=== PATIENT | female | born 1950 | race Caucasian/White ===

== ENCOUNTER → 2016-12-23 | Outpatient (CLI) | payer MEDICARE, OTHER ==
[~2016-12-23] VITALS: Ht 160 cm; Wt 92.5 kg
[~2016-12-23] MED LIST: ASCO25TA PO; ASPI1TAB PO; ATEN50TA2 PO; CLAR10CA3 PO; COQ1100C PO; CURCPOW PO; ELIQ5TAB PO; ESTR625TA PO; ESTR62CR PV; EVEN1000 PO; FISH5CAP PO; FLAX1200 PO; FLON1SPR; GABA300C3 PO; HYOS0.374 PO; ICAPTAB8 PO; L-CA500C2 PO; LIDOCAINE 2% INJ 100 MG/5 ML SDV (FOR ANES.) As Ordered ONE; LUTEIN ZEAXANTHIN PO; LYCO10CA PO; MAGN250T3 PO; MODA100T13 PO; MULTCAP PO; NIAC10TAB PO; PANT40TA2 PO; POTA99TA PO; PROPOFOL 200 MG/20 ML VIAL As Ordered ONE; SELE200T20 PO; SIMV20TA2 PO; SUCR1TA PO; TOPA50TA7 PO; TORS5TAB2 PO; TRAZ50TA4 PO; TURM500C PO; VITA-171 PO; VITMTA PO; primrose oil PO; provigil PO
--- NOTE | 2016-12-23 14:03 | ROOR ---
Patient Name: Dolly Quinteros Procedure Date: 12/23/2016 1:52 PM Date of : 1950 Age: 66 Room: [facility] Gender: Female Note Status: Finalized Procedure: Upper GI endoscopy Indications: Heartburn Providers: Hermann BOUDREAUX MD Referring MD: Magali Brown NP Requesting Provider: Medicines: Monitored Anesthesia Care Complications: No immediate complications. Procedure: Pre-Anesthesia Assessment: - The heart rate, respiratory rate, oxygen saturations, blood pressure, adequacy of pulmonary ventilation, and response to care were monitored throughout the procedure. The Endoscope was introduced through the mouth, and advanced to the second part of duodenum. The upper GI endoscopy was accomplished without difficulty. The patient tolerated the procedure well. Findings: The esophagus was normal. The stomach was normal. The examined duodenum was normal. Impression: - Normal esophagus. - Normal stomach. - Normal examined duodenum. - No specimens collected. Recommendation: - Continue present medications. Hermann Boudreaux MD Hermann BOUDREAUX MD 12/23/2016 2:02:33 PM This report has been signed electronically. Number of Addenda: 0 Note Initiated On: 12/23/2016 1:52 PM Estimated Blood Loss: Estimated blood loss: none.
--- NOTE | 2016-12-23 14:21 | ROOR ---
Patient Name: Dolly Quinteros Procedure Date: 12/23/2016 1:53 PM Date of : 1950 Age: 66 Room: [facility] Gender: Female Note Status: Finalized Procedure: Colonoscopy Indications: High risk colon cancer surveillance: Personal history of colonic polyps, Last colonoscopy: December 2015, Incidental change in bowel habits noted, fecal smearing/incontinence. Providers: Hermann BOUDREAUX MD Referring MD: Magali Brown NP Requesting Provider: Medicines: Monitored Anesthesia Care Complications: No immediate complications. Procedure: Pre-Anesthesia Assessment: - The heart rate, respiratory rate, oxygen saturations, blood pressure, adequacy of pulmonary ventilation, and response to care were monitored throughout the procedure. The Colonoscope was introduced through the anus and advanced to the cecum, identified by appendiceal orifice and ileocecal valve. The colonoscopy was performed without difficulty. The patient tolerated the procedure well. The quality of the bowel preparation was good. Findings: The perianal and digital rectal examinations were normal. Pertinent negatives include no palpable rectal lesions. (Exam: Complete, Prep: Good or Excellent.) Multiple medium-mouthed diverticula were found in the sigmoid colon. There was evidence of diverticular spasm. The colon (entire examined portion) appeared normal. Small Internal Hemorrhoids. Impression: - (Exam: Complete, Prep: Good or Excellent.) - Diverticulosis in the sigmoid colon. - The entire examined colon is normal. - Small Internal Hemorrhoids. - No specimens collected. Recommendation: - Repeat colonoscopy in 5 years for surveillance based on personal history of previous adenomatous polyps. - I suspect nocturnal fecal incontinence is related to a degree of constipation/ incomplete emptying/overflow symptoms. I will start you on Linzess 290 mg daily to promote bowel emptying during the day (I would expect resolution of your nocturnal symptoms). Script was sent to your pharmacy. Hermann Boudreaux MD Hermann BOUDREAUX MD 12/23/2016 2:21:14 PM This report has been signed electronically. Number of Addenda: 0 Note Initiated On: 12/23/2016 1:53 PM Estimated Blood Loss: Estimated blood loss: none.
[2016-12-23 14:40] VITALS: BP 134/74
== END ==
LOC: M OPP 12:49
PROVIDERS: ATTEND Internal Medicine Gastroenterology
DX: R19.4 Change in bowel habit (principal); K57.30 Diverticulosis of large intestine without perforation or abscess without bleeding; K64.0 First degree hemorrhoids; R15.1 Fecal smearing; Z86.010 Personal history of colon polyps; R12 Heartburn; I10 Essential (primary) hypertension; E78.5 Hyperlipidemia, unspecified; I48.91 Unspecified atrial fibrillation; R60.9 Edema, unspecified; R06.83 Snoring; M19.90 Unspecified osteoarthritis, unspecified site; D16.6 Benign neoplasm of vertebral column; G47.30 Sleep apnea, unspecified; I27.9 Pulmonary heart disease, unspecified; F41.9 Anxiety disorder, unspecified; F32.9 Major depressive disorder, single episode, unspecified; G43.909 Migraine, unspecified, not intractable, without status migrainosus; Z88.8 Allergy status to other drugs, medicaments and biological substances; Z91.040 Latex allergy status; Z88.0 Allergy status to penicillin; Z88.2 Allergy status to sulfonamides; Z88.1 Allergy status to other antibiotic agents; Z88.5 Allergy status to narcotic agent; Z80.0 Family history of malignant neoplasm of digestive organs; Z79.01 Long term (current) use of anticoagulants; Z79.899 Other long term (current) drug therapy

== ENCOUNTER → 2017-02-13 | Outpatient (CLI) | payer MEDICARE, OTHER ==
[~2017-02-13] MED LIST changes: -LIDOCAINE 2% INJ 100 MG/5 ML SDV (FOR ANES.) As Ordered ONE; -PROPOFOL 200 MG/20 ML VIAL As Ordered ONE
[2017-02-13 17:13] LABS: MEAN CORPUSCULAR HEMOGLOBIN 30.5 pg (27.0-33.0); MEAN CORPUSCULAR HGB CONC 32.6 g/dl (32.0-36.5); MEAN CORPUSCULAR VOLUME 93.4 fl (80.0-96.0); RED CELL DISTRIBUTION WIDTH 12.2 % (11.5-14.5); WHITE BLOOD COUNT 5.6 K/mm3 (4.0-10.0)
[2017-02-13 18:03] LABS: ALBUMIN 3.8 GM/DL (3.2-5.2); ALBUMIN/GLOBULIN RATIO 1.46 (1.00-1.93); ALKALINE PHOSPHATASE 60 U/L (45-117); ALT/SGPT 20 U/L (12-78); ANION GAP 7 MEQ/L (8-16); AST/SGOT 16 U/L (15-37); BILIRUBIN,TOTAL 0.7 MG/DL (0.2-1.0); BLOOD UREA NITROGEN 19 MG/DL (7-18); CALCIUM LEVEL 9.5 MG/DL (8.8-10.2); CARBON DIOXIDE LEVEL 27 MEQ/L (21-32); CHLORIDE LEVEL 109 MEQ/L (98-107); CHOLESTEROL LEVEL 180 MG/DL (<200); CREATININE FOR GFR 0.94 MG/DL (0.55-1.02); GLOMERULAR FILTRATION RATE > 60.0 (>45); GLUCOSE, FASTING 81 MG/DL (80-110); POTASSIUM SERUM 4.1 MEQ/L (3.5-5.1); SODIUM LEVEL 143 MEQ/L (136-145); TOTAL PROTEIN 6.4 GM/DL (6.4-8.2); TRIGLYCERIDES LEVEL 176 MG/DL (<150)
[2017-02-15 10:33] LABS: VITAMIN B12 LEVEL 450 PG/ML (247-911)
== END ==
LOC: M WUC 12:59
PROVIDERS: ATTEND Nurse Practitioner Adult Health
DX: Z00.00 Encounter for general adult medical examination without abnormal findings (principal); E55.9 Vitamin D deficiency, unspecified; E78.5 Hyperlipidemia, unspecified

== ENCOUNTER → 2017-07-27 | Outpatient (CLI) | payer MEDICARE, OTHER ==
[~2017-07-27] MED LIST changes: +GABA-282 PO; -GABA300C3 PO; -TOPA50TA7 PO; +TOPA50TA8 PO; +TRAZ50TA11 PO; -TRAZ50TA4 PO
--- NOTE | 2017-07-27 09:50 | REPMRS ---
Patient History The patient states she had a clinical breast exam in 07/2017. Patient is postmenopausal and has history of high-risk lesion on a previous biopsy at age 63. Family history of colorectal cancer in paternal aunt at age 50 or over and prostate cancer in brother at age 50 or over. Taking estrogen for 14 years. Digital Woman Screen Mammo: July 27, 2017 - Exam #: [id number] Bilateral CC and MLO view(s) were taken. Technologist: Blanca Garza, Technologist Prior study comparison: July 18, 2016, digital woman screen mammo performed at [facility] [employer] [facility]. July 16, 2015, digital woman screen mammo performed at [facility]. July 15, 2014, digital woman screen mammo performed at [facility] [employer] [facility]. FINDINGS: The breast tissue is almost entirely fat. There has been no change in the appearance of the mammogram from the prior studies. There is no interval development of dominant mass, architectural distortion, or clustered microcalcification typical of malignancy. ASSESSMENT: BI-RADS/ACR category 1 mammogram. Negative. Recommendation Routine screening mammogram of both breasts in 1 year (for women over age 40). This mammogram was interpreted with the aid of an FDA-approved computer-aided dectection system. Electronically Signed By: Milad Bell MD 07/27/17 0979
== END ==
LOC: M WHC 08:55
PROVIDERS: ATTEND Nurse Practitioner Women's Health
DX: Z01.419 Encounter for gynecological examination (general) (routine) without abnormal findings (principal); Z12.31 Encounter for screening mammogram for malignant neoplasm of breast; E65 Localized adiposity; Z78.0 Asymptomatic menopausal state; Z79.890 Hormone replacement therapy; Z90.710 Acquired absence of both cervix and uterus; Z90.722 Acquired absence of ovaries, bilateral; N80.9 Endometriosis, unspecified; N95.2 Postmenopausal atrophic vaginitis
CPT/HCPCS: G0101; G0202

== ENCOUNTER → 2017-10-11 | Outpatient (CLI) | payer MEDICARE, OTHER ==
[2017-10-11 13:44] LABS: MEAN CORPUSCULAR HEMOGLOBIN 30.1 pg (27.0-33.0); MEAN CORPUSCULAR HGB CONC 32.3 g/dl (32.0-36.5); MEAN CORPUSCULAR VOLUME 93.2 fl (80.0-96.0); PLATELET COUNT, AUTOMATED 199 10^3/uL (150-450); RED CELL DISTRIBUTION WIDTH 12.3 % (11.5-14.5); WHITE BLOOD COUNT 5.7 10^3/uL (4.0-10.0)
[2017-10-11 13:47] LABS: ALBUMIN 3.8 GM/DL (3.2-5.2); ALBUMIN/GLOBULIN RATIO 1.52 (1.00-1.93); ALKALINE PHOSPHATASE 57 U/L (45-117); ALT/SGPT 27 U/L (12-78); ANION GAP 7 MEQ/L (8-16); AST/SGOT 18 U/L (7-37); BILIRUBIN,TOTAL 0.8 MG/DL (0.2-1.0); BLOOD UREA NITROGEN 17 MG/DL (7-18); CALCIUM LEVEL 9.3 MG/DL (8.8-10.2); CARBON DIOXIDE LEVEL 29 MEQ/L (21-32); CHLORIDE LEVEL 106 MEQ/L (98-107); CHOLESTEROL LEVEL 210 MG/DL (<200); GLOMERULAR FILTRATION RATE > 60.0 (>45); GLUCOSE, FASTING 92 MG/DL (80-110); POTASSIUM SERUM 4.2 MEQ/L (3.5-5.1); SODIUM LEVEL 142 MEQ/L (136-145); TOTAL PROTEIN 6.3 GM/DL (6.4-8.2); TRIGLYCERIDES LEVEL 167 MG/DL (<150)
== END ==
LOC: M WUC 09:15
PROVIDERS: ATTEND Nurse Practitioner Adult Health
DX: I48.91 Unspecified atrial fibrillation (principal); I10 Essential (primary) hypertension; E78.5 Hyperlipidemia, unspecified; E55.9 Vitamin D deficiency, unspecified

== ENCOUNTER → 2017-11-30 | Outpatient (CLI) | payer MEDICARE, OTHER | LOC: M RAD 10:29 | DX: I87.2 Venous insufficiency (chronic) (peripheral) (principal) | CPT/HCPCS: 93970 ==

== ENCOUNTER → 2018-02-02 | Outpatient (CLI) | payer MEDICARE, OTHER ==
[2018-02-02 12:21] LABS: HEMATOCRIT 44.2 % (36.0-47.0); HEMOGLOBIN 14.4 g/dl (12.0-16.0); MEAN CORPUSCULAR HEMOGLOBIN 30.8 pg (27.0-33.0); MEAN CORPUSCULAR HGB CONC 32.6 g/dl (32.0-36.5); MEAN CORPUSCULAR VOLUME 94.4 fl (80.0-96.0); PLATELET COUNT, AUTOMATED 172 10^3/uL (150-450); RED BLOOD COUNT 4.68 10^6/uL (4.00-5.40); RED CELL DISTRIBUTION WIDTH 12.7 % (11.5-14.5); WHITE BLOOD COUNT 5.9 10^3/uL (4.0-10.0)
[2018-02-02 12:40] LABS: ALBUMIN 3.6 GM/DL (3.2-5.2); ALBUMIN/GLOBULIN RATIO 1.44 (1.00-1.93); ALKALINE PHOSPHATASE 57 U/L (45-117); ALT/SGPT 26 U/L (12-78); ANION GAP 6 MEQ/L (8-16); AST/SGOT 16 U/L (7-37); BILIRUBIN,TOTAL 0.7 MG/DL (0.2-1.0); BLOOD UREA NITROGEN 19 MG/DL (7-18); CALCIUM LEVEL 9.3 MG/DL (8.8-10.2); CARBON DIOXIDE LEVEL 30 MEQ/L (21-32); CHLORIDE LEVEL 106 MEQ/L (98-107); CHOLESTEROL LEVEL 196 MG/DL (<200); CHOLESTEROL RISK RATIO 5.764 (<5); CREATININE FOR GFR 0.87 MG/DL (0.55-1.30); GLOMERULAR FILTRATION RATE > 60.0 (>45); GLUCOSE, FASTING 95 MG/DL (70-100); HDL CHOLESTEROL 34 MG/DL (>40); LDL CHOLESTEROL 112.2 MG/DL (<100); NON-HDL-C 162 MG/DL; POTASSIUM SERUM 4.4 MEQ/L (3.5-5.1); SODIUM LEVEL 142 MEQ/L (136-145); TOTAL 25(OH) VITAMIN D 47.8 NG/ML (30.0-100.0); TOTAL PROTEIN 6.1 GM/DL (6.4-8.2); TRIGLYCERIDES LEVEL 249 MG/DL (<150)
== END ==
LOC: M WUC 08:33
DX: I48.91 Unspecified atrial fibrillation (principal); I10 Essential (primary) hypertension; E78.5 Hyperlipidemia, unspecified; E55.9 Vitamin D deficiency, unspecified
CPT/HCPCS: 80053

== ENCOUNTER → 2018-04-18 | Outpatient (REF) | payer MEDICARE, OTHER | LOC: M LAB REF 09:25 | DX: R35.0 Frequency of micturition (principal) | CPT/HCPCS: 87088; 87186 ==

== ENCOUNTER → 2018-07-30 | Outpatient (CLI) | payer MEDICARE, OTHER | LOC: M WHC 09:24 | DX: Z01.419 Encounter for gynecological examination (general) (routine) without abnormal findings (principal); Z12.31 Encounter for screening mammogram for malignant neoplasm of breast; Z78.0 Asymptomatic menopausal state; Z92.23 Personal history of estrogen therapy | CPT/HCPCS: 77067 ==

== ENCOUNTER → 2018-10-15 | Outpatient (CLI) | payer MEDICARE, OTHER ==
[2018-10-15 12:43] LABS: BASO % 0.6 % (0.0-1.0); EOS # 0.1 10^3/uL (0.0-0.50); EOS % 2.7 % (0.0-3.0); HEMATOCRIT 44.1 % (36.0-47.0); HEMOGLOBIN 14.5 g/dl (12.0-15.5); IMMATURE GRANULOCYTE % 0.6 % (0-3.0); LYMPH # 1.6 10^3/uL (1.5-4.5); LYMPH % 31.6 % (24.0-44.0); MEAN CORPUSCULAR HEMOGLOBIN 30.5 pg (27.0-33.0); MEAN CORPUSCULAR HGB CONC 32.9 g/dl (32.0-36.5); MEAN CORPUSCULAR VOLUME 92.6 fl (80.0-96.0); MONO # 0.5 10^3/uL (0.0-0.8); MONO % 10.4 % (0.0-5.0); NEUTROPHILS # 2.8 10^3/uL (1.8-7.7); NEUTROPHILS % 54.1 % (36.0-66.0); PLATELET COUNT, AUTOMATED 192 10^3/uL (150-450); RED BLOOD COUNT 4.76 10^6/uL (4.00-5.40); RED CELL DISTRIBUTION WIDTH 12.3 % (11.5-14.5); WHITE BLOOD COUNT 5.2 10^3/uL (4.0-10.0)
[2018-10-15 12:50] LABS: ALBUMIN 3.7 GM/DL (3.2-5.2); ALBUMIN/GLOBULIN RATIO 1.42 (1.00-1.93); ALKALINE PHOSPHATASE 55 U/L (45-117); ALT/SGPT 22 U/L (12-78); ANION GAP 5 MEQ/L (8-16); AST/SGOT 16 U/L (7-37); BILIRUBIN,TOTAL 0.6 MG/DL (0.2-1.0); BLOOD UREA NITROGEN 23 MG/DL (7-18); CALCIUM LEVEL 9.7 MG/DL (8.8-10.2); CARBON DIOXIDE LEVEL 29 MEQ/L (21-32); CHLORIDE LEVEL 104 MEQ/L (98-107); CHOLESTEROL LEVEL 217 MG/DL (<200); CHOLESTEROL RISK RATIO 6.027 (<5); CREATININE FOR GFR 0.99 MG/DL (0.55-1.30); GLOMERULAR FILTRATION RATE 59.2 (>45); GLUCOSE, FASTING 94 MG/DL (70-100); HDL CHOLESTEROL 36 MG/DL (>40); LDL CHOLESTEROL 125 MG/DL (<100); NON-HDL-C 181 MG/DL; POTASSIUM SERUM 4.4 MEQ/L (3.5-5.1); SODIUM LEVEL 138 MEQ/L (136-145); TOTAL PROTEIN 6.3 GM/DL (6.4-8.2); TRIGLYCERIDES LEVEL 281 MG/DL (<150)
== END ==
LOC: M WUC 08:43
DX: I10 Essential (primary) hypertension (principal)
CPT/HCPCS: 80053

== ENCOUNTER → 2019-02-27 | Outpatient (REF) | payer MEDICARE, OTHER ==
[~2019-02-27] MED LIST changes: -ASCO25TA PO; -ASPI1TAB PO; +ASPI81TA26 PO; -GABA-282 PO; +GABA-843 PO; -PANT40TA2 PO; +PANT40TA3 PO; +TRAZ-160 PO; -TRAZ50TA11 PO; +VITA1TAB23 PO
[2019-02-27 10:39] LABS: HEMATOCRIT 48.6 % (36.0-47.0); HEMOGLOBIN 15.5 g/dl (12.0-15.5); MEAN CORPUSCULAR HEMOGLOBIN 30.3 pg (27.0-33.0); MEAN CORPUSCULAR HGB CONC 31.9 g/dl (32.0-36.5); MEAN CORPUSCULAR VOLUME 95.1 fl (80.0-96.0); PLATELET COUNT, AUTOMATED 213 10^3/uL (150-450); RED BLOOD COUNT 5.11 10^6/uL (4.00-5.40); WHITE BLOOD COUNT 7.2 10^3/uL (4.0-10.0)
[2019-02-27 11:02] LABS: HEMOGLOBIN A1c 5.7 %
[2019-02-27 11:05] LABS: ALBUMIN 4.3 GM/DL (3.2-5.2); BILIRUBIN,TOTAL 0.8 MG/DL (0.2-1.0); CALCIUM LEVEL 9.9 MG/DL (8.8-10.2); CHOLESTEROL RISK RATIO 5.177 (<5); GLOMERULAR FILTRATION RATE 58.5 (>45); POTASSIUM SERUM 4.4 MEQ/L (3.5-5.1)
[2019-02-27 11:10] LABS: TOTAL 25(OH) VITAMIN D 44.8 NG/ML (30.0-100.0)
== END ==
LOC: M SFHCPLAZ 08:41
PROVIDERS: ATTEND Nurse Practitioner Adult Health
DX: Z00.00 Encounter for general adult medical examination without abnormal findings (principal); E78.5 Hyperlipidemia, unspecified; I48.91 Unspecified atrial fibrillation; E55.9 Vitamin D deficiency, unspecified

== ENCOUNTER → 2019-04-01 | Outpatient (REF) | payer MEDICARE, OTHER ==
[~2019-04-01] MED LIST changes: +PEGPOW; +PRAV40TA2; +TRAZ-163; +VITAD1000T PO
== END ==
LOC: M LAB REF 16:00
PROVIDERS: ATTEND Nurse Practitioner Family
DX: R21 Rash and other nonspecific skin eruption (principal); L08.9 Local infection of the skin and subcutaneous tissue, unspecified

== ENCOUNTER 2019-04-09 17:33 | Emergency (ER) | payer MEDICARE, OTHER ==
[~2019-04-09] VITALS: Ht 160 cm; Wt 96.5 kg
[~2019-04-09 17:33] MED LIST changes: -PEGPOW; -PRAV40TA2; -TRAZ-163; -VITAD1000T PO
--- NOTE | 2019-04-09 18:24 | REP ---
Chest two views HISTORY: Chest pain Comparison: 01/30/2016 The lungs are clear. The heart is normal in size. The pulmonary vasculature is normal in appearance. The bony structure is intact. IMPRESSION: No acute disease. Electronically Signed by Richard Garcia MD 04/09/2019 06:15 P
[2019-04-09 18:45] LABS: BASO % 0.6 % (0.0-1.0); EOS # 0.2 10^3/uL (0.0-0.50); EOS % 2.4 % (0.0-3.0); HEMATOCRIT 42.5 % (36.0-47.0); HEMOGLOBIN 14.1 g/dl (12.0-15.5); LYMPH % 28.8 % (24.0-44.0); MEAN CORPUSCULAR HEMOGLOBIN 31.3 pg (27.0-33.0); MEAN CORPUSCULAR HGB CONC 33.2 g/dl (32.0-36.5); MEAN CORPUSCULAR VOLUME 94.2 fl (80.0-96.0); MONO # 0.6 10^3/uL (0.0-0.8); MONO % 8.5 % (0.0-5.0); NEUTROPHILS % 59.3 % (36.0-66.0); PLATELET COUNT, AUTOMATED 192 10^3/uL (150-450); RED BLOOD COUNT 4.51 10^6/uL (4.00-5.40); WHITE BLOOD COUNT 6.8 10^3/uL (4.0-10.0)
[2019-04-09] MEDS ORDERED: VITAD1000T PO (18:58)
[2019-04-09] MEDS ORDERED: TRAZ-163 (18:58)
[2019-04-09] MEDS ORDERED: PRAV40TA2 (18:58)
[2019-04-09] MEDS ORDERED: CLAR10CA3 PO (18:58)
[2019-04-09] MEDS ORDERED: ESTR625TA PO (18:58)
[2019-04-09] MEDS ORDERED: PEGPOW (18:58)
[2019-04-09 19:13] LABS: ALBUMIN 3.5 GM/DL (3.2-5.2); ALT/SGPT 25 U/L (12-78); BILIRUBIN,DIRECT 0.1 MG/DL (0.0-0.2); BILIRUBIN,TOTAL 0.6 MG/DL (0.2-1.0); BLOOD UREA NITROGEN 23 MG/DL (7-18); CALCIUM LEVEL 9.3 MG/DL (8.8-10.2); CARBON DIOXIDE LEVEL 25 MEQ/L (21-32); CHLORIDE LEVEL 108 MEQ/L (98-107); CPK CREATINE PHOSPHOKINASE 120 U/L (26-192); CREATININE FOR GFR 1.06 MG/DL (0.55-1.30); FREE T4 0.93 NG/DL (0.76-1.46); GLOMERULAR FILTRATION RATE 54.7 (>45); GLUCOSE, FASTING 98 MG/DL (70-100); LIPASE 106 U/L (73-393); MB/CK RELATIVE INDEX 2.58 (< OR =4); POTASSIUM SERUM 4.2 MEQ/L (3.5-5.1); SODIUM LEVEL 142 MEQ/L (136-145); TROPONIN I < 0.02 NG/ML (< 0.10)
[2019-04-09 19:14] LABS: INR 0.95; PROTHROMBIN TIME 12.8 SECONDS (12.1-14.4)
[2019-04-09 19:15] LABS: PARTIAL THROMBOPLASTIN TIME 34.3 SECONDS (25.4-37.6)
--- NOTE | 2019-04-09 20:18 | ECGEPIP ---
[facility] - ED Test Date: 2019-04-09 Pat Name: GALILEA DAWSON Department: Room: - Gender: Female Mat Gauger: CT : 1950 Requested By: HOLLY Han Order Number: [id number] Reading MD: Raul Rider Measurements Intervals [place] Rate: 64 P: 36 [place]: 171 QRS: 30 QRSD: 86 T: 54 QT: 366 QTc: 379 Interpretive Statements SINUS RHYTHM WITH SINUS ARRHYTHMIA NONSPECIFIC T-WAVE ABNORMALITY SIMILAR TO 01/30/16 Electronically Signed on 04-09-2019 20:18 EDT by Napoleon Rider
[2019-04-09 21:36] LABS: CPK CREATINE PHOSPHOKINASE 120 U/L (26-192); MB/CK RELATIVE INDEX 2.58 (< OR =4); TROPONIN I < 0.02 NG/ML (< 0.10)
[2019-04-09 21:49] VITALS: BP 124/60
--- NOTE | 2019-04-10 06:14 | ECGEPIP ---
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
== END 2019-04-09 22:10 | disposition home or self-care (01) ==
LOC: M ED 17:33
DX: R07.89 Other chest pain (principal); I49.8 Other specified cardiac arrhythmias; R94.31 Abnormal electrocardiogram [ECG] [EKG]; K21.9 Gastro-esophageal reflux disease without esophagitis; Z79.899 Other long term (current) drug therapy; Z88.0 Allergy status to penicillin; Z88.1 Allergy status to other antibiotic agents; Z88.2 Allergy status to sulfonamides; Z88.5 Allergy status to narcotic agent; Z88.8 Allergy status to other drugs, medicaments and biological substances

== ENCOUNTER → 2019-05-09 | Outpatient (CLI) | payer MEDICARE, OTHER ==
[~2019-05-09] MED LIST changes: +E-Z-GAS II EFFERVESCENT PACKET (SODIUM BICARB./CITRIC ACID/SIMETHICONE) As Ordered ONE; +E-Z-HD 98% w/w 340GM SUSP BTL As Ordered ONE; +E-Z-PAQUE 96% w/w SUSP 176GM BTL As Ordered ONE; +PEGPOW; +PRAV40TA2; -TRAZ-160 PO; +TRAZ-163; +TRAZ-252 PO; +VITAD1000T PO
--- NOTE | 2019-05-11 11:54 | REP ---
Upper GI Air Contrast with SBFT The procedure was performed by Christiana Magallon [facility], under the the direct supervision of Dr. Camacho. The images were reviewed with Dr. Camacho. The stoner out film shows no organomegaly or pathological masses. The intestinal gas pattern appears normal. Surgical clips are visualized from previous surgery. Liquid barium and gas producing crystals were given in the erect position as well as liquid barium in the prone position in order to perform a double contrast upper GI examination. The oral and pharyngeal stages of deglutition demonstrated flash penetration without aspiration. Esophageal transport is efficient and there is no esophagitis, stricture, or mucosal ring noted. There is a hiatal hernia. Gastroesophageal reflux was not observed throughout the course of the exam. The stomach saenz are normally outlined. The rugal folds are smooth and regular. There is no gastritis, neoplasm, or ulcer disease noted. The duodenal saenz are normally outlined. The mucosal folds are smooth and regular. There is no duodenitis, peptic ulcer disease, or neoplasm noted. The visualized portion of the proximal small bowel appears normal in course and caliber. The barium column was followed through the small bowel to the terminal ileum. Small bowel transit time was approximately 80 minutes. During fluoroscopy gentle palpation shows all loops are freely mobile and pliable. There are no fixed or angulated loops. The small bowel mucosal pattern is normal in course and caliber. There is no transition to suggest a partial small-bowel obstruction. Spot filming of the terminal ileum shows it to be unremarkable. Impression: 1. Laryngeal flash penetration without aspiration. 2. Hiatal hernia. 3.4 minutes of fluoroscopy time was utilized for this procedure. Some fluoroscopic images are performed with last image hold technology. These images require no additional radiation. Reviewed by TJ Solo 05/10/2019 12:54 P Electronically Signed by Rufino Camacho MD 05/11/2019 11:46 A
== END ==
LOC: M RAD 09:27
PROVIDERS: ATTEND Physician Assistant Medical
DX: K44.9 Diaphragmatic hernia without obstruction or gangrene (principal); R10.10 Upper abdominal pain, unspecified; R12 Heartburn; R19.8 Other specified symptoms and signs involving the digestive system and abdomen; Z90.49 Acquired absence of other specified parts of digestive tract

== ENCOUNTER → 2019-07-24 | Outpatient (CLI) | payer MEDICARE, OTHER ==
[~2019-07-24] MED LIST changes: -E-Z-GAS II EFFERVESCENT PACKET (SODIUM BICARB./CITRIC ACID/SIMETHICONE) As Ordered ONE; -E-Z-HD 98% w/w 340GM SUSP BTL As Ordered ONE; -E-Z-PAQUE 96% w/w SUSP 176GM BTL As Ordered ONE
--- NOTE | 2019-07-24 10:39 | REPMRS ---
Patient History The patient states she had a clinical breast exam in 07/2019. Patient is postmenopausal and has history of high-risk lesion on a previous biopsy at age 63. Family history of prostate cancer at age 50 or over in brother, colorectal cancer at age 50 or over in paternal aunt. Took estrogen for 25 years. 3D TOMOSYNTHESIS WAS PERFORMED. The [facility] lifetime risk for breast cancer is 3.6%. Digital Woman Screen Mammo: July 24, 2019 - Exam #: [id number] Bilateral CC and MLO view(s) were taken. Technologist: Keshia Estrada Technologist Prior study comparison: July 30, 2018, bilateral digital woman screen mammo performed at [facility]. July 27, 2017, digital woman screen mammo performed at [facility]. FINDINGS: There are scattered fibroglandular densities. There has been no change in the appearance of the mammogram from the prior studies. There is a mild amount of residual fibroglandular tissue which is fairly symmetric. There is no interval development of dominant mass, architectural distortion, or clustered microcalcification suggestive of malignancy. Assessment: BI-RADS/ACR category 1 mammogram. Negative Mammogram. Recommendation Routine screening mammogram in 1 year (for women over age 40). This mammogram was interpreted with the aid of an FDA-approved computer-aided dectection system. Electronically Signed By: Rufino Spence MD 07/24/19 1038
== END ==
LOC: M WHC 09:07
PROVIDERS: ATTEND Nurse Practitioner Women's Health
DX: Z12.31 Encounter for screening mammogram for malignant neoplasm of breast (principal); Z78.0 Asymptomatic menopausal state; Z80.42 Family history of malignant neoplasm of prostate; Z92.23 Personal history of estrogen therapy
CPT/HCPCS: 77063; 77067; G0463

== ENCOUNTER → 2019-09-02 | Outpatient (REF) | payer MEDICARE, OTHER ==
[~2019-09-02] MED LIST changes: +CHOL100029 PO; -VITAD1000T PO
[2019-09-02 13:39] LABS: ALBUMIN 3.8 GM/DL (3.2-5.2); ALT/SGPT 20 U/L (12-78); BILIRUBIN,TOTAL 0.7 MG/DL (0.2-1.0); BLOOD UREA NITROGEN 19 MG/DL (7-18); CALCIUM LEVEL 9.7 MG/DL (8.8-10.2); CARBON DIOXIDE LEVEL 27 MEQ/L (21-32); CHLORIDE LEVEL 108 MEQ/L (98-107); CHOLESTEROL LEVEL 167 MG/DL (<200); CHOLESTEROL RISK RATIO 4.073 (<5); GLOMERULAR FILTRATION RATE > 60.0 (>45); GLUCOSE, FASTING 87 MG/DL (70-100); HDL CHOLESTEROL 41 MG/DL (>40); LDL CHOLESTEROL 81 MG/DL (<100); NON-HDL-C 126 MG/DL; POTASSIUM SERUM 4.2 MEQ/L (3.5-5.1); SODIUM LEVEL 140 MEQ/L (136-145); TOTAL 25(OH) VITAMIN D 47.2 NG/ML (30.0-100.0); TOTAL PROTEIN 6.5 GM/DL (6.4-8.2); TRIGLYCERIDES LEVEL 225 MG/DL (<150)
== END ==
LOC: M SFHCPLAZ 10:47
PROVIDERS: ATTEND Nurse Practitioner Adult Health
DX: I10 Essential (primary) hypertension (principal); E55.9 Vitamin D deficiency, unspecified; E78.5 Hyperlipidemia, unspecified; I48.91 Unspecified atrial fibrillation
CPT/HCPCS: 36415; 80053; 80061; 82306; 83735; 84443; G0463

== ENCOUNTER → 2019-10-11 | Outpatient (REF) | payer MEDICARE, OTHER ==
[2019-10-11 16:15] LABS: HEMATOCRIT 42.9 % (36.0-47.0); HEMOGLOBIN 13.8 g/dl (12.0-15.5); MEAN CORPUSCULAR HEMOGLOBIN 30.8 pg (27.0-33.0); MEAN CORPUSCULAR HGB CONC 32.2 g/dl (32.0-36.5); MEAN CORPUSCULAR VOLUME 95.8 fl (80.0-96.0); PLATELET COUNT, AUTOMATED 204 10^3/uL (150-450); RED BLOOD COUNT 4.48 10^6/uL (4.00-5.40); WHITE BLOOD COUNT 6.1 10^3/uL (4.0-10.0)
== END ==
LOC: M LABDRAW1 15:41
PROVIDERS: ATTEND Physician Assistant Medical
DX: K62.5 Hemorrhage of anus and rectum (principal)

== ENCOUNTER → 2019-12-30 | Outpatient (CLI) | payer MEDICARE, OTHER ==
[~2019-12-30] MED LIST changes: +METH4PACK PO; +ONDA4TAB6 PO; +ROSU20TA5 PO; -SIMV20TA2 PO; +SIMV20TA22 PO; -TRAZ-163; +TRAZ-257
[2019-12-30 14:44] LABS: BLOOD UREA NITROGEN 20 MG/DL (7-18); CREATININE FOR GFR 0.94 MG/DL (0.55-1.30); GLOMERULAR FILTRATION RATE > 60.0 (>39)
== END ==
LOC: M WUC 10:34
PROVIDERS: ATTEND Physician Assistant Medical
DX: R10.10 Upper abdominal pain, unspecified (principal)

== ENCOUNTER → 2020-01-27 | Outpatient (CLI) | payer MEDICARE, OTHER ==
[2020-01-27 17:06] LABS: BLOOD UREA NITROGEN 17 MG/DL (7-18); GLOMERULAR FILTRATION RATE > 60.0 (>39)
== END ==
LOC: M WUC 10:26
PROVIDERS: ATTEND Physician Assistant Medical
DX: R10.10 Upper abdominal pain, unspecified (principal)

== ENCOUNTER → 2020-06-04 | Outpatient (REF) | payer MEDICARE, OTHER ==
[2020-06-04 16:31] LABS: CALCIUM LEVEL 9.7 MG/DL (8.8-10.2); CREATININE FOR GFR 1.07 MG/DL (0.55-1.30); POTASSIUM SERUM 4.1 MEQ/L (3.5-5.1)
[2020-06-04 16:32] LABS: ALBUMIN 3.9 GM/DL (3.2-5.2); CHOLESTEROL RISK RATIO 3.756 (<5); THYROID STIMULATING HORMONE 1.24 uIU/ML (0.358-3.740); TOTAL PROTEIN 6.8 GM/DL (6.4-8.2)
[2020-06-04 16:45] LABS: TOTAL 25(OH) VITAMIN D 33.7 NG/ML (30.0-100.0)
== END ==
LOC: M SFHCPLAZ 14:16
PROVIDERS: ATTEND Nurse Practitioner Adult Health
DX: I10 Essential (primary) hypertension (principal); E78.5 Hyperlipidemia, unspecified; E55.9 Vitamin D deficiency, unspecified

== ENCOUNTER → 2020-07-16 | Outpatient (CLI) | payer MEDICARE, OTHER ==
[~2020-07-16] MED LIST changes: +ASCO250T20 PO; +CO Q200C10 PO; +D3 S1CAP PO; +FLON1SPR NARES; +HM P99TA PO; +ICAPTAB PO; +L-CA500T PO; +LYCO10CA3 PO; +MODA200T15 PO; -NIAC10TAB PO; +NIAC1TAB14 PO; +PANT40TA29 PO; -PANT40TA3 PO; +PRAV40TA2 PO; +QC A650T3 PO; +RA N1TAB PO; +REST0.05 OU; +SELE200T10 PO; +SENITAB3 PO; -TRAZ-257; +TRAZ-257 PO; -VITA1TAB23 PO
--- NOTE | 2020-08-04 17:41 | REP ---
DUPLEX EXTREMITY VENOUS ULTRASOUND WITH DOPPLER HISTORY: Venous insufficiency, reflux study. FINDINGS: There is no evidence of deep venous thrombosis on the right. The deep veins are anechoic and fully compressible. Color flow and pulsed Doppler interrogation are unremarkable on the right. On the left, there is no evidence of deep vein thrombosis. There is a short segment of occlusive thrombus in the proximal greater saphenous vein located 14 cm distal to the junction with the common femoral vein. 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 No evidence of deep vein thrombosis. REFLUX FINDINGS: The right lower extremity reflux is seen in the common femoral vein extending distally to the mid femoral vein and at the mid greater saphenous vein. At the mid greater saphenous vein reflux duration is 3.35 seconds. Reflux in the common femoral vein was seen with standing. The greater saphenous vein dimensions are 4.8, 4.3, and 4.2 mm respectively at the proximal saphenofemoral junction, mid thigh level, and knee level. The left saphenous vein diameter is 3.3 mm. On the left, reflux was seen only at the anterior accessory vein proximal to distal 3-5 seconds in duration. Small superficial collaterals are seen. As reported above, there is thrombus in the proximal greater saphenous vein, which was previously ablated. Lesser saphenous vein is 3.0 mm in diameter. IMPRESSION: Lower extremity venous reflux as above. MTDD
== END ==
LOC: M RAD 12:42
PROVIDERS: ATTEND Physician Assistant
DX: I87.2 Venous insufficiency (chronic) (peripheral) (principal)

== ENCOUNTER → 2020-07-28 | Outpatient (CLI) | payer MEDICARE, OTHER ==
--- NOTE | 2020-07-28 11:50 | REPMRS ---
Patient History The patient states she had a clinical breast exam in July 2020. Patient is postmenopausal. Family history of prostate cancer at age 50 or over in brother, colorectal cancer at age 50 or over in paternal aunt. Took estrogen for 25 years. 3D TOMOSYNTHESIS WAS PERFORMED. The [facility] lifetime risk for breast cancer is 3.4%. VOLPARA DENSITY A. Digital Woman Screen Mammo: July 28, 2020 - Exam #: [id number] Bilateral CC and MLO view(s) were taken. Technologist: Bev Michael, Technologist Prior study comparison: July 24, 2019, bilateral digital woman screen mammo performed at [facility]. July 30, 2018, bilateral digital woman screen mammo performed at [facility]. FINDINGS: There are scattered fibroglandular densities. There has been no change in the appearance of the mammogram from the prior studies. There is a mild amount of residual fibroglandular tissue which is fairly symmetric. There is no interval development of dominant mass, architectural distortion, or clustered microcalcification suggestive of malignancy. Assessment: BI-RADS/ACR category 1 mammogram. Negative Mammogram. Recommendation Routine screening mammogram in 1 year (for women over age 40). This mammogram was interpreted with the aid of an FDA-approved computer-aided dectection system. Electronically Signed By: Rufino Spence MD 07/28/20 [id number]
== END ==
LOC: M WHC 09:06
PROVIDERS: ATTEND Nurse Practitioner Women's Health
DX: Z12.31 Encounter for screening mammogram for malignant neoplasm of breast (principal); Z78.0 Asymptomatic menopausal state; Z80.42 Family history of malignant neoplasm of prostate; Z92.23 Personal history of estrogen therapy

== ENCOUNTER → 2020-08-05 | Outpatient (CLI) | payer MEDICARE, OTHER | LOC: M LABSMTC 11:11 | PROVIDERS: ATTEND Anesthesiology | DX: Z01.812 Encounter for preprocedural laboratory examination (principal); Z20.828 Contact with and (suspected) exposure to other viral communicable diseases | CPT/HCPCS: C9803; U0003 ==

== ENCOUNTER 2020-08-10 11:05 | Day surgery (SDC) | payer MEDICARE, OTHER ==
[~2020-08-10] VITALS: Ht 160 cm; Wt 95.6 kg
[~2020-08-10 11:05] MED LIST changes: +LIDOCAINE 2% 100MG/5ML SDV (FOR ANES.) As Ordered ONE; +NS 1,000 ML IV ONE; +propofoL 200 MG/20 ML VIAL As Ordered ONE
--- NOTE | 2020-08-10 12:44 | ROOR ---
Patient Name: Dolly Quinteros Procedure Date: 08/10/2020 12:27 PM Date of : 1950 Age: 69 Room: [facility] Gender: Female Note Status: Finalized Procedure: Upper GI endoscopy Indications: Abdominal pain, Heartburn Providers: Hermann BOUDREAUX MD Referring MD: Magali JACKSON NP Requesting Provider: Medicines: Monitored Anesthesia Care Complications: No immediate complications. Procedure: Pre-Anesthesia Assessment: - The heart rate, respiratory rate, oxygen saturations, blood pressure, adequacy of pulmonary ventilation, and response to care were monitored throughout the procedure. The Endoscope was introduced through the mouth, and advanced to the second part of duodenum. The upper GI endoscopy was accomplished without difficulty. The patient tolerated the procedure well. Findings: The examined esophagus was normal. Localized mild inflammation characterized by erythema was found in the gastric antrum. Biopsies were taken with a cold forceps for histology. The exam of the stomach was otherwise normal. The examined duodenum was normal. Impression: - Normal esophagus. - Mucosal changes suspicious for bile mild gastritis. Biopsied. - Normal examined duodenum. Recommendation: - Use sucralfate tablets 1 gram PO BID. - (the script was sent to your pharmacy on file) Hermann Boudreaux MD Hermann BOUDREAUX MD 08/10/2020 12:43:50 PM Electronically signed by Hermann BOUDREAUX MD Number of Addenda: 0 Note Initiated On: 08/10/2020 12:27 PM Estimated Blood Loss: Estimated blood loss: none.
--- NOTE | 2020-08-10 13:06 | ROOR ---
Patient Name: Dolly Quinteros Procedure Date: 08/10/2020 12:28 PM Date of : 1950 Age: 69 Room: [facility] Gender: Female Note Status: Finalized Procedure: Colonoscopy Indications: Abdominal pain, Change in bowel habits Providers: Hermann BOUDREAUX MD Referring MD: Magali JACKSON NP Requesting Provider: Medicines: Monitored Anesthesia Care Complications: No immediate complications. Procedure: Pre-Anesthesia Assessment: - The heart rate, respiratory rate, oxygen saturations, blood pressure, adequacy of pulmonary ventilation, and response to care were monitored throughout the procedure. The Colonoscope was introduced through the anus and advanced to 5 cm into the ileum. The colonoscopy was performed without difficulty. The patient tolerated the procedure well. The quality of the bowel preparation was good. Findings: The perianal and digital rectal examinations were normal. Multiple small and large-mouthed diverticula were found in the sigmoid colon. A 5 mm polyp was found in the sigmoid colon. The polyp was sessile. The polyp was removed with a cold snare. Resection and retrieval were complete. The exam was otherwise without abnormality on direct and retroflexion views. Impression: - One 5 mm polyp in the sigmoid colon, removed with a cold snare. Resected and retrieved. - Diverticulosis in the sigmoid colon. - Small internal hemorrhoids. - The examination was otherwise normal on direct and retroflexion views. Recommendation: - Telephone endoscopist for pathology results in 2 weeks. - Repeat colonoscopy for surveillance based on pathology results. - Resume Eliquis (apixaban) at prior dose tomorrow. Hermann Boudreaux MD Hermann BOUDREAUX MD 08/10/2020 1:05:30 PM Electronically signed by Hermann BOUDREAUX MD Number of Addenda: 0 Note Initiated On: 08/10/2020 12:28 PM Estimated Blood Loss: Estimated blood loss: none.
[2020-08-10 13:30] VITALS: BP 139/69
== END 2020-08-10 14:05 | disposition home or self-care (01) ==
LOC: M OPP 11:05
PROVIDERS: ATTEND Internal Medicine Gastroenterology
DX: D12.5 Benign neoplasm of sigmoid colon (principal); K57.30 Diverticulosis of large intestine without perforation or abscess without bleeding; R19.4 Change in bowel habit; R10.9 Unspecified abdominal pain; K31.89 Other diseases of stomach and duodenum; R12 Heartburn; I48.0 Paroxysmal atrial fibrillation; G47.30 Sleep apnea, unspecified; J84.10 Pulmonary fibrosis, unspecified; I10 Essential (primary) hypertension; Z79.899 Other long term (current) drug therapy; Z88.0 Allergy status to penicillin; Z88.2 Allergy status to sulfonamides; Z88.8 Allergy status to other drugs, medicaments and biological substances; Z88.5 Allergy status to narcotic agent; Z91.048 Other nonmedicinal substance allergy status

== ENCOUNTER → 2020-10-28 | Outpatient (REF) | payer MEDICARE, OTHER ==
[~2020-10-28] MED LIST changes: -LIDOCAINE 2% 100MG/5ML SDV (FOR ANES.) As Ordered ONE; -NS 1,000 ML IV ONE; -propofoL 200 MG/20 ML VIAL As Ordered ONE
[2020-10-28 14:15] LABS: HEMOGLOBIN A1c 5.5 %
[2020-10-28 14:23] LABS: BILIRUBIN,TOTAL 0.9 MG/DL (0.2-1.0); CALCIUM LEVEL 10.2 MG/DL (8.8-10.2); CHOLESTEROL RISK RATIO 3.34 (<5); CREATININE FOR GFR 1.06 MG/DL (0.55-1.30); GLOMERULAR FILTRATION RATE 54.4 (>39); MAGNESIUM LEVEL 2.1 MG/DL (1.8-2.4); TOTAL PROTEIN 6.9 GM/DL (6.4-8.2)
== END ==
LOC: M SFHCPLAZ 11:37
PROVIDERS: ATTEND Nurse Practitioner Adult Health
DX: E55.9 Vitamin D deficiency, unspecified (principal); I10 Essential (primary) hypertension; E78.5 Hyperlipidemia, unspecified; Z13.220 Encounter for screening for lipoid disorders; Z79.899 Other long term (current) drug therapy

== ENCOUNTER 2021-04-09 13:29 | Emergency (ER) | payer MEDICARE, OTHER ==
[~2021-04-09] VITALS: Ht 160 cm; Wt 100.0 kg
[~2021-04-09 13:29] MED LIST changes: +GABA-282 PO; -GABA-843 PO; -HM P99TA PO; -PEGPOW; +POLY510P14; +POTA99TA14 PO
[2021-04-09] MEDS ORDERED: ACET1TAB55 PO (13:55)
[2021-04-09] MEDS ORDERED: D 101000 PO (13:55)
[2021-04-09] MEDS: METOPROLOL 5 MG/5 ML VIAL IV SCH ×3 (13:55→17:05)
[2021-04-09] MEDS ORDERED: ESTR62CR PV (13:55)
--- NOTE | 2021-04-09 13:58 | REP ---
INDICATION: CHEST PAIN. COMPARISON: Comparison chest x-ray Februaryi comparison chest x-ray 09 Apr 2019. TECHNIQUE: Portable upright AP chest radiograph. FINDINGS: Right hemidiaphragm remains slightly elevated. Monitoring electrodes are seen. The lungs are otherwise well inflated and clear. There is an old healed rib fracture on the right. The aorta is tortuous as before. Cardiomegaly is observed unchanged.. Pulmonary vasculature is not increased . IMPRESSION: Cardiomegaly. Mildly elevated right hemidiaphragm. Otherwise no active disease.. <Electronically signed by Milad Bell > 04/09/21 [id number]
[2021-04-09 14:23] LABS: BASO % 0.6 % (0.0-1.0); EOS # 0.2 10^3/uL (0.0-0.5); EOS % 2.1 % (0.0-3.0); HEMATOCRIT 46.7 % (36.0-47.0); HEMOGLOBIN 15.2 g/dl (12.0-15.5); LYMPH # 2.3 10^3/uL (1.5-5.0); LYMPH % 31.5 % (24.0-44.0); MEAN CORPUSCULAR HEMOGLOBIN 30.4 pg (27.0-33.0); MEAN CORPUSCULAR HGB CONC 32.5 g/dl (32.0-36.5); MEAN CORPUSCULAR VOLUME 93.4 fl (80.0-96.0); MONO # 0.7 10^3/uL (0.0-0.8); MONO % 9.2 % (2.0-8.0); NEUTROPHILS % 56.2 % (36.0-66.0); PLATELET COUNT, AUTOMATED 216 10^3/uL (150-450); WHITE BLOOD COUNT 7.2 10^3/uL (4.0-10.0)
[2021-04-09] MEDS ORDERED: DIGOXIN INJ 0.5 MG/2 ML AMP (J1160) IV STA (14:37)
[2021-04-09 14:57] LABS: ALBUMIN 3.8 GM/DL (3.2-5.2); BILIRUBIN,DIRECT 0.2 MG/DL (0.0-0.2); BILIRUBIN,TOTAL 0.9 MG/DL (0.2-1.0); FREE T4 0.97 NG/DL (0.76-1.46); THYROID STIMULATING HORMONE 1.48 uIU/ML (0.358-3.740); TOTAL PROTEIN 6.6 GM/DL (6.4-8.2)
[2021-04-09 15:21] LABS: MAGNESIUM LEVEL 2.3 MG/DL (1.8-2.4)
[2021-04-09] MEDS ORDERED: DIGOXIN INJ 0.5 MG/2 ML AMP (J1160) IV ONE (16:40)
[2021-04-09] MEDS ORDERED: APIXABAN 5 MG TAB (ELIQUIS) PO ONE (17:55)
[2021-04-09] MEDS ORDERED: atenoloL 50 MG TAB PO ONE (17:55)
[2021-04-09 18:01] VITALS: BP 116/83
[2021-04-09 18:15] VITALS: BP 110/77
[2021-04-09] MEDS ORDERED: DIGO0.253 PO (18:19)
--- NOTE | 2021-04-10 05:33 | ECGEPIP ---
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
== END 2021-04-09 19:00 | disposition home or self-care (01) ==
LOC: M ED 13:29
DX: I48.91 Unspecified atrial fibrillation (principal); Z88.0 Allergy status to penicillin; Z88.1 Allergy status to other antibiotic agents; Z88.2 Allergy status to sulfonamides; Z88.6 Allergy status to analgesic agent; Z88.8 Allergy status to other drugs, medicaments and biological substances
CPT/HCPCS: 71045; 80047; 80076; 83690; 83735; 83880; 84439; 84443; 84484; 85025; 93005; 93041; 94760; 96374; 96375; 99285; J1160

== ENCOUNTER 2021-04-12 09:37 | Emergency (ER) | payer MEDICARE, OTHER ==
[~2021-04-12] VITALS: Ht 160 cm; Wt 100.0 kg
[~2021-04-12 09:37] MED LIST changes: +ACET1TAB55 PO; +D 101000 PO; +DIGO0.253 PO
[2021-04-12 11:28] LABS: CALCIUM LEVEL 9.3 MG/DL (8.8-10.2); CREATININE FOR GFR 0.99 MG/DL (0.55-1.30); DIGOXIN LEVEL 1.3 NG/ML (0.5-2.0); GLOMERULAR FILTRATION RATE 58.9 (>39); POTASSIUM SERUM 4.2 MEQ/L (3.5-5.1)
[2021-04-12 12:31] VITALS: BP 126/69
[2021-04-12] MEDS ORDERED: DIGO0.253 PO (12:36)
--- NOTE | 2021-04-12 20:08 | ECGEPIP ---
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
== END 2021-04-12 12:44 | disposition home or self-care (01) ==
LOC: M ED 09:37
DX: R00.1 Bradycardia, unspecified (principal); T46.0X5A Adverse effect of cardiac-stimulant glycosides and drugs of similar action, initial encounter; I48.91 Unspecified atrial fibrillation; Z88.0 Allergy status to penicillin; Z88.2 Allergy status to sulfonamides; Z88.1 Allergy status to other antibiotic agents; Z88.8 Allergy status to other drugs, medicaments and biological substances; Z79.899 Other long term (current) drug therapy

== ENCOUNTER 2021-04-30 17:16 | Emergency (ER) | payer MEDICARE, OTHER ==
[~2021-04-30] VITALS: Ht 160 cm; Wt 102.0 kg
[2021-04-30 19:48] LABS: BASO % 0.4 % (0.0-1.0); EOS # 0.2 10^3/uL (0.0-0.5); EOS % 2.4 % (0.0-3.0); HEMATOCRIT 44.4 % (36.0-47.0); HEMOGLOBIN 14.6 g/dl (12.0-15.5); LYMPH % 28.1 % (24.0-44.0); MEAN CORPUSCULAR HEMOGLOBIN 30.9 pg (27.0-33.0); MEAN CORPUSCULAR HGB CONC 32.9 g/dl (32.0-36.5); MEAN CORPUSCULAR VOLUME 94.1 fl (80.0-96.0); MONO # 0.7 10^3/uL (0.0-0.8); MONO % 9.1 % (2.0-8.0); NEUTROPHILS # 4.3 10^3/uL (1.5-8.5); NEUTROPHILS % 59.6 % (36.0-66.0); PLATELET COUNT, AUTOMATED 192 10^3/uL (150-450); RED BLOOD COUNT 4.72 10^6/uL (4.00-5.40); WHITE BLOOD COUNT 7.2 10^3/uL (4.0-10.0)
--- NOTE | 2021-04-30 20:02 | ECGEPIP ---
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
--- NOTE | 2021-04-30 20:09 | REP ---
INDICATION: CHEST PAIN. COMPARISON: Comparison chest x-ray April 09, 2021. TECHNIQUE: Portable upright AP chest radiograph. FINDINGS: The lungs are well inflated and free of infiltrate. Pleural angles are sharp. Heart size is mildly enlarged unchanged. Pulmonary vasculature is not increased. There are old healed rib fractures noted bilaterally. No acute bony abnormality is seen. IMPRESSION: Mildly enlarged heart again noted unchanged. Otherwise no acute disease.. <Electronically signed by Milad Bell > 04/30/212004
[2021-04-30] MEDS: MAALOX 30 ML SUSP *UDC PO ONE (20:16)
[2021-04-30 20:34] LABS: BLOOD UREA NITROGEN 19 MG/DL (7-18); CARBON DIOXIDE LEVEL 27 MEQ/L (21-32); CHLORIDE LEVEL 108 MEQ/L (98-107); CREATININE FOR GFR 0.86 MG/DL (0.55-1.30); DIGOXIN LEVEL 0.2 NG/ML (0.5-2.0); GLOMERULAR FILTRATION RATE > 60.0 (>39); GLUCOSE, FASTING 86 MG/DL (70-100); POTASSIUM SERUM 4.3 MEQ/L (3.5-5.1); SODIUM LEVEL 141 MEQ/L (136-145)
[2021-04-30 21:01] VITALS: BP 146/63
== END 2021-04-30 21:44 | disposition home or self-care (01) ==
LOC: M ED 17:16
DX: R07.89 Other chest pain (principal); R94.31 Abnormal electrocardiogram [ECG] [EKG]; I48.91 Unspecified atrial fibrillation; I10 Essential (primary) hypertension; Z88.0 Allergy status to penicillin; Z88.2 Allergy status to sulfonamides; Z88.1 Allergy status to other antibiotic agents; Z91.048 Other nonmedicinal substance allergy status; Z88.8 Allergy status to other drugs, medicaments and biological substances; Z90.49 Acquired absence of other specified parts of digestive tract; Z98.890 Other specified postprocedural states; Z82.49 Family history of ischemic heart disease and other diseases of the circulatory system

== ENCOUNTER → 2021-05-26 | Outpatient (CLI) | payer MEDICARE, OTHER ==
--- NOTE | 2021-05-26 10:50 | REP ---
INDICATION: PAIN LT CALF COMPARISON: None. TECHNIQUE: Spence scale and color Doppler evaluation using linear high frequency transducer. FINDINGS: Ultrasound examination of the left lower extremity deep venous structures from the common femoral vein through the calf/ankle to include the peroneal, and tibial veins demonstrates normal compressibility flow and wave patterns in response to respiration and augmentation. There is no evidence for deep venous thrombosis. Contralateral CFV is patent and normal. IMPRESSION: No evidence for deep venous thrombosis. <Electronically signed by Leon Rivera > 05/26/21 1046
--- NOTE | 2021-05-26 11:00 | REP ---
INDICATION: PAIN LT CALF COMPARISON: None. TECHNIQUE: Five views left knee. FINDINGS: There is no evidence of acute fracture, dislocation, or intrinsic bone disease.There is no significant joint space narrowing. I see no radiographic evidence of a joint effusion. IMPRESSION: Negative left knee series. <Electronically signed by Rufino Spence > 05/26/21 105
== END ==
LOC: M RAD 10:14
PROVIDERS: ATTEND Nurse Practitioner Adult Health
DX: M79.662 Pain in left lower leg (principal); M25.562 Pain in left knee
CPT/HCPCS: 73564; 93971; G0463

== ENCOUNTER → 2021-07-08 | Outpatient (CLI) | payer MEDICARE, OTHER ==
[2021-07-08 10:41] LABS: BLOOD UREA NITROGEN 17 MG/DL (7-18); CALCIUM LEVEL 9.6 MG/DL (8.8-10.2); CARBON DIOXIDE LEVEL 26 MEQ/L (21-32); CHLORIDE LEVEL 112 MEQ/L (98-107); CHOLESTEROL LEVEL 158 MG/DL (<200); CREATININE FOR GFR 0.94 MG/DL (0.55-1.30); GLOMERULAR FILTRATION RATE > 60.0 (>39); GLUCOSE, FASTING 88 MG/DL (70-100); HDL CHOLESTEROL 40 MG/DL (>40); LDL CHOLESTEROL 73 MG/DL (<100); NON-HDL-C 118 MG/DL; POTASSIUM SERUM 4.3 MEQ/L (3.5-5.1); SODIUM LEVEL 142 MEQ/L (136-145); TRIGLYCERIDES LEVEL 224 MG/DL (<150)
[2021-07-08 10:42] LABS: ALBUMIN 3.7 GM/DL (3.2-5.2); ALT/SGPT 25 U/L (12-78); BLOOD UREA NITROGEN 16 MG/DL (7-18); CALCIUM LEVEL 9.5 MG/DL (8.8-10.2); CARBON DIOXIDE LEVEL 27 MEQ/L (21-32); CHLORIDE LEVEL 112 MEQ/L (98-107); CHOLESTEROL LEVEL 155 MG/DL (<200); CHOLESTEROL RISK RATIO 3.875 (<5); GLOMERULAR FILTRATION RATE > 60.0 (>39); GLUCOSE, FASTING 89 MG/DL (70-100); HDL CHOLESTEROL 40 MG/DL (>40); LDL CHOLESTEROL 69 MG/DL (<100); MAGNESIUM LEVEL 2.1 MG/DL (1.8-2.4); NON-HDL-C 115 MG/DL; POTASSIUM SERUM 4.4 MEQ/L (3.5-5.1); SODIUM LEVEL 142 MEQ/L (136-145); TOTAL PROTEIN 6.2 GM/DL (6.4-8.2); TRIGLYCERIDES LEVEL 230 MG/DL (<150)
[2021-07-08 10:57] LABS: HEMOGLOBIN A1c 5.5 %
[2021-07-08 11:43] LABS: TOTAL 25(OH) VITAMIN D 54.9 NG/ML (30.0-100.0)
== END ==
LOC: M WUC 08:41
PROVIDERS: ATTEND Nurse Practitioner Adult Health
DX: Z13.220 Encounter for screening for lipoid disorders (principal); I10 Essential (primary) hypertension; E55.9 Vitamin D deficiency, unspecified; E78.5 Hyperlipidemia, unspecified; E78.2 Mixed hyperlipidemia; Z79.899 Other long term (current) drug therapy

== ENCOUNTER → 2021-07-27 | Outpatient (CLI) | payer MEDICARE, OTHER ==
[2021-07-27 16:17] LABS: BASO % 0.5 % (0.0-1.0); EOS # 0.1 10^3/uL (0.0-0.5); EOS % 2.3 % (0.0-3.0); HEMATOCRIT 42.5 % (36.0-47.0); HEMOGLOBIN 13.6 g/dl (12.0-15.5); LYMPH # 1.6 10^3/uL (1.5-5.0); LYMPH % 29.2 % (24.0-44.0); MEAN CORPUSCULAR VOLUME 93.6 fl (80.0-96.0); MONO # 0.4 10^3/uL (0.0-0.8); MONO % 7.7 % (2.0-8.0); NEUTROPHILS # 3.4 10^3/uL (1.5-8.5); NEUTROPHILS % 59.9 % (36.0-66.0); PLATELET COUNT, AUTOMATED 187 10^3/uL (150-450); RED BLOOD COUNT 4.54 10^6/uL (4.00-5.40); WHITE BLOOD COUNT 5.6 10^3/uL (4.0-10.0)
[2021-07-27 16:50] LABS: BLOOD UREA NITROGEN 20 MG/DL (7-18); CALCIUM LEVEL 10.1 MG/DL (8.8-10.2); CARBON DIOXIDE LEVEL 27 MEQ/L (21-32); CHLORIDE LEVEL 110 MEQ/L (98-107); CREATININE FOR GFR 0.96 MG/DL (0.55-1.30); FREE T4 1.09 NG/DL (0.76-1.46); GLOMERULAR FILTRATION RATE > 60.0 (>39); GLUCOSE, FASTING 99 MG/DL (70-100); POTASSIUM SERUM 4.4 MEQ/L (3.5-5.1); SODIUM LEVEL 140 MEQ/L (136-145)
== END ==
LOC: M WUC 10:24
PROVIDERS: ATTEND Internal Medicine Cardiovascular Disease
DX: Z01.810 Encounter for preprocedural cardiovascular examination (principal); I48.0 Paroxysmal atrial fibrillation

== ENCOUNTER → 2021-07-29 | Outpatient (CLI) | payer MEDICARE, OTHER ==
--- NOTE | 2021-07-29 11:03 | REPMRS ---
Patient History The patient states she had a clinical breast exam in July 2021. Family history of prostate cancer at age 50 or over in brother, colorectal cancer at age 50 or over in paternal aunt. Took estrogen for 25 years. Patient states no breast complaints today. Patient has signed MRS History Sheet. Digital Woman Screen Mammo: July 29, 2021 - Exam #: [id number] Bilateral CC and MLO view(s) were taken. Technologist: Marcella Brooks, Technologist Prior study comparison: July 28, 2020, bilateral digital woman screen mammo performed at [facility]. July 24, 2019, bilateral digital woman screen mammo performed at [facility]. FINDINGS: The breast tissue is almost entirely fat. Screening. Digital screening (2D) mammography was performed bilaterally in the CC and MLO projections. Additionally, breast tomosynthesis (3D mammography) was performed bilaterally in the CC and MLO projections. Todays exam was compared to the prior exam/exams. By history, the patient has no complaints of a palpable breast abnormality or other significant breast complaints. The breasts are unchanged in size and shape. There are no jocelyn-soft tissue densities or spiculated masses. There is no internal architectural distortion. Once again, stable benign appearing calcifications are seen.There are no suspicious jocelyn-calcific clusters. Skin thickening or nipple retraction is not present. IMPRESSION: BI-RADS Category 2- Benign Findings. There is no evidence of malignant alteration of the breasts. Followup examination recommended in one year. The Volpara volumetric breast density category is A, the breasts are almost entirely fatty. This mammogram [facility],an FDA approved computer aided detection system for mammography. The lifetime Tyrer-Cuzick score is 3.2 % Negative x-ray reports should not delay surgical consultation if a dominant or clinically suspicious mass is present. Not all breast cancers can be identified by mammography. Therefore, we recommend that you continue to perform regular breast self-examination and physical examination and then promptly contact your physician of any concerns or changes. Adenosis and dense breasts may obscure an underlying neoplasm. Assessment: BI-RADS/ACR category 2 mammogram. Benign Findings. Recommendation Routine screening mammogram of both breasts in 1 year. Electronically Signed By: Jesus Mcmillan DO 07/29/21 1053
== END ==
LOC: M WHC 09:35
PROVIDERS: ATTEND Nurse Practitioner Women's Health
DX: Z12.31 Encounter for screening mammogram for malignant neoplasm of breast (principal); Z12.4 Encounter for screening for malignant neoplasm of cervix; N95.2 Postmenopausal atrophic vaginitis; Z90.722 Acquired absence of ovaries, bilateral; Z90.710 Acquired absence of both cervix and uterus
CPT/HCPCS: 77063; 77067; G0101

== ENCOUNTER → 2021-08-11 | Outpatient (CLI) | payer MEDICARE, OTHER ==
[~2021-08-11] MED LIST changes: +LUTE1CAP7 PO; +SM C PO; +VALS1TAB66 PO
== END ==
LOC: M LABSMTC 11:24
PROVIDERS: ATTEND Anesthesiology
DX: Z01.812 Encounter for preprocedural laboratory examination (principal); Z20.822 Contact with and (suspected) exposure to COVID-19

== ENCOUNTER 2021-08-16 13:28 | Day surgery (SDC) | payer MEDICARE, OTHER ==
[~2021-08-16] VITALS: Ht 160 cm; Wt 102.0 kg
[~2021-08-16 13:28] MED LIST changes: +LR 1,000 ML IV ONE; +VANCOMYCIN HCL 1,000 MG, VIAL MATE ADAPTER 1 EACH in NS 250 ML IV ONE
[2021-08-16] MEDS ORDERED: VANCOMYCIN 1000MG/20ML VIAL As Ordered ONE (13:31)
[2021-08-16] MEDS ORDERED: LIDOCAINE 1% SDV 30ML VIAL As Ordered ONE (13:35)
[2021-08-16] MEDS ORDERED: ONDANSETRON 4MG/2ML VIAL As Ordered ONE (13:48)
[2021-08-16] MEDS ORDERED: LIDOCAINE 2% 100MG/5ML SDV (FOR ANES.) As Ordered ONE (13:48)
[2021-08-16] MEDS ORDERED: fentaNYL 100 MCG/2 ML INJECTION (J3010) As Ordered ONE (13:48)
[2021-08-16] MEDS ORDERED: MIDAZOLAM INJ 2MG/2ML VIAL (J2250 PER 1MG) As Ordered ONE (13:48)
[2021-08-16] MEDS ORDERED: propofoL 200 MG/20 ML VIAL As Ordered ONE (13:48)
[2021-08-16 16:15] VITALS: BP 152/66
--- NOTE | 2021-08-16 16:31 | RO ---
OPERATIVE NOTE DATE OF OPERATION: 08/16/2021 PREOPERATIVE DIAGNOSIS: Atrial fibrillation monitoring. PREOPERATIVE DIAGNOSIS: Atrial fibrillation monitoring. FINDINGS: Atrial fibrillation monitoring. PROCEDURE PERFORMED: Implantation of subcutaneous cardiac rhythm monitor. SURGEON: Hermann Lemon M.D. PSYCH SALES SPECIALIST: None. ANESTHESIA: Lidocaine 1% local/monitored anesthetic care. SPECIMENS: None. ESTIMATED BLOOD LOSS: Less than 1 mL. BLOOD PRODUCTS: No blood products were placed. DRAINS: None. COMPLICATIONS: None. PROCEDURE DESCRIPTION: The patient was prepped and draped over the sternum and left anterior chest. An incision approximately 1 cm was made with a #15 blade at roughly the left fourth interspace, about 1 inch lateral to the left parasternal border. Lidocaine 1% was used for local anesthetic for this procedure. The guide on the insertion tool was placed into the incision and advanced parallel to the anterior chest wall in the subcutaneous tissue and advanced in an approximately 45 degree left lateral/caudal direction. The insertion tool was rotated 180 degrees. The punch was placed into the insertion tool and was used to advance the cardiac rhythm monitor into the subcutaneous tissue. The punch was removed and then the insertion guide was removed leaving the cardiac rhythm monitor in situ. The incision was then approximated temporarily using a 4-0 Biosyn suture applied subcuticular with the free ends of the suture protruding 1 cm from both ends of the incision line. Three layers of Dermabond were applied over the incision. The Biosyn suture was then pulled through the incision line and removed entirely. The patient tolerated the procedure well without any immediate complications. The initial R-wave amplitude measured 0.36 millivolts. The subcutaneous cardiac rhythm monitor implanted was a [employer] LINQ II, model LNQ22 with serial number [id number].
== END 2021-08-16 16:15 | disposition home or self-care (01) ==
LOC: M SDC 13:28
PROVIDERS: ATTEND Internal Medicine Cardiovascular Disease
DX: I48.0 Paroxysmal atrial fibrillation (principal); I10 Essential (primary) hypertension; E78.5 Hyperlipidemia, unspecified; K58.8 Other irritable bowel syndrome; G47.33 Obstructive sleep apnea (adult) (pediatric); Z79.01 Long term (current) use of anticoagulants; Z79.899 Other long term (current) drug therapy; Z88.0 Allergy status to penicillin; Z88.8 Allergy status to other drugs, medicaments and biological substances; Z88.5 Allergy status to narcotic agent; Z88.2 Allergy status to sulfonamides; I27.0 Primary pulmonary hypertension
CPT/HCPCS: 33285; C1764; J2250; J2405; J3010; J3370

== ENCOUNTER 2021-09-30 12:18 | Emergency (ER) | payer MEDICARE, OTHER ==
[~2021-09-30] VITALS: Ht 160 cm; Wt 102.3 kg
[~2021-09-30 12:18] MED LIST changes: -LR 1,000 ML IV ONE; -VANCOMYCIN HCL 1,000 MG, VIAL MATE ADAPTER 1 EACH in NS 250 ML IV ONE
--- OUTSIDE RECORDS SUMMARY | 2021-09-30 12:33 | CCD | Continuity of Care Document ---
Author Author Dolly HERNANDEZ PA Organization Unknown Address [address] [place] [address], [place] [address] Phone [phone] Care Team Providers Care Ict Sales Assistant Name Role Phone Hermann Boudreaux MD AUTM [phone] Magali Brown NP AUTM [phone] Carol Dior AUTM [phone] Waqas Mcintosh MD AUTM [phone] Rahul Harrington MD AUTM [phone] Sarah Perdomo MD AUTM [phone] Problems Active Problems Provider Date Chronic pulmonary heart disease Hermann Lemon MD Onset: 07/10/2013 Disorder of pulmonary circulation Hermann Lemon MD Onset : 07/10/2013 Electrocardiogram abnormal Hermann Lemon MD Onset: 07/10 Atrial fibrillation Hermann Lemon MD Onset: 07/10/2013 Hyperlipidemia Hermann Lemon MD Onset: 07/10/2013 Obesity Hermann Lemon MD Onset: 07/10/2013 Coronary arteriosclerosis Hermann Lemon MD Onset: 2012 Old myocardial infarction Hermann Lemon MD Onset: 2012 Disorder of pericardium Hermann Lemon MD Onset: 07/10/20 13 Difficulty breathing Hermann Lemon MD Onset: 07/10/2013 Precordial pain Hermann Lemon MD Onset: 07/10/2013 Essential hypertension Hermann Lemon MD Onset: 3 Edema Hermann Lemon MD Onset: 08/20/2013 Mitral valve disorder Anne-Marie Quinteros NP Onset: 03/06/2015 Paroxysmal atrial fibrillation GLENNA NiñoP-C Onset: 02/13/2017 Mixed hyperlipidemia Genny Lara MOISÉS-C Onset: 02/13/2017 Obstructive sleep apnea syndrome Genny Lara INSIGHTS MANAGER-C Onset : 02/13/2017 Dietary management surveillance MOISÉS Niño-C Onset: 09/25/2017 Chest pain Hermann Lemon MD Onset: 04/14/2021 Chronic diastolic heart failure MARTÍN Sullivan Onset : 07/12/2021 Social History Type Date Description Comments Sex Unknown ETOH Use Does not consume alcohol Tobacco Use Start: Unknown Patient has never smoked Smoking Status Reviewed: 07/12/21 Patient has never smoked Exercise Type/Frequency Does housework twice a w [facility] Exercise Type/Frequency Does yardwork twice a we ek and snow shoveling as needed Exercise Type/Frequency Walks sporadically Exercise Limitations Muscle Pain Exercise Limitations Back Pain Exercise Limitations Shortness Of Breath Allergies and adverse reactions Active Allergies Criticality Reaction | Severity Comments Date Penicillins Unable to assess criticality rash 06/04/2008 Cyclobenzaprine Unable to assess criticality "Muscle Relaxants" 04/12/2021 Streptomycin Sulfate Unable to assess criticality rash 06/04/2008 Tizanidine Unable to assess criticality "Muscle Relaxants" 04/12/2021 Tetracycline Unable to assess criticality rash 06/04/2008 Amoxicillin Unable to assess criticality Rash 12/25/2015 Carvedilol Unable to assess criticality Palpitations 12/25/2015 Sulfa Unable to assess criticality Rash 12/25/2015 Lactose (Allergy) Unable to assess criticality 02/13/2017 Indapamide Unable to assess criticality heart racing 06/09/2020 Oxycodone Unable to assess criticality GI upset 06/09/2020 Topiramate Unable to assess criticality depression, GI Upset 06/09/2020 Digoxin Unable to assess criticality Low HR 04/14/2021 Medications Active Medications SIG Qnty Indications Ordering Provide r Date Rosuvastatin Calcium 40mg Tablets 1 by mouth daily at bedtime 90tabs Reinier Arellano MD 2020 Cequa 0.09% Solution as direc jacoby Unknown 07/01/2021 Atenolol 25mg Tablets 1 by mouth twice a day 180tabs I48.0 Reinier Arellano MD 05/18/2021 I10 Valsartan 80mg Tablets 1 by mouth daily at bedtime 90tabs I10 Hermann Lemon MD 05/18/2021 Acetaminophen 325mg Tablets 2 every 4 hours as needed Unknown 04/13/2021 Metronidazole 0.75% Cream apply as directed once daily Unknown 04/13/2021 Calcium Antacid 500mg Chewtabs as needed Unknown 04/13/2021 Fluticasone Propionate 50mcg/Act Suspension 1 spray each nostril daily Me ruslan Dior PA 01/10/2021 Benefiber Powder 1 unit by mouth mixed into a drink once daily Unknown 01/10/20 Hyoscyamine Sulfate ER 0.375mg Tablets ER 12HR 1 by mouth every 8 hours only as needed Hermann Duke MD 01/10/2021 Premarin 0.625mg/GM Cream twice a week Unknown 06/09/2020 Gabapentin 300mg Capsules 2 by mouth once daily at bedtime Magali Brown NP 10/14/2019 Potassium 99mg Tablets once d aily Unknown 03/27/2018 Pantoprazole Sodium 40mg Tablets D R 1 by mouth every day Unknown 02/12/2017 L-Carnosine Capsule 1 by mouth twice daily Unknown 07/14/2016 Multivitamins Capsules 1 by mouth four days per week Unknown 07/14/2016 Lycopene 10mg Capsules 1 by mouth twice a day Unknown 07/14/2016 Magnesium Oxide 250mg Tablets 1 by mouth daily Unknown 07/14/2016 Selenium 200mcg Tablets 1 by mouth every day Unknown 07/14/2016 Co Q-10 100mg Capsules 1 by mouth every day Unknown 07/14/2016 Lutein-Zeaxanthin 25-5mg Capsules 1 by mouth every day Unknown 07/13/2016 Vitamin D3 1000Unit Capsules 2 by mouth every day Unknown 07/13/2016 Eliquis 5mg Tablets Take One Tablet By Mouth Twice A Day 180tabs I48.0 Reinier Arellano MD 02/04/2016 Trazodone HCL 100mg Tablets 1 by mouth every night at bedtime Kaylene Peñaloza PA-C Torsemide 5mg Tablets Take One Tablet By Mouth Every Day 90tabs Hermann Lemon MD 07/16/2013 History Medications Atenolol 25mg Tablets 1 by mouth twice a day I10 Unknown 05/17/2021 - I48.0 Amiodarone HCL 200mg Tablets 1 by mouth every day 90tabs I48.0 Hermann Lemon MD 04/14/2021 - 06/02/2021 Cranberry 400mg Capsules 1 by mouth every day Unknown 04/13/2021 - Digox 250mcg Tablets 1 by mouth every day 90tabs Reinier Arellano MD 04/11/2021 - 021 Immunizations Description No Information Available Vital Signs Date Vital Result Comment 07/12/2021 9:54am Weight 220.00 lb Home Weight 221lb Height 63 inches 5'3" BMI (Body Mass Index) 39.0 kg/m2 05/18/2021 9:06am Weight 222.00 lb Height 63 inches 5'3" BMI (Body Mass Index) 39.3 kg/m2 Heart Rate 56 /min BP Systolic Sitting 145 mmHg CBP, large cuff/Ra BP Diastolic Sitting 85 mmHg CBP, large cuff/Ra Results Test Acquired Date Facility Test Result H/L Range Note Lipid Panel 07/08/2021 [facility] nter [phone] Triglycerides Level 224 mg/dL High <150 Cholesterol Level 158 mg/dL Normal <200 HDL Cholesterol 40 mg/dL Normal >40 LDL Cholesterol 73 mg/dL Normal <100 Non-HDL-C 118 mg/dL Normal Cholesterol Risk Ratio 3.950 Normal <5 BMP 07/08/2021 [facility] nter [phone] Glucose, Fasting 88 mg/dL Normal 70-100 Blood Urea Nitrogen 17 mg/dL Normal 7-18 Creatinine For GFR 0.94 mg/dL Normal 0.55-1.30 Glomerular Filtration Rate > 60.0 Normal >39 1 Sodium Level 142 mEq/L Normal 136-145 Potassium Serum 4.3 mEq/L Normal 3.5-5.1 Chloride Level 112 mEq/L High 98-107 Carbon Dioxide Level 26 mEq/L Normal 21-32 Anion Gap 4 mEq/L Low 8-16 Calcium Level 9.6 mg/dL Normal 8.8-10.2 Basic Metabolic Panel 04/30/2021 [facility] - [facility] [place] (315)- - Glucose 86 70-100 Blood Urea Nitrogen 19 High 7-18 Creatinine 0.86 0.55-1.30 Sodium 141 136-145 Potassium 4.3 3.5-5.1 Chloride 108 High 98-107 Carbon Dioxide 27 21-32 Calcium 10.0 High 8.2-9.6 GFR (Calculated) >60.0 >32 CBC without Differential 04/30/2021 [facility] - not inter faced (315)- - White Blood Count 7.2 4.0-10.0 Red Blood Count 4.72 4.00-5.40 Platelets 192 150-450 Hemoglobin 14.6 Hematocrit 44.4 Basic Metabolic Panel 04/12/2021 [facility] - not interfac ed (315)- - Glucose 95 70-100 Blood Urea Nitrogen 21 High 7-18 Creatinine 0.99 0.55-1.30 Sodium 142 136-145 Potassium 4.2 3.5-5.1 Chloride 110 High 98-107 Carbon Dioxide 26 21-32 Calcium 9.3 8.2-9.6 GFR (Calculated) 58.9 >32 Laboratory test finding 04/12/2021 [facility] - not interf aced (315)- - Digoxin (Lanoxin) 1.3 CBC without Differential 04/09/2021 [facility] - not inter faced (315)- - White Blood Count 7.2 5.0-10.0 Red Blood Count 5.00 4.00-5.40 Platelets 216 172-450 Hemoglobin 15.2 Hematocrit 46.7 Laboratory test finding 04/09/2021 [facility] - not interf aced (315)- - Magnesium Level 2.3 1.8-2.4 NT Probnp QN Ser/Plas 1166 Thyroid Stimulating Hormone 1.480 Free T4 0.97 1 Units are mL/min/1.73 m2 Chronic Kidney Disease Staging per NKF: Stage I & II GFR >=60 Normal to Mildly Decreased Stage III GFR 30-59 Moderately Decreased Stage IV GFR 15-29 Severely Decreased Stage V GFR <15 Very Little GFR Left ESRD GFR <15 on 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 Procedures Date Code Description Status 08/23/2021 74388 Office/Outpatient Established Mi nimal Problem(S) Completed 07/12/2021 43352 Office/Outpatient Established Mo d MDM 30-39 Min Completed 07/12/2021 38097 ECG 12-Lead Completed 06/24/2021 45387 TM Interpretation & Report Only Completed 06/24/2021 00717 Myocardial Imaging (PET) Multipl e Studies Completed 05/18/2021 49996 Office/Outpatient Established Lo w MDM 20-29 Min Completed 05/18/2021 26232 Arterial Pressure Wa veform Analysis For Assessment Of Central Art Completed 05/18/2021 55549 ECG 12-Lead Completed 05/12/2021 75014 Echocardiogram 2-D Doppler Color Completed 05/04/2021 71527 External ECG Rec>48HR<7D Review & Interpretation Completed 05/04/2021 78872 External ECG Rec>48HR<7D Recordi ng Completed 04/14/2021 75299 Office/Outpatient Established Hi gh MDM 40-54 Min Completed 04/14/2021 99242 Arterial Pressure Wa veform Analysis For Assessment Of Central Art Completed 04/14/2021 94816 ECG 12-Lead Completed Medical Devices Description No Information Available Encounters Type Date Location Provider Dx Diagnosis Office Visit 08/23/2021 11:30a Main Office MARTÍN Sullivan Z95 .818 Presence of other cardiac implants and grafts Office Visit 07/12/2021 9:45a Main Office MARTÍN Sullivan R07 .9 Chest pain, unspecified R06.00 Dyspnea, unspecified I48.0 Paroxysmal atrial fibrillati on I10 Essential (primary) hyperten bere I50.32 Chronic diastolic (congestiv e) heart failure I31.3 Pericardial effusion (noninf lammatory) E78.2 Mixed hyperlipidemia G47.33 Obstructive sleep apnea (miquel lt) (pediatric) R94.31 Abnormal electrocardiogram [ ECG] [EKG] E66.8 Other obesity Z71.3 Dietary counseling and surve illance Office Visit 05/18/2021 9:00a Main Office Hermann Lemon MD I48.0 Paroxysmal atrial fibrillation I10 Essential (primary) hyperten bere R94.31 Abnormal electrocardiogram [ ECG] [EKG] Office Visit 04/14/2021 1:30p Main Office Hermann Lemon MD I48.0 Paroxysmal atrial fibrillation I10 Essential (primary) hyperten bere R94.31 Abnormal electrocardiogram [ ECG] [EKG] I31.3 Pericardial effusion (noninf lammatory) R07.9 Chest pain, unspecified R06.00 Dyspnea, unspecified Assessments Date Code Description Provider 08/23/2021 Z95.818 Presence of other cardiac implan ts and grafts Blanca Hernandez, PA 07/12/2021 R07.9 Chest pain, unspecified Curtis Hernandez, PA 07/12/2021 R06.00 Dyspnea, unspecified Blanca Hernandez, PA 07/12/2021 I48.0 Paroxysmal atrial fibrillation C laura Hernandez, PA 07/12/2021 I10 Essential (primary) hypertension Blanca Hernandez, PA 07/12/2021 I50.32 Chronic diastolic (congestive) h eart failure Blanca Hernandez, PA 07/12/2021 I31.3 Pericardial effusion (noninflamm atory) Blanca Hernandez PA 07/12/2021 E78.2 Mixed hyperlipidemia Blanca Hernandez, PA 07/12/2021 G47.33 Obstructive sleep apnea (adult) (pediatric) Blanca Hernandez, PA 07/12/2021 R94.31 Abnormal electrocardiogram [ECG] [EKG] Blanca Hernandez PA 07/12/2021 E66.8 Other obesity Blanca Shine Cha, se, PA 07/12/2021 Z71.3 Dietary counseling and surveilla nce Blanca Hernandez, PA 06/24/2021 R07.9 Chest pain, unspecified Cardiac PET 06/24/2021 R94.31 Abnormal electrocardiogram [ECG] [EKG] Cardiac PET 06/24/2021 I48.0 Paroxysmal atrial fibrillation C ardiac PET 05/18/2021 I48.0 Paroxysmal atrial fibrillation D jamie Lemon MD 05/18/2021 I10 Essential (primary) hypertension Hermann Lemon MD 05/18/2021 R94.31 Abnormal electrocardiogram [ECG] [EKG] Hermann Lemon MD 05/12/2021 I48.0 Paroxysmal atrial fibrillation E CHO 05/12/2021 I31.3 Pericardial effusion (noninflamm atory) ECHO 05/04/2021 I48.0 Paroxysmal atrial fibrillation H olter/Event/Telemetry 04/14/2021 I48.0 Paroxysmal atrial fibrillation D jamie Lemon MD 04/14/2021 I10 Essential (primary) hypertension Hermann Lemon MD 04/14/2021 R94.31 Abnormal electrocardiogram [ECG] [EKG] Hermann Lemon MD 04/14/2021 I31.3 Pericardial effusion (noninflamm atory) Hermann Lemon MD 04/14/2021 R07.9 Chest pain, unspecified Hermann Lemon MD 04/14/2021 R06.00 Dyspnea, unspecified Hermann burnett MD Plan of Treatment Future Appointment(s):* 10/08/2021 9:15 am - MARTÍN Sullivan at Main Office 08/23/2021 - MARTÍN Sullivan* Z95.818 Presence of other cardiac implants and grafts* Recommendations:* Recommendations: 1. You may resume driving and may shower tomorrow. 2. Do not soak in a bath tub or hot tub for another week. * All * Follow up:* Needs appointment 2-3 weeks after upcoming ablation Functional Status Functional Condition Comment Date Status Independent with all ADL's Activ e Mental Status Description No Information Available Referrals Refer to Reason for Referral Status Appt Date Rahul Harrington MD Symptomatic paroxysmal atria l fibrillation; please evaluate & manage and consider atrial fibrillation cryoablation. Thanks! [facility] [address] [address] [phone]
--- OUTSIDE RECORDS SUMMARY | 2021-09-30 12:33 | CCD | Continuity of Care Document ---
Author Author Dolly NEWSOME BOX FOLDING MACHINE OPERATOR-C Organization Unknown Address [address], [address] [place] [address] Phone [phone] Care Team Providers Care Product Development Manager Name Role Phone Magali Brown STEVEN AUTM [phone] Problems Description No Information Available Social History Type Date Description Comments Sex Unknown Tobacco Use Start: Unknown Never Smoked Cigarettes ETOH Use Denies alcohol use Tobacco Use Start: Unknown Patient has never smoked Sun Exposure moderate amount of sun exposure Sun Exposure Has experienced blistering from sunburns Sun Exposure Uses 15-30 SPF Sun Exposure Has never used tanning bed Allergies and adverse reactions Active Allergies Criticality Reaction | Severity Comments Date sulfa Unable to assess criticality 02/01/2011 Tetracycline Unable to assess criticality 02/01/2011 Amoxicillin Unable to assess criticality 02/01/2011 Penicillins Unable to assess criticality 02/01/2011 Carvedilol Unable to assess criticality 12/14/2015 Indapamide Unable to assess criticality 12/14/2015 Oxycodone Hydrochloride Unable to assess criticality 01/23/2019 Topiramate Unable to assess criticality 01/23/2019 Medications Active Medications SIG Qnty Indications Ordering Provide r Date Metronidazole 0.75% Gel Apply To Face Twice A Day 135units Chantel Centeno'emperatriz, F.N.P. 2019 Fluticasone Propionate 0.05% Cream apply to arms and legs twice a day x14 weeks 30gm Phyl MOISÉS Baxter-MEGHNA 12/24/2019 Rosuvastatin Calcium Unknown Miralax Powder Unknown Lycopene 10mg Capsules Unknown Pantoprazole Sodium Unknown Gabapentin Unknown Eliquis Unknown Icaps Capsules Unknown Vitamin D3 Unknown Modafinil Unknown Claritin Unknown Selenium Sulfide Unknown 00 Magnesium Unknown Trazodone HCL Unknown Premarin Unknown Torsemide Unknown L-Carnitine Unknown Multivitamins Unknown Coq-10 Unknown Hyoscyamine Sulfate ER Unknown Atenolol Unknown Immunizations Description No Information Available Vital Signs Date Vital Result Comment 09/06/2021 9:56am BP Systolic 149 mmHg BP Diastolic 86 mmHg O2 % BldC Oximetry 98 % Heart Rate 59 /min 02/08/2021 1:44pm Weight 220.00 lb Body Temperature 96.9 F Respiratory Rate 17 /min Results Description No Information Available Procedures Date Code Description Status 09/06/2021 98076 Office/Outpatient Established Mo d MDM 30-39 Min Completed 09/06/2021 82158 Destruction Of Flat Warts Or Mol luscum Contagiosum, Milia 15+ Completed Medical Devices Description No Information Available Encounters Type Date Location Provider Dx Diagnosis Office Visit 09/06/2021 9:45a Main Office DAVID Garcia R23.4 Changes in skin texture L82.1 Other seborrheic keratosis R20.8 Other disturbances of skin s ensation Assessments Date Code Description Provider 09/06/2021 R23.4 Changes in skin texture DAVID Rashid 09/06/2021 L82.1 Other seborrheic keratosis DAVID Quintanilla 09/06/2021 R20.8 Other disturbances of skin sensa tion DAVID Garcia 08/13/2021 L98.8 Other specified disorders of the skin and subcutaneous tissue Cosmetic Consultation 08/12/2021 L98.8 Other specified disorders of the skin and subcutaneous tissue Sariah 06/25/2021 L98.8 Other specified disorders of the skin and subcutaneous tissue Sariah 05/19/2021 L98.8 Other specified disorders of the skin and subcutaneous tissue STEVEN Mendoza 04/07/2021 L81.4 Other melanin hyperpigmentation STEVEN Mendoza 04/05/2021 L98.8 Other specified disorders of the skin and subcutaneous tissue Melissa Ballesteros 04/05/2021 L98.8 Other specified disorders of the skin and subcutaneous tissue Cosmetic Consultation Plan of Treatment Future Appointment(s):* 09/28/2021 10:00 am - DAVID Garcia at Main Office * 02/08/2022 9:45 am - DAVID Garcia at Main Office 09/06/2021 - DAVID Garcia* R23.4 Changes in skin texture* Comments: * Dolly does not recall injuring her arm.Will continue to monitor.Will follow up in 1 month.If still present, will biopsy at next visit. * L82.1 Other seborrheic keratosis* Comments:* LN2 today to 16 SK's located on face, neck, and extremities due to irritation.Discussed that the areas treated will get red, bubble up/blister, maybe get a little weepy, form a scab then heal. * R20.8 Other disturbances of skin sensation* Comments:* See above. * Follow up:* 1 month - lesion follow up. Functional Status Description No Information Available Mental Status Description No Information Available Referrals Description No Information Available"
--- OUTSIDE RECORDS SUMMARY | 2021-09-30 12:33 | CCD | Continuity of Care Document ---
Author Author Dolly ALANIZ PA Organization Unknown Address [address] [place] [address], [place] [address] Phone [phone] Care Team Providers Care Machine Operator Hay Stacker Name Role Phone Hermann Boudreaux MD AUTM [phone] Magali Brown NP AUTM [phone] Carol Dior AUTM [phone] Waqas Mcintosh MD AUTM [phone] Rahul Harrington MD AUTM [phone] Sarah Perdomo MD AUTM [phone] Problems Active Problems Provider Date Chronic pulmonary [...] fibrillation GLENNA NiñoP-C Onset: 02/13/2017 Mixed hyperlipidemia MOISÉS Niño-C Onset: 02/13/2017 Obstructive sleep apnea syndrome MOISÉS Niño-C Onset : 02/13/2017 Dietary management surveillance MOISÉS Niño-C Onset: 09/25/2017 Chest pain Hermann Lemon MD Onset: 04/14/2021 Chronic diastolic heart failure MARTÍN Sullivan Onset : 07/12/2021 Social History Type Date Description Comments Sex Unknown ETOH Use Does not consume alcohol Tobacco Use Start: Unknown Patient has never smoked Smoking Status Reviewed: 07/12/21 Patient has never smoked Exercise Type/Frequency Does housework twice a w [place] Exercise Type/Frequency Does yardwork twice a we ek and snow shoveling as needed Exercise Type/Frequency Walks sporadically Exercise Limitations Muscle Pain Exercise Limitations Back Pain Exercise Limitations Shortness Of Breath Allergies, Adverse Reactions, Alerts Active Allergies Criticality Reaction | Severity Comments [...] by mouth twice a day 180tabs I48.0 Hermann Lemon MD 05/18/2021 I10 Valsartan 80mg Tablets 1 [...] mouth every night at bedtime Kaylene Peñaloza PAKiannaC Torsemide 5mg Tablets Take One Tablet By [...] 5'3" BMI (Body Mass Index) 39.0 kg/m2 BP Systolic Sitting 12 mmHg BP Diastolic Sitting 82 mmHg 05/18/2021 9:06am Weight 222.00 lb Height 63 inches 5'3" BMI (Body Mass Index) 39.3 kg/m2 Heart Rate 56 /min BP Systolic Sitting 145 mmHg CBP, large cuff/Ra BP Diastolic Sitting 85 mmHg CBP, large cuff/Ra Results Test Acquired Date Facility Test Result H/L Range Note Lipid Panel 07/08/2021 [facility] nter [phone] Triglycerides Level 224 mg/dL High <150 Cholesterol Level 158 mg/dL Normal <200 HDL Cholesterol 40 mg/dL Normal >40 LDL Cholesterol 73 mg/dL Normal <100 Non-HDL-C 118 mg/dL Normal Cholesterol Risk Ratio 3.950 Normal <5 BMP 07/08/2021 [facility] nter [phone] Glucose, Fasting 88 mg/dL Normal 70-100 Blood [...] mg/dL Normal 8.8-10.2 Basic Metabolic Panel 04/30/2021 [facility] - not interfac ed (315)- - Glucose 86 70-100 Blood Urea Nitrogen 19 High 7-18 Creatinine 0.86 0.55-1.30 Sodium 141 136-145 Potassium 4.3 3.5-5.1 Chloride 108 High 98-107 Carbon Dioxide 27 21-32 Calcium 10.0 High 8.2-9.6 GFR (Calculated) >60.0 >32 CBC without Differential 04/30/2021 [facility] - not inter faced (315)- - White Blood Count 7.2 4.0-10.0 Red Blood Count 4.72 4.00-5.40 Platelets 192 150-450 Hemoglobin 14.6 Hematocrit 44.4 Basic Metabolic Panel 04/12/2021 [facility] - not interfac ed (315)- - Glucose 95 70-100 Blood Urea Nitrogen 21 High 7-18 Creatinine 0.99 0.55-1.30 Sodium 142 136-145 Potassium 4.2 3.5-5.1 Chloride 110 High 98-107 Carbon Dioxide 26 21-32 Calcium 9.3 8.2-9.6 GFR (Calculated) 58.9 >32 Laboratory test finding 04/12/2021 [facility] - not interf aced (315)- - Digoxin (Lanoxin) 1.3 CBC without Differential 04/09/2021 [facility] - not inter faced (315)- - White Blood Count 7.2 5.0-10.0 Red Blood Count 5.00 4.00-5.40 Platelets 216 172-450 Hemoglobin 15.2 Hematocrit 46.7 Laboratory test finding 04/09/2021 [facility] - not interf aced (315)- - [...] Little GFR Left ESRD GFR <15 on [employer] Procedures Date Code Description Status 07/12/2021 33394 Office/Outpatient Established Mo d MDM 30-39 Min Completed 07/12/2021 30187 ECG 12-Lead Completed 06/24/2021 78098 TM Interpretation & Report Only Completed 06/24/2021 60680 Myocardial Imaging (PET) Multipl e Studies Completed 05/18/2021 19615 Office/Outpatient Established Lo w MDM 20-29 Min Completed 05/18/2021 90604 Arterial Pressure Wa veform Analysis For Assessment Of Central Art Completed 05/18/2021 11319 ECG 12-Lead Completed 05/12/2021 51336 Echocardiogram 2-D Doppler Color Completed 05/04/2021 94634 External ECG Rec>48HR<7D Review & Interpretation Completed 05/04/2021 53542 External ECG Rec>48HR<7D Recordi ng Completed 04/14/2021 76068 Office/Outpatient Established Hi gh MDM 40-54 Min Completed 04/14/2021 00741 Arterial Pressure Wa veform Analysis For Assessment Of Central Art Completed 04/14/2021 22122 ECG 12-Lead Completed Medical Devices Description No Information Available Encounters Type Date Location Provider Dx Diagnosis Office Visit 07/12/2021 9:45a Main Office MARTÍN [...] Dyspnea, unspecified Assessments Date Code Description Provider 07/12/2021 R07.9 Chest pain, unspecified MARTÍN Casillas 07/12/2021 R06.00 Dyspnea, unspecified MARTÍN Dacosta 07/12/2021 I48.0 Paroxysmal atrial fibrillation C laura Alaniz, PA 07/12/2021 I10 Essential (primary) hypertension Blanca Alaniz, PA 07/12/2021 I50.32 Chronic diastolic (congestive) h eart failure Blanca Alaniz PA 07/12/2021 I31.3 Pericardial effusion (noninflamm atory) MARTÍN Sullivan 07/12/2021 E78.2 Mixed hyperlipidemia Blanca Alaniz PA 07/12/2021 G47.33 Obstructive sleep apnea (adult) (pediatric) Blanca Alaniz PA 07/12/2021 R94.31 Abnormal electrocardiogram [ECG] [EKG] MARTÍN Sullivan 07/12/2021 E66.8 Other obesity MARTÍN Canchola Cha, se 07/12/2021 Z71.3 Dietary counseling and surveilla nce MARTÍN Sullivan 06/24/2021 R07.9 Chest pain, unspecified Cardiac PET [...] olter/Event/Telemetry 04/14/2021 I48.0 Paroxysmal atrial fibrillation D jamei Lemon MD 04/14/2021 I10 Essential (primary) hypertension Hermann Lemon MD 04/14/2021 R94.31 Abnormal electrocardiogram [ECG] [EKG] Hermann Lemon MD 04/14/2021 I31.3 Pericardial effusion (noninflamm atory) Hermann Lemon MD 04/14/2021 R07.9 Chest pain, unspecified Hermann Lemon MD 04/14/2021 R06.00 Dyspnea, unspecified Hermann burnett MD Plan of Treatment 07/12/2021 - MARTÍN Sullivan* R07.9 Chest pain, unspecified* Recommendations:* Patient agreeable to contact the office with the onset of any change in her symptoms At this time no further evaluation is needed * R06.00 Dyspnea, unspecified* Recommendations:* Please alert the office with the onset of any worsening shortness of breath * I48.0 Paroxysmal atrial fibrillation* Recommendations:* Schedule ILR procedure Continue per Dr. Harrington regarding mapping and ablation Continue Eliquis and atenolol at the current dosages Patient agreeable to contact us with any episodes of tachycardia or palpitations * I10 Essential (primary) hypertension* Recommendations:* Continue atenolol and torsemide at the current dosages Advised patient to please monitor blood pressures at home and to alert our office for readings >140/>90 or <110/<60 * I50.32 Chronic diastolic (congestive) heart failure* Recommendations:* Continue torsemide, valsartan, and atenolol at the current dosages Please alert our office with a weight gain of more than 3 pounds, onset of shortness of breath, or lower extremity edema * I31.3 Pericardial effusion (noninflammatory)* Recommendations:* Plan for echocardiogram in ~1 year * E78.2 Mixed hyperlipidemia* Recommendations:* Continue rosuvastatin at the current dosage * G47.33 Obstructive sleep apnea (adult) (pediatric)* Recommendations:* Reinforced the consistent use of therapy will assist in blood pressure reduction and promote nocturnal blood pressure dipping patterns. Negative effects of hypoxia during sleep were reviewed including impaired daytime cognition and level of alertness. * R94.31 Abnormal electrocardiogram [ECG] [EKG]* Recommendations:* No further evaluation is needed at this time. * E66.8 Other obesity * Z71.3 Dietary counseling and surveillance* Recommendations:* Recommended for patient to follow a more whole food diet. Advised patient to avoid overly processed foods and packaged foods. Advised patient to avoid sodas, juices and other liquid calories. Recommended at least 30 minutes of exercise 3 days a week. * All * Follow up:* Schedule ILR with Dr. Lemon (after Jul 29 - patient preference) Needs 1 week wound check Schedule s/p after her upcoming ablation Functional Status Functional Condition Comment Date Status Independent with all ADL's Activ e Mental Status Description No Information Available Referrals Refer to Reason for Referral Status Appt Date Rahul Harirngton MD Symptomatic paroxysmal atria l fibrillation; please evaluate & manage and consider atrial fibrillation cryoablation. Thanks! Closed [facility] [address] [place] [address] [address] [place] [address] [phone]
--- OUTSIDE RECORDS SUMMARY | 2021-09-30 12:33 | CCD | Continuity of Care Document ---
Author Author Dolly HI M.D. Organization Unknown Address [address] [place] [address] Phone [phone] Care Team Providers Care Oceanology Teacher Name Role Phone Phani Montiel M.D. AUTM [phone] Magali Brown R.N. AUTM [phone] AUTM Unavailable Problems Active Problems Provider Date Obstructive sleep apnea syndrome Erica Doty Onset: 02/14/2011 Essential hypertension Janet Brown M.D. Onset: 02/14/2011 Gastroesophageal reflux disease Al Doty Onset: 02/13/2012 Body mass index 30+ - obesity Janet Brown M.D. Onset: 01/14/2014 Obesity Janet Brown M.D. Onset: Disorder of gallbladder Hermann Boudreaux MD Onset: 2 Indigestion Hermann Boudreaux MD Onset: 09/04/2012 Epigastric pain Hermann Boudreaux MD Onset: 09/04/2012 Flatulence, eructation and gas pain Hermann Boudreaux MD Onse t: 09/04/2012 Digestive symptom Hermann Boudreaux MD Onset: 09/04/2012 Irritable bowel syndrome Hermann Boudreaux MD Onset: 09/04/20 12 Gastroduodenitis Hermann Boudreaux MD Onset: 09/04/2012 Disorders of initiating and maintaining sleep Janet knox M.D. Onset: 02/11/2013 Hypersomnia Janet Brown M.D. Onset: Chronic pulmonary heart disease Janet Brown M.D . Onset: 01/14/2014 Periodic limb movement disorder Al Doty Onset: 07/13/2016 Social History Type Date Description Comments Sex Unknown Tobacco Use Reviewed: 03/19/18 Never Smoked Cigarettes ETOH Use Denies alcohol use Recreational Drug Use Denies Drug Use Tobacco Use Reviewed: 07/25/19 Patient has never smoked Smoking Status Reviewed: 09/09/21 Patient has never smoked Allergies and adverse reactions Active Allergies Criticality Reaction | Severity Comments Date Penicillin Unable to assess criticality RASH 01/07/2010 Tetracycline Unable to assess criticality RASH 01/07/2010 Sulfa Unable to assess criticality RASH 01/07/2010 Amoxicillin Unable to assess criticality rash 05/27/2010 Indapamide Unable to assess criticality 11/30/2015 Carvedilol Unable to assess criticality 11/30/2015 Streptomycin Unable to assess criticality 04/05/2016 Oxycodone Unable to assess criticality Nausea and Vomiting 09/15/2016 Topiramate Unable to assess criticality Intolerable 05/31/2018 Guaifenesin Unable to assess criticality Nausea 05/17/2021 Medications Active Medications SIG Qnty Indications Ordering Provide r Date Hyoscyamine Sulfate ER 0.375mg Tablets ER 12HR take 1 tablet by mouth every 12 hours as needed for abdominal pain/burning/diarrhea. 30tabs Hermann Boudreaux MD 08/08/[address] take 1 tab by mouth once daily 90tabs R12 Hermann Boudreaux MD 10/18/2016 Atenolol 50mg Tablets 1 by mouth twice a day Unknown Valsartan 80mg Tablets 1 by mouth every day Unknown Rosuvastatin Calcium 20mg Tablets 1 by mouth every day Unknown Psyllium Husk 100% Powder 1 tea spoon of fiber/poweder by mouth daily Unknown Selenium 200mcg Capsules 1 qd Unknown Gas-X Extra Strength 125mg Capsule s 2 tabs at hs as needed Unknown Eliquis 5mg Tablets 1 by mouth twice daily for A Fib Dr Arellano Unknown Gabapentin 300mg Capsules 2 at hs 30caps Unknown Premarin 1.25mg Tablets one applicatorful via the vagina twice weekly Unknown Lutein-Zeaxanthin 25-5mg Capsules 1 by mouth daily Unknown Torsemide 5mg every day Unknown Co Q 10 100mg Capsules every day Unknown Vitamin D3 High Potency 2000Unit C apsules 1 by mouth every day Unknown Multivitamins Capsules 1/2 by mouth twice a day 4 times a week Unknown L-Carnitine 500mg 1 b y mouth twice a day Unknown Trazodone HCL 100mg Tablets 1 by mouth every night 60tabs Unknown Magnesium 250mg Tablets 1 by mouth every day Unknown CPAP +11 [place] Unknown Flonase 50mcg/Act Suspension 2 sprays per nostril daily/prn 3monthsu Unknown Lycopene 10mg Beads 1 by mouth twice a day Unknown History Medications Mucinex 600mg Tablets ER 12HR 1 by mouth twice a day prn 30tabs R06.00 Sarah Hi M.D. 04/29/2021 - 05/17/2021 Medications Administered in Office Medication SIG Qnty Indications Ordering Provider Date Covid-19 vaccine, Unspecified Inj ection Unknown 01/30/2021 Covid-19 vaccine, Unspecified Inj ection Unknown 01/02/2021 Immunizations CPT Code Status Date Vaccine Reaction Lot # 77762 Given 10/12/2015 Prevnar 13 14714 Given 10/12/2015 Influenza Virus Split 3 Yrs And Above For Intramuscular Use 67152 Given 08/22/2013 Influenza Virus Split 3 Yrs And Above For Intramuscular Use 73114 Given 09/21/2012 Influenza Virus Split 3 Yrs And Above For Intramuscular Use 38127 Given 09/07/2011 Influenza Virus Split 3 Yrs And Above For Intramuscular Use 49632 Given 09/01/2010 Influenza Vaccine 50422 Given 01/07/1998 TB Intradermal Test NEGATIVE Vital Signs Date Vital Result Comment 09/09/2021 10:44am BP Systolic 126 mmHg BP Diastolic 72 mmHg Heart Rate 61 /min O2 % BldC Oximetry 98 % Height 63.50 inches 5'3.50" [place] Body Weight 115 lb 05/10/2021 11:26am BP Systolic 142 mmHg BP Diastolic 86 mmHg Height 63.50 inches 5'3.50" Weight 225.00 lb BMI (Body Mass Index) 39.2 kg/m2 [place] Body Weight 115 lb Weight 102.060 kg BSA (Body Surface Area) 2.04 m2 Results Description No Information Available Procedures Date Code Description Status 05/10/2021 02427 Office/Outpatient Established Lo w MDM 20-29 Min Completed 04/29/2021 43108 Office/Outpatient Established Mo d MDM 30-39 Min Completed 04/21/2021 26045 Diffusing Capacity Completed 04/21/2021 51950 Plethysmography Determination Carmen ng Volumes & Per Airway Resist Completed 04/21/2021 89870 Bronchospasm Evaluation Complete d Medical Devices Description No Information Available Encounters Type Date Location Provider Dx Diagnosis Office Visit 05/10/2021 11:15a [facility] STEVE Moss K21.9 Gastro-esophageal reflux dis ease without esophagitis K29.70 Gastritis, unspecified, with out bleeding R19.8 Oth symptoms and signs invol ving the dgstv sys and abdomen Office Visit 04/29/2021 9:30a [facility] K Sarah sellers M.D. R06.00 Dyspnea, unspecified R12 Heartburn G47.33 Obstructive sleep apnea (miquel lt) (pediatric) Assessments Date Code Description Provider 09/09/2021 G47.33 Obstructive sleep apnea (adult) (pediatric) Sarah Hi M.D. 09/09/2021 I27.20 Pulmonary hypertension, unspecif ied Sarah Hi M.D. 09/09/2021 R06.00 Dyspnea Sarah Hi M.D. 05/10/2021 K21.9 Gastro-esophageal reflux disease without esophagitis Carol Dior RPA-C 05/10/2021 K29.70 Gastritis, unspecified, without bleeding Carol Dior RPA-C 05/10/2021 R19.8 Other specified symptoms and sig ns involving the digestive s Carol Dior RPA-C 04/29/2021 R06.00 Dyspnea Sarah Hi M.D. 04/29/2021 R12 Heartburn Sarah Hi M.D. 04/29/2021 G47.33 Obstructive sleep apnea (adult) (pediatric) Sarah Hi M.D. 04/21/2021 R06.00 Dyspnea Pulmonary Lab Plan of Treatment Future Appointment(s):* 09/13/2022 10:30 am - Sarah Hi M.D. at [facility] 09/09/2021 - Sarah Hi M.D.* G47.33 Obstructive sleep apnea (adult) (pediatric) * I27.20 Pulmonary hypertension, unspecified * R06.00 Dyspnea * * Follow up:* Follow-up in 1 yr with compliance report Functional Status Functional Condition Comment Date Status Independent with all ADL's Activ e Independent with all IADL's Acti ve Mental Status Mental Condition Comment Date Status Cognitive ability not impaired A ctive Referrals Description No Information Available
--- OUTSIDE RECORDS SUMMARY | 2021-09-30 12:33 | CCD | Continuity of Care Document ---
Author Author Dolly HI M.D. Organization Unknown Address [address] [place] [address] Phone [phone] Care Team Providers Care Senior Db2 Systems Programmer Name Role Phone Phani Montiel M.D. AUTM [phone] Magali Brown R.N. AUTM [phone] AUTM Unavailable Problems Active Problems Provider Date [...] Code Status Date Vaccine Reaction Lot # [id number] Given 10/12/2015 Prevnar 13 16512 Given 10/12/2015 Influenza Virus Split 3 Yrs And Above For Intramuscular Use 05676 Given 08/22/2013 Influenza Virus Split 3 Yrs And Above For Intramuscular Use 17469 Given 09/21/2012 Influenza Virus Split 3 Yrs And Above For Intramuscular Use 14227 Given 09/07/2011 Influenza Virus Split 3 Yrs And Above For Intramuscular Use 23674 Given 09/01/2010 Influenza Vaccine 23736 Given 01/07/1998 TB Intradermal Test NEGATIVE Vital Signs Date Vital Result Comment 09/09/2021 10:44am BP Systolic 126 mmHg BP Diastolic 72 mmHg Heart Rate 61 /min O2 % BldC Oximetry 98 % Height 63.50 inches 5'3.50" [place] Body Weight 115 lb 05/10/2021 11:26am BP Systolic 142 mmHg BP Diastolic 86 mmHg Height 63.50 inches 5'3.50" Weight 225.00 lb BMI (Body Mass Index) 39.2 kg/m2 [place] Body Weight 115 lb Weight 102.060 kg BSA (Body Surface Area) 2.04 m2 Results Description No Information Available Procedures Date Code Description Status 09/09/2021 88179 Office/Outpatient Established Mo d MDM 30-39 Min Completed 05/10/2021 63088 Office/Outpatient Established Lo w MDM 20-29 Min Completed 04/29/2021 13951 Office/Outpatient Established Mo d MDM 30-39 Min Completed 04/21/2021 71523 Diffusing Capacity Completed 04/21/2021 27451 Plethysmography Determination Carmen ng Volumes & Per Airway Resist Completed 04/21/2021 73045 Bronchospasm Evaluation Complete d Medical Devices Description No Information Available Encounters Type Date Location Provider Dx Diagnosis Office Visit 09/09/2021 11:00a [facility] Sarah Mclean M.D. G47.33 Obstructive sleep apnea (miquel lt) (pediatric) I27.20 Pulmonary hypertension, unsp ecified R06.00 Dyspnea, unspecified Office Visit 05/10/2021 11:15a [facility] JM MossC K21.9 Gastro-esophageal reflux dis ease without esophagitis K29.70 Gastritis, unspecified, with out bleeding R19.8 Oth symptoms and signs invol ving the dgstv sys and abdomen Office Visit 04/29/2021 9:30a [facility] Sarah Mclean M.D. R06.00 Dyspnea, unspecified R12 Heartburn G47.33 Obstructive sleep apnea (miquel lt) (pediatric) Assessments Date Code Description Provider 09/09/2021 G47.33 Obstructive sleep apnea (adult) (pediatric) Sarah Hi M.D. 09/09/2021 I27.20 Pulmonary hypertension, unspecif ied Sarah Hi M.D. 09/09/2021 R06.00 Dyspnea Sarah Hi M.D. 05/10/2021 K21.9 Gastro-esophageal reflux disease without esophagitis JM MossC 05/10/2021 K29.70 Gastritis, unspecified, without bleeding Carol Johnstefan, [facility] 05/10/2021 R19.8 Other specified symptoms and sig ns involving the digestive s Carol Howardsuzanne, [facility] 04/29/2021 R06.00 Dyspnea Sarah Hi M.D. 04/29/2021 R12 Heartburn Sarah Hi M.D. 04/29/2021 G47.33 Obstructive sleep apnea (adult) (pediatric) Sarah Hi M.D. 04/21/2021 R06.00 Dyspnea Pulmonary Lab Plan of Treatment Future Appointment(s):* 09/13/2022 10:30 am - Sarah Hi M.D. at [facility] 09/09/2021 - Sarah Hi M.D.* G47.33 [...]
--- OUTSIDE RECORDS SUMMARY | 2021-09-30 12:33 | CCD | Continuity of Care Document ---
Author Author Dolly HI M.D. Organization Unknown Address [address] [place] [address] Phone [phone] Care Team Providers Care Certified Midwife Name Role Phone Phani Montiel M.D. AUTM [phone] Magali Brown R.N. AUTM [phone] AUTM Unavailable Problems Active Problems Provider Date [...] Code Status Date Vaccine Reaction Lot # [id number] Given 10/12/2015 Prevnar 13 96019 Given 10/12/2015 Influenza Virus Split 3 Yrs And Above For Intramuscular Use 89591 Given 08/22/2013 Influenza Virus Split 3 Yrs And Above For Intramuscular Use 82688 Given 09/21/2012 Influenza Virus Split 3 Yrs And Above For Intramuscular Use 81336 Given 09/07/2011 Influenza Virus Split 3 Yrs And Above For Intramuscular Use 49986 Given 09/01/2010 Influenza Vaccine 47559 Given 01/07/1998 TB Intradermal Test NEGATIVE Vital Signs Date Vital Result Comment 09/09/2021 10:44am BP Systolic 126 mmHg BP Diastolic 72 mmHg Heart Rate 61 /min O2 % BldC Oximetry 98 % Height 63.50 inches 5'3.50" [place] Body Weight 115 lb 05/10/2021 11:26am BP Systolic 142 mmHg BP Diastolic 86 mmHg Height 63.50 inches 5'3.50" Weight 225.00 lb BMI (Body Mass Index) 39.2 kg/m2 [place] Body Weight 115 lb Weight 102.060 kg BSA (Body Surface Area) 2.04 m2 Results Description No Information Available Procedures Date Code Description Status 05/10/2021 29758 Office/Outpatient Established Lo w MDM 20-29 Min Completed 04/29/2021 33521 Office/Outpatient Established Mo d MDM 30-39 Min Completed 04/21/2021 73740 Diffusing Capacity Completed 04/21/2021 52463 Plethysmography Determination Carmen ng Volumes & Per Airway Resist Completed 04/21/2021 47817 Bronchospasm Evaluation Complete d Medical Devices Description No Information Available Encounters Type Date Location Provider Dx Diagnosis Office Visit 05/10/2021 11:15a [facility] STEVE Moss K21.9 Gastro-esophageal reflux dis ease without esophagitis K29.70 Gastritis, unspecified, with out bleeding R19.8 Oth symptoms and signs invol ving the dgstv sys and abdomen Office Visit 04/29/2021 9:30a [facility] K Sarah sellers M.D. R06.00 [...] 10:30 am - Sarah Hi M.D. at [facility] 09/09/2021 - Sarah Hi M.D.* [...]
--- OUTSIDE RECORDS SUMMARY | 2021-09-30 12:33 | CCD | Continuity of Care Document ---
Author Author Dolly HI M.D. Organization Unknown Address [address] [place] [address] Phone [phone] Care Team Providers Care Appraisal Analyst Name Role Phone Phani Montiel M.D. AUTM [phone] Magali Brown R.N. AUTM [phone] AUTM Unavailable Problems Active Problems Provider Date [...] Code Status Date Vaccine Reaction Lot # [id number] Given 10/12/2015 Prevnar 13 87044 Given 10/12/2015 Influenza Virus Split 3 Yrs And Above For Intramuscular Use 20073 Given 08/22/2013 Influenza Virus Split 3 Yrs And Above For Intramuscular Use 65210 Given 09/21/2012 Influenza Virus Split 3 Yrs And Above For Intramuscular Use 42827 Given 09/07/2011 Influenza Virus Split 3 Yrs And Above For Intramuscular Use 84172 Given 09/01/2010 Influenza Vaccine 48362 Given 01/07/1998 TB Intradermal Test NEGATIVE Vital Signs Date Vital Result Comment 09/09/2021 10:44am BP Systolic 126 mmHg BP Diastolic 72 mmHg Heart Rate 61 /min O2 % BldC Oximetry 98 % Height 63.50 inches 5'3.50" [place] Body Weight 115 lb 05/10/2021 11:26am BP Systolic 142 mmHg BP Diastolic 86 mmHg Height 63.50 inches 5'3.50" Weight 225.00 lb BMI (Body Mass Index) 39.2 kg/m2 [place] Body Weight 115 lb Weight 102.060 kg BSA (Body Surface Area) 2.04 m2 Results Description No Information Available Procedures Date Code Description Status 05/10/2021 47172 Office/Outpatient Established Lo w MDM 20-29 Min Completed 04/29/2021 01988 Office/Outpatient Established Mo d MDM 30-39 Min Completed 04/21/2021 12593 Diffusing Capacity Completed 04/21/2021 16196 Plethysmography Determination Carmen ng Volumes & Per Airway Resist Completed 04/21/2021 81144 Bronchospasm Evaluation Complete d Medical Devices Description No Information Available Encounters Type Date Location Provider Dx Diagnosis Office Visit 05/10/2021 11:15a [facility] Gastroenterology Pra ctice STEVE Moss K21.9 Gastro-esophageal reflux dis ease without esophagitis K29.70 Gastritis, unspecified, with out bleeding R19.8 Oth symptoms and signs invol ving the dgstv sys and abdomen Office Visit 04/29/2021 9:30a [facility] Pulmonary/Thoracic K Sarah sellers M.D. R06.00 [...] 10:30 am - Sarah Hi M.D. at [facility] Pulmonary/Thoracic 09/09/2021 - Sarah Hi M.D.* [...]
--- OUTSIDE RECORDS SUMMARY | 2021-09-30 12:33 | CCD | Continuity of Care Document ---
Author Author Dolly ALANIZ PA Organization Unknown Address [address] [place] [address], [place] [address] Phone [phone] Care Team Providers Care Burr Machine Operator Name Role Phone Hermann Boudreaux MD AUTM [phone] Magali Brown NP AUTM [phone] Carol Dior AUTM [phone] Waqas Mcintosh MD AUTM [phone] Rahul Harrington MD AUTM [phone] Sarah Perdomo MD AUTM [phone] Problems Active Problems Provider Date Chronic pulmonary [...] Lemon MD Onset: 07/10/20 13 Difficulty breathing Hermnan Lemon MD Onset: 07/10/2013 Precordial pain Hermann [...] Exercise Type/Frequency Does housework twice a w port gamble Exercise Type/Frequency Does yardwork twice a we [...] mouth twice a day 180tabs I48.0 Hermann Leomn MD 05/18/2021 I10 Valsartan 80mg Tablets 1 [...] Result H/L Range Note Lipid Panel 07/08/2021 [facility] nter [phone] Triglycerides Level 224 mg/dL High <150 Cholesterol Level 158 mg/dL Normal <200 HDL Cholesterol 40 mg/dL Normal >40 LDL Cholesterol 73 mg/dL Normal <100 Non-HDL-C 118 mg/dL Normal Cholesterol Risk Ratio 3.950 Normal <5 BMP 07/08/2021 [facility] nter [phone] Glucose, Fasting 88 mg/dL Normal 70-100 Blood [...] mg/dL Normal 8.8-10.2 Basic Metabolic Panel 04/30/2021 [facility] - [facility] ed (315)- - Glucose 86 70-100 Blood Urea Nitrogen 19 High 7-18 Creatinine 0.86 0.55-1.30 Sodium 141 136-145 Potassium 4.3 3.5-5.1 Chloride 108 High 98-107 Carbon Dioxide 27 21-32 Calcium 10.0 High 8.2-9.6 GFR (Calculated) >60.0 >32 CBC without Differential 04/30/2021 [facility] - not inter faced (315)- - White Blood Count 7.2 4.0-10.0 Red Blood Count 4.72 4.00-5.40 Platelets 192 150-450 Hemoglobin 14.6 Hematocrit 44.4 Basic Metabolic Panel 04/12/2021 [facility] - not interfac ed (315)- - Glucose 95 70-100 Blood Urea Nitrogen 21 High 7-18 Creatinine 0.99 0.55-1.30 Sodium 142 136-145 Potassium 4.2 3.5-5.1 Chloride 110 High 98-107 Carbon Dioxide 26 21-32 Calcium 9.3 8.2-9.6 GFR (Calculated) 58.9 >32 Laboratory test finding 04/12/2021 [facility] - not interf aced (315)- - Digoxin (Lanoxin) 1.3 CBC without Differential 04/09/2021 [facility] - not inter faced (315)- - White Blood Count 7.2 5.0-10.0 Red Blood Count 5.00 4.00-5.40 Platelets 216 172-450 Hemoglobin 15.2 Hematocrit 46.7 Laboratory test finding 04/09/2021 [facility] - not interf aced (315)- - [...] Little GFR Left ESRD GFR <15 on CRYPTOLOGIC TECHNICIAN OPERATOR/ANALYST Procedures Date Code Description Status 07/12/2021 13980 Office/Outpatient Established Mo d MDM 30-39 Min Completed 07/12/2021 95718 ECG 12-Lead Completed 06/24/2021 78122 TM Interpretation & Report Only Completed 06/24/2021 27656 Myocardial Imaging (PET) Multipl e Studies Completed 05/18/2021 08669 Office/Outpatient Established Lo w MDM 20-29 Min Completed 05/18/2021 86482 Arterial Pressure Wa veform Analysis For Assessment Of Central Art Completed 05/18/2021 19973 ECG 12-Lead Completed 05/12/2021 45784 Echocardiogram 2-D Doppler Color Completed 05/04/2021 35288 External ECG Rec>48HR<7D Review & Interpretation Completed 05/04/2021 88434 External ECG Rec>48HR<7D Recordi ng Completed 04/14/2021 21063 Office/Outpatient Established Hi gh MDM 40-54 Min Completed 04/14/2021 89038 Arterial Pressure Wa veform Analysis For Assessment Of Central Art Completed 04/14/2021 20881 ECG 12-Lead Completed Medical Devices Description No [...] Chronic diastolic (congestive) h eart failure Blanca Alaniz, PA 07/12/2021 I31.3 Pericardial effusion (noninflamm atory) Blanca Alaniz PA 07/12/2021 E78.2 Mixed hyperlipidemia MARTÍN Dacosta 07/12/2021 G47.33 Obstructive sleep apnea (adult) (pediatric) [...] 05/18/2021 I48.0 Paroxysmal atrial fibrillation D jamie Lmeon MD 05/18/2021 I10 Essential (primary) hypertension Hermann [...] and consider atrial fibrillation cryoablation. Thanks! Closed [facility] [address] [place] [address] [address] [place] [address] [phone]
--- OUTSIDE RECORDS SUMMARY | 2021-09-30 12:33 | CCD ---
Author Author [facility] Organization [facility] Address Unknown Phone Unavailable Care Team Providers Care Market Research Manager Name Role Phone Anne-Marie Hammond Unavailable PROBLEMS Type Condition ICD9-CM Code [id number] Code Onset Dates Condition S tatus W/U Status Risk SNOMED Code Notes Problem Insomnia G47.00 Active confirmed 603982877 Problem Seasonal allergies J30.2 Active confirmed 3 65374601 Problem Vitamin D deficiency E55.9 Active confirmed 24336256 Problem HTN (hypertension) I10 Active confirmed 3 2561132 Problem Diaphragmatic hernia K44.9 Active confirmed 48489113 Problem Varicose veins I86.8 Active confirmed 77582 0009 Problem Low back pain M54.5 Active confirmed 518979 007 Problem Postmenopausal atrophic vaginitis N95.2 Active con firmed 67850855 Problem Frontal headache R51 Active confirmed 267 825740 Problem Obstructive sleep apnea (adult) (pediatric) G47.33 Active confirmed 13926151 Problem Ocular migraine G43.109 Active confirmed 956 69566 Problem Chronic atrial fibrillation I48.20 Active confirmed 815538058 Problem New onset a-fib I48.91 Active confirmed 4943 6004 Problem Esophageal reflux K21.9 Active confirmed 23 4601440 Problem Paroxysmal a-fib I48.0 Active confirmed 282 387642 Problem Chronic pulmonary heart disease, unspecified I27.9 Active confirmed 44851723 Problem 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 Acti ve confirmed 654184812 Problem Dyslipidemia E78.5 Active confirmed 1578372 07 Problem History of IBS Z87.19 Active confirmed 11579 665910070 Problem Pulmonary air trapping R09.89 Active confirmed 75953895 Problem Venous insufficiency of left lower extremity I87.2 Active confirmed 600142949 Problem Acquired absence of both cervix and uterus Z90.710 Active confirmed 608039730 ALLERGIES Allergen (clinical drug ingredient) Drug/Non Drug Allergy do cumented on EMR Reaction Allergy Type Onset Date Status amoxicillin Amoxicillin([facility] Code:[address]-81) Rash Drug Aller gy Active tetracycline Tetracycline HCl([facility] Code:[address]-10) Rash Drug Allergy Active topiramate Topiramate([facility] Code:[address]-06) depression,GI Drug Aditya rgy Active carvedilol Carvedilol([facility] Code:[address]-13) heart racing Drug Aller gy Active Sulfa (for allergy use only) Rash Non Drug Allergy Active Penicillin (For Allergies Use Only) Rash Drug Allerg y Active digoxin Digoxin([facility] Code:[address]-10) bradycardia Drug Allergy Active oxycodone Oxycodone HCl([facility] Code:[address]-67) GI Drug Aditya rgy Active indapamide Indapamide([facility] Code:[address]-33) heart racing Drug Aller gy Active ENCOUNTERS from 1950 to 2021-07-30 Encounter Location Date Provider Diagnosis [facility] [address] [phone] [place] [address] Jul, Anne-Marie Hammond Postmenopausal atrop hic vaginitis N95.2 ; Routine gynecological examination Z01.419 ; Breast cancer screening by mammogram Z12.31 ; Acquired absence of both ovaries Z90.722 and S/P total hysterectomy and bilateral salpingo-oophorectomy Z90.710 IMMUNIZATIONS Vaccine Route Administration Date Status Influenza (High Dose 65 & up) IM Intramuscular Aug 09, 2018 A dministered Zoster 50mcg/0.5mL Shingrix IM Intramuscular February 25, 2018 Adm inistered Influenza Pharmacy Given Unknown Sep 10, 2019 Adminis tered Influenza (High Dose 65 & up) IM Intramuscular Sep 07, 2016 A dministered Influenza (High Dose 65 & up) IM Intramuscular Oct 01, 2014 A dministered Influenza (High Dose 65 & up) IM Intramuscular Aug 04, 2015 A dministered Influenza (High Dose 65 & up) Unknown Aug 07, 2017 Ad ministered DTAP 0.5mL Infanrix IM Intramuscular Sep 01, 2010 Administere d Zoster 0.65mL Zostavax IM Intramuscular February 28, 2013 Administ ered Pneumococcal Adult 0.5mL Pneumovax 23 IM Intramuscular Aug 10, 2015 Administered TDAP 0.5mL (Boostrix) IM Intramuscular Oct 28, 2020 Administe red Pneumococcal 0.5mL Prevnar 13 IM Intramuscular Oct 01, 2014 A dministered Influenza 6mo & up Fluzone IM Intramuscular Aug 28, 2013 Admi nistered Influenza 6mo & up Fluzone IM Intramuscular Aug 29, 2012 Admi nistered Influenza 6mo & up Fluzone IM Intramuscular Aug 31, 2011 Admi nistered Influenza 6mo & up Fluzone IM Intramuscular Sep 01, 2010 Admi nistered SOCIAL HISTORY Tobacco Use: Social History Observation Description Date Details (start date - stop date) Never Smoker Sex Assigned At : Social History Observation Description Sex Assigned At Unknown Audit Question Answer Notes Total Score: 0 Interpretation: Alcohol Education Language: Question Answer Notes Languages spoken: Spanish Pentecostal: Question Answer Notes Pentecostal 21 [employer]ism Sexual Hx: Question Answer Notes Had sex in the last 12 months (vaginal, oral, or anal)? No LMP: hyster Have you ever had an STD? No Drug and Alcohol Question Answer Notes Total Score: 0 Interpretation: No problems reported Alcohol Screening: Question Answer Notes Did you have a drink containing alcohol in the past year? No Points 0 Interpretation Negative BMI Care Goal Follow-Up Question Answer Notes Above Normal BMI Follow-Up Giving encouragement to exercise Tobacco Use: Question Answer Notes Are you a: never smoker REASON FOR REFERRAL No Information VITAL SIGNS Weight 223 lbs Jul, Height 63 in Jul, BMI 39.5 kg/m2 Jul, Blood pressure systolic 126 mm Hg Jul, Blood pressure diastolic 80 mm Hg Jul, MEDICATIONS Medication SIG (Take, Route, Frequency, Duration) Notes Start Da te End Date Status Cequa 0.09 % 1 drop into affected eye Ophthalmic every 12 hrs Active Torsemide 5 MG 1 tablet Orally Once a day Active Selenium 200 MCG 1 tablet Orally once a day Active L-Carnitine 500 mg as directed Orally Twice a day Active Valsartan 80 MG 1 tablet Orally Once a day Active CoQ-10 100 MG 1 capsule with a meal Orally Once a day Active Hyoscyamine Sulfate ER 0.375 MG 1 tablet, Orally every 8 hrs. as needed for 90 day(s) Active Vitamin D-3 1000 UNIT 2 capsules Orally Once a day Active ICaps Lutein & Zeaxanthin 1 tab Orally Daily Active Magnesium 250 MG 1 tab Orally once a day Active traZODone HCl 100 MG 1 tab Orally before bedtime Active Rosuvastatin Calcium 20 MG 1 tablet Orally Once a day Active Multivitamins OTC 1 tab(s) Orally four times a week Active MiraLax 1 packet mixed with 8 ounces of fluid Orally once a day Active Atenolol 50mg 1 tab orally twice daily Active Pantoprazole Sodium 40 MG 1 tablet Orally Once a day Active Claritin 10 MG 1 tablet Orally once a day as needed Active Eliquis 5 mg 1 tab(s) Orally Twice a day Active Gabapentin 300 MG 2 capsule Orally before bedtime for 90 days Active Lycopene 10 MG Orally twice daily A ctive Fluticasone Propionate 50 MCG/DOSE 1 spray in each nostril Nasal ly Once a day Active Tylenol 325 MG 1 tablet as needed Orally every 4 hrs Active potassium 99 mgs 1 capsule orally Daily Active Premarin 0.625 MG/GM 1.5 gm Vaginal twice weekly for 90 day(s) Active PROCEDURES No Information RESULTS No Results REASON FOR VISIT ANNUAL / MAMMO MEDICAL (GENERAL) HISTORY Type Description Date Medical History Hypertension Medical History hyperlipidemia Medical History anxiety Medical History 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 Lemon 02/05/16 Medical History 01/31 LS spine - c/w 05/01 [facility] with complete syndesmophyte L1-2, tiny partial syndesmophyte L2-3, partial at L4-5 B, no spondylolysis, Gr 1 L4-5 spondylolisthesis, hypertrophic degenerative disc at every level posteriorly and more at L2-3, L1-2, possble retrolithesis is also suggested. Medical History 07/03 MRI L spine - with deg changes L1-S1 with central canal stenosis, disc bulges, protrusion, and facet hypertrophy Medical History 07/03 MRI L Spine with L1 , L 5 enhancement consistent with mets, 08/[address] neg, cleared by Dr Hanson Medical History MILLY 12/31 Dr Brown Medical History sleep study 05/02/2016, debbie reyes MILLY, Dr. Brown. Patient is pressure of 13 cm's of water Medical History 03/06/12 Venous Valvular Insu fficeincy seen by vascular in [place] Medical History IBS, dx by Dr Boudreaux Medical History acid reflux/hiatal hernia Medical History EGD 08/19/2011: gastritis, st omach bx taken; Normal esophagus & duodenum Medical History EDG 03/08/2016, minimal infl ammation. Otherwise normal. Gastric biopsy no significant acute or chronic inflammation. Medical History EDG 12/27/16 , normal esophagu s, normal stomach, normal examined duodenum, no specimens collected. Medical History 08/02 ECHO sm pericardial ef fusion; sugg of mild elevation in RV syst pressure; mild-moderate TR; nl LV size & function; very mild AV sclerosis; very mild mitral annular calcification; trace MR Medical History PAF- on Eliquis thru cardiology Medical History 01/29/2016, echocardiogram, LVEF 65%, normal left ventricular size, mild dilated left atrium, Doppler evidence of impaired LV diastolic function. Doppler evidence of at least mild pulmonary hypertension. Medical History 01/11/2016 Regadenoson Stree Spect stress test, no inducible chest pain. LVEF calculated at 74% Medical History 05/22/19 Cardiology echo LVEF 65% Surgical History small bowel resection, secondary to recu rrent partial SBO 04/25 Surgical History laparoscopy 2005 Surgical History tonsillectomy 1956 Surgical History lymph node resection Surgical History TVT and bowel repair 2002 Surgical History vaginal stricture d/t to bowel repair 20 05 Surgical History Left oophorectomy, then f/u R oophorectomy, then DAVID, d/t endometriosis 80,85, 88 Surgical History bunionectomy-left foot 07/30 Surgical History colonoscopy with tubulovillous adenoma 1 01/01, Surgical History vasular oblation to left leg 06/11/12 Surgical History cholecystectomy due to cholelithiasis Surgical History hammer toe right 05/27/16 Surgical History colonoscopy 12/23/16 Surgical History right foot surgery 2016 Surgical History right bunionectomy-Dr. Mishra-[facility] 08/16 Surgical History upper GI endoscopy localized mild inflammation use Carafate tablets 1 g by mouth twice a day 08/10/2020 Surgical History colonoscopy 15 mm polyp in t he sigmoid colon removed with cold snare, diverticulosis. Polyp adematous changes 08/10/2020 Hospitalization History for above reasons Hospitalization History [facility] A Fib 01/30/16 Hospitalization History [facility] Afib with rapid rvr 04/09/21 Hospitalization History [facility] Bradycardia,fatigue 04/12/21 Goals Section No Information Health Concerns No Information MEDICAL EQUIPMENT No Information MENTAL STATUS No Information FUNCTIONAL STATUS No Information ASSESSMENTS Encounter Date Diagnosis Assessment Notes Treatment Notes Treatm ent Clinical Notes Jul, Postmenopausal atrophic vaginitis (ICD-10 - N95. 2) Discussed treatment options for vaginal atrophy including prescription and otc treatments, also discussed no treatment. Pt opts to utilize prescriptive therapy, discussed medication use, risk/benefit, recommend not using applicator and instead applying cream with fingertip and apply twice weekly, at night, apply at introitus. Tube should last close to six months. RX sent. Jul, Routine gynecological examination (ICD-10 - Z01. 419) Pt to report any episodes of pmb or pelvic pain. Advise regular physical activity including weight bearing exercise most days of the week. Reviewed calcium rich foods. HCRA completed and reviewed Jul, Breast cancer screening by mammogram (ICD-10 - Z 12.31) Reviewed screening intervals with mammography, recommend annual screening until age 75. Reviewed breast awareness, know what is normal for you so that you can detect any changes in the breasts, check breasts regularly, in a routine that you are comfortable with. Jul, Acquired absence of both ovaries (ICD-10 - Z90.7 22) Jul, S/P total hysterectomy and b ilateral salpingo-oophorectomy (ICD-10 - Z90.710) PLAN OF TREATMENT Medication Medication Name Sig Start Date Stop Date Premarin 0.625 MG/GM 1.5 gm Vaginal twice weekly for 90 day(s) Treatment Notes Assessment Notes Clinical Notes Postmenopausal atrophic vaginitis Discus sed treatment options for vaginal atrophy including prescription and otc treatments, also discussed no treatment. Pt opts to utilize prescriptive therapy, discussed medication use, risk/benefit, recommend not using applicator and instead applying cream with fingertip and apply twice weekly, at night, apply at introitus. Tube should last close to six months. RX sent. Routine gynecological examination Pt to report any episodes of pmb or pelvic pain. Advise regular physical activity including weight bearing exercise most days of the week. Reviewed calcium rich foods.HCRA completed and reviewed Breast cancer screening by mammogram Rev iewed screening intervals with mammography, recommend annual screening until age 75. Reviewed breast awareness, know what is normal for you so that you can detect any changes in the breasts, check breasts regularly, in a routine that you are comfortable with. Treatment Notes Test Name Order Date [facility] DIGITAL / SURINDER BILATERAL MAMMO SCREENING (Ultraso und if indicated) 2021-07-29 Next Appt Details 1 Year Reason:annual/mammo Provider Name:Magali Brown, 10:00:00 AM, [facility], , [place], [address], Provider Name:Anne-Marie Hammond, 2022-08-02 08:00:00 AM, [address], , [place], [address], Follow Up:1 Yearannual/mammo Insurance Providers Payer Name Payer Address Payer Phone Insured Name Patient Relati onship to Insured Coverage Start Date Coverage End Date MEDICARE Part A and B [address] [facility] [id number] GALILEA DAWSON [employer] [address] [address] [facility] [phone] GALILEA DAWSON
--- OUTSIDE RECORDS SUMMARY | 2021-09-30 12:33 | CCD | Continuity of Care Document ---
Author Author Dolly HERNANDEZ PA Organization Unknown Address [address] [place] [address], [address] [place] [address] Phone [phone] Care Team Providers Care Hand Brush Filler Name Role Phone Hermann Boudreaux MD AUTM [phone] Magali Brown NP AUTM [phone] Carol Dior AUTM [phone] Waqas Mcintosh MD AUTM [phone] Rahul Harrington MD AUTM [phone] Sarah Perdomo MD AUTM [phone] Problems Active Problems Provider Date Chronic pulmonary [...] 02/13/2017 Obstructive sleep apnea syndrome Genny Lara UPSETTER-C Onset : 02/13/2017 Dietary management surveillance MOISÉS Niño-C Onset: 09/25/2017 Chest pain Hermann Lemon MD Onset: 04/14/2021 Chronic diastolic heart failure MARTÍN Sullivan Onset : 07/12/2021 Social History Type Date Description Comments Sex Unknown ETOH Use Does not consume alcohol Tobacco Use Start: Unknown Patient has never smoked Smoking Status Reviewed: 07/12/21 Patient has never smoked Exercise Type/Frequency Does housework twice a w [place] Exercise Type/Frequency Does yardwork twice a we [...] Result H/L Range Note Lipid Panel 07/08/2021 [facility] nter [phone] Triglycerides Level 224 mg/dL High <150 Cholesterol Level 158 mg/dL Normal <200 HDL Cholesterol 40 mg/dL Normal >40 LDL Cholesterol 73 mg/dL Normal <100 Non-HDL-C 118 mg/dL Normal Cholesterol Risk Ratio 3.950 Normal <5 BMP 07/08/2021 [facility] nter [phone] Glucose, Fasting 88 mg/dL Normal 70-100 Blood [...] mg/dL Normal 8.8-10.2 Basic Metabolic Panel 04/30/2021 [facility] - [facility] ed (315)- - Glucose 86 70-100 Blood Urea Nitrogen 19 High 7-18 Creatinine 0.86 0.55-1.30 Sodium 141 136-145 Potassium 4.3 3.5-5.1 Chloride 108 High 98-107 Carbon Dioxide 27 21-32 Calcium 10.0 High 8.2-9.6 GFR (Calculated) >60.0 >32 CBC without Differential 04/30/2021 [facility] - not inter faced (315)- - White Blood Count 7.2 4.0-10.0 Red Blood Count 4.72 4.00-5.40 Platelets 192 150-450 Hemoglobin 14.6 Hematocrit 44.4 Basic Metabolic Panel 04/12/2021 [facility] - not interfac ed (315)- - Glucose 95 70-100 Blood Urea Nitrogen 21 High 7-18 Creatinine 0.99 0.55-1.30 Sodium 142 136-145 Potassium 4.2 3.5-5.1 Chloride 110 High 98-107 Carbon Dioxide 26 21-32 Calcium 9.3 8.2-9.6 GFR (Calculated) 58.9 >32 Laboratory test finding 04/12/2021 [facility] - not interf aced (315)- - Digoxin (Lanoxin) 1.3 CBC without Differential 04/09/2021 [facility] - not inter faced (315)- - White Blood Count 7.2 5.0-10.0 Red Blood Count 5.00 4.00-5.40 Platelets 216 172-450 Hemoglobin 15.2 Hematocrit 46.7 Laboratory test finding 04/09/2021 [facility] - not interf aced (315)- - Magnesium [...] Little GFR Left ESRD GFR <15 on PRINCIPAL SYSTEM SOFTWARE ENGINEER Procedures Date Code Description Status 08/23/2021 64476 Office/Outpatient Established Mi nimal Problem(S) Completed 07/12/2021 32951 Office/Outpatient Established Mo d MDM 30-39 Min Completed 07/12/2021 84189 ECG 12-Lead Completed 06/24/2021 05872 TM Interpretation & Report Only Completed 06/24/2021 26424 Myocardial Imaging (PET) Multipl e Studies Completed 05/18/2021 71129 Office/Outpatient Established Lo w MDM 20-29 Min Completed 05/18/2021 65484 Arterial Pressure Wa veform Analysis For Assessment Of Central Art Completed 05/18/2021 78656 ECG 12-Lead Completed 05/12/2021 47354 Echocardiogram 2-D Doppler Color Completed 05/04/2021 02256 External ECG Rec>48HR<7D Review & Interpretation Completed 05/04/2021 80922 External ECG Rec>48HR<7D Recordi ng Completed 04/14/2021 26899 Office/Outpatient Established Hi gh MDM 40-54 Min Completed 04/14/2021 61211 Arterial Pressure Wa veform Analysis For Assessment Of Central Art Completed 04/14/2021 47567 ECG 12-Lead Completed Medical Devices Description No [...] Hernandez, PA 07/12/2021 I10 Essential (primary) hypertension Balnca Hernandez, PA 07/12/2021 I50.32 Chronic diastolic (congestive) [...] and consider atrial fibrillation cryoablation. Thanks! Closed [facility] [address] [address] [phone]
--- OUTSIDE RECORDS SUMMARY | 2021-09-30 12:33 | CCD ---
Continuity of Care Document (CCD) Created on: 09/09/2021 Dolly Quinteros External Reference #: [id number] : [id number] Sex: Female Author Author Dolly HI M.D. Organization Unknown Address [address] [place] [address] Phone [phone] Care Team Providers Care Inspector Rubber Stamp Die Name Role Phone Phani Montiel M.D. AUTM [phone] Magali Brown R.N. AUTM [phone] AUTM Unavailable Problems Active Problems Provider Date [...] Code Status Date Vaccine Reaction Lot # [id number] Given 10/12/2015 Prevnar 13 71570 Given 10/12/2015 Influenza Virus Split 3 Yrs And Above For Intramuscular Use 87512 Given 08/22/2013 Influenza Virus Split 3 Yrs And Above For Intramuscular Use 69479 Given 09/21/2012 Influenza Virus Split 3 Yrs And Above For Intramuscular Use 48136 Given 09/07/2011 Influenza Virus Split 3 Yrs And Above For Intramuscular Use 04601 Given 09/01/2010 Influenza Vaccine 74109 Given 01/07/1998 TB Intradermal Test NEGATIVE Vital Signs Date Vital Result Comment 09/09/2021 10:44am BP Systolic 126 mmHg BP Diastolic 72 mmHg Heart Rate 61 /min O2 % BldC Oximetry 98 % Height 63.50 inches 5'3.50" [place] Body Weight 115 lb 05/10/2021 11:26am BP Systolic 142 mmHg BP Diastolic 86 mmHg Height 63.50 inches 5'3.50" Weight 225.00 lb BMI (Body Mass Index) 39.2 kg/m2 [place] Body Weight 115 lb Weight 102.060 kg BSA (Body Surface Area) 2.04 m2 Results Description No Information Available Procedures Date Code Description Status 05/10/2021 00732 Office/Outpatient Established Lo w MDM 20-29 Min Completed 04/29/2021 33963 Office/Outpatient Established Mo d MDM 30-39 Min Completed 04/21/2021 16599 Diffusing Capacity Completed 04/21/2021 46981 Plethysmography Determination Carmen ng Volumes & Per Airway Resist Completed 04/21/2021 91439 Bronchospasm Evaluation Complete d Medical Devices Description No Information Available Encounters Type Date Location Provider Dx Diagnosis Office Visit 05/10/2021 11:15a [facility] Gastroenterology Pra ctice STEVE Moss K21.9 Gastro-esophageal reflux dis ease without esophagitis K29.70 Gastritis, unspecified, with out bleeding R19.8 Oth symptoms and signs invol ving the dgstv sys and abdomen Office Visit 04/29/2021 9:30a [facility] Pulmonary/Thoracic K Sarah sellers M.D. R06.00 [...] am - Sarah Hi M.D. at [facility] Pulmonary/Thoracic 09/09/2021 - Sarah Hi M.D.* [...]
--- OUTSIDE RECORDS SUMMARY | 2021-09-30 12:33 | CCD | Continuity of Care Document ---
Author Author Dolly HI M.D. Organization Unknown Address [address] [place] [address] Phone [phone] Care Team Providers Care Pan Devulcanizer Name Role Phone Phani Montiel M.D. AUTM [phone] Magali Brown R.N. AUTM [phone] AUTM Unavailable Problems Active Problems Provider Date [...] Code Status Date Vaccine Reaction Lot # [id number] Given 10/12/2015 Prevnar 13 84811 Given 10/12/2015 Influenza Virus Split 3 Yrs And Above For Intramuscular Use 61423 Given 08/22/2013 Influenza Virus Split 3 Yrs And Above For Intramuscular Use 28429 Given 09/21/2012 Influenza Virus Split 3 Yrs And Above For Intramuscular Use 07202 Given 09/07/2011 Influenza Virus Split 3 Yrs And Above For Intramuscular Use 44335 Given 09/01/2010 Influenza Vaccine 23258 Given 01/07/1998 TB Intradermal Test NEGATIVE Vital Signs Date Vital Result Comment 09/09/2021 10:44am BP Systolic 126 mmHg BP Diastolic 72 mmHg Heart Rate 61 /min O2 % BldC Oximetry 98 % Height 63.50 inches 5'3.50" [place] Body Weight 115 lb 05/10/2021 11:26am BP Systolic 142 mmHg BP Diastolic 86 mmHg Height 63.50 inches 5'3.50" Weight 225.00 lb BMI (Body Mass Index) 39.2 kg/m2 [place] Body Weight 115 lb Weight 102.060 kg BSA (Body Surface Area) 2.04 m2 Results Description No Information Available Procedures Date Code Description Status 05/10/2021 88824 Office/Outpatient Established Lo w MDM 20-29 Min Completed 04/29/2021 13508 Office/Outpatient Established Mo d MDM 30-39 Min Completed 04/21/2021 23057 Diffusing Capacity Completed 04/21/2021 60902 Plethysmography Determination Carmen ng Volumes & Per Airway Resist Completed 04/21/2021 38265 Bronchospasm Evaluation Complete d Medical Devices Description No Information Available Encounters Type Date Location Provider Dx Diagnosis Office Visit 05/10/2021 11:15a [facility] Gastroenterology Pra ctice STEVE Moss K21.9 Gastro-esophageal reflux dis ease without esophagitis K29.70 Gastritis, unspecified, with out bleeding R19.8 Oth symptoms and signs invol ving the dgstv sys and abdomen Office Visit 04/29/2021 9:30a [facility] Pulmonary/Thoracic K Sarah sellers M.D. R06.00 [...] 10:30 am - Sarah Hi M.D. at [facility] Pulmonary/Thoracic 09/09/2021 - Sarah Hi M.D.* [...]
--- OUTSIDE RECORDS SUMMARY | 2021-09-30 12:34 | CCD | Continuity of Care Document ---
Author Author Dolly ALANIZ PA Organization Unknown Address [address] [place] [address], [place] [address] Phone [phone] Care Team Providers Care Vaccines Solutions Specialist Name Role Phone Hermann Boudreaux MD AUTM [phone] Magali Brown NP AUTM [phone] Carol Dior AUTM [phone] Waqas Mcintosh MD AUTM [phone] Rahul Harrington MD AUTM [phone] Sarah Perdomo MD AUTM [phone] Problems Active Problems Provider Date Chronic pulmonary [...] Hermann Lemon MD Onset: 07/10/2013 Essential hypertension Hremann Lemon MD Onset: 3 Edema Hermann Lemon MD Onset: 08/20/2013 Mitral valve disorder Anne-Marie Quinteros NP Onset: 03/06/2015 Paroxysmal atrial fibrillation 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..] SIG Qnty Indications Ordering Provide r Date Cequa 0.09% Solution as direc jacoby Unknown 07/01/2021 Atenolol 25mg Tablets 1 by mouth twice a day 180tabs I48.0 Hermann Lemon MD 05/18/2021 I10 Valsartan 80mg Tablets 1 by mouth daily at bedtime 90tabs I10 Hermann Lemon MD 05/18/2021 Acetaminophen 325mg Tablets 2 every 4 hours as needed Unknown 04/13/2021 Cranberry 400mg Capsules 1 by mouth every day Unknown 04/13/2021 Metronidazole 0.75% Cream apply as directed once daily Unknown 04/13/2021 Calcium Antacid 500mg Chewtabs as needed Unknown 04/13/2021 Hyoscyamine Sulfate ER 0.375mg Tablets ER 12HR 1 by mouth every 8 hours only as needed Hermann Duke MD 01/10/2021 Fluticasone Propionate 50mcg/Act Suspension 1 spray each nostril daily Me ruslan Dior PA 01/10/2021 Benefiber Powder 1 unit by mouth mixed into a drink once daily Unknown 01/10/20 Premarin 0.625mg/GM Cream twice a week Unknown 06/09/2020 Loratadine 10mg Tablets 1 by mouth every day Unknown 06/09/2020 Gabapentin 300mg Capsules 2 by mouth once daily at bedtime Magali Brown NP 10/14/2019 Rosuvastatin Calcium 20mg Tablets 1 by mouth daily at bedtime 90tabs Reinier Arellano MD 2018 Potassium 99mg Tablets once d aily Unknown 03/27/2018 Pantoprazole Sodium 40mg Tablets D R 1 by mouth every day Unknown 02/12/2017 L-Carnosine Capsule 1 by mouth twice daily Unknown 07/14/2016 Modafinil 200mg Tablets 1/2 by mouth every morning and 1/2 tablet in the afternoon if needed Unknown 07/14/2016 Multivitamins Capsules 1 by mouth [...] I48.0 Hermann Lemon MD 04/14/2021 - 06/02/2021 Digox 250mcg Tablets 1 by mouth every day 90tabs Reinier Arellano MD 04/11/2021 - 021 Restasis 0.05% Emulsion 1 drop in both eyes twice a day Waqas Mcintosh MD 2020 - 07/01/2021 Immunizations Description No Information Available Vital Signs Date Vital Result Comment 05/18/2021 9:06am Weight 222.00 lb Height 63 inches 5'3" BMI (Body Mass Index) 39.3 kg/m2 Heart Rate 56 /min BP Systolic Sitting 145 mmHg CBP, large cuff/Ra BP Diastolic Sitting 85 mmHg CBP, large cuff/Ra 04/14/2021 1:49pm Weight 221.00 lb Height 63 inches 5'3" BMI (Body Mass Index) 39.1 kg/m2 Heart Rate 61 /min BP Systolic Sitting 133 mmHg CBP, large cuff/Ra BP Diastolic Sitting 82 mmHg CBP, large cuff/Ra Results Test Acquired Date Facility Test Result H/L Range Note Lipid Panel 07/08/2021 [facility] nter [phone] Triglycerides Level 224 mg/dL High <150 Cholesterol Level 158 mg/dL Normal <200 HDL Cholesterol 40 mg/dL Normal >40 LDL Cholesterol 73 mg/dL Normal <100 Non-HDL-C 118 mg/dL Normal Cholesterol Risk Ratio 3.950 Normal <5 BMP 07/08/2021 [facility] nter [phone] Glucose, Fasting 88 mg/dL Normal 70-100 Blood [...] mg/dL Normal 8.8-10.2 Basic Metabolic Panel 04/30/2021 [facility] - not [facility] ed (315)- - Glucose 86 70-100 Blood Urea Nitrogen 19 High 7-18 Creatinine 0.86 0.55-1.30 Sodium 141 136-145 Potassium 4.3 3.5-5.1 Chloride 108 High 98-107 Carbon Dioxide 27 21-32 Calcium 10.0 High 8.2-9.6 GFR (Calculated) >60.0 >32 CBC without Differential 04/30/2021 [facility] - not inter faced (315)- - White Blood Count 7.2 4.0-10.0 Red Blood Count 4.72 4.00-5.40 Platelets 192 150-450 Hemoglobin 14.6 Hematocrit 44.4 Basic Metabolic Panel 04/12/2021 [facility] - not [facility] ed (315)- - Glucose 95 70-100 Blood Urea Nitrogen 21 High 7-18 Creatinine 0.99 0.55-1.30 Sodium 142 136-145 Potassium 4.2 3.5-5.1 Chloride 110 High 98-107 Carbon Dioxide 26 21-32 Calcium 9.3 8.2-9.6 GFR (Calculated) 58.9 >32 Laboratory test finding 04/12/2021 [facility] - not [facility] aced (315)- - Digoxin (Lanoxin) 1.3 CBC without Differential 04/09/2021 [facility] - not inter faced (315)- - White Blood Count 7.2 5.0-10.0 Red Blood Count 5.00 4.00-5.40 Platelets 216 172-450 Hemoglobin 15.2 Hematocrit 46.7 Laboratory test finding 04/09/2021 [facility] - not [facility] aced (315)- - Magnesium Level 2.3 1.8-2.4 [...] Little GFR Left ESRD 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 <15 on 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 Procedures Date Code Description Status 06/24/2021 87166 TM Interpretation & Report Only Completed 06/24/2021 97580 Myocardial Imaging (PET) Multipl e Studies Completed 05/18/2021 81080 Office/Outpatient Established Lo w MDM 20-29 Min Completed 05/18/2021 96435 Arterial Pressure Wa veform Analysis For Assessment Of Central Art Completed 05/18/2021 02334 ECG 12-Lead Completed 05/12/2021 61811 Echocardiogram 2-D Doppler Color Completed 05/04/2021 05132 External ECG Rec>48HR<7D Review & Interpretation Completed 05/04/2021 93761 External ECG Rec>48HR<7D Recordi ng Completed 04/14/2021 35196 Office/Outpatient Established Hi gh MDM 40-54 Min Completed 04/14/2021 13611 Arterial Pressure Wa veform Analysis For Assessment Of Central Art Completed 04/14/2021 07799 ECG 12-Lead Completed 01/11/2021 27937 Office/Outpatient Established Mo d MDM 30-39 Min Completed 01/11/2021 05917 ECG 12-Lead Completed Medical Devices Description No Information Available Encounters Type Date Location Provider Dx Diagnosis Office Visit 05/18/2021 9:00a Main Office Hermann Lemon MD I48.0 Paroxysmal atrial fibrillation I10 Essential (primary) hyperten bere R94.31 Abnormal electrocardiogram [ ECG] [EKG] Office Visit 04/14/2021 1:30p Main Office Hermann Lemon MD I48.0 Paroxysmal atrial fibrillation I10 Essential (primary) hyperten bere R94.31 Abnormal electrocardiogram [ ECG] [EKG] I31.3 Pericardial effusion (noninf lammatory) R07.9 Chest pain, unspecified R06.00 Dyspnea, unspecified Office Visit 01/11/2021 9:45a Main Office MARTÍN Sullivan I10 Essential (primary) hypertension I48.0 Paroxysmal atrial fibrillati on E78.2 Mixed hyperlipidemia G47.33 Obstructive sleep apnea (miquel lt) (pediatric) R94.31 Abnormal electrocardiogram [ ECG] [EKG] E66.8 Other obesity Z71.3 Dietary counseling and surve illance Assessments Date Code Description Provider 06/24/2021 R07.9 Chest pain, unspecified Cardiac PET [...] 04/14/2021 R06.00 Dyspnea, unspecified Hermann burnett MD 01/11/2021 I10 Essential (primary) hypertension MARTÍN Sullivan 01/11/2021 I48.0 Paroxysmal atrial fibrillation C MARTÍN Lindsey 01/11/2021 E78.2 Mixed hyperlipidemia MARTÍN Dacosta 01/11/2021 G47.33 Obstructive sleep apnea (adult) (pediatric) MARTÍN Sullivan 01/11/2021 R94.31 Abnormal electrocardiogram [ECG] [EKG] MARTÍN Sullivan 01/11/2021 E66.8 Other obesity MARTÍN Canchola Cha, se 01/11/2021 Z71.3 Dietary counseling and surveilla nce MARTÍN Sullivan Plan of Treatment Future Appointment(s):* 07/12/2021 9:45 am - MARTÍN Sullivan at Main Office 05/18/2021 - Hermann Lemon MD* I48.0 Paroxysmal atrial fibrillation* New Medication:* Atenolol 25 mg - 1 by mouth twice a day * Recommendations:* Patient finds it difficult to split atenolol 50 mg tablets to get to 25 mg dose. Therefore, atenolol was prescribed as 25 mg tablets twice a day. Continue Eliquis at the current dosage. Continue amiodarone 200 mg daily with the plan to continue amiodarone for 3 months following completion of atrial fibrillation ablation. Patient reports she has an appointment to see elective president [employer] Dr. Rahul Harrington 06/28/2021. * I10 Essential (primary) hypertension* New Medication:* Atenolol 25 mg - 1 by mouth twice a day * Valsartan 80 mg - 1 by mouth daily at bedtime * Recommendations:* Valsartan 80 mg at bedtime was added. Continue atenolol 25 mg twice a day, torsemide 5 mg/d, potassium chloride 99 mg/d. Home/Self BP monitor [HBPM]: Patient was encouraged to purchase an automatic digital arm home BP monitor with an appropriate BP cuff size. 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 Patient was encouraged to keep a BP diary which is to be presented at each visit. Sample 7 day home BP logs were provided. Seven-day BP logs are to be obtained at least every 3 months. Patient was given written instructions on the technique of obtaining home/self BPs. Low-fat, whole-food, plant-based, low sodium nutrition with avoidance of added oils and fats and avoidance of refined carbohydrates was encouraged. Walking or equivalent aerobic activity for 40-60 minutes every day. * R94.31 Abnormal electrocardiogram [ECG] [EKG] * All * Follow up:* Clinic visit in [address] Lemon. Functional Status Functional Condition Comment Date Status Independent with all ADL's Activ e Mental Status Description No Information Available Referrals Refer to Reason for Referral Status Appt Date Rahul Harrington MD Symptomatic paroxysmal atria l fibrillation; please evaluate & manage and consider atrial fibrillation cryoablation. Thanks! Closed [facility] [address] [place] [address] [address] [place] [address] [phone]
--- OUTSIDE RECORDS SUMMARY | 2021-09-30 12:35 | CCD ---
Author Author [facility] Organization [facility] Address Unknown Phone Unavailable Care Team Providers Care Utility Accounts Director Name Role Phone Rahul Harrington MD Unavailable Unavaila Rahul Amor MD Unavailable Unavaila ble MigRahul joyner MD Unavailable Unavaila Rahul Amor MD Unavailable Unavaila Rahul Amor MD Unavailable Unavaila Rahul Amor MD Unavailable Unavaila Rahul Amor MD Unavailable Unavaila Rahul Amor MD Unavailable Unavaila Rahul Amor MD Unavailable Unavaila Rahul Amor MD Unavailable Unavaila Rahul Amor MD Unavailable Unavaila Rahul Amor MD Unavailable Unavaila Rahul Amor MD Unavailable Unavaila Rahul Amor MD Unavailable Unavaila Rahul Amor MD Unavailable Unavaila ble MigeedRahul MD Unavailable Unavaila ble Migeed, Rahul Thakkar MD Unavailable Unavaila ble MigeedRahul MD Unavailable Unavaila ble MigeedRahul MD Unavailable Unavaila ble Migeed, Rahul Thakkar MD Unavailable Unavaila ble MigeedRahul MD Unavailable Unavaila ble Migeed, Rahul Thakkar MD Unavailable Unavaila ble MigeedRahul MD Unavailable Unavaila ble Migeed, Rahul Thakkar MD Unavailable Unavaila ble Migeed, Rahul Thakkar MD Unavailable Unavaila ble Migeed, Rahul Thakkar MD Unavailable Unavaila ble Migeed, Rahul Thakkar MD Unavailable Unavaila ble Migeed, Rahul Thakkar MD Unavailable Unavaila ble Migeed, Rahul Thakkar MD Unavailable Unavaila ble Migeed, Rahul Thakkar MD Unavailable Unavaila ble Migeed, Rahul Thakkar MD Unavailable Unavaila ble Migeed, Rahul Thakkar MD Unavailable Unavaila ble Migeed, Rahul Thakkar MD Unavailable Unavaila ble Migeed, Rahul Thakkar MD Unavailable Unavaila ble Migeed, Rahul Thakkar MD Unavailable Unavaila ble Migeed, Rahul Thakkar MD Unavailable Unavaila ble MigeedRahul MD Unavailable Unavaila ble MigeedRahul MD Unavailable Unavaila ble MigeedRahul MD Unavailable Unavaila ble MigeedRahul MD Unavailable Unavaila ble MigeedRahul MD Unavailable Unavaila ble MigeedRahul MD Unavailable Unavaila ble MigeedRahul MD Unavailable Unavaila ble MigeedRahul MD Unavailable Unavaila ble MigeedRahul MD Unavailable Unavaila ble MigeedRahul MD Unavailable Unavaila ble MigeedRahul MD Unavailable Unavaila ble Migeed, Rahul Thakkar MD Unavailable Unavaila ble Migeed, Rahul Thakkar MD Unavailable Unavaila ble Sarah Perdomo MD Unavailable Unavailable Sarah Perdomo MD Unavailable Unavailable Sarah Perdomo MD Unavailable Unavailable Sarah Perdomo MD Unavailable Unavailable Sarah Perdomo MD Unavailable Unavailable Sarah Perdomo MD Unavailable Unavailable Sarah Perdomo MD Unavailable Unavailable Sarah Perdomo MD Unavailable Unavailable Sarah Perdomo MD Unavailable Unavailable Sarah Perdomo MD Unavailable Unavailable Sarah Perdomo MD Unavailable Unavailable Sarah Perdomo MD Unavailable Unavailable Sarah Perdomo MD Unavailable Unavailable Sarah Perdomo MD Unavailable Unavailable Sarah Perdomo MD Unavailable Unavailable Sarah Perdomo MD Unavailable Unavailable Sarah Perdomo MD Unavailable Unavailable Sarah Perdomo MD Unavailable Unavailable Sarah Perdomo MD Unavailable Unavailable Sarah Perdomo MD Unavailable Unavailable Sarah Perdomo MD Unavailable Unavailable Sarah Perdomo MD Unavailable Unavailable Sarah Perdomo MD Unavailable Unavailable Sarah Perdomo MD Unavailable Unavailable Sarah Perdomo MD Unavailable Unavailable Saarh Perdomo MD Unavailable Unavailable Sarah Perdomo MD Unavailable Unavailable Sarah Perdomo MD Unavailable Unavailable Sarah Perdomo MD Unavailable Unavailable Sarah Perdomo MD Unavailable Unavailable Charlebois, A Carol RPA C Unavailable Unavailable Charlebois, A Carol RPA C Unavailable Unavailable Charlebois, A Carol RPA C Unavailable Unavailable Charlebois, A Carol RPA C Unavailable Unavailable Charlebois, A Carol RPA C Unavailable Unavailable Charlebois, A Carol RPA C Unavailable Unavailable Charlebois, A Carol RPA C Unavailable Unavailable Charlebois, A Carol RPA C Unavailable Unavailable Charlebois, A Carol RPA C Unavailable Unavailable Charlebois, A Carol RPA C Unavailable Unavailable Charlebois, A Carol RPA C Unavailable Unavailable Charlebois, A Carol RPA C Unavailable Unavailable Charlebois, A Carol RPA C Unavailable Unavailable Charlebois, A Carol RPA C Unavailable Unavailable Charlebois, A Carol RPA C Unavailable Unavailable Charlebois, A Carol RPA C Unavailable Unavailable Charlebois, A Carol RPA C Unavailable Unavailable Charlebois, A Carol RPA C Unavailable Unavailable Charlebois, A Carol RPA C Unavailable Unavailable Charlebois, A Carol RPA C Unavailable Unavailable Charlebois, A Carol RPA C Unavailable Unavailable Charlebois, A Carol RPA C Unavailable Unavailable Charlebois, A Carol RPA C Unavailable Unavailable Charlebois, A Carol RPA C Unavailable Unavailable Charlebois, A Carol RPA C Unavailable Unavailable Charlebois, A Carol RPA C Unavailable Unavailable Charlebois, A Carol RPA C Unavailable Unavailable Charlebois, A Carol RPA C Unavailable Unavailable Charlebois, A Carol RPA C Unavailable Unavailable Charlebois, A Carol RPA C Unavailable Unavailable Charlebois, A Carol RPA C Unavailable Unavailable Charlebois, A Carol RPA C Unavailable Unavailable Charlebois, A Carol RPA C Unavailable Unavailable MigeedRahul MD Unavailable Unavaila ble MigeedRahul MD Unavailable Unavaila ble MigeedRahul MD Unavailable Unavaila ble MigeedRahul MD Unavailable Unavaila ble MigeedRahul MD Unavailable Unavaila ble MigeedRahul MD Unavailable Unavaila ble MigeedRahul MD Unavailable Unavaila ble MigeedRahul MD Unavailable Unavaila ble MigeedRahul MD Unavailable Unavaila ble MigeedRahul MD Unavailable Unavaila ble MigeedRahul MD Unavailable Unavaila ble MigeedRahul MD Unavailable Unavaila ble MigeedRahul MD Unavailable Unavaila ble MigeedRahul MD Unavailable Unavaila ble MigeedRahul MD Unavailable Unavaila ble MigeedRahul MD Unavailable Unavaila ble MigeedRahul MD Unavailable Unavaila ble MigeedRahul MD Unavailable Unavaila ble MigeedRahul MD Unavailable Unavaila ble MigeedRahul MD Unavailable Unavaila ble MigeedRahul MD Unavailable Unavaila ble MigeedRahul MD Unavailable Unavaila ble MigeedRahul MD Unavailable Unavaila ble MigeedRahul MD Unavailable Unavaila ble MigeedRahul MD Unavailable Unavaila ble MigeedRahul MD Unavailable Unavaila ble MigeedRahul MD Unavailable Unavaila ble MigeedRahul MD Unavailable Unavaila ble MigeedRahul MD Unavailable Unavaila ble MigeedRahul MD Unavailable Unavaila ble Migeed, Rahul Thakkar MD Unavailable Unavaila ble MigeedRahul MD Unavailable Unavaila ble MigeedRahul MD Unavailable Unavaila ble MigeedRahul MD Unavailable Unavaila ble MigeedRahul MD Unavailable Unavaila ble MigeedRahul MD Unavailable Unavaila ble MigeedRahul MD Unavailable Unavaila ble MigeedRahul MD Unavailable Unavaila ble MigeedRahul MD Unavailable Unavaila ble MigeedRahul MD Unavailable Unavaila ble MigeedRahul MD Unavailable Unavaila ble MigeedRahul MD Unavailable Unavaila ble MigeedRahul MD Unavailable Unavaila ble MigeedRahul MD Unavailable Unavaila ble MigeedRahul MD Unavailable Unavaila ble MigeedRahul MD Unavailable Unavaila ble MigeedRahul MD Unavailable Unavaila ble MigeedRahul MD Unavailable Unavaila ble MigeedRahul MD Unavailable Unavaila ble CORBIN, L FREDDIE PA Unavailable Unavailable CORBIN, L FREDDIE PA Unavailable Unavailable CORBIN, L FREDDIE PA Unavailable Unavailable CORBIN, L FREDDIE PA Unavailable Unavailable CORBIN, L FREDDIE PA Unavailable Unavailable CORBIN, L FREDDIE PA Unavailable Unavailable CORBIN, L FREDDIE PA Unavailable Unavailable CORBIN, L FREDDIE PA Unavailable Unavailable CORBIN, L FREDDIE PA Unavailable Unavailable CORBIN, L FREDDIE PA Unavailable Unavailable CORBIN, L FREDDIE PA Unavailable Unavailable CORBIN, L FREDDIE PA Unavailable Unavailable CORBIN, L FREDDIE PA Unavailable Unavailable CORBIN, L FREDDIE PA Unavailable Unavailable CORBIN, L FREDDIE PA Unavailable Unavailable CORBIN, L FREDDIE PA Unavailable Unavailable ANTECOL, Tani BARRERA MD Unavailable Unavailable ANTECOL, Tani BARRERA MD Unavailable Unavailable ANTECOL, aTni BARRERA MD Unavailable Unavailable ANTECOL, Tani BARRERA MD Unavailable Unavailable ANTECOL, Tani BARRERA MD Unavailable Unavailable ANTECOL, Tani BARRERA MD Unavailable Unavailable ANTECOL, Tani BARRERA MD Unavailable Unavailable ANTECOL, Tani BARRERA MD Unavailable Unavailable ANTECOL, Tani BARRERA MD Unavailable Unavailable ANTECOL, Tani BARRERA MD Unavailable Unavailable ANTECOL, Tani BARRERA MD Unavailable Unavailable ANTECOL, Tani BARRERA MD Unavailable Unavailable ANTECOL, Tani BARRERA MD Unavailable Unavailable ANTECOL, Tani BARRERA MD Unavailable Unavailable ANTECOL, Tani BARRERA MD Unavailable Unavailable ANTECOL, Tani BARRERA MD Unavailable Unavailable ANTECOL, Tani BARRERA MD Unavailable Unavailable ANTECOL, Tani BARRERA MD Unavailable Unavailable ANTECOL, Tani BARRERA MD Unavailable Unavailable ANTECOL, Tani BARRERA MD Unavailable Unavailable ANTECOL, Tani BARRERA MD Unavailable Unavailable ANTECOL, Tani BARRERA MD Unavailable Unavailable ANTECOL, Tani BARRERA MD Unavailable Unavailable ANTECOL, Tani BARRERA MD Unavailable Unavailable ANTECOL, Tani BARRERA MD Unavailable Unavailable ANTECOL, Tani BARRERA MD Unavailable Unavailable ANTECOL, Tani BARRERA MD Unavailable Unavailable ANTECOL, Tani BARRERA MD Unavailable Unavailable ANTECOL, Tani BARRERA MD Unavailable Unavailable ANTECOL, Tani BARRERA MD Unavailable Unavailable ANTECOL, Tani BARRERA MD Unavailable Unavailable ANTECOL, Tani BARRERA MD Unavailable Unavailable ANTECOL, Tani BARRERA MD Unavailable Unavailable ANTECOL, Tani BARRERA MD Unavailable Unavailable ANTECOL, Tani BARRERA MD Unavailable Unavailable ANTECOL, Tani BARRERA MD Unavailable Unavailable ANTECOL, Tani BARRERA MD Unavailable Unavailable ANTECOL, Tani BARRERA MD Unavailable Unavailable ANTECOL, Tani BARRERA MD Unavailable Unavailable ANTECOL, Tani BARRERA MD Unavailable Unavailable ANTECOL, Tani BARRERA MD Unavailable Unavailable ANTECOL, Tani BARRERA MD Unavailable Unavailable ANTECOL, Tani BARRERA MD Unavailable Unavailable ANTECOL, Tani BARRERA MD Unavailable Unavailable ANTECOL, Tani BARRERA MD Unavailable Unavailable ANTECOL, Tani BARRERA MD Unavailable Unavailable ANTECOL, Tani BARRERA MD Unavailable Unavailable ANTECOL, Tani BARRERA MD Unavailable Unavailable ANTECOL, Tani BARRERA MD Unavailable Unavailable ANTECOL, Tani BARRERA MD Unavailable Unavailable ANTECOL, Tani BARRERA MD Unavailable Unavailable ANTECOL, Tani BARRERA MD Unavailable Unavailable ANTECOL, Tani BARRERA MD Unavailable Unavailable ANTECOL, Tani BARRERA MD Unavailable Unavailable Licha LINDER MD Unavailable Unavailable Licha LINDER MD Unavailable Unavailable Licha LINDER MD Unavailable Unavailable Licha LINDER MD Unavailable Unavailable Licha LINDER MD Unavailable Unavailable Licha LINDER MD Unavailable Unavailable Licha LINDER MD Unavailable Unavailable Licha LINDER MD Unavailable Unavailable Licha LINDER MD Unavailable Unavailable Licha LINDER MD Unavailable Unavailable Licha LINDER MD Unavailable Unavailable Licha LINDER MD Unavailable Unavailable Licha LINDER MD Unavailable Unavailable Licha LINDER MD Unavailable Unavailable Licha LINDER MD Unavailable Unavailable Licha LINDER MD Unavailable Unavailable Licha LINDER MD Unavailable Unavailable Licha LINDER MD Unavailable Unavailable Licha LINDER MD Unavailable Unavailable Licha LINDER MD Unavailable Unavailable Licha LINDER MD Unavailable Unavailable Licha LINDER MD Unavailable Unavailable Licha LINDER MD Unavailable Unavailable Licha LINDER MD Unavailable Unavailable Licha LINDER MD Unavailable Unavailable Licha LINDER MD Unavailable Unavailable Licha LINDER MD Unavailable Unavailable Licha LINDER MD Unavailable Unavailable Licha LINDER MD Unavailable Unavailable Licha LINDER MD Unavailable Unavailable Licha LINDER MD Unavailable Unavailable Licha LINDER MD Unavailable Unavailable Licha LINDER MD Unavailable Unavailable Licha LINDER MD Unavailable Unavailable Licha LINDER MD Unavailable Unavailable Licha LINDER MD Unavailable Unavailable Licha LINDER MD Unavailable Unavailable Licha LINDER MD Unavailable Unavailable Licha LINDER MD Unavailable Unavailable Licha LINDER MD Unavailable Unavailable Licha LINDER MD Unavailable Unavailable Licha LINDER MD Unavailable Unavailable Licha LINDER MD Unavailable Unavailable Licha LINDER MD Unavailable Unavailable Licha LINDER MD Unavailable Unavailable Licha LINDER MD Unavailable Unavailable Licha LINDER MD Unavailable Unavailable Licha LINDER MD Unavailable Unavailable Licha LINDER MD Unavailable Unavailable Licha LINDER MD Unavailable Unavailable Licha LINDER MD Unavailable Unavailable KAILASH, Licha CASTRO MD Unavailable Unavailable KAILASH, Licha CASTRO MD Unavailable Unavailable KAILASH, Licha CASTRO MD Unavailable Unavailable KAILASH, Licha CASTRO MD Unavailable Unavailable KAILASH, Licha CASTRO MD Unavailable Unavailable KAILASH, Licha CASTRO MD Unavailable Unavailable KAILASH, Licha CASTRO MD Unavailable Unavailable KAILASH, Licha CASTRO MD Unavailable Unavailable KAILASH, Licha CASTRO MD Unavailable Unavailable KAILASH, Licha CASTRO MD Unavailable Unavailable KAILASH, Licha CASTRO MD Unavailable Unavailable KAILASH, Licha CASTRO MD Unavailable Unavailable KAILASH, Licha CASTRO MD Unavailable Unavailable KAILASH, Licha CASTRO MD Unavailable Unavailable KAILASH, Licha CASTRO MD Unavailable Unavailable Spencer Hood, Millie Barrera MD, FACS Unavailable Unavailable Spencer Hood, Millie Barrera MD, FACS Unavailable Unavailable Spencer Hood, Millie Barrera MD, FACS Unavailable Unavailable Spencer Hood, Millie Barrera MD, FACS Unavailable Unavailable Spencer Hood, Millie Barrera MD, FACS Unavailable Unavailable Spencer Hood, Millie Barrera MD, FACS Unavailable Unavailable Spencer Hood, Millie Barrera MD, FACS Unavailable Unavailable Spencer Hood, Millie Barrera MD, FACS Unavailable Unavailable Spencer Hood, Millie Barrera MD, FACS Unavailable Unavailable Spencer Hood, Millie Barrera MD, FACS Unavailable Unavailable Spencer Hood, Millie Barrera MD, FACS Unavailable Unavailable Spencer Hood, Millie Barrera MD, FACS Unavailable Unavailable Spencer Hood, Millie Barrera MD, FACS Unavailable Unavailable Spencer Hood, Millie Barrera MD, FACS Unavailable Unavailable Spencer Hood, Millie Barrera MD, FACS Unavailable Unavailable Spencer Hood, Millie Barrera MD, FACS Unavailable Unavailable Spencer Hood, Millie Barrera MD, FACS Unavailable Unavailable Spencer Hood, Millie Barrera MD, FACS Unavailable Unavailable Spencer Hood, Millie Barrera MD, FACS Unavailable Unavailable Spencer Hood, Millie Barrera MD, FACS Unavailable Unavailable Spencer Hood, Millie Barrera MD, FACS Unavailable Unavailable Spencer Hood, Millie Barrera MD, FACS Unavailable Unavailable Spencer Hood, Millie Barrera MD, FACS Unavailable Unavailable Spencer Hood, Millie Barrera MD, FACS Unavailable Unavailable Spencer Hood, Millie Barrera MD, FACS Unavailable Unavailable Spencer Hood, Millie Barrera MD, FACS Unavailable Unavailable Spencer Hood, Millie Barrera MD, FACS Unavailable Unavailable Spencer Hood, Millie Barrera MD, FACS Unavailable Unavailable Spencer Hood, Millie Barrera MD, FACS Unavailable Unavailable Spencer Hood, Millie Barrera MD, FACS Unavailable Unavailable Spencer Hood, Millie Barrera MD, FACS Unavailable Unavailable Spencer Hood, Millie Barrera MD, FACS Unavailable Unavailable Spencer Hood, Millie Barrera MD, FACS Unavailable Unavailable Spencer Hood, Millie Barrera MD, FACS Unavailable Unavailable Spencer Hood, Millie Barrera MD, FACS Unavailable Unavailable Spencer Hood, Millie Barrera MD, FACS Unavailable Unavailable Spencer Hood, Millie Barrera MD, FACS Unavailable Unavailable Johanna Hood, Millie Barrera MD, FACS Unavailable Unavailable Johanna Hood, Millie Barrera MD, FACS Unavailable Unavailable Barnes, L Jerri RPA Unavailable Unavailable Barnes, L Jerri RPA Unavailable Unavailable Barnes, L Jerri RPA Unavailable Unavailable Barnes, L Jerri RPA Unavailable Unavailable Barnes, L Jerri RPA Unavailable Unavailable Barnes, L Jerri RPA Unavailable Unavailable Barnes, L Jerri RPA Unavailable Unavailable Barnes, L Jerri RPA Unavailable Unavailable Barnes, L Jerri RPA Unavailable Unavailable Barnes, L Jerri RPA Unavailable Unavailable Barnes, L Jerri RPA Unavailable Unavailable Barnes, L Jerri RPA Unavailable Unavailable Barnes, L Jerri RPA Unavailable Unavailable Barnes, L Jerri RPA Unavailable Unavailable Barnes, L Jerri RPA Unavailable Unavailable Barnes, L Jerri RPA Unavailable Unavailable Barnes, L Jerri RPA Unavailable Unavailable Barnes, L Jerri RPA Unavailable Unavailable Barnes, L Jerri RPA Unavailable Unavailable Barnes, L Jerri RPA Unavailable Unavailable Barnes, L Jerri RPA Unavailable Unavailable Barnes, L Jerri RPA Unavailable Unavailable Barnes, L Jerri RPA Unavailable Unavailable Barnes, L Jerri RPA Unavailable Unavailable Barnes, L Jerri RPA Unavailable Unavailable Barnes, L Jerri RPA Unavailable Unavailable Barnes, L Jerri RPA Unavailable Unavailable Barnes, L Jerri RPA Unavailable Unavailable Barnes, L Jerri RPA Unavailable Unavailable Barnes, L Jerri RPA Unavailable Unavailable Barnes, L Jerri RPA Unavailable Unavailable Barnes, L Jerri RPA Unavailable Unavailable KOSTIV, VU Unavailable Unavailable Waller, A Phyl GMAT INSTRUCTOR-BC Unavailable Unavailable Waller, A Phyl GMAT INSTRUCTOR-BC Unavailable Unavailable Waller, A Phyl GMAT INSTRUCTOR-BC Unavailable Unavailable Waller, A Phyl GMAT INSTRUCTOR-BC Unavailable Unavailable Waller, A Phyl GMAT INSTRUCTOR-BC Unavailable Unavailable Waller, A Phyl GMAT INSTRUCTOR-BC Unavailable Unavailable Waller, A Phyl GMAT INSTRUCTOR-BC Unavailable Unavailable Waller, A Phyl GMAT INSTRUCTOR-BC Unavailable Unavailable Waller, A Phyl GMAT INSTRUCTOR-BC Unavailable Unavailable Waller, A Phyl GMAT INSTRUCTOR-BC Unavailable Unavailable Waller, A Phyl GMAT INSTRUCTOR-BC Unavailable Unavailable Waller, A Phyl GMAT INSTRUCTOR-BC Unavailable Unavailable Waller, A Phyl GMAT INSTRUCTOR-BC Unavailable Unavailable Waller, A Phyl GMAT INSTRUCTOR-BC Unavailable Unavailable Waller, A Phyl GMAT INSTRUCTOR-BC Unavailable Unavailable Waller, A Phyl GMAT INSTRUCTOR-BC Unavailable Unavailable Waller, A Phyl GMAT INSTRUCTOR-BC Unavailable Unavailable Waller, A Phyl GMAT INSTRUCTOR-BC Unavailable Unavailable Waller, A Phyl GMAT INSTRUCTOR-BC Unavailable Unavailable Waller, A Phyl GMAT INSTRUCTOR-BC Unavailable Unavailable Waller, A Phyl GMAT INSTRUCTOR-BC Unavailable Unavailable Waller, A Phyl GMAT INSTRUCTOR-BC Unavailable Unavailable Waller, A Phyl GMAT INSTRUCTOR-BC Unavailable Unavailable Waller, A Phyl GMAT INSTRUCTOR-BC Unavailable Unavailable Waller, A Phyl GMAT INSTRUCTOR-BC Unavailable Unavailable Waller, A Phyl GMAT INSTRUCTOR-BC Unavailable Unavailable Waller, A Phyl GMAT INSTRUCTOR-BC Unavailable Unavailable Waller, A Phyl GMAT INSTRUCTOR-BC Unavailable Unavailable Waller, A Phyl GMAT INSTRUCTOR-BC Unavailable Unavailable Waller, A Phyl GMAT INSTRUCTOR-BC Unavailable Unavailable Waller, A Phyl GMAT INSTRUCTOR-BC Unavailable Unavailable Waller, A Phyl GMAT INSTRUCTOR-BC Unavailable Unavailable Hegard, Herminia GMAT INSTRUCTOR Unavailable Unavailable Hegard, Herminia GMAT INSTRUCTOR Unavailable Unavailable Hegard, Herminia GMAT INSTRUCTOR Unavailable Unavailable Hegard, Herminia GMAT INSTRUCTOR Unavailable Unavailable Hegard, Herminia GMAT INSTRUCTOR Unavailable Unavailable Hegard, Herminia GMAT INSTRUCTOR Unavailable Unavailable Hegard, Herminia GMAT INSTRUCTOR Unavailable Unavailable Hegard, Herminia GMAT INSTRUCTOR Unavailable Unavailable Hegard, Herminia GMAT INSTRUCTOR Unavailable Unavailable Hegard, Herminia GMAT INSTRUCTOR Unavailable Unavailable Hegard, Ehrminia GMAT INSTRUCTOR Unavailable Unavailable Hegard, Herminia GMAT INSTRUCTOR Unavailable Unavailable Hegard, Herminia GMAT INSTRUCTOR Unavailable Unavailable Hegard, Herminia GMAT INSTRUCTOR Unavailable Unavailable Hegard, Herminia GMAT INSTRUCTOR Unavailable Unavailable Hegard, Herminia GMAT INSTRUCTOR Unavailable Unavailable Hegard, Herminia GMAT INSTRUCTOR Unavailable Unavailable Re-disclosure Warning The records that you are about to access may contain information from federally-assisted alcohol or drug abuse programs. If such information is present, then the following federally mandated warning applies: This information has been disclosed to you from records protected by federal confidentiality rules (42 CFR part 2). The federal rules prohibit you from making any further disclosure of this information unless further disclosure is expressly permitted by the written consent of the person to whom it pertains or as otherwise permitted by 42 CFR part 2. A general authorization for the release of medical or other information is NOT sufficient for this purpose. The Federal rules restrict any use of the information to criminally investigate or prosecute any alcohol or drug abuse patient.The records that you are about to access may contain highly sensitive health information, the redisclosure of which is protected by Article 27-F of the [facility] Public Health law. If you continue you may have access to information: Regarding HIV / AIDS; Provided by facilities licensed or operated by the [facility] Office of Mental Health; or Provided by the [facility] Office for People With Developmental Disabilities. If such information is present, then the following [facility] mandated warning applies: This information has been disclosed to you from confidential records which are protected by state law. State law prohibits you from making any further disclosure of this information without the specific written consent of the person to whom it pertains, or as otherwise permitted by law. Any unauthorized further disclosure in violation of state law may result in a fine or senior living sentence or both. A general authorization for the release of medical or other information is NOT sufficient authorization for further disc losure. Allergies and Adverse Reactions Type Description Substance Reaction Status Data Source(s ) Propensity to adverse reactions TOPIRAMATE topiramate Acti ve [facility] Propensity to adverse reactions OXYCODONE Oxycodone Acti ve [facility] Propensity to adverse reactions INDAPAMIDE Indapamide Palpitations Lo w Active [facility] Low Propensity to adverse reactions DIGOXIN AND RELATED Digoxin And Rel ated Active [facility] Propensity to adverse reactions CARVEDILOL carvedilol Palpitations Lo w Active [facility] Low Propensity to adverse reactions ADHESIVE TAPE Adhesive Tape [place] Low Rash Low [facility] Low Low Propensity to adverse reactions TETRACYCLINES & RELATED TETRACYC LINES & RELATED Rash [facility] Propensity to adverse reactions SULFA ANTIBIOTICS SULFA ANTIBIOTICS R tracy [facility] Propensity to adverse reactions PENICILLINS Penicillin Rash [facility] Propensity to adverse reactions AMOXICILLIN Amoxicillin Rash [facility] Propensity to adverse reactions OXYCODONE OXYCODONE [facility] Propensity to adverse reactions INDAPAMIDE INDAPAMIDE [facility] Propensity to adverse reactions CARVEDILOL CARVEDILOL [facility] Propensity to adverse reactions DIGOXIN AND RELATED DIGOXIN AND RELAT ED [facility] Substance/Environmental Agent Allergy Substance/Environmenta l Agent Allergy tizanidine [facility] [place] Substance/Environmental Agent Allergy Substance/Environmenta l Agent Allergy cyclobenzaprine [facility] [place] Family History Family Member Name Family Member Gender Family Member Status Date o f Status Description Data Source(s) Unknown Unknown Problem [facility] Unknown Unknown Problem MEDENT ([facility]) Unknown Unknown Problem MED[facility] ([facility]) Encounters Encounter Providers Location Date Indications Data Source(s ) Outpatient Attender: Bijan Harrington MD Admitter: Bijan Harrington MDReferrer: VU DUARTE [id number] 09/15/2021 09:01:00 AM EDT - 09/15/2021 07:43:00 PM EDT [facility] Patient discharged. Outpatient Attender: Bijan Harrington MDReferrer: Bijan KEYS.PAT 09/10/2021 09:20:53 AM EDT - 09/10/2021 10:38:57 AM EDT [facility] Outpatient Referrer: Bijan KEYS.[facility] 09:01:13 AM EDT - 09/10/2021 09:01:22 AM EDT [facility] Outpatient Attender: Sarah Thornton/Oliver/Antonino/Josh ndl 09/09/2021 11:00:00 AM EDT MEDENT ([facility]) Outpatient Attender: Herminia MANZANARESP Main Office 1 09:45:00 AM EDT MEDENT ([facility]) Outpatient Attender: FREDDIE ALANIZ PA Main Office 08/23/2021 1 1:30:00 AM EDT MEDENT ([facility]) ( GYNANN) [facility] 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 [address] [place] [address] 07/29/2021 12:00:00 AM EDT eCW1 ([facility]) Outpatient Referrer: Bijan Harrington MD 07/13/2021 02:57:2 0 PM EDT [facility] Outpatient Referrer: Bijan Harrington MD 07/13/2021 02:13:5 2 PM EDT [facility] Outpatient Attender: FREDDIE RESENDIZ Main Office 07/12/2021 0 9:45:00 AM EDT MEDENT ([facility]) Outpatient Attender: GLORIA LINDER MD 06/29/2021 01:30: 00 PM [facility] Outpatient Attender: Bijan Harrington MD [facility] Card[facility] 06/28/2021 11:15:00 AM EDT MEDENT ([facility]) Office Visit, Est Pt., Level 3 PC [address] [place] [address] 06/22/2021 12:00:00 AM EDT eCW1 ([facility]) Out[place] [address] [facility] [address] 05/26/2021 12:00:00 AM EDT eCW1 ([facility]) Outpatient Attender: HOLLY HUBER MD Main Office 05/18/2021 09:00:00 AM EDT MEDENT ([facility]) Outpatient Attender: Carol Thornton/Oliver/Millie velázquez/Janusz 05/10/2021 11:15:00 AM EDT MEDENT ([facility] Medardo romero, ) Outpatient Attender: Sarah Thornton/Oliver/Antonino/Josh ndl 04/29/2021 09:30:00 AM EDT MEDENT ([facility]) Outpatient [address] [facility] [address] 04/21/2021 12:00:00 AM EDT eCW1 ([facility]) OFFICE OUTPATIENT VISIT 40 MINUTES Attender: HOLLY HUBER MD Ma in Office 04/14/2021 01:30:00 PM EDT MED[facility] ([facility]) Unknown [address] [facility] [address] 04/12/2021 12:00:00 AM EDT eCW1 ([facility]) <td ID="encounterTypeDescriptionID0">2 Y ear Follow-Up</td><td>Holly Hood MD, FACS</td><td>Holly Warren MD [facility]</td><td>04/02/2021</td><td>8:53AM</td><td>9:32AM</td><td><content ID="encounterDiagnosisID0-0">Cataract Senile Nuclear</content>, <content ID="encounterDiagnosisID0-1">Essential Hypertension</content>, <content ID="encounterDiagnosisID0-2">Retinopathy Hypertensive Both Eyes</content>, <content ID="encounterDiagnosisID0-3">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</content>, <content ID="encounterDiagnosisID0-4">Borderline 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</content></td>Outpatient Attender: Holly Hood MD, FACS Holly Warren MD [facility] 04/02/2021 08:53:0 0 AM EDT - 04/02/2021 09:32:00 AM EDT Essential HypertensionCataract Senile NuclearBorderline 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Retinopathy Hypertensive Both Eyes MELINDA (Holly Hood MD [facility]) Essential Hypertension Cataract Senile Nuclear Borderline Glaucoma Open Angle with Bord cuba Findings Both Eyes Peripheral Retinal Degeneration Paving S tone Both Eyes Retinopathy Hypertensive Both Eyes Unknown [address] [facility] [address] 03/26/2021 12:00:00 AM EDT eCW1 ([facility]) Outpatient Attender: Ynes Waller [facility] Main Office 0 02/08/2021 01:45:00 PM EDT MEDENT ([facility]) Outpatient Attender: FREDDIE RESENDIZ Main Office 01/11/2021 0 8:45:00 AM EST MEDENT ([facility]) Unknown [address] [facility] [address] 12/21/2020 12:00:00 AM EST eCW1 ([facility]) Outpatient Attender: Carol Garza Norberto/Woolwine/A ngel/Reindl 11/09/2020 08:00:00 AM EST MEDENT ([facility] ) [place] [address] [facility] [address] 10/28/2020 12:00:00 AM EST eCW1 ([facility]) Outpatient Attender: Carol Garza Norberto/Woolwine/A ngel/Reindl 09/08/2020 11:15:00 AM EDT MEDENT ([facility], RUSLAN) Outpatient Attender: Sarah Thornton/Woolwine/Antonino/Josh ndl 08/06/2020 11:00:00 AM EDT MEDENT ([facility] Fernando holcomb, ) Outpatient Attender: Jerri Thornton/Woolwine/Antonino/R eindl 08/04/2020 10:45:00 AM EDT MEDENT ([facility] zhang, ) Immunizations Vaccine Date Status Description Data Source(s) COVID-19 VACCINE Moderna 09/21/2021 12:00:00 AM EDT completed [employer] Vaccine Series Complete: YESThis Data wa s Submitted to [facility] Via [employer]. COVID-19 VACCINE Moderna 01/30/2021 12:00:00 AM EST completed [facility] Vaccine Series Complete: YESThis Data wa s Submitted to [facility] Via [employer]. COVID-19 VACCINE Moderna 01/01/2021 12:00:00 AM EST completed [facility] Vaccine Series Complete: NOThis Data was Submitted to [facility] Via [employer]. Tdap 10/28/2020 11:41:00 AM EST completed e CW1 ([facility]) Tdap 10/28/2020 11:41:00 AM EST completed e CW1 ([facility]) Tdap 10/28/2020 11:41:00 AM EST completed e CW1 ([facility]) Tdap 10/28/2020 11:41:00 AM EST completed e CW1 ([facility]) Tdap 10/28/2020 11:41:00 AM EST completed e CW1 ([facility]) Tdap 10/28/2020 11:41:00 AM EST completed e CW1 ([facility]) Tdap 10/28/2020 11:41:00 AM EST completed e CW1 ([facility]) Tdap 10/28/2020 11:41:00 AM EST completed e CW1 ([facility]) Medications Medication Brand Name Start Date Product Form Dose Route Admi nistrative Instructions Pharmacy Instructions Status Indications Reaction Description Data Source(s) Magnesium Chloride 0.40331 MEQ/ML / Pota ssium Chloride 0.0497 MEQ/ML / Sodium Acetate 0.0163 MEQ/ML / Sodium Chloride 0.0899 MEQ/ML / Sodium gluconate 5.02 MG/ML Injectable Solution [Normosol-R] electrolyte-R (NORMOSOL-R/PLASMALYTE-R) solution 1,000 mL electrolyte-R (NORMOSOL-R/PLASMALYTE-R) solution 1,000 mL 09/15/2021 04:00:00 PM EDT 1000 mL Intravenous active at 100 mL/hr, 1,000 mL, Intravenous, Continuous, Starting on Mon09/15/21 at 1600, PACU (only) [facility] Medication administered onsite labetalol (NORMODYNE,TRANDATE) injection 5 mg [id number] 09/15/2021 03:01:03 PM EDT 5 mg Intravenous active 5 mg , Intravenous, Every 5 min PRN, high blood pressure, for SBP greater than 160, Starting on Mon09/15/21 at 1501, For 4 doses, PACU (only)
Max of 20 MG, hold for HR less than 60
[facility] Medication administered onsite HYDROmorphone (DILAUDID) injection 0.5 mg [id number] 09/15/2021 03:01:03 PM EDT 0.5 mg Intravenous active 0.5 mg, Intravenous, Every 5 min PRN, severe pain (7-10), Starting on Mon09/15/21 at 1501, For 2 doses, PACU (only) [facility] Medication administered onsite fentaNYL Citrate (PF) (SUBLIMAZE) injection 25 mcg [id number] 09/15/2021 03:01:03 PM EDT 25 ug Intravenous active Postoperativ e Pain 25 mcg, Intravenous, Every 5 min PRN, moderate pain (4 to 6), Starting on Mon09/15/21 at 1501, For 11 doses, PACU (only) [facility] Postoperative Pain Medication administered onsite Albuterol 0.83 MG/ML Inhalant Solution a lbuterol (PROVENTIL) nebulizer solution 2.5 mg albuterol (PROVENTIL) nebulizer solution 2.5 mg 2020 03:01:02 PM EDT 2.5 mg completed 2.5 mg , Nebulization, Once as needed, wheezing, Starting on Mon09/15/21 at 1501, For 1 dose, PACU (only) [facility] Medication administered onsite ondansetron (ZOFRAN) injection 4 mg [id number] 09/15/2021 02:51:2 8 PM EDT 4 mg Intravenous active 4 mg, In travenous, Every 8 hours PRN, nausea, vomiting, Starting on Mon09/15/21 at 1451, Post-op [facility] Medication administered onsite Acetaminophen 325 MG Oral Tablet acetaminophen (TYLENO L) 325 MG tablet 650 mg acetaminophen (TYLENOL) 325 MG tablet 650 mg 09/15/2021 02:51:28 PM EDT 650 mg Oral active 650 mg, Or al, Every 6 hours PRN, mild pain (1-3), Starting on Mon09/15/21 at 1451, Post-op
"Maximum dose of acetaminophen is 4,000 mg from all sources in 24 hours."
[facility] Medication administered onsite protamine injection [id number] 09/15/2021 02:13:57 PM EDT active As needed, Starting on Mon09/15/21 at 1413, Intra-Pro cedure [facility] Medication administered onsite 1 ML heparin sodium, porcine 1000 UNT/ML Injection hep tia (porcine) injection heparin (porcine) injection 09/15/2021 01:18:30 PM EDT active As needed, Starting on Mon09/15/21 at 1318, Intra-Procedure [facility] Medication administered onsite normal saline flush 0.9 % injection 3 mL [id number] 09/15/2021 10:00:00 AM EDT 3 mL Intravenous active 3 mL , Intravenous, Every 8 hours (scheduled), First dose on Mon09/15/21 at 1000, Pre-op
Rapid push positive pressure flushing shall be performed with a 10 cc normal saline syringe to check the PATENCY of a PIV site prior to any infusion therapy initiation unless resistance is met.
[facility] Medication administered onsite normal saline flush 0.9 % injection 3 mL [id number] 09/15/2021 10:00:00 AM EDT 3 mL Intravenous active 3 mL , Intravenous, Every 8 hours (scheduled), First dose on Mon09/15/21 at 1000, Pre-op
Rapid push positive pressure flushing shall be performed with a 10 cc normal saline syringe to check the PATENCY of a PIV site prior to any infusion therapy initiation unless resistance is met.
[facility] Medication administered onsite Rosuvastatin calcium 40 MG Oral Tablet Rosuvastatin Calcium 07/09/2021 12:00:00 AM EDT ORAL active [facility] ([facility] Cequa Cequa 07/01/2021 12:00:00 AM EDT active MEDENT ([facility]) valsartan 80 MG Oral Tablet Valsartan 05/18/2021 12:00:00 AM EDT ORAL active MEDENT ([facility]) Atenolol 25 MG Oral Tablet Atenolol 05/18/2021 12:00:00 AM EDT ORAL active MEDENT ([facility]) Atenolol 25 MG Oral Tablet Atenolol 05/17/2021 12:00:00 AM EDT ORAL completed MEDENT ([facility]) 12 HR Guaifenesin 600 MG Extended Release Oral Tablet [Mucin ex] Mucinex 04/29/2021 12:00:00 AM EDT ORAL completed MEDENT ([facility], ) Amiodarone hydrochloride 200 MG Oral Tablet Amiodarone HCL 04/14/2021 12:00:00 AM EDT ORAL completed MEDENT ([facility]) Digoxin 0.25 MG Oral Tablet Digoxin 250 MCG Digoxin 250 MCG 04/14/2021 12:00:00 AM EDT 0.5 {tablet} active Digoxin 250 MCG eCW1 ([facility]) Calcium Carbonate 500 MG Chewable Tablet Calcium Antacid 04/13/2021 12:00:00 AM EDT active MED[facility] ([facility]) Metronidazole 7.5 MG/ML Topical Cream Metronidazole 04/13/2021 12:00:00 AM EDT active MEDENT ( [facility]) Cranberry 04/13/2021 12:00:00 AM EDT ORAL complete d MEDENT ([facility]) Acetaminophen 325 MG Oral Tablet Acetaminophen 04/13/2021 12:00:00 AM EDT active MEDENT ([facility]) Digoxin 0.25 MG Oral Tablet [Digox] Digox 04/11/2021 12:00:00 AM EDT ORAL completed MEDENT ([facility]) Cyclosporine 0.5 MG/ML Ophthalmic Suspen bere [Restasis] Restasis 0.05% Ophthalmic Emulsion Restasis 0.05% Ophthalmic Emulsion 04/02/2021 12:00:00 AM EDT 1 active cyclospo rine 0.5 MG/ML Ophthalmic Suspension [Restasis] MELINDA (Holly Hood MD [facility]) modafinil 100 MG Oral Tablet Modafinil 02/05/2021 12:00:00 AM EDT completed MEDENT ([facility] ) Covid-19 vaccine, Unspecified 01/30/2021 12:00:00 AM EST completed MEDENT ([facility], ) Medication administered onsite 12 HR Hyoscyamine Sulfate 0.375 MG Extended Release Or al Tablet Hyoscyamine Sulfate ER 01/10/2021 12:00:00 AM EST ORAL active MEDENT ([facility]) Fluticasone Propionate Fluticasone Propionate 01/10/2021 12:00:[address] active MED[facility] ([facility]) Cyclosporine 0.5 MG/ML Ophthalmic Suspension [Restasis] Rest asis 01/10/2021 12:00:00 AM EST OPHTHALMIC completed MEDENT ([facility]) WHEAT DEXTRIN 3500 MG Oral Powder [Benefiber] Benefiber 01/10/2021 12:00:00 AM EST ORAL active MEDENT ([facility]) Covid-19 vaccine, Unspecified 01/02/2021 12:00:00 AM EST completed MEDENT ([facility], ) Medication administered onsite Sucralfate 1000 MG Oral Tablet Sucralfate 08/10/2020 12:00:00 AM EDT ORAL completed [facility] Insurance Providers Payer name Policy type / Coverage type Policy ID Covered democrat ID Covered democrat's relationship to wilson Policy Wilson Plan Information [id number] [employer] Medigap Part B [id number] 6.0 Self [id number] [employer] Medigap Part B [id number] Self [employer] Medigap Part B [id number] Self [employer] Medigap Part B [id number] 7.0 Self [id number] [employer] Medigap Part B [id number] Self [id number] Medicare (Part B) Medicare Primary [id number] Self [id number] Medicare (Part B) Medicare Primary [id number] 2.840.1.835158.3.227.99.572.77301.0 Self 4 [id number] DME Jurisdiction A [facility] C [id number] SELF [id number] Medicare (Part B) Medicare Primary [id number] [id number] Self 1 [id number] Medicare (Part B) Medicare Primary [id number] 2.16.840.1.337120.3.227.99.572.10692.0 Self 1 [id number] Medicare (Part B) Medicare Primary [id number] 2.16.840.1.106688.3.227.99.572.93685.0 Self 1 [id number] MEDICARE [id number] SP [id number] A MEDICARE A [id number] Self [id number] Medicare (Part B) Medicare Primary [id number] [id number] Self [id number] Medicare (Part B) Medicare Primary [id number] Self [id number] Medicare (Part B) Medicare Primary [id number] 2.16.840.1.821522.3.227.99.572.95490.0 Self 4 [id number] Medicare C [id number] SELF [id number] A MEDICARE [id number] Shraddha [id number] Medicare (Part B) Medicare Primary [id number] Self MEDICARE [id number] Medicare Medicare Primary [id number] Self UMR U [id number] Self [id number] UMR [id number] Shraddha [id number] UMR [id number] Medicare C [id number] SELF [id number] A DME Jurisdiction A [facility] C [id number] SELF [id number] UMR F [id number] SELF [id number] UMR F [id number] SELF [id number] Umr Commercial [id number] Self [id number] Umr Medigap Part B [id number] Self [id number] INSURANCE COVID-19 [id number] xOVID 2 [id number] INSURANCE COVID-19 COVID Shraddha C OVID INSURANCE COVID-19 COVID Shraddha C OVID Ghi Medigap Part B [id number] 2.16.840.1.703445.3.227.99.8646.656 6.0 Self [id number] Medicare [place] Medicare Primary [id number] 2.16.840.1.955752.3.227.99.8646.6566.0 Self 1 [id number] Medicare [place]GS Medicare Primary [id number] 2.16.840.1.705849.3.227.99.8646.6566.0 Self 4 [id number] [employer] PHCS Ppo Medigap Part B [id number] 2.16840.1.701631.3.227. 99.572.62888.0 Self [id number] [employer] PHCS Ppo Medigap Part B [id number] 2.16.840.1.641604.3.227. 99.572.35584.0 Self [id number] Ghi Medigap Part B [id number] 2.16.840.1.439748.3.227.99.8646.656 6.0 Self [id number] Medicare [place]/NGS Medicare Primary [id number] 2.16.840.1.437249.3.227.99.8646.6566.0 Self 1 [id number] Ghi Medigap Part B [id number] 2.16.840.1.285726.3.227.99.8646.656 6.0 Self [id number] Medicare [place]/NGS Medicare Primary [id number] 2.16.840.1.608473.3.227.99.8646.6566.0 Self 1 [id number] ANSI-Commercial [id number] ANSI-Medicare Part B [id number] ANSI-Medicare Part B [id number] ANSI-Commercial [id number] ANSI-Medicare Part B [id number] ANSI-Commercial [id number] ANSI-Medicare Part B [id number] ANSI-Commercial [id number] [facility] Part B [id number] .1.057421.3.227.99.8646.656 6.0 Self [id number] Medicare [facility] Medicare Primary [id number] .1.858031.3.227.99.8646.6566.0 Self 1 [id number] [facility] [id number] SP [id number] MEDICARE [id number] SP [id number] A [facility] [id number] SP [id number] [facility] Part B [id number] .1.586965.3.227.99.8646.656 6.0 Self [id number] Medicare [facility]/NGS Medicare Primary [id number] 2.840.1.189378.3.227.99.8646.6566.0 Self 1 [id number] MEDICARE [id number] S [id number] A [employer] PPO O [id number] S [id number] [employer] PHCS Ppo Medigap Part B [id number] 2.840.1.164128.3.227. 99.572.10207.0 Self [id number] Ghi Medigap Part B [id number] 2.0.1.250016.3.227.99.8646.656 6.0 Self [id number] Medicare [place]/NGS Medicare Primary [id number] 2.0.1.504006.3.227.99.8646.6566.0 Self 1 [id number] Ghi Medigap Part B [id number] 2.0.1.758498.3.227.99.8646.656 6.0 Self [id number] Medicare [place]state/NGS Medicare Primary [id number] 2.0.1.693527.3.227.99.8646.6566.0 Self 1 [id number] Ghi Medigap Part B [id number] 2.0.1.850071.3.227.99.8646.656 6.0 Self [id number] Medicare [place]state/NGS Medicare Primary [id number] 2.840.1.209780.3.227.99.8646.6566.0 Self 1 [id number] Ghi Medigap Part B [id number] 2.0.1.665835.3.227.99.8646.656 6.0 Self [id number] Medicare [facility]/NGS Medicare Primary [id number] 2.840.1.981879.3.227.99.8646.6566.0 Self 1 [id number] Ghi Medigap Part B [id number] 2.0.1.907051.3.227.99.8646.656 6.0 Self [id number] Medicare [place]state/[facility] Medicare Primary [id number] 2.16.840.1.319328.3.227.99.8646.6566.0 Self 1 [id number] [employer] PHCS Ppo Medigap Part B [id number] 2.16.840.1.333112.3.227. 99.572.79698.0 Self [id number] Ghi Medigap Part B [id number] 2.16.840.1.941765.3.227.99.8646.656 6.0 Self [id number] Medicare [place]state/[facility] Medicare Primary [id number] 2.16.840.1.832054.3.227.99.8646.6566.0 Self 1 [id number] MEDICARE [id number] SP [id number] A Ghi Medigap Part B [id number] Self Medicare [facility] Medicare Primary [id number] Self [employer] [id number] SP [id number] [employer] -O/P [id number] 18 [id number] MEDICARE -O/P [id number] 18 [id number] SELF PAY UNAVAILABLE SP UNAVAILA BLE [employer] Medigap Part B [id number] Self Medicare [facility] Medicare Primary [id number] Self UMR [facility] [id number] SP [id number] MEDICARE [id number] SP [id number] UMR [id number] S [id number] [employer] MEDICARE [employer] [id number] S [id number] MEDICARE [place] [id number] S [id number] [employer] [place] Other 0 [id number] Self 0 Medicare Part B [facility] Other 0 [id number] Self 0 [place] [id number] 18 [id number] MEDICARE PART A [facility] [id number] 18 [id number] UMR O [id number] S [id number] MEDICARE C [id number] S [id number] MEDICARE C [id number] S [id number] [employer] PHCS Ppo Medigap Part B [id number] Self [id number] [employer] [place] Other 0 [id number] Self 0 Medicare Part B [facility] Other 0 [id number] Self 0 UMR -PHYSICIAN [id number] 1 [id number] MEDICARE PART A -O/P [id number] 18 [id number] Ghi Medigap Part B [id number] Self [id number] Medicare [place] Medicare Primary [id number] Self [id number] Medicare [place] Medicare Primary [id number] Self [id number] ANSI-Medicare Part B [id number] ANSI-Commercial [id number] [employer] PHCS Ppo Medigap Part B [id number] Self [id number] [employer] PHCS Ppo Medigap Part B [id number] Self [id number] Ghi Medigap Part B [id number] 2.16.840.1.023806.3.227.99.8646.656 6.0 Self [id number] Medicare [place] Medicare Primary [id number] Self 1 [id number] Medicare [place] Medicare Primary [id number] Self 4 [id number] ANSI-Commercial [id number] ANS-Medicare Part B [id number] ANSI-Commercial [id number] ANS-Medicare Part B [id number] ANS-Medicare Part B [id number] ANSI-Commercial [id number] Problems, Conditions, and Diagnoses Code Display Name Description Problem Type Effective Dates Data Source(s) I48.0 Paroxysmal atrial fibrillation Paroxysmal atrial fibri llation Diagnosis 09/10/2021 09:20:53 AM EDT [facility] U07.1 COVID-19 COVID-19 Diagnosis 09/10/2021 09:01:13 AM ED T [facility] Z86.79 Personal history of other diseases of th e circulatory system PERSONAL HISTORY OF OTHER DISEASES OF THE CIRCULAT Diagnosis 06/29/2021 01:30:0 0 PM EDT [facility] R60.0 Localized edema LOCALIZED EDEMA Diagnosis 06/29/2021 01:3 0:00 PM EDT [facility] I48.0 Paroxysmal atrial fibrillation Paroxysmal atrial fibri llation [id number] 09/15/2021 12:00:00 AM EDT [facility] [facility] I50.32 Chronic diastolic heart failure Chronic diastolic hear t failure Problem 07/12/2021 12:00:00 AM EDT [facility] ([facility]) [id number] Essential hypertension Essential hypertension Problem 06/22/2021 12:00:00 AM EDT [facility] ([facility] R07.9 Chest pain Chest pain Problem 04/14/2021 12:00:00 AM ED T [facility] ([facility]) 366.16 Cataract Senile Nuclear Cataract Senile Nuclear Proble m 04/02/2021 12:00:00 AM EDT HAM[place] (Holly Hood MD [facility]) Surgeries/Procedures Procedure Description Date Indications Data Source(s) EP STUDY <td>EP STUDY</td><td>Routine </td><td>09/15/2021 2:32 PM EDT</td><td> Paroxysmal atrial fibrillation</td><td> </td> 09/15/2021 02:32:10 PM EDT Paroxysmal atrial fibrillation [facility] Paroxysmal atrial fibrillation ECG ROUTINE ECG W/LEAST 12 LDS TRCG ONLY W/O I&R <td>E CG 12- LEAD</td><td>Routine</td><td>09/10/2021 10:36 AM EDT</td><td> Paroxysmal atrial fibrillation</td><td></td> 09/10/2021 10:36:19 AM EDT Paroxysmal atrial fibrillation [facility] Paroxysmal atrial fibrillation BLOOD COUNT COMPLETE AUTOMATED <td>CBC</td><td>Routine </td><td>09/10/2021 10:30 AM EDT</td><td> Paroxysmal atrial fibrillation</td><td> </td> 09/10/2021 10:30:00 AM EDT Paroxysmal atrial fibrillation [facility] Paroxysmal atrial fibrillation BLOOD TYPING ABO <td>TYPE AND SCREEN</td><td> Routine</td><td>09/10/2021 10:30 AM EDT</td><td> Paroxysmal atrial fibrillation</td><td> </td> 09/10/2021 10:30:00 AM EDT Paroxysmal atrial fibrillation [facility] Paroxysmal atrial fibrillation BASIC METABOLIC PANEL CALCIUM TOTAL <td>BASIC METABOLI C PANEL</td><td>Routine</td><td>09/10/2021 10:30 AM EDT</td><td> Paroxysmal atrial fibrillation</td><td> </td> 09/10/2021 10:30:00 AM EDT Paroxysmal atrial fibrillation [facility] Paroxysmal atrial fibrillation OFFICE OUTPATIENT VISIT 25 MINUTES 09/09/2021 12:00:00 AM EDT [facility] ([facility], ) DESTRUCTION BENIGN LESIONS 15/> 09/06/2021 12:00:00 AM EDT [facility] ([facility]) OFFICE OUTPATIENT VISIT 25 MINUTES 09/06/2021 12:00:00 AM EDT [facility] ([facility]) OFFICE OUTPATIENT VISIT 5 MINUTES 08/23/2021 12:00:00 AM EDT [facility] ([facility]) ECG ROUTINE ECG W/LEAST 12 LDS W/I&R 07/12/2021 12:00: 00 AM EDT [facility] ([facility]) OFFICE OUTPATIENT VISIT 25 MINUTES 07/12/2021 12:00:00 AM EDT [facility] ([facility]) Electrocardiogram Complete 06/28/2021 12:00:00 AM EDT [facility] ([facility]) OFFICE OUTPATIENT NEW 60 MINUTES 06/28/2021 12:00:00 A M EDT [facility] ([facility]) MYOCRD IMAGE PET PERFUS MULTPL STUDY REST/STRESS 06/24 12:00:00 AM EDT [facility] ([facility]) CV STRS TST XERS&/OR RX CONT ECG I&R ONLY 06/24/2021 1 2:00:00 AM EDT [facility] ([facility]) ECG ROUTINE ECG W/LEAST 12 LDS W/I&R 05/18/2021 12:00: 00 AM EDT [facility] ([facility]) Arterial Pressure Waveform Analysis For Assessment Of Centra l Art 05/18/2021 12:00:00 AM EDT [facility] ([facility]) OFFICE OUTPATIENT VISIT 15 MINUTES 05/18/2021 12:00:00 AM EDT [facility] ([facility]) ECHO TTHRC R-T 2D W/WOM-MODE COMPL SPEC&COLR DOP 05/12 12:00:00 AM EDT [facility] ([facility]) OFFICE OUTPATIENT VISIT 15 MINUTES 05/10/2021 12:00:00 AM EDT [facility] ([facility], ) External ECG Rec>48HR<7D Recording 05/04/2021 12:00:00 AM EDT [facility] ([facility]) External ECG Rec>48HR<7D Review & Interpretation 05/04 12:00:00 AM EDT [facility] ([facility]) OFFICE OUTPATIENT VISIT 25 MINUTES 04/29/2021 12:00:00 AM EDT [facility] ([facility]) Bronchospasm Evaluation 04/21/2021 12:00:00 AM EDT [facility] ([facility]) Plethysmography Determination Lung Volumes & Per Airway Resi st 04/21/2021 12:00:00 AM EDT [facility] ([facility], ) DIFFUSING CAPACITY 04/21/2021 12:00:00 AM EDT [facility] ([facility]) ECG ROUTINE ECG W/LEAST 12 LDS W/I&R 04/14/2021 12:00: 00 AM EDT [facility] ([facility]) Arterial Pressure Waveform Analysis For Assessment Of Centra l Art 04/14/2021 12:00:00 AM EDT [facility] ([facility]) OFFICE OUTPATIENT VISIT 40 MINUTES 04/14/2021 12:00:00 AM EDT [facility] ([facility]) Intermediate Eye Exam Established Patient Intermediate Eye Exam Established Patient 04/02/2021 12:00:00 AM EDT MELINDA (Justyn Hood MD [facility]) OFFICE OUTPATIENT VISIT 25 MINUTES 02/08/2021 12:00:00 AM EDT [facility] ([facility]) ECG ROUTINE ECG W/LEAST 12 LDS W/I&R 01/11/2021 12:00: 00 AM EST [facility] ([facility]) OFFICE OUTPATIENT VISIT 25 MINUTES 01/11/2021 12:00:00 AM EST [facility] ([facility]) Immunization: Boostrix 0.5mL IM (TDAP) 10/28/2020 12:0 0:00 AM EST eCW1 ([facility]) Endoscopy Upper GI Biopsy 08/10/2020 12:00:00 AM EDT [facility] ([facility], ) Colonoscopy W/ Poly 08/10/2020 12:00:00 AM EDT [facility] ([facility], ) Results ID Date Data Source [id number] 09/16/2021 02:26:45 PM [facility] INFORMATIONPatient MRN Name Date of Age Gend*PT [id number] Galilea Quinteros 1950 71 years F HOPPT Location Admission Date/Time Visit ID Attending Provider09/15/21 09 --- --- EPI ID CSN Admitting Provider [id number] M Rahul Harrington MD([id number])Inpatient History & PhysicalClaudmallory QuinterosMRN:[id number]: here for AF ablationPast Medical History:Past Medical History:Diagnosis Date Anxiety Dry eye Endometriosis Environmental allergies Gastritis GERD (gastroesophageal reflux disease) Hyperlipidemia Hypertension Left hip pain Low back pain Migraines Obesity Osteoarthritis Paroxysmal atrial fibrillation Pericardial effusion PND (post-nasal drip) PONV (postoperative nausea and vomiting) severe after hysterectomy Pulmonary hypertension Rosacea Sleep apnea CPAPPast Surgical History:Past Surgical History:Procedure Laterality Date BUNIONECTOMY Bilateral CHOLECYSTECTOMY COLON SURGERY small bowel resection CYSTOCELE REPAIR DENTAL SURGERY HYSTERECTOMY IMPLANT/EXPLANT LOOP RECORDER LYMPH NODE DISSECTION Right neck OOPHORECTOMY Left REPAIR RECTOCELE SALPINGOOPHORECTOMY Left SMALL INTESTINE SURGERY 2006 TOE SURGERY Right TONSILLECTOMY AND ADENOIDECTOMY VARICOSE VEIN SURGERY Left WISDOM TOOTH EXTRACTIONMedications:Medications Prior to AdmissionMedication Sig Dispense Refill Last Dose acetaminophen (TYLENOL) 325 MG tablet Take 325 mg by mouth 3 (three) times aday as needed for pain 09/14/2021 at Unknown time Apixaban (Eliquis) 5 MG TABS tablet Take 5 mg by mouth 2 (two) times a day09/14/2021 at 0800 atenolol (TENORMIN) 25 MG tablet Take 25 mg by mouth 2 (two) times a day09/15/2021 at 0530 Cholecalciferol 50 MCG (2000 UT) CAPS Take 2,000 Units by mouth daily09/14/2021 at Unknown time Coenzyme Q10 (CoQ-10) 100 MG CAPS Take 100 mg by mouth daily 09/14/2021 atUnknown time conjugated estrogens (Premarin) vaginal cream Insert 1.5 g into the vagina 2(two) times a week Monday and Past Week at Unknown time cycloSPORINE, PF, (Cequa) 0.09 % SOLN Administer 1 drop to both eyes 2 (two)times a day 09/15/2021 at Unknown time fluticasone (FLONASE) 50 MCG/ACT nasal spray 1 spray into each nostril daily09/14/2021 at Unknown time gabapentin (NEURONTIN) 300 MG capsule Take 600 mg by mouth [id number]/14/2021 at 2100 Hyoscyamine Sulfate ER 0.375 MG TBCR Take 0.375 mg by mouth every 8 (eight)hours as needed (For burning stoamch sensation pain) Past Week at Unknown time levOCARNitine (L-Carnitine) 500 MG TABS Take 500 mg by mouth 2 (two) times aday 09/14/2021 at Unknown time Lycopene 10 MG CAPS Take 10 mg by mouth 2 (two) times a day 09/14/2021 atUnknown time Magnesium 250 MG TABS Take 250 mg by mouth daily 09/14/2021 at Unknown time Multiple Vitamins-Minerals (Centrum Silver 50+Women) TABS Take 1 tablet bymouth 4 (four) times a week Monday, , Monday, Monday09/14/2021 atUnknown time pantoprazole (PROTONIX) 40 MG tablet Take 40 mg by mouth daily 09/14/2021 atUnknown time Potassium 99 MG TABS Take 99 mg by mouth daily 09/14/2021 at Unknown time rosuvastatin (CRESTOR) 40 MG tablet Take 40 mg by mouth nightly 09/14/2021t Unknown time Selenium 200 MCG CAPS Take 200 mcg by mouth daily 09/14/2021 at Unknown time Specialty Vitamins Products (ICAPS LUTEIN-ZEAXANTHIN PO) Take 1 capsule bymouth daily 09/14/2021 at Unknown time sucralfate (CARAFATE) 1 g tablet Take 1 g by mouth daily as needed (Stomachpain) 09/14/2021 at Unknown time torsemide (DEMADEX) 5 MG tablet Take 5 mg by mouth daily 09/14/2021 atUnknown time traZODone (DESYREL) 100 MG tablet Take 100 mg by mouth nightly 09/14/2021 atUnknown time valsartan (DIOVAN) 80 MG tablet Take 80 mg by mouth daily 09/14/2021 atUnknown time NON FORMULARY Take 1 tablet by mouth daily Beet Root supplement 09/09/2021llergies:Digoxin and related, Nitrofurantoin macrocrystal, Oxycodone, Topamax[topiramate], Adhesive tape, Amoxicillin, Carvedilol, Indapamide, Penicillins,Sulfa antibiotics, and TetracyclineFamily History:Family HistoryProblem Relation Age of Onset Hypertension Mother Diabetes Mother Coronary artery disease Father Coronary artery disease Brother Malig Hyperthermia Neg HxSocial History:Social HistoryTobacco Use Smoking status: Never Smoker Smokeless tobacco: Never UsedVaping Use Vaping Use: Never usedSubstance Use Topics Alcohol use: Not Currently Drug use: NeverReview of Systems:Pertinent positives as mentioned in the HPI. Denies recent fever, chills, orchange in appetite. Denies unilateral weakness, numbness, slurred speech, orfacial droop. Denies any hematemesis, hematochezia, or melena. Deniesnausea, vomiting, diarrhea, or abdominal pain.All other systems were reviewed and the remainder are negative.Physical Exam:Vital Signs: Temp: [98 F] 98 FHeart Rate: [60] 60Resp: [18] 18BP: (143)/(75) 143/75A 9 body area/organ physical examination was performed.General: patient in NAD.HEENT: NC/AT, scler ae anicteric, moist mucous membranes.Neck: Supple. No thyromegaly was appreciated.Lungs: CTAB, without rales, rhonchi, or wheezes.CV: Regular rate & rhythm, no murmurs, rubs, or gallops. Normal S1/S2. TheJVP is <8 cm while sitting upright.Abd: Soft, NT, ND.Extremities: No pitting edema, cyanosis or clubbing.Skin: Warm & dry, without jaundice or bruising.Psych: A&O x3, affect appropriate.PROBLEM LIST:1. highly sx PAF /2, typical flutter 56334. HTN3. Pericardial Effusion small4. Chronic Cor Pulmonale5. Obesity6. Hyperlipidemia7. MILLY, on CPAP8. GERD9. EliquisPlan:1. AF cryo ablationProcedure was discussed with patient / family risks, benefits, andalternatives explained. Potential risks include but not limited to pain,bleeding, infection, injury to any body system or organ between the skin andheart (including the skin, subcutaneous tissue, blood vessels, abdominal organs,heart, and lungs), phrenic nerve injury and diaphragmatic paralysis, possibleneed for a heart surgery or pacemaker implantation, heart attack, stroke, oreven .Signature: Wilbert Harrington, MDDate: September 15, 2021Time: 10:56 AM Name Value Range Interpretation Code Description [facility]s) ID Date Data Source [id number] 09/15/2021 02:55:47 PM EDT [facility] Name Value Range Interpretation Code Description Data [facility] Supporting Document(s) &PDF [facility] [id number]/[id number]VOIHyOMWu vci [file] AgICAgICAgICAgICAgICAgICAgICAgICAgICAgICAg ICAgICAgICAgICAgICAgICAgICAgICAgICAgICAgICAgICAgICAgICAgICAgICAgICAgDQogICAgICAg ICAgICAgICAgICAgICAgICAgICAgICAgICAgICAgICAgICAgICAgICAgICAgICAgICAgICAgICAgICAg ICAgICAgICAgICAgICAgICAgICAgICAgICAgICAgIC AgDQogICAgICAgICAgICAgICAgICAgICAgICAgICAgICAgICAgICAgICAgICAgICAgICAgICAgICAgIC AgICAgICAgICAgICAgICAgICAgICAgICAgICAgICAgICAgICAgICAgICAgDQogICAgICAgICAgICAgIC AgICAgICAgICAgICAgICAgICAgICAgICAgICAgICAg ICAgICAgICAgICAgICAgICAgICAgICAgICAgICAgICAgICAgICAgICAgICAgICAgICAgICAgDQogICAg ICAgICAgICAgICAgICAgICAgICAgICAgICAgICAgICAgICAgICAgICAgICAgICAgICAgICAgICAgICAg ICAgICAgICAgICAgICAgICAgICAgICAgICAgICAgIC AgICAgDQogICAgICAgICAgICAgICAgICAgICAgICAgICAgICAgICAgICAgICAgICAgICAgICAgICAgIC AgICAgICAgICAgICAgICAgICAgICAgICAgICAgICAgICAgICAgICAgICAgICAgDQogICAgICAgICAgIC AgICAgICAgICAgICAgICAgICAgICAgICAgICAgICAg ICAgICAgICAgICAgICAgICAgICAgICAgICAgICAgICAgICAgICAgICAgICAgICAgICAgICAgICAgDQog ICAgICAgICAgICAgICAgICAgICAgICAgICAgICAgICAgICAgICAgICAgICAgICAgICAgICAgICAgICAg ICAgICAgICAgICAgICAgICAgICAgICAgICAgICAgIC AgICAgICAgDQogICAgICAgICAgICAgICAgICAgICAgICAgICAgICAgICAgICAgICAgICAgICAgICAgIC AgICAgICAgICAgICAgICAgICAgICAgICAgICAgICAgICAgICAgICAgICAgICAgICAgDQogICAgICAgIC AgICAgICAgICAgICAgICAgICAgICAgICAgICAgICAg ICAgICAgICAgICAgICAgICAgICAgICAgICAgICAgICAgICAgICAgICAgICAgICAgICAgICAgICAgICAg ARg7U2qfVNZpWNAsXL7bAHb1Lw6+PEpFMrRzASW3gdSzpC5TRC4fn1NyUJuyICFsj1RvCKf2HO6VOBEy KRazYV8CMUqrzf3VAJPcRVCjvIBTu1tfRfKvCXD9UG YvVituWP5HBTVlC4thnxVkIUCqRTWZCMbmZLKNSKlcJNDZLYDoKDLcDzYxRDcjDX7Bq3IocQU2GBz+Pg 8LAW5ry0PeAOdpNwRhGI5gjc8NGDkLHhZxC0QhccO3BUU0XHYqGp4TDCLePWZmiCCwUJSyJQQXClZdD0 LlgZ14VDFJFv3+DJwvbwTjXbiSPvI7IIEkx4ClZNl2 DL9JLPUeOCk9qMMcTE4pxFOftXWgXKbwVP1LWEV6ZIrtYGFaSHIRWD1MWPodSJG8CMAxfdXkdHNbLPgx WJ9URZPrirDgLmjiDCLZVVb+Ye2RAO3jd7TwJAlsCIEkTV4udg9ORRtBAlOzM0Y7zDNqC7F6UPwbSe0J CDKbPZDpChUeDZOHIQsuFB6QKN2fahS5RT9SdFGvCR QjFIMtqGAbJHu9E66ojQSgEQyrIW8SPIE+Tegan+Lb3MSVLgCAWhZNLpYrRpYIWPEvBdS5AeW4TBo5UxN8 ZtIF11wVgryqYmSNotNQ2RLR5mAIFlLCFYES9DyPUtsY4jpdDvMnZeEWFHLuKpY90zuRLnMYIhHJD5AS JhSq0EHIBfS9RwzeJguLquatVyNZRqJNEECY0OFWvy psXygRKxdNolMN86tAflCS9UHu1FEaEtCM6sgv4CcZAxHo8AXEOfET0XUNWgUSWoVNKyWAJ8YNPpOmIs BEfaKLOiKWPlCXE6WWJkTTGeVK7WBiFgKIOoUAG2VhNzVDRfVVHmfl1TYIBuNYH7YkPrFZIdJXUfTYAn QJbaEJYwTDUvGPizXESpZFKaJO8LCkWmLRUvEDQyIE DxLDIfNQFojh8AVARpTTXuEwJsOKVpIRMpLYGlIAnfAUDrWIY8VkP2UOQuRWMdPB6VZiViKBGvBIR8Mt UnUZVjUQWyfa7QSJGcUQPeCFN4KUTwFKSaMCZgTLuqEFJgAZB5AyYhKDWqDPGqTA4DIpPaOCXnPKJ0Gp AdKLLeGSIcff3WHPKiDLFmWQX9IINhZMWyFEDvVWbx RPQeQOYrJsQ5VNJrRGLrRK8VEbRuPEYcEYU5ViRjWWUlDHFtao4MJMExLPEdEcWfVWMdLKVdRHGmQZox WUDtIYWuRST8ZMKaQILpJN8ILsWbXLFhVWOyHhTaDNUsFBBobd9PJDNnBZDyAiN9QNTrEDPcXWFyQEqh PAMcJPUoSFF2IDArJBXyWP6OLqJwYWCkFnVgQRZpSR JrCXHaib8QRNTxBLDnFUUlVROlFDAbNIWpGDtlSSPxSCQ3ZKTnNZOcBHKsND9ZGmJnOMCqOqBxIRhiXS HkMWRwvl4HMQNxAQRyMJx9PDFsVNVwWGUqGVvaQYUuIXFzTaIdVYWfTTCuPB5PStSqHZZvVDDuHDAuNW PvVGJlnj4QPQTwOUP3QsS9PLEjZNAiJSViECqjUZAy SVKzYfRaPNJbEHQiUK4MFlPgZMJkAYF1FOFrTGRgZHEiuv8NySYrjOsqil2GIDmVTr2EkNbbIGLzWHny Oy0ljXDvOUAdTXGEQe8TvjWiWGGtHQDPGRxyZOJvHOq9CfBlItQyD0KbLTM7NZxdKkOpJbObGwJmL0Ox VYGxRfQ4ZuErUZVjPAHvMXNqSat4SVYdUpA7BGZeBT YzYjNlMDI+GU7gRFs+Sm8Qd8FvqhE3ncPjRHv3ScR8Gr5VVZFYI1EQOv== ID Date Data Source [id number] 09/15/2021 12:49:46 PM EDT [facility] NT INFORMATIONPatient MRN Name Date of Age Gend*PT [id number] Galilea Quinteros 1950 71 years F HOPPT Location Admission Date/Time Visit ID Attending Provider --- --- --- --- EPI ID CSN Admitting Provider [id number] ---AirwayPatient location during procedure: ORUrgency: electiveDifficult airway: noAdvanced airway equipment used: noStaffingPerformed by: Shaquille Mckee CRNAAnesthesiologist: Brayan García MDIndications and Patient ConditionIndications for airway management: anesthesiaPreoxygenated: yesPatient position: supineIn-line stabilization: noMask ventilation: 1 - vent by maskFinal Airway/ApproachesFinal airway type: ETTNumber of attempts at final approach: 1Number of other approaches attempted: 0Final Airway DetailsFinal ETT airway: ETT - singleCuffed: yesTechnique used for successful ETT placement: direct laryngoscopy and regularstyletCricoid pressure: noRSI: noInsertion site: oralBlade type/size: MAC 3.5ETT size: 7.5 mmMeasured from: lipsETT to lips: 21 cmPlacement verified by: + [id number] view: grade I - full view of glottis Name Value Range Interpretation Code Description Data [facility](s) Supporting Document(s) ID Date Data Source [id number] 09/15/2021 12:49:09 PM EDT [facility] NT INFORMATIONPatient MRN Name Date of Age Gend*PT [id number] Galilea Quinteros 1950 71 years F HOPPT Location Admission Date/Time Visit ID Attending Provider --- --- --- --- EPI ID CSN Admitting Provider [id number] ---Arterial Line PlacementPatient location during procedure: ORIndications for arterial line: multiple ABGs and hemodynamic monitoringStaffingPerformed by: Shaquille Mckee CRNAApproved by: ANGELIKA Almanzarompleted: patient identified, risks and benefits discussed, surgical consentobtained, anesthesia consent obtained, monitors and equipment checked, pre-opevaluation completed, timeout performed, patient was prepped and draped in usualsterile fashion,Arterial Line InsertionSite prep: chlorhexidineAnesthesia: noneLaterality: leftLocation: radial arteryNeedle gauge: 20 GTechnique: ultrasound guidedNumber of attempts: 1AssessmentSutured: noDressing: dressing appliedPatient tolerance: tolerated well Name Value Range Interpretation Code Description Data Ninoska rce(s) Supporting Document(s) ID Date Data Source [id number] 09/10/2021 04:29:14 PM EDT [facility]FORMATIONPatient MRN Name Date of Age Gend*PT [id number] Galilea Quinteros 1950 70 years F OPPT Location Admission Date/Time Visit ID Attending Provider --- --- --- Wilbert Harrington MD([id number]) EPI ID CSN Admitting Provider [id number] ---OUTPATIENT / OBSERVATIONAL SURGICAL OR INVASIVE PROCEDUREName: Galilea Quinteros : 1950 Sex: female Care Provider: No primary care provider on file.Attending Physician: Dr. Harrington.HISTORY OF PRESENT ILLNESS: 70 years old white female with a history ofhypertension, hyperlipidemia, GERD, obesity, pulmonary hypertension, MILLY on CPAPand paroxysmal atrial fibrillation. She has been managed with beta-marry andEliquis. Patient complains of exertional shortness of breath and neck tightnesswhich lasts for few minutes. Denies any palpitations, chest pain, chesttightness, lightheadedness, dizziness, PND, orthopnea or syncope. She has aloop recorder. Subsequently she was referred to Dr. Harrington for surgicalevaluation. All treatment options have been reviewed and she elected to undergoABLATION, ARRHYTHMOGENIC FOCUS, FOR ATRIAL FIBRILLATION ECHOCARDIOGRAM,TRANSESOPHAGEAL on 09/15/2021.PAST MEDICAL HISTORY:Past Medical History:Diagnosis Date Anxiety Dry eye Endometriosis Environmental allergies Gastritis GERD (gastroesophageal reflux disease) Hyperlipidemia Hypertension Left hip pain Low back pain Migraines Obesity Osteoarthritis Paroxysmal atrial fibrillation Pericardial effusion PND (post-nasal drip) Pulmonary hypertension Rosacea Sleep apnea CPAPPAST SURGICAL HISTORY:Past Surgical History:Procedure Laterality Date BUNIONECTOMY Bilateral CHOLECYSTECTOMY CYSTOCELE REPAIR DENTAL SURGERY HYSTERECTOMY IMPLANT/EXPLANT LOOP RECORDER LYMPH NODE DISSECTION Right neck OOPHORECTOMY Left REPAIR RECTOCELE SALPINGOOPHORECTOMY Left SMALL INTESTINE SURGERY 2006 TOE SURGERY Right TONSILLECTOMY AND ADENOIDECTOMY VARICOSE VEIN SURGERY Left WISDOM TOOTH EXTRACTIONALLERGIES:AllergiesAllergen Reactions Digoxin And Related Other (See Comments) Bradycardia Nitrofurantoin Macrocrystal Other (See Comments) Unknown reaction Oxycodone Nausea Only and Other (See Comments) GI upset, patient reported frequent urinating Topamax [Topiramate] Other (See Comments) Depression Adhesive Tape Itching and Rash Amoxicillin Rash Carvedilol Palpitations Indapamide Palpitations Penicillins Rash Reaction happened in young adult years 3 days into treatment Sulfa Antibiotics Rash Tetracycline RashMEDICATIONS:Current Outpatient Medications on File Prior to VisitMedication Sig Dispense Refill acetaminophen (TYLENOL) 325 MG tablet Take 325 mg by mouth 3 (three) times aday as needed for pain Apixaban (Eliquis) 5 MG TABS tablet Take 5 mg by mouth 2 (two) times a day atenolol (TENORMIN) 25 MG tablet Take 25 mg by mouth 2 (two) times a day Cholecalciferol 50 MCG (1999 UT) CAPS Take 2,000 Units by mouth daily Coenzyme Q10 (CoQ-10) 100 MG CAPS Take 100 mg by mouth daily conjugated estrogens (Premarin) vaginal cream Insert 1.5 g into the vagina 2(two) times a week Monday and cycloSPORINE, PF, (Cequa) 0.09 % SOLN Administer 1 drop to both eyes 2 (two)times a day fluticasone (FLONASE) 50 MCG/ACT nasal spray 1 spray into each nostril daily gabapentin (NEURONTIN) 300 MG capsule Take 600 mg by mouth nightly Hyoscyamine Sulfate ER 0.375 MG TBCR Take 0.375 mg by mouth every 8 (eig ht)hours as needed (For burning stoamch sensation pain) levOCARNitine (L-Carnitine) 500 MG TABS Take 500 mg by mouth 2 (two) times aday Lycopene 10 MG CAPS Take 10 mg by mouth 2 (two) times a day Magnesium 250 MG TABS Take 250 mg by mouth daily Multiple Vitamins-Minerals (Centrum Silver 50+Women) TABS Take 1 tablet bymouth 4 (four) times a week Monday, , Monday, Monday NON FORMULARY Take 1 tablet by mouth daily Beet Root supplement pantoprazole (PROTONIX) 40 MG tablet Take 40 mg by mouth daily Potassium 99 MG TABS Take 99 mg by mouth daily rosuvastatin (CRESTOR) 40 MG tablet Take 40 mg by mouth nightly Selenium 200 MCG CAPS Take 200 mcg by mouth daily Specialty Vitamins Products (ICAPS LUTEIN-ZEAXANTHIN PO) Take 1 capsule bymouth daily sucralfate (CARAFATE) 1 g tablet Take 1 g by mouth daily as needed (Stomachpain) torsemide (DEMADEX) 5 MG tablet Take 5 mg by mouth daily traZODone (DESYREL) 100 MG tablet Take 100 mg by mouth nightly valsartan (DIOVAN) 80 MG tablet Take 80 mg by mouth dailyNo current facility-administered medications on file prior to visit.Social HistoryTobacco Use Smoking status: Never Smoker Smokeless tobacco: Never UsedVaping Use Vaping Use: Never usedSubstance Use Topics Alcohol use: Not Currently Drug use: NeverFamily HistoryProblem Relation Age of Onset Hypertension Mother Diabetes Mother Coronary artery disease Father Coronary artery disease Brother Malig Hyperthermia Neg HxREVIEW OF SYSTEMS:Respiratory: Exertional shortness of breath. Denies cough, yellow sputumproduction or wheezing.Cardiovascular: Denies any chest pain, pressure or tightness. Denies anyparoxysmal nocturnal dyspnea or orthopnea.GI: Denies nausea, vomiting, diarrhea, constipation or melena.Neurologic: Occasional right hand paresthesia. Denies tremors or syncope.Vascular: Left leg edema. Denies claudication.PHYSICAL EXAM:GENERAL: She is a 70 years old, pleasant white female, in no acute distress attime of examination. Vitals on arrival to the office are BP 130/77 (BP Location:Left upper arm, Patient Position: Sitting) | Pulse 57 | Temp 96.2 F (Skin) |Resp 18 | Ht 1.6 m (5' 3") | Wt (!) 102.3 kg (225 lb 9.6 oz) | SpO2 99% |BMI 39.96 kg/m Body mass index is 39.96 kg/m ..Skin is pink, warm, and dry.NECK: She has a grade 2 airway. Neck is supple, midline, without cervicaladenopathy. No thyromegaly. No carotid bruits.MENTAL / NEUROLOGICAL STATUS: [id number]: Clear to auscultation. No wheezes, rhonchi or crackles.HEART: Rate bradycardic rhythm regular. S1, S2. No murmur, rub or gallop. Looprecorder intact to chestABDOMEN: Obese. Bowel sounds positive times four. Soft, non tender. No reboundtenderness. No hepatosplenomegaly. Negative CVAT.EXTREMITIES: Pulses are symmetrical. Left leg edema.Anesthesia complications: [facility] Fra[facility] :: 3/10 Managing Well (medical problems are well controlled,but are not regularly active beyond routine walking).ASSESSMENT: Primary Diagnosis/Indication: Paroxysmal atrial fibrillation.PLAN: Procedure: ABLATION, ARRHYTHMOGENIC FOCUS, FOR ATRIAL FIB RILLATIONECHOCARDIOGRAM, TRANSESOPHAGEAL on 09/15/2021.09/10/2021 4:28 PMLyudmila Kostiv, NPThis document or parts of this document, were dictated using Stampt speaking software. A reasonable attempt at proofreading has beenmade to minimize errors. Please call with any questions or corrections. Name Value Range Interpretation Code Description Data Ninoska rce(s) Supporting Document(s) ID Date Data Source [id number] 09/10/2021 10:38:20 AM EDT [facility] Name Value Range Interpretation Code Description Data Ninoska rce(s) Supporting Document(s) EKG [facility] [id number] [file] [id number] ID Date Data Source [id number] 09/13/2021 01:50:13 PM EDT [facility] SPEC EXP DATE 09/16/2021ATI ENT ABO/Rh A POSITIVEANTIBODY SCREEN NEGATIVETESTING SITE PERFORMED AT [address] [place] [id number] BANK COMMENT BLOOD TYPE CONFIRMED. Name Value Range Interpretation Code Description Data Ninoska rce(s) Supporting Document(s) TYPE AND SCREEN [facility] ID Date Data Source [id number] 09/10/2021 03:01:14 PM EDT [facility] Name Value Range Interpretation Code Description Data Ninoska rce(s) Supporting Document(s) SODIUM 139 mmol/L (136-145) [facility] POTASSIUM 4.2 mmol/L (3.6-5.2) [facility] CHLORIDE 109 mmol/L (100-108) H [facility] CO2 25 mmol/L (22-31) [facility] ANION GAP 5 mmol/L (7-16) L [facility] UREA NITROGEN 23 mg/dL (7-24) [facility] CREATININE 0.96 mg/dL (0.60-1.00) [facility] BUN/CREAT RATIO 24.0 RATIO (10.0-20.0) H [facility] GLUCOSE 88 mg/dL (70-99) [facility] CALCIUM 9.8 mg/dL (8.4-10.2) [facility] GFR 57 ml/min/1.73m2 (>59) L [facility] GFR ( AMER) >60 ml/min/1.73m2 (>59) [facility] GFR INTERPRETATION [facility] --NORMAL KIDNEY FUNCTION OR MILD DISEASE - GFR >OR= 60CHRONIC KIDNEY DISEASE - GFR 15 - 59RENAL FAILURE - GFR <15 Est. GFR calculation based on the MDRDstudy equation, which assumes a steadystate for creatinine. Est. GFR should notbe used for medication dosing. ID Date Data Source [id number] 09/10/2021 02:30:47 PM EDT [facility] Name Value Range Interpretation Code Description Data Ninoska rce(s) Supporting Document(s) WBC 5.5 10*3/uL (4.1-11.0) [facility] RBC 4.27 10*6/uL (4.00-5.40) [facility] HGB 13.2 g/dL (12.0-16.0) [facility] HCT 39.2 % (36.0-47.0) [facility] MCV 91.7 fL (80.0-95.0) [facility] MCH 30.9 pg (27.0-32.0) [facility] MCHC 33.7 g/dL (32.0-36.0) [facility] RDW 13.4 % (10.5-14.5) [facility] PLT 183 10*3/uL (150-450) [facility] MPV 8.4 fL (7.1-10.7) [facility] ID Date Data Source [id number] 09/10/2021 08:54:00 AM EDT [facility] Name Value Range Interpretation Code Description Data Ninoska rce(s) Supporting Document(s) SARS coronavirus 2 RNA [Presence] in Res piratory specimen by CARTER with probe detection NOT DETECTED [facility] This lab was reported by [facility]. ID Date Data Source [id number] 09/11/2021 08:52:34 AM EDT [facility] Name Value Range Interpretation Code Description Data Ninoska rce(s) Supporting Document(s) SPECIMEN DESCRIPTION [facility] [place] COVID 19 RESULT (NDET) [facility] NEGATIVE COVID-19 RESULTS DONOT PRECLUDE COVID-2019 INFECTION ANDSHOULD NOT BE USED THE SOLE BASISFOR PATIENT MANAGEMENT DECISIONS. COMMENT [facility] THE [place] FDA HAS MADE THIS TEST AVAILABL EUNDER AN EMERGENCY USE AUTHORIZATION(EUA) FOR THE DETECTION AND/OR DIAGNOSISOF THE VIRUS THAT CAUSES COVID-19.THIS ASSAY AMPLIFIES AND DETECTS TARGETDNA USING LIQUEFIED PETROLEUM GASFITTER- MEDIATEDAMPLIFICATIONTESTING PERFORMED ON Trusera FIRST TEST [facility] EMPLOYED IN HLTHCARE [facility] [place] SYMPTOMATIC [facility] DATE OF SYMPT ONSET [facility]ITALIZED [facility] ICU [facility] CONGREGATE CARE SET [facility] [place] [facility] ID Date Data Source [id number] 08/11/2021 11:35:00 AM EDT [facility] Name Value Range Interpretation Code Description Data Ninoska rce(s) Supporting Document(s) SARS-CoV-2 (COVID-19) RNA [Presence] in Respiratory specimen by CARTER with probe detection Not Detected [facility] This lab was ordered by [facility] and reported by [employer]. ID Date Data Source [id number] 08/04/2021 02:12:00 PM EDT [facility] AssociatesEX[facility]: CT A NGIO CHESTCLINICAL HISTORY: Paroxysmal atrial fibrillation. Preablation study.COMPARISON: None available.TECHNIQUE: Helical acquisition was performed through the chest during intravenous contrast injection. Orthogonal reconstructions were reformatted from the helical data set. Coronal, parasagittal and 3-dimensional reconstructions or MIPS were provided (or created on the workstation) and reviewed.Contrast: 70cc of 100cc Isovue 370 were injected intravenously.FINDINGS: Lung parenchyma and pleura: 1.3 cm ground-glass area centrally in the right upper lobe on image 81. Nonspecific. 4 x 2 mm right upper lobe pulmonary nodule abutting the pleura on image 92 in the right upper lobe. There are scattered areas of linear scarring or atelectasis. The lungs are otherwise clear. No pleural effusion or pneumothorax.Mediastinum: There is complete opacification of the pulmonary arteries. No pulmonary emboli identified. No abnormal masses, fluid collections, or adenopathy identified. The thoracic aorta appears unremarkable. No aneurysms or dissections detected. Mild coronary artery calcification.Chest wall: No abnormal masses or fluid collections identified. No axillary adenopathy identified.Upper abdomen: No abnormal masses or fluid collections identified.Right superior pulmonary vein-1.9 x 1.9 cmRight inferior pulmonary vein-1.5 x 1.5 cmIntervenous saddle-greater than 1 cmLeft superior pulmonary vein-1.6 x 1.9 cmLeft inferior pulmonary vein-1.4 x 1.7 cmIntervenous saddle-0 cmThe left atrium is normal in size. There are no filling defects seen.IMPRESSI ON:1. Pulmonary veins as described above.2. Nonspecific 1.3 cm ground-glass density in the right upper lobe. Follow-up CT in 1 year.3. Low suspicion right upper lobe pulmonary nodule abutting the pleura measuring 4 x 2 mm. Follow-up CT in 1 year recommended.Fleischner Society Recommendation for Pulmonary Nodule follow-up Single Solid Nodule Low risk:<6 mm- No routine follow up6-8 mm- CT at 6 to 12 months; then consider CT at 18 to 24 months>8 mm- Consider CT at 3 months, PET/CT, or tissue samplingNodules <6 mm do not require routine follow-up, but certain patients at high risk with suspicious nodule morphology, upper lobe location, or both may warrant 12-month follow-up (recommendation 1A).Single Solid Nodule High risk:<6 mm- Optional CT at 12 months6-8 mm- CT at 6-12 months, then CT at 18-24 months>8 mm- Consider CT at 3 months, PET/CT, or tissue samplingNodules <6 mm do not require routine follow- up, but certain patients at high risk with suspicious nodule morphology, upper lobe location, or both may warrant 12-month follow-up (recommendation 1A).Multiple Solid Nodules Low risk:<6 mm- No routine hkdith-pm0-5 mm- CT at 3-6 months, then consider CT at 18-24 months>8 mm- CT at 3-6 months, then consider CT at 18-24 monthsUse most suspicious nodule as guide to management. Follow-up intervals may vary according to size and risk (recommendation 2A).Multiple Solid Nodules High risk:<6 mm- Optional CT at 12 months6-8 mm- CT at 3-6 months, then at 18-24 months>8 mm- CT at 3-6 months, then at 18-24 monthsUse most suspicious nodule as guide to management. Follow-up intervals may vary according to size and risk (recommendation 2A).Single Subsolid Nodule:Ground Glass:<6 mm- No routine follow-up> or equal to 6 mm- CT at 6-12 months to confirm persistence, then CT every 2 years until 5 yearsIn certain suspicious nodules <6 mm, consider follow up at 2 and 4 years. If solid component(s) or growth develops, consider resection. (recommendation 3A-4A)Part Solid:<6 mm- No routine follow-up> or equal to 6 mm- CT at 3-6 months to confirm persistence. If unchanged and solid component remains <6 mm, annual CT should be performed for 5 years.In practice, part-solid nodules can be defined as such until > or equal to 6 mm, and nodules <6 mm do not usually require follow-up. Persistent part-solid nodules with solid components > or equal to 6 mm should be considered highly suspicious. (recommendation 4A-4C)Multiple Subsolid Nodules:<6 mm- CT at 3-6 months. If stable, consider CT at 2 and 4 years.> or equal to 6 mm- CT at 3-6 months. Subsequent management based on the most suspicious nodule(s).Multiple <6 mm pure ground-glass nodules are usually benign, but consider follow-up in selected patients at high risk at 2 and 4 years (recommendation 5A).Low Risk patient: Minimal or absent history of smoking and/or other known risk factors.High Risk patient: History of smoking or other known risk factors (e.g. first degree relative with lung cancer or exposure to asbestos, radon, uranium).Dictated by: JASON PARADA M.D. on 08/04/2021lectronically Signed by: JASON PARADA M.D. on 08/04/2021 03:07 PMTranscribed by: shamar on 08/04/2021 03:07 PMCDS G code: , ,CDS Modifier: , ,cc: Name Value Range Interpretation Code Description Data Ninoska rce(s) Supporting Document(s) ID Date Data Source [id number] 07/08/2021 08:42:00 AM EDT [facility]) Name Value Range Interpretation Code Description Data Ninoska rce(s) Supporting Document(s) Glucose, Fasting 88 mg/dL 70-100 [facility]) Creatinine For GFR 0.94 mg/dL 0.55-1.30 [facility] ([facility]) Blood Urea Nitrogen 17 mg/dL 7-18 [facility] (Ca [facility]diology [facility]) Glomerular Filtration Rate Laboratory test result [facility] ([facility]) <content>Units are mL/min/1.73 m2</content>
<content></content>
<content>Chronic Kidney Disease Staging per NKF:</content>
<content></content>
<content>Stage I & II GFR >=60 Normal to Mildly Decreased</content>
<content>Stage III GFR 30- 59 Moderately Decreased</content>
<content>Stage IV GFR 15-29 Severely Decreased</content>
<content>Stage V GFR <15 Very Little GFR Left</content>
<content>ESRD GFR <15 on AGILE PROJECT MANAGER</content>
<content></content> Potassium Serum 4.3 meq/L 3.5-5.1 [facility] ([facility]io [facility]y [facility]) Sodium Level 142 meq/L 136-145 [facility] (Cardiolog y [facility]) Anion Gap 4 meq/L 8-16 [facility] Chloride Level 112 meq/L 98-107 [facility] (Cardiol ogy [facility]) Carbon Dioxide Level 26 meq/L 21-32 [facility] ([facility]) Calcium Level 9.6 mg/dL 8.8-10.2 [facility] ([facility]iolo gy [facility]) ID Date Data Source [id number] 07/08/2021 08:42:00 AM EDT [facility] ([facility]i [facility]) Name Value Range Interpretation Code Description Data Ninoska rce(s) Supporting Document(s) Triglycerides Level 224 mg/dL [facility] ([facility]) Cholesterol Level 158 mg/dL [facility] ([facility]) HDL Cholesterol 40 mg/dL [facility] ([facility]) LDL Cholesterol 73 mg/dL [facility] ([facility]) Non-HDL-C 118 mg/dL [facility] ([facility]) Cholesterol Risk Ratio 3.950 [facility] ([facility]) ID Date Data Source Ultrasound : Leg, left 05/26/2021 12:00:00 AM EDT eCW1 ([facility]) Name Value Range Interpretation Code Description Data Ninoska rce(s) Supporting Document(s) Ultrasound : Leg, left eCW1 ([facility]) ID Date Data Source [id number] 04/30/2021 02:37:00 PM EDT [facility] ([facility]i [facility]) Name Value Range Interpretation Code Description Data Ninoska rce(s) Supporting Document(s) White Blood Count 7.2 4.0-10.0 [facility] ([facility]) Red Blood Count 4.72 4.00-5.40 [facility] ([facility]io [facility]) Platelets 192 150-450 [facility] ([facility]iology [facility]) Hemoglobin 14.6 [facility] ([facility]) Hematocrit 44.4 [facility] ([facility]) ID Date Data Source [id number] 04/30/2021 02:37:00 PM EDT [facility] ([facility]) Name Value Range Interpretation Code Description Data Ninoska rce(s) Supporting Document(s) Blood Urea Nitrogen 19 7-18 [facility] ([facility]) Glucose 86 70-100 [facility] ([facility] [place] Potassium 4.3 3.5-5.1 [facility] ([facility] [place] Creatinine 0.86 0.55-1.30 [facility] ([facility]) Sodium 141 136-145 [facility] ([facility] [place] Calcium 10.0 8.2-9.6 [facility] ([facility] [place]) Carbon Dioxide 27 21-32 [facility] ([facility]) Chloride 108 98-107 [facility] ([facility]) Glomerular filtration rate/1.73 sq M.pre dicted [Volume Rate/Area] in Serum or Plasma by Creatinine-based formula (MDRD) Laboratory test result [facility] ([facility]) ID Date Data Source [id number] 04/12/2021 02:31:00 PM EDT [facility] ([facility]i [facility]) Name Value Range Interpretation Code Description Data Ninoska rce(s) Supporting Document(s) Digoxin (Lanoxin) 1.3 [facility] ([facility]) ID Date Data Source [id number] 04/12/2021 02:31:00 PM EDT [facility] ([facility]) Name Value Range Interpretation Code Description Data Ninoska rce(s) Supporting Document(s) Creatinine 0.99 0.55-1.30 [facility] ([facility]) Glucose 95 70-100 [facility] ([facility]) Blood Urea Nitrogen 21 7-18 [facility] ([facility]) Potassium 4.2 3.5-5.1 [facility] ([facility] [place] Sodium 142 136-145 [facility] ([facility]) Chloride 110 98-107 [facility] ([facility] [place]) Glomerular filtration rate/1.73 sq M.pre dicted [Volume Rate/Area] in Serum or Plasma by Creatinine-based formula (MDRD) 58.9 [facility] ([facility]) Carbon Dioxide 26 21-32 [facility] ([facility]) Calcium 9.3 8.2-9.6 [facility] ([facility]) ID Date Data Source [id number] 04/09/2021 12:35:00 PM EDT [facility] Name Value Range Interpretation Code Description Data Ninoska rce(s) Supporting Document(s) Natriuretic peptide.B prohormone N-Terminal [Mass/volu me] in Serum or Plasma 1166 [facility] (Landscape Engineer s [facility]) Magnesium Level 2.3 1.8-2.4 [facility] ([facility]io [facility]) Free T4 0.97 [facility] Thyroid Stimulating Hormone 1.480 ME DENT ([facility]) ID Date Data Source [id number] 04/09/2021 12:35:00 PM EDT [facility] Name Value Range Interpretation Code Description Data Ninoska rce(s) Supporting Document(s) White Blood Count 7.2 5.0-10.0 [facility] Red Blood Count 5.00 4.00-5.40 [facility] ([facility]) Hemoglobin 15.2 [facility] ([facility]) Hematocrit 46.7 [facility] ([facility]) Platelets 216 172-450 [facility] ([facility]iology [facility]) ID Date Data Source [id number] 10/28/2020 11:30:00 AM EST [facility] ([facility] Name Value Range Interpretation Code Description Data Ninoska rce(s) Supporting Document(s) Hemoglobin A1c/Hemoglobin.total in Blood 5.5 [facility] ([facility]) ID Date Data Source [id number] 10/28/2020 11:30:00 AM EST [facility] ([facility] Name Value Range Interpretation Code Description Data Ninoska rce(s) Supporting Document(s) Alanine aminotransferase [Enzymatic activity/volume] in Serum or Pl asma 25 [facility] ([facility]) Albumin [Mass/volume] in Serum or Plasma 4.0 [facility] ([facility]) Carbon dioxide, total [Moles/volume] in Serum or Plasma 27 [facility] ([facility]) Calcium [Mass/volume] in Serum or Plasma 10.2 [facility] ([facility]) Alkaline phosphatase [Enzymatic activity/volume] in Serum or Plasma 6 1 [facility] ([facility]) Chloride [Moles/volume] in Serum or Plasma 110 [facility] ([facility]) Sodium 141 [facility] ([facility]) Protein [Mass/volume] in Serum or Plasma 6.9 [facility] ([facility]) Potassium [Moles/volume] in Serum or Plasma 4.0 [facility] ([facility]) Aspartate aminotransferase [Enzymatic activity/volume] in Serum or Plasma 15 [facility] ([facility]) Urea nitrogen [Mass/volume] in Serum or Plasma 19 [facility] ([facility]) Glucose 89 70-100 [facility] ([facility]) Creatinine For GFR 1.06 [facility] (Car [facility]) ID Date Data Source [id number] 10/28/2020 11:30:00 AM EST [facility] ([facility]) Name Value Range Interpretation Code Description Data Ninoska rce(s) Supporting Document(s) Cholesterol 157 [facility] ([facility]) Triglycerides 207 [facility] ([facility]) HDL 47 [facility] ([facility]) Cholesterol in LDL [Mass/volume] in Serum or Plasma by calculation 69 [facility] ([facility]) Chol/HDL Ratio 3.340 [facility] ([facility]iol [facility]) ID Date Data Source [id number] 10/28/2020 11:30:00 AM EST [facility] ([facility]i [facility]) Name Value Range Interpretation Code Description Data Ninoska rce(s) Supporting Document(s) Magnesium Level 2.1 [facility] ([facility]) ID Date Data Source MAGNESIUM LEVEL 10/28/2020 12:00:00 AM EST eCW1 ([facility]) Name Value Range Interpretation Code Description Data Ninoska rce(s) Supporting Document(s) 2.1 1.8-2.4 MAGNESIUM LEVEL eCW1 ([facility]) ID Date Data Source VITAMIN D [id number] 10/28/2020 12:00:00 AM EST eCW1 ([facility]) Name Value Range Interpretation Code Description Data Ninoska rce(s) Supporting Document(s) 39.0 30.0-100.0 TOTAL 25(OH) VITAMIN D eC W1 ([facility]) ID Date Data Source LIPID PANEL (CARDIAC RISK) 10/28/2020 12:00:00 AM EST eCW1 ( [facility]) Name Value Range Interpretation Code Description Data Ninoska rce(s) Supporting Document(s) Triglyceride [Mass/volume] in Serum or Plasma by calculation 207 <150 TRIGLYCERIDES LEVEL eCW1 ([facility]) Cholesterol [Moles/volume] in Serum or Plasma 157 <200 CHOLESTEROL LEVEL eCW1 ([facility]) 110 NON-HDL-C eCW1 ([facility]) Cholesterol in LDL [Mass/volume] in Serum or Plasma by calculation 69 <100 LDL CHOLESTEROL eCW1 ([facility]) 3.340 <5 CHOLESTEROL RISK RATIO eCW1 ([facility]) Cholesterol in HDL [Moles/volume] in Serum or Plasma 47 >40 HDL CHOLESTEROL eCW1 ([facility]) ID Date Data Source [id number] 10/28/2020 12:00:00 AM EST eCW1 ([facility]) Name Value Range Interpretation Code Description Data Ninoska rce(s) Supporting Document(s) Hemoglobin A1c/Hemoglobin.total in Blood 5.5 HEMOGLOBIN A1c eCW1 ([facility]) ID Date Data Source Comprehensive Metabolic Profile (CMP) 10/28/2020 12:00:00 AM EST eCW1 ([facility]) Name Value Range Interpretation Code Description Data Ninoska rce(s) Supporting Document(s) 89 70-100 GLUCOSE, FASTING eCW1 ([facility]) 19 7-18 BLOOD UREA NITROGEN eCW1 ([facility]) 1.06 0.55-1.30 CREATININE FOR GFR eCW1 ([facility]) 141 136-145 SODIUM LEVEL eCW1 ([facility]) 54.4 >39 GLOMERULAR FILTRATION RATE eCW 1 ([facility]) 4.0 3.5-5.1 POTASSIUM SERUM eCW1 ([facility]) 27 21-32 CARBON DIOXIDE LEVEL eCW1 ([facility]) 10.2 8.8-10.2 CALCIUM LEVEL eCW1 ([facility]) 15 7-37 AST/SGOT eCW1 ([facility]) 110 98-107 CHLORIDE LEVEL eCW1 ([facility]) 61 45-117 ALKALINE PHOSPHATASE eCW1 ([facility]) 0.9 0.2-1.0 BILIRUBIN,TOTAL eCW1 ([facility]) 25 12-78 ALT/SGPT eCW1 ([facility]) 6.9 6.4-8.2 TOTAL PROTEIN eCW1 ([facility]) 1.4 1.2-2.2 ALBUMIN/GLOBULIN RATIO eCW1 ([facility]) 4.0 3.2-5.2 ALBUMIN eCW1 ([facility]) ID Date Data Source [id number] 08/12/2020 12:28:00 PM EDT [facility] Name Value Range Interpretation Code Description Data Ninoska rce(s) Supporting Document(s) Laboratory test finding (navigational concept) Laboratory test result [facility] ([facility]) ID Date Data Source [id number] 08/10/2020 12:46:00 PM EDT [facility] ([facility]) Name Value Range Interpretation Code Description Data Ninoska rce(s) Supporting Document(s) Surgical pathology study Laboratory test result [facility] ([facility]) FINAL DIAGNOSIS A-Stomach, antrum, biopsy: Gastric mucosa with minimal chronic inflammation and reactive changes. No H.pylori is identified. B-Sigmoid colon polyp, polypectomy: Polypoid fragment of colonic mucosa with focal adenomatous changes. 08/11/2020 - 1159 CLINICAL DIAGNOSIS Heartburn, abdominal pain, change in bowel habits 08/11/2020 - 731 GROSS DIAGNOSIS A - Received in formalin labeled "biopsy antrum gastritis" consists of a fragment of tissue, 0.1 x 0.1 x 0.1 cm. All in one. B - Received in formalin labeled "polyp sigmoid colon" consists of a fragment of tissue, 0.2 x 0.1 x 0.1 cm. All in one. -GIACOMO 08/11/2020 - 731 Signed ANABELL KEENE MD 08/11/2020 1159 ID Date Data Source [id number] 08/05/2020 12:00:00 PM EDT [facility] Name Value Range Interpretation Code Description Data Ninoska rce(s) Supporting Document(s) SARS coronavirus 2 RNA [facility] This lab was ordered by [facility] and reported by [facility]. Procedure Social History Code Duration Value Status Description Data Source(s ) Alcohol intake 09/15/2021 12:00:00 AM EDT Ex-drinker (finding) comp leted Ex- drinker (finding) [facility] Tobacco use and exposure 09/10/2021 12:00:00 AM EDT Never used co mpleted Never used [facility] Smoking 09/10/2021 12:00:00 AM EDT Never smoker completed Never s moker [facility] Alcohol intake 09/10/2021 12:00:00 AM EDT Ex-drinker (finding) comp leted Ex- drinker (finding) [facility] Smoking 09/09/2021 12:00:00 AM EDT Patient has never smoked co mpleted Patient has never smoked MEDENT ([facility], ) Smoking 07/29/2021 12:00:00 AM EDT Never Smoker completed Never S moker eCW1 ([facility]) Smoking 07/12/2021 12:00:00 AM EDT Patient has never smoked co mpleted Patient has never smoked MEDENT ([facility]) Smoking 06/22/2021 12:00:00 AM EDT Never Smoker completed Never S moker eCW1 ([facility]) Smoking 05/26/2021 12:00:00 AM EDT Never Smoker completed Never S moker eCW1 ([facility]) Smoking 04/21/2021 12:00:00 AM EDT Never Smoker completed Never S moker eCW1 ([facility]) Smoking 04/20/2021 12:00:00 AM EDT Never Smoker completed Never S moker eCW1 ([facility]) Smoking 04/02/2021 09:32:45 AM EDT Never smoked tobacco (findi ng) completed Never smoked tobacco (finding) MELINDA (Holly Hood MD [facility]) Smoking 10/28/2020 12:00:00 AM EST Never Smoker completed Never S moker eCW1 ([facility]) Smoking 10/28/2020 12:00:00 AM EST Never Smoker completed Never S moker eCW1 ([facility]) Smoking 10/28/2020 12:00:00 AM EST Never Smoker completed Never S moker eCW1 ([facility]) Vital Signs ID Date Data Source UNK Name Value Range Interpretation Code Description Data Source(s) Systolic blood pressure 121 mm[Hg] 121 mm[Hg] [facility] Diastolic blood pressure 81 mm[Hg] 81 mm[Hg] [facility] Heart rate 96 /min 96 /min [facility] Body temperature 36.78 Ginny 36.78 Ginny [facility] Respiratory rate 16 /min 16 /min [facility] Oxygen saturation in Arterial blood by Pulse oximetry 94 % 94 % [facility] Body height 160 cm 160 cm [facility] Body weight 102.059 kg 102.059 kg [facility] Body mass index (BMI) [Ratio] 39.86 kg/m2 39.86 kg/m2 [facility] Systolic blood pressure 130 mm[Hg] 130 mm[Hg] [facility] Diastolic blood pressure 77 mm[Hg] 77 mm[Hg] [facility] Heart rate 57 /min 57 /min [facility] Respiratory rate 18 /min 18 /min [facility] Oxygen saturation in Arterial blood by Pulse oximetry 99 % 99 % [facility] Body height 160 cm 160 cm [facility] Body weight 102.331 kg 102.331 kg [facility] Body mass index (BMI) [Ratio] 39.96 kg/m2 39.96 kg/m2 [facility] Body temperature 35.67 Ginny 35.67 Ginny [facility] Systolic blood pressure 126 mm[Hg] 126 mm[Hg] Wilbert TRUJILLO ([facility], ) Diastolic blood pressure 72 mm[Hg] 72 mm[Hg] MEDENT ([facility], ) Heart rate 61 /min 61 /min MEDENT ([facility], ) Oxygen saturation in Arterial blood by Pulse oximetry 98 % 98 % MEDENT ([facility], ) Body height 63.50 [in_i] 63.50 [in_i] MEDENT ([facility], ) 5'3.50" [place] body weight 115 [lb_av] 115 [lb_av] MEDEN T ([facility], ) Systolic blood pressure 149 mm[Hg] 149 mm[Hg] M EDENT ([facility]) Diastolic blood pressure 86 mm[Hg] 86 mm[Hg] MEDENT ([facility]) Oxygen saturation in Arterial blood by Pulse oximetry 98 % 98 % MEDENT ([facility]) Heart rate 59 /min 59 /min MEDENT ([facility]) Body weight 223 [lb_av] 223 [lb_av] eCW1 ([facility]) Body height 63 [in_i] 63 [in_i] eCW1 ([facility]) Body mass index (BMI) [Ratio] 39.5 kg/m2 39.5 k g/m2 eCW1 ([facility]) Systolic blood pressure 126 mm[Hg] 126 mm[Hg] e CW1 ([facility]) Diastolic blood pressure 80 mm[Hg] 80 mm[Hg] eCW1 ([facility]) Systolic blood pressure--sitting 12 mm[Hg] 12 mm[Hg] MEDENT ([facility]) Diastolic blood pressure--sitting 82 mm[Hg] 82 mm[Hg] MEDENT ([facility]) Body weight 220.00 [lb_av] 220.00 [lb_av] MEDEN T ([facility]) Body height 63 [in_i] 63 [in_i] MEDENT ([facility]) 5'3" Body mass index (BMI) [Ratio] 39.0 kg/m2 39.0 k g/m2 MEDENT ([facility]) Systolic blood pressure 130 mm[Hg] 130 mm[Hg] M EDENT ([facility]) Diastolic blood pressure 80 mm[Hg] 80 mm[Hg] MEDENT ([facility]) Body weight 222.00 [lb_av] 222.00 [lb_av] MEDEN T ([facility]) Body height 63 [in_i] 63 [in_i] MEDENT ([facility] 5'3" Body mass index (BMI) [Ratio] 39.3 kg/m2 39.3 k g/m2 MEDENT ([facility]) Body surface area Derived from formula 2.02 m2 2.02 m2 MEDENT ([facility]) Body weight 99.79 kg 99.79 kg eCW1 ([facility]) Body weight 220 [lb_av] 220 [lb_av] eCW1 ([facility]) Diastolic blood pressure 68 mm[Hg] 68 mm[Hg] eCW1 ([facility]) Body height 63 [in_i] 63 [in_i] eCW1 ([facility]) Body mass index (BMI) [Ratio] 38.97 kg/m2 38.97 kg/m2 eCW1 ([facility]) Heart rate 76 /min 76 /min eCW1 ([facility]) Respiratory rate 18 /min 18 /min eCW1 ([facility]) Body temperature 96.9 [degF] 96.9 [degF] eCW1 ( [facility]) Systolic blood pressure 116 mm[Hg] 116 mm[Hg] e CW1 ([facility]) Body weight 217.8 [lb_av] 217.8 [lb_av] eCW1 ([facility]) Body height 63 [in_i] 63 [in_i] eCW1 ([facility]) Body mass index (BMI) [Ratio] 38.58 kg/m2 38.58 kg/m2 eCW1 ([facility]) Heart rate 58 /min 58 /min eCW1 ([facility]) Respiratory rate 18 /min 18 /min eCW1 ([facility]) Body temperature 98.2 [degF] 98.2 [degF] eCW1 ( [facility]) Systolic blood pressure 134 mm[Hg] 134 mm[Hg] e CW1 ([facility]) Diastolic blood pressure 80 mm[Hg] 80 mm[Hg] eCW1 ([facility]) Body mass index (BMI) [Ratio] 39.3 kg/m2 39.3 k g/m2 MEDENT ([facility]) Systolic blood pressure--sitting 145 mm[Hg] 145 mm[Hg] MEDENT ([facility]) CBP, large cuff/Ra Body weight 222.00 [lb_av] 222.00 [lb_av] MEDEN T ([facility]) Body height 63 [in_i] 63 [in_i] MEDENT ([facility]) 5'3" Heart rate 56 /min 56 /min MEDENT ([facility]) Diastolic blood pressure--sitting 85 mm[Hg] 85 mm[Hg] MEDENT ([facility]) CBP, large cuff/Ra Body height 63.50 [in_i] 63.50 [in_i] MEDENT ([facility]) 5'3.50" Body weight 225.00 [lb_av] 225.00 [lb_av] MEDEN T ([facility]) Body mass index (BMI) [Ratio] 39.2 kg/m2 39.2 k g/m2 MEDENT ([facility]) [place] body weight 115 [lb_av] 115 [lb_av] MEDEN T ([facility]) Body weight 102.060 kg 102.060 kg MEDENT ([facility]) Body surface area Derived from formula 2.04 m2 2.04 m2 MEDENT ([facility], ) Systolic blood pressure 142 mm[Hg] 142 mm[Hg] M EDENT ([facility], ) Diastolic blood pressure 86 mm[Hg] 86 mm[Hg] MEDENT ([facility]) Body height 63.50 [in_i] 63.50 [in_i] MEDENT ([facility], ) 5'3.50" Body weight 225.00 [lb_av] 225.00 [lb_av] MEDEN T ([facility]) Body mass index (BMI) [Ratio] 39.2 kg/m2 39.2 k g/m2 [facility] ([facility]) [place] body weight 115 [lb_av] 115 [lb_av] MEDEN T ([facility]) Body weight 102.060 kg 102.060 kg [facility] ([facility]) Body surface area Derived from formula 2.04 m2 2.04 m2 [facility] ([facility]) Body surface area Derived from formula 2.04 m2 2.04 m2 [facility] ([facility]) [place] body weight 115 [lb_av] 115 [lb_av] MEDEN T ([facility]) Oxygen saturation in Arterial blood by Pulse oximetry 97 % 97 % [facility] ([facility]) Heart rate 62 /min 62 /min [facility] ([facility]) Body temperature 97.4 [degF] 97.4 [degF] [facility] ([facility]) Body height 63.50 [in_i] 63.50 [in_i] [facility] ([facility]) 5'3.50" Body weight 222.50 [lb_av] 222.50 [lb_av] MEDEN T ([facility]) Systolic blood pressure 126 mm[Hg] 126 mm[Hg] [facility] Diastolic blood pressure 72 mm[Hg] 72 mm[Hg] [facility] ([facility]) Body mass index (BMI) [Ratio] 38.8 kg/m2 38.8 k g/m2 [facility] ([facility]) Body weight 100.926 kg 100.926 kg [facility] ([facility]) Body weight 222.2 [lb_av] 222.2 [lb_av] eCW1 ([facility]) Body height 63 [in_i] 63 [in_i] eCW1 ([facility]) Body mass index (BMI) [Ratio] 39.36 kg/m2 39.36 kg/m2 eCW1 ([facility]) Heart rate 60 /min 60 /min eCW1 ([facility]) Respiratory rate 18 /min 18 /min eCW1 ([facility]) Body temperature 98.6 [degF] 98.6 [degF] eCW1 ( [facility]) Systolic blood pressure 158 mm[Hg] 158 mm[Hg] e CW1 ([facility]) Diastolic blood pressure 98 mm[Hg] 98 mm[Hg] eCW1 ([facility]) Systolic blood pressure--sitting 133 mm[Hg] 133 mm[Hg] MEDENT ([facility]) CBP, large cuff/Ra Body weight 221.00 [lb_av] 221.00 [lb_av] MEDEN T ([facility]) Body height 63 [in_i] 63 [in_i] MEDENT ([facility]) 5'3" Body mass index (BMI) [Ratio] 39.1 kg/m2 39.1 k g/m2 MEDENT ([facility]) Heart rate 61 /min 61 /min [facility] ([facility]) Diastolic blood pressure--sitting 82 mm[Hg] 82 mm[Hg] MEDENT ([facility]) CBP, large cuff/Ra Respiratory rate 17 /min 17 /min MED[facility] ( [facility]) Body temperature 96.9 [degF] 96.9 [degF] MED[facility] ([facility]) Body weight 220.00 [lb_av] 220.00 [lb_av] MEDEN T ([facility]) Body temperature 96.9 [degF] 96.9 [degF] MEDENT ([facility]) Body weight 220.00 [lb_av] 220.00 [lb_av] MEDEN T ([facility]) Respiratory rate 17 /min 17 /min MED[facility] ( [facility]) Body height 63 [in_i] 63 [in_i] MEDENT ([facility]) 5'3" Systolic blood pressure--sitting 118 mm[Hg] 118 mm[Hg] MEDENT ([facility]) Ra, medium cuff Diastolic blood pressure--sitting 70 mm[Hg] 70 mm[Hg] MEDENT ([facility]) Ra, medium cuff Body weight 220.00 [lb_av] 220.00 [lb_av] MEDEN T ([facility]) Body mass index (BMI) [Ratio] 39.0 kg/m2 39.0 k g/m2 MEDENT ([facility]) Heart rate 56 /min 56 /min [facility] ([facility]) Systolic blood pressure 128 mm[Hg] 128 mm[Hg] M EDENT ([facility]) Diastolic blood pressure 84 mm[Hg] 84 mm[Hg] MEDENT ([facility]) Body height 63.50 [in_i] 63.50 [in_i] [facility] ([facility]) 5'3.50" Body weight 220.00 [lb_av] 220.00 [lb_av] MEDEN T ([facility]) Body mass index (BMI) [Ratio] 38.4 kg/m2 38.4 k g/m2 [facility] ([facility]) [place] body weight 115 [lb_av] 115 [lb_av] MEDEN T ([facility]) Body weight 99.792 kg 99.792 kg [facility] ([facility]) Body surface area Derived from formula 2.03 m2 2.03 m2 [facility] ([facility]) Body weight 220 [lb_av] 220 [lb_av] eCW1 ([facility]) Body height 63 [in_i] 63 [in_i] eCW1 ([facility]) Heart rate 70 /min 70 /min eCW1 ([facility]) Body mass index (BMI) [Ratio] 38.97 kg/m2 38.97 kg/m2 eCW1 ([facility]) Respiratory rate 18 /min 18 /min eCW1 ([facility]) Body temperature 98.6 [degF] 98.6 [degF] eCW1 ( [facility]) Diastolic blood pressure 82 mm[Hg] 82 mm[Hg] eCW1 ([facility]) Systolic blood pressure 138 mm[Hg] 138 mm[Hg] e CW1 ([facility]) Diastolic blood pressure 82 mm[Hg] 82 mm[Hg] [facility] ([facility]) Systolic blood pressure 118 mm[Hg] 118 mm[Hg] [facility]) Body height 63.50 [in_i] 63.50 [in_i] MEDENT ([facility]) 5'3.50" Body weight 219.00 [lb_av] 219.00 [lb_av] MEDEN T ([facility]) Body mass index (BMI) [Ratio] 38.2 kg/m2 38.2 k g/m2 [facility] ([facility]) [place] body weight 115 [lb_av] 115 [lb_av] [facility] Body weight 99.338 kg 99.338 kg [facility] ([facility]) Body surface area Derived from formula 2.02 m2 2.02 m2 [facility] ([facility]) Body temperature 97.5 [degF] 97.5 [degF] [facility] ([facility]) Systolic blood pressure 140 mm[Hg] 140 mm[Hg] [facility] ([facility]) Diastolic blood pressure 80 mm[Hg] 80 mm[Hg] [facility] ([facility]) Systolic blood pressure 138 mm[Hg] 138 mm[Hg] [facility] ([facility]) Diastolic blood pressure 84 mm[Hg] 84 mm[Hg] [facility] ([facility]) Heart rate 59 /min 59 /min [facility] ([facility]) Oxygen saturation in Arterial blood by Pulse oximetry 97 % 97 % [facility] ([facility]) Body temperature 97.4 [degF] 97.4 [degF] [facility] ([facility]) Body height 63.50 [in_i] 63.50 [in_i] [facility] ([facility]) 5'3.50" Body weight 214.50 [lb_av] 214.50 [lb_av] MEDEN T ([facility]) Body mass index (BMI) [Ratio] 37.4 kg/m2 37.4 k g/m2 [facility] ([facility]) [place] body weight 115 [lb_av[facility] 115 [lb_av] [facility] Body weight 97.297 kg 97.297 kg [facility] ([facility]) Systolic blood pressure 163 mm[Hg] 163 mm[Hg] [facility]) Diastolic blood pressure 93 mm[Hg] 93 mm[Hg] [facility] ([facility]) Body height 63.50 [in_i] 63.50 [in_i] [facility] ([facility]) 5'3.50" Body weight 214.00 [lb_av] 214.00 [lb_av] [facility] ([facility]) Body mass index (BMI) [Ratio] 37.3 kg/m2 37.3 k g/m2 [facility] ([facility]) Body weight 97.070 kg 97.070 kg [facility] ([facility]) Patient Treatment Plan of Care Planned Activity Planned Date Details Description Data Source (s) Magnesium Chloride 0.30415 MEQ/ML / Pota ssium Chloride 0.0497 MEQ/ML / Sodium Acetate 0.0163 MEQ/ML / Sodium Chloride 0.0899 MEQ/ML / Sodium gluconate 5.02 MG/ML Injectable Solution [Normosol-R] 09/15/2021 04:00:00 PM EDT [facility] HYDROmorphone (DILAUDID) injection 0.5 mg 09/15/2021 03:01:03 PM ED T [facility] labetalol (NORMODYNE,TRANDATE) injection 5 mg 09/15/2021 03:01:03 P M EDT [facility] ondansetron (ZOFRAN) injection 4 mg 09/15/2021 02:51:28 PM EDT [facility] normal saline flush 0.9 % injection 3 mL 09/15/2021 10:00:00 AM EDT [facility] normal saline flush 0.9 % injection 3 mL 09/15/2021 10:00:00 AM EDT [facility]
[2021-09-30] MEDS ORDERED: NS 1,000 ML IV ONE (12:45)
[2021-09-30] MEDS ORDERED: METOPROLOL SUCC *XL* 25MG TAB (TopROL *XL*) PO ONE (12:50)
[2021-09-30 13:06] LABS: BASO % 0.4 % (0.0-1.0); EOS % 0.5 % (0.0-3.0); HEMATOCRIT 44.2 % (36.0-47.0); HEMOGLOBIN 14.7 g/dl (12.0-15.5); LYMPH # 1.8 10^3/uL (1.5-5.0); LYMPH % 22.5 % (24.0-44.0); MEAN CORPUSCULAR HEMOGLOBIN 30.7 pg (27.0-33.0); MEAN CORPUSCULAR HGB CONC 33.3 g/dl (32.0-36.5); MEAN CORPUSCULAR VOLUME 92.3 fl (80.0-96.0); MONO # 0.3 10^3/uL (0.0-0.8); MONO % 4.2 % (2.0-8.0); NEUTROPHILS # 5.6 10^3/uL (1.5-8.5); PLATELET COUNT, AUTOMATED 219 10^3/uL (150-450); RED BLOOD COUNT 4.79 10^6/uL (4.00-5.40); WHITE BLOOD COUNT 7.8 10^3/uL (4.0-10.0)
--- NOTE | 2021-09-30 13:15 | REP ---
INDICATION: CHEST PAIN. COMPARISON: 04/30/2021, 04/09/2021 TECHNIQUE: AP portable upright, lordotic. FINDINGS: There is curvilinear density in the right medial base that may be accentuation of the minor fissure or linear atelectatic change. Slight elevation of the right diaphragm as before. There is no pleural effusion or dense consolidation. Heart is enlarged with some left ventricular prominence. There is mild pulmonary venous hypertension but no pulmonary edema. There is a left-sided chest wall loop recorder noted as a new finding. No free air under the diaphragm. IMPRESSION: 1. Cardiomegaly without effusion or definite infiltrate. Some mild pulmonary venous hypertension with engorgement of upper lobe vessels but no pulmonary edema. There is a new loop recorder over the left lower chest. 2. Curvilinear density in the right base which could be some accentuation of the minor fissure with trace fluid or linear atelectatic change. <Electronically signed by Reno Boo > 09/30/21 [id number]
[2021-09-30] MEDS: METOPROLOL 5 MG/5 ML VIAL IV SCH ×2 (13:17→15:50)
--- OUTSIDE RECORDS SUMMARY | 2021-09-30 13:20 | CCD ---
Author Author [facility] Organization [facility] Address Unknown Phone Unavailable Care Team Providers Care Kettle Hand Name Role Phone Rahul Harrington MD Unavailable [...] Carol RPA C Unavailable Unavailable Charlebois, A Carlo RPA C Unavailable Unavailable Charlebois, A Carol [...] Unavailable Barnes, L Jerri RPA Unavailable Unavailable Abrnes, L Jerri RPA Unavailable Unavailable Barnes, L Jerri RPA Unavailable Unavailable Barnes, L Jerri RPA Unavailable Unavailable Barnes, L Jerri RPA Unavailable Unavailable Barnes, L Jerri RPA Unavailable Unavailable Barnes, L Jerri RPA Unavailable Unavailable KOSTIV, VU Unavailable Unavailable Waller, A Phyl OPERATION MANAGER-BC Unavailable Unavailable Waller, A Phyl OPERATION MANAGER-BC Unavailable Unavailable Waller, A Phyl OPERATION MANAGER-BC Unavailable Unavailable Waller, A Phyl OPERATION MANAGER-BC Unavailable Unavailable Waller, A Phyl OPERATION MANAGER-BC Unavailable Unavailable Waller, A Phyl OPERATION MANAGER-BC Unavailable Unavailable Waller, A Phyl OPERATION MANAGER-BC Unavailable Unavailable Waller, A Phyl OPERATION MANAGER-BC Unavailable Unavailable Waller, A Phyl OPERATION MANAGER-BC Unavailable Unavailable Waller, A Phyl OPERATION MANAGER-BC Unavailable Unavailable Waller, A Phyl OPERATION MANAGER-BC Unavailable Unavailable Waller, A Phyl OPERATION MANAGER-BC Unavailable Unavailable Waller, A Phyl OPERATION MANAGER-BC Unavailable Unavailable Waller, A Phyl OPERATION MANAGER-BC Unavailable Unavailable Waller, A Phyl OPERATION MANAGER-BC Unavailable Unavailable Waller, A Phyl OPERATION MANAGER-BC Unavailable Unavailable Waller, A Phyl OPERATION MANAGER-BC Unavailable Unavailable Waller, A Phyl OPERATION MANAGER-BC Unavailable Unavailable Waller, A Phyl OPERATION MANAGER-BC Unavailable Unavailable Waller, A Phyl OPERATION MANAGER-BC Unavailable Unavailable Waller, A Phyl OPERATION MANAGER-BC Unavailable Unavailable Waller, A Phyl OPERATION MANAGER-BC Unavailable Unavailable Waller, A Phyl OPERATION MANAGER-BC Unavailable Unavailable Waller, A Phyl OPERATION MANAGER-BC Unavailable Unavailable Waller, A Phyl OPERATION MANAGER-BC Unavailable Unavailable Waller, A Phyl OPERATION MANAGER-BC Unavailable Unavailable Waller, A Phyl OPERATION MANAGER-BC Unavailable Unavailable Waller, A Phyl OPERATION MANAGER-BC Unavailable Unavailable Waller, A Phyl OPERATION MANAGER-BC Unavailable Unavailable Waller, A Phyl OPERATION MANAGER-BC Unavailable Unavailable Waller, A Phyl OPERATION MANAGER-BC Unavailable Unavailable Waller, A Phyl OPERATION MANAGER-BC Unavailable Unavailable Hegard, Herminia OPERATION MANAGER Unavailable Unavailable Hegard, Herminia OPERATION MANAGER Unavailable Unavailable Hegard, Herminia OPERATION MANAGER Unavailable Unavailable Hegard, Herminia OPERATION MANAGER Unavailable Unavailable Hegard, Herminia OPERATION MANAGER Unavailable Unavailable Hegard, Herminia OPERATION MANAGER Unavailable Unavailable Hegard, Herminia OPERATION MANAGER Unavailable Unavailable Hegard, Herminia OPERATION MANAGER Unavailable Unavailable Hegard, Herminia OPERATION MANAGER Unavailable Unavailable Hegard, Herminia OPERATION MANAGER Unavailable Unavailable Hegard, Herminia OPERATION MANAGER Unavailable Unavailable Hegard, Herminia OPERATION MANAGER Unavailable Unavailable Hegard, Herminia OPERATION MANAGER Unavailable Unavailable Hegard, Herminia OPERATION MANAGER Unavailable Unavailable Hegard, Herminia OPERATION MANAGER Unavailable Unavailable Hegard, Herminia OPERATION MANAGER Unavailable Unavailable Hegard, Herminia OPERATION MANAGER Unavailable Unavailable Re-disclosure Warning The records that [...] is protected by Article 27-F of the [facility] Public Health law. If you continue you may have access to information: Regarding HIV / AIDS; Provided by facilities licensed or operated by the [facility] Office of Mental Health; or Provided by the [facility] Office for People With Developmental Disabilities. If such information is present, then the following [facility] mandated warning applies: This information has been [...] law may result in a fine or longterm sentence or both. A general authorization for the release of medical or other information is NOT sufficient authorization for further disc losure. Allergies and Adverse Reactions Type Description Substance Reaction Status Data Source(s ) Propensity to adverse reactions TOPIRAMATE topiramate Acti ve [facility] Propensity to adverse reactions OXYCODONE Oxycodone Acti ve [facility] Propensity to adverse reactions INDAPAMIDE Indapamide Palpitations Lo w Active [facility] Low Propensity to adverse reactions DIGOXIN AND RELATED Digoxin And Rel ated Active [facility] Propensity to adverse reactions CARVEDILOL carvedilol Palpitations Lo w Active [facility] Low Propensity to adverse reactions ADHESIVE TAPE Adhesive Tape Itching Low Rash Low [facility] Low Low Propensity to adverse reactions TETRACYCLINES & RELATED TETRACYC LINES & RELATED Rash [facility] Propensity to adverse reactions SULFA ANTIBIOTICS SULFA ANTIBIOTICS R tracy [facility] Propensity to adverse reactions PENICILLINS Penicillin Rash [facility] Propensity to adverse reactions AMOXICILLIN Amoxicillin Rash [facility] Propensity to adverse reactions OXYCODONE OXYCODONE [facility] Propensity to adverse reactions INDAPAMIDE INDAPAMIDE [facility] Propensity to adverse reactions CARVEDILOL CARVEDILOL [facility] Propensity to adverse reactions DIGOXIN AND RELATED DIGOXIN AND RELAT ED [facility] Substance/Environmental Agent Allergy Substance/Environmenta l Agent Allergy tizanidine [facility] Substance/Environmental Agent Allergy Substance/Environmenta l Agent Allergy cyclobenzaprine [facility] Family History Family Member Name Family Member Gender Family Member Status Date o f Status Description Data Source(s) Unknown Unknown Problem [facility] ([facility]) Unknown Unknown Problem [facility] ([facility] Unknown Unknown Problem [facility] ([facility]) Encounters Encounter Providers Location Date Indications Data Source(s ) Outpatient Attender: Bijan Harrington MD Admitter: Bijan Harrington MDReferrer: VU DUARTE [email or web address] 09/15/2021 09:01:00 AM EDT - 09/15/2021 07:43:00 PM EDT [facility] Patient discharged. Outpatient Attender: Bijan Harrington MDReferrer: Bijan KEYS.PAT 09/10/2021 09:20:53 AM EDT - 09/10/2021 10:38:57 AM EDT [facility] Outpatient Referrer: Bijan KEYS.[facility] 09:01:13 AM EDT - 09/10/2021 09:01:22 AM EDT [facility] Outpatient Attender: Sarah Thornton/Oliver/Antonino/Josh ndl 09/09/2021 11:00:00 AM EDT [facility] ([facility]) Outpatient Attender: Herminia MANZANARESP Main Office 1 09:45:00 AM EDT [facility] ([facility]) Outpatient Attender: FREDDIE ALANIZ PA Main Office 08/23/2021 1 1:30:00 AM EDT [facility] (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 [address] [place] [address] 07/29/2021 12:00:00 AM EDT eCW1 ([facility]) Outpatient Referrer: Bijan Harrington MD 07/13/2021 02:57:2 0 PM EDT [facility] Outpatient Referrer: Bijan Harrington MD 07/13/2021 02:13:5 2 PM EDT [facility] Outpatient Attender: FREDDIE RESENDIZ Main Office 07/12/2021 0 9:45:00 AM EDT [facility] ([facility]) Outpatient Attender: GLORIA LINDER MD 06/29/2021 01:30: 00 PM [facility] Outpatient Attender: Bijan Harrington MD [facility] 06/28/2021 11:15:00 AM EDT [facility] ([facility]) Office Visit, Est Pt., Level 3 PC [address] [place] [address] 06/22/2021 12:00:00 AM EDT eCW1 ([facility]) Outpatient [address] [facility] [address] 05/26/2021 12:00:00 AM EDT eCW1 ([facility]) Outpatient Attender: HOLLY HUBER MD Main Office 05/18/2021 09:00:00 AM EDT [facility] ([facility]) Outpatient Attender: Carol Thornton/Oliver/Millie velázquez/Janusz 05/10/2021 11:15:00 AM EDT [facility] ([facility] Medardo romero, ) Outpatient Attender: Sarah Thornton/Oliver/Antonino/Josh ndl 04/29/2021 09:30:00 AM EDT [facility] ([facility]) Outpatient [address] [facility] [address] 04/21/2021 12:00:00 AM EDT eCW1 ([facility]) OFFICE OUTPATIENT VISIT 40 MINUTES Attender: HOLLY HUBER MD Ma in Office 04/14/2021 01:30:00 PM EDT [facility] ([facility]) Unknown [address] [facility] [address] 04/12/2021 12:00:00 AM EDT eCW1 ([facility]) <td ID="encounterTypeDescriptionID0">2 Y ear Follow-Up</td><td>Holly Hood MD, FACS</td><td>Holly Warren MD [facility]</td><td>04/02/2021</td><td>8:53AM</td><td>9:32AM</td><td><content ID="encounterDiagnosisID0-0">Cataract Senile Nuclear</content>, <content ID="encounterDiagnosisID0-1">Essential Hypertension</content>, <content ID="encounterDiagnosisID0-2">Retinopathy Hypertensive Both Eyes</content>, <content ID="encounterDiagnosisID0-3">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</content>, <content ID="encounterDiagnosisID0-4">Borderline 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</content></td>Outpatient Attender: Holly Hood MD, FACS Holly Warren MD [facility] 04/02/2021 08:53:0 0 AM EDT - 04/02/2021 09:32:00 AM EDT Essential HypertensionCataract Senile NuclearBorderline 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Retinopathy Hypertensive Both Eyes MELINDA (Holly Hood MD [facility]) Essential Hypertension Cataract Senile Nuclear Borderline Glaucoma Open Angle with Bord cuba Findings Both Eyes Peripheral Retinal Degeneration Paving S tone Both Eyes Retinopathy Hypertensive Both Eyes Unknown [address] [facility] [address] 03/26/2021 12:00:00 AM EDT eCW1 ([facility]) Outpatient Attender: Ynes Waller [facility] Main Office 0 02/08/2021 01:45:00 PM EDT [facility] ([facility]) Outpatient Attender: FREDDIE RESENDIZ Main Office 01/11/2021 0 8:45:00 AM EST [facility] ([facility]) Unknown [address] [facility] [address] 12/21/2020 12:00:00 AM EST eCW1 ([facility]) Outpatient Attender: Carol Garza Norberto/Auburn/A ngel/Reindl 11/09/2020 08:00:00 AM EST [facility] ([facility], ) Out[place] [address] [facility] [address] 10/28/2020 12:00:00 AM EST eCW1 ([facility]) Outpatient Attender: Carol Garza Norberto/Auburn/A ngel/Reindl 09/08/2020 11:15:00 AM EDT [facility] ([facility], RUSLAN) Outpatient Attender: Sarah Thornton/Auburn/Antonino/Josh ndl 08/06/2020 11:00:00 AM EDT [facility] ([facility] Fernando holcomb, ) Outpatient Attender: Jerri Thornton/Auburn/Antonino/R eindl 08/04/2020 10:45:00 AM EDT [facility] ([facility] zhang, ) Immunizations Vaccine Date Status Description Data Source(s) COVID-19 VACCINE Moderna 09/21/2021 12:00:00 AM EDT completed [facility] Vaccine Series Complete: YESThis Data wa s Submitted to [facility] Via [employer]. COVID-19 VACCINE Moderna 01/30/2021 12:00:00 AM EST completed [facility] Vaccine Series Complete: YESThis Data wa s Submitted to [facility] Via [employer] [facility]. COVID-19 VACCINE Moderna 01/01/2021 12:00:00 AM EST completed [facility] Vaccine Series Complete: NOThis Data was Submitted to [facility] Via [employer]. Tdap 10/28/2020 11:41:00 AM EST completed e CW1 ([facility]) Tdap 10/28/2020 11:41:00 AM EST completed e CW1 ([facility]) Tdap 10/28/2020 11:41:00 AM EST completed e CW1 ([facility]) Tdap 10/28/2020 11:41:00 AM EST completed e CW1 ([facility]) Tdap 10/28/2020 11:41:00 AM EST completed e CW1 ([facility]) Tdap 10/28/2020 11:41:00 AM EST completed e CW1 ([facility]) Tdap 10/28/2020 11:41:00 AM EST completed e CW1 ([facility]) Tdap 10/28/2020 11:41:00 AM EST completed e CW1 ([facility]) Medications Medication Brand Name Start Date Product Form Dose Route Admi nistrative Instructions Pharmacy Instructions Status Indications Reaction Description Data Source(s) Magnesium Chloride 0.53417 MEQ/ML / Pota ssium Chloride 0.0497 MEQ/ML / Sodium Acetate 0.0163 MEQ/ML / Sodium Chloride 0.0899 MEQ/ML / Sodium gluconate 5.02 MG/ML Injectable Solution [Normosol-R] electrolyte-R (NORMOSOL-R/PLASMALYTE-R) solution 1,000 mL electrolyte-R (NORMOSOL-R/PLASMALYTE-R) solution 1,000 mL 09/15/2021 04:00:00 PM EDT 1000 mL Intravenous active at 100 mL/hr, 1,000 mL, Intravenous, Continuous, Starting on Mon09/15/21 at 1600, PACU (only) [facility] Medication administered onsite labetalol (NORMODYNE,TRANDATE) injection 5 mg [id number] 09/15/2021 03:01:03 PM EDT 5 mg Intravenous active 5 mg , Intravenous, Every 5 min PRN, high blood pressure, for SBP greater than 160, Starting on Mon09/15/21 at 1501, For 4 doses, PACU (only)
Max of 20 MG, hold for HR less than 60
[facility] Medication administered onsite HYDROmorphone (DILAUDID) injection 0.5 mg [id number] 09/15/2021 03:01:03 PM EDT 0.5 mg Intravenous active 0.5 mg, Intravenous, Every 5 min PRN, severe pain (7-10), Starting on Mon09/15/21 at 1501, For 2 doses, PACU (only) [facility] Medication administered onsite fentaNYL Citrate (PF) (SUBLIMAZE) injection 25 mcg [id number] 09/15/2021 03:01:03 PM EDT 25 ug Intravenous active Postoperativ e Pain 25 mcg, Intravenous, Every 5 min PRN, moderate pain (4 to 6), Starting on Mon09/15/21 at 1501, For 11 doses, PACU (only) [facility] Postoperative Pain Medication administered onsite Albuterol 0.83 MG/ML Inhalant Solution a lbuterol (PROVENTIL) nebulizer solution 2.5 mg albuterol (PROVENTIL) nebulizer solution 2.5 mg 2020 03:01:02 PM EDT 2.5 mg completed 2.5 mg , Nebulization, Once as needed, wheezing, Starting on Mon09/15/21 at 1501, For 1 dose, PACU (only) [facility] Medication administered onsite ondansetron (ZOFRAN) injection 4 mg [id number] 09/15/2021 02:51:2 8 PM EDT 4 mg Intravenous active 4 mg, In travenous, Every 8 hours PRN, nausea, vomiting, Starting on Mon09/15/21 at 1451, Post-op [facility] Medication administered onsite Acetaminophen 325 MG Oral Tablet acetaminophen (TYLENO L) 325 MG tablet 650 mg acetaminophen (TYLENOL) 325 MG tablet 650 mg 09/15/2021 02:51:28 PM EDT 650 mg Oral active 650 mg, Or al, Every 6 hours PRN, mild pain (1-3), Starting on Mon09/15/21 at 1451, Post-op
"Maximum dose of acetaminophen is 4,000 mg from all sources in 24 hours."
[facility] Medication administered onsite protamine injection [id number] 09/15/2021 02:13:57 PM EDT active As needed, Starting on Mon09/15/21 at 1413, Intra-Pro cedure [facility] Medication administered onsite 1 ML heparin sodium, porcine 1000 UNT/ML Injection hep tia (porcine) injection heparin (porcine) injection 09/15/2021 01:18:30 PM EDT active As needed, Starting on Mon09/15/21 at 1318, Intra-Procedure [facility] Medication administered onsite normal saline flush 0.9 % injection 3 mL [id number] 09/15/2021 10:00:00 AM EDT 3 mL Intravenous active 3 mL , Intravenous, Every 8 hours (scheduled), First dose on Mon09/15/21 at 1000, Pre-op
Rapid push positive pressure flushing shall be performed with a 10 cc normal saline syringe to check the PATENCY of a PIV site prior to any infusion therapy initiation unless resistance is met.
[facility] Medication administered onsite normal saline flush 0.9 % injection 3 mL [id number] 09/15/2021 10:00:00 AM EDT 3 mL Intravenous active 3 mL , Intravenous, Every 8 hours (scheduled), First dose on Mon09/15/21 at 1000, Pre-op
Rapid push positive pressure flushing shall be performed with a 10 cc normal saline syringe to check the PATENCY of a PIV site prior to any infusion therapy initiation unless resistance is met.
[facility] Medication administered onsite Rosuvastatin calcium 40 MG Oral Tablet Rosuvastatin Calcium 07/09/2021 12:00:00 AM EDT ORAL active [facility] ([facility] Cequa Cequa 07/01/2021 12:00:00 AM EDT active [facility] ([facility]) valsartan 80 MG Oral Tablet Valsartan 05/18/2021 12:00:00 AM EDT ORAL active [facility] ([facility]) Atenolol 25 MG Oral Tablet Atenolol 05/18/2021 12:00:00 AM EDT ORAL active [facility] ([facility]) Atenolol 25 MG Oral Tablet Atenolol 05/17/2021 12:00:00 AM EDT ORAL completed [facility] ([facility]) 12 HR Guaifenesin 600 MG Extended Release Oral Tablet [Mucin ex] Mucinex 04/29/2021 12:00:00 AM EDT ORAL completed [facility] ([facility], ) Amiodarone hydrochloride 200 MG Oral Tablet Amiodarone HCL 04/14/2021 12:00:00 AM EDT ORAL completed [facility] ([facility]) Digoxin 0.25 MG Oral Tablet Digoxin 250 MCG Digoxin 250 MCG 04/14/2021 12:00:00 AM EDT 0.5 {tablet} active Digoxin 250 MCG eCW1 ([facility]) Calcium Carbonate 500 MG Chewable Tablet Calcium Antacid 04/13/2021 12:00:00 AM EDT active [facility] ([facility]) Metronidazole 7.5 MG/ML Topical Cream Metronidazole 04/13/2021 12:00:00 AM EDT active [facility] ( [facility]) Cranberry 04/13/2021 12:00:00 AM EDT ORAL complete d [facility] ([facility]) Acetaminophen 325 MG Oral Tablet Acetaminophen 04/13/2021 12:00:00 AM EDT active [facility] ([facility]) Digoxin 0.25 MG Oral Tablet [Digox] Digox 04/11/2021 12:00:00 AM EDT ORAL completed [facility] ([facility]) Cyclosporine 0.5 MG/ML Ophthalmic Suspen bere [Restasis] Restasis 0.05% Ophthalmic Emulsion Restasis 0.05% Ophthalmic Emulsion 04/02/2021 12:00:00 AM EDT 1 active cyclospo rine 0.5 MG/ML Ophthalmic Suspension [Restasis] MELINDA (Holly Hood MD [facility]) modafinil 100 MG Oral Tablet Modafinil 02/05/2021 12:00:00 AM EDT completed [facility] ([facility] ) Covid-19 vaccine, Unspecified 01/30/2021 12:00:00 AM EST completed [facility] ([facility], ) Medication administered onsite 12 HR Hyoscyamine Sulfate 0.375 MG Extended Release Or al Tablet Hyoscyamine Sulfate ER 01/10/2021 12:00:00 AM EST ORAL active [facility] ([facility]) Fluticasone Propionate Fluticasone Propionate 01/10/2021 12:00:[address] active [facility] ([facility]) Cyclosporine 0.5 MG/ML Ophthalmic Suspension [Restasis] Rest asis 01/10/2021 12:00:00 AM EST OPHTHALMIC completed [facility] ([facility]) WHEAT DEXTRIN 3500 MG Oral Powder [Benefiber] Benefiber 01/10/2021 12:00:00 AM EST ORAL active [facility] ([facility]) Covid-19 vaccine, Unspecified 01/02/2021 12:00:00 AM EST completed [facility] ([facility], ) Medication administered onsite Sucralfate 1000 MG Oral Tablet Sucralfate 08/10/2020 12:00:00 AM EDT ORAL completed [facility] Insurance Providers Payer name Policy type / Coverage type Policy ID Covered green party ID Covered green party's relationship to wilson Policy Wilson Plan Information [id number] [employer] Part B [id number] Self [id number] [employer] Med[employer] Part B [id number] Self [employer] Med[employer] Part B [id number] Self [employer] Med[employer] Part B [id number] Self [id number] [employer] Part B [id number] Self [id number] Medicare (Part B) Medicare Primary [id number] Self [id number] Medicare (Part B) Medicare Primary [id number] Self [id number] DME Jurisdiction A [facility] C [id number] SELF [id number] Medicare (Part B) Medicare Primary [id number] Self 1 [id number] Medicare (Part B) Medicare Primary [id number] Self 1 [id number] Medicare (Part B) Medicare Primary [id number] Self 1 [id number] MEDICARE [id number] SP [id number] A MEDICARE A [id number] Self [id number] Medicare (Part B) Medicare Primary [id number] Self [id number] Medicare (Part B) Medicare Primary [id number] Self [id number] Medicare (Part B) Medicare Primary [id number] Self [id number] Medicare C [id number] SELF [id number] A MEDICARE [id number] Shraddha [id number] [id number] Medicare (Part B) Medicare Primary [id number] Self MEDICARE [id number] Medicare Medicare Primary [id number] Self UMR U [id number] Self [id number] UMR [id number] Shraddha [id number] UMR [id number] Medicare C [id number] SELF [id number] A DME Jurisdiction A [facility] C [id number] SELF [id number] UMR F [id number] SELF [id number] UMR F [id number] SELF [id number] Umr Commercial [id number] Self [id number] Umr Medigap Part B [id number] Self [id number] INSURANCE COVID-19 [id number] xOVID 2 [id number] INSURANCE COVID-19 COVID Shraddha C OVID INSURANCE COVID-19 COVID Shraddha C OVID Ghi Medigap Part B [id number] [id number] Self [id number] Medicare [place]/N[place] Medicare Primary [id number] Self 1 [id number] Medicare [place]/NGS Medicare Primary [id number] Self [id number] [employer] PHCS Ppo Medigap Part B [id number] Self [id number] [employer] PHCS Ppo Medigap Part B [id number] Self [id number] Ghi Medigap Part B [id number] [id number] Self [id number] Medicare Upstate/NGS Medicare Primary [id number] Self 1 [id number] Ghi Medigap Part B [id number] 6.0 Self [id number] Medicare Upstate/NGS Medicare Primary [id number] Self 1 [id number] ANSI-Commercial [id number] ANSI-Medicare Part B [id number] ANSI-Medicare Part B [id number] ANSI-Commercial [id number] ANSI-Medicare Part B [id number] ANSI-Commercial [id number] ANSI-Medicare Part B [id number] ANSI-Commercial [id number] [facility] [id number] .[id number] 6.0 Self [id number] Medicare [facility] Medicare Primary [id number] .[id number] Self 1 [id number] [facility] [id number] SP [id number] MEDICARE [id number] SP [id number] A [facility] [id number] SP [id number] [facility] [id number] .[id number] 6.0 Self [id number] Medicare [facility]/[place] Medicare Primary [id number] [id number]66.0 Self 1 [id number] MEDICARE [id number] S [id number] A [employer] PPO O [id number] S [id number] [employer] [facility] Ppo Medigap Part B [id number] 2.840.1.260425.3.227. 99.572.76578.0 Self [id number] Ghi Medigap Part B [id number] 2.0.1.565975.3.227.99.8646.656 6.0 Self [id number] [place] Medicare Primary [id number] 2.0.1.757740.3.227.99.8646.6566.0 Self 1 [id number] Ghi Medigap Part B [id number] 2.0.1.556736.3.227.99.8646.656 6.0 Self [id number] Medicare [place] Medicare Primary [id number] 2.0.1.546903.3.227.99.8646.6566.0 Self 1 [id number] Ghi Medigap Part B [id number] 2.0.1.367620.3.227.99.8646.656 6.0 Self [id number] [place] Medicare Primary [id number] 2.840.1.936322.3.227.99.8646.6566.0 Self 1 [id number] Ghi Medigap Part B [id number] 2.0.1.453008.3.227.99.8646.656 6.0 Self [id number] Medicare [facility]/[place] Medicare Primary [id number] 2.840.1.809245.3.227.99.8646.6566.0 Self 1 [id number] Ghi Medigap Part B [id number] 2.0.1.999072.3.227.99.8646.656 6.0 Self [id number] [place]/[facility] Medicare Primary [id number] 2.16.840.1.543956.3.227.99.8646.6566.0 Self 1 [id number] [employer] Ppo Medigap Part B [id number] 2.16.840.1.927170.3.227. 99.572.10041.0 Self [id number] Ghi Medigap Part B [id number] 2.16.840.1.396748.3.227.99.8646.656 6.0 Self [id number] [place]/[facility] Medicare Primary [id number] 2.16.840.1.284259.3.227.99.8646.6566.0 Self 1 [id number] MEDICARE [id number] SP [id number] A Ghi Medigap Part B [id number] Self Medicare [facility] Medicare Primary [id number] Self [employer] [id number] SP [id number] [employer] -O/P [id number] 18 [id number] MEDICARE -O/P [id number] 18 [id number] SELF PAY UNAVAILABLE SP UNAVAILA BLE [employer] Medigap Part B [id number] Self Medicare [facility] Medicare Primary [id number] Self UMR [facility] [id number] SP [id number] MEDICARE [id number] SP [id number] UMR [id number] S [id number] [facility] [employer] [facility] [id number] S [id number] MEDICARE - [place] [id number] S [id number] [employer] [place] Other 0 [id number] Self 0 Medicare Part B [facility] Other 0 [id number] Self 0 [place] [id number] 18 [id number] MEDICARE PART A [facility] [id number] 18 [id number] UMR O [id number] S [id number] MEDICARE C [id number] S [id number] MEDICARE C [id number] S [id number] [employer] Ppo Medigap Part B [id number] Self [id number] [employer] [place] Other 0 [id number] Self 0 Medicare Part B [facility] Other 0 [id number] Self 0 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 -PHYSICIAN [id number] 1 [id number] MEDICARE PART A -O/P [id number] 18 [id number] Ghi Medigap Part B [id number] Self [id number] [place] Medicare Primary [id number] Self [id number] [place] Medicare Primary [id number] Self [id number] ANSI-Medicare Part B [id number] ANSI-Commercial [id number] [employer] Ppo Medigap Part B [id number] Self [id number] [employer] Ppo Medigap Part B [id number] Self [id number] Ghi Medigap Part B [id number] 2.16.840.1.383967.3.227.99.8646.656 6.0 Self [id number] Medicare [place] Medicare Primary [id number] 2.16.840.1.328791.3.227.99.8646.6566.0 Self 1 [id number] Medicare [place] Medicare Primary [id number] 2.16.840.1.211277.3.227.99.8646.6566.0 Self 4 [id number] ANSI-Commercial [id number] ANS-Medicare Part B [id number] ANSI-Commercial [id number] ANS-Medicare Part B [id number] ANS-Medicare Part B [id number] ANSI-Commercial [id number] Problems, Conditions, and Diagnoses Code Display Name Description Problem Type Effective Dates Data Source(s) I48.0 Paroxysmal atrial fibrillation Paroxysmal atrial fibri llation Diagnosis 09/10/2021 09:20:53 AM EDT [facility] U07.1 COVID-19 COVID-19 Diagnosis 09/10/2021 09:01:13 AM ED T [facility] Z86.79 Personal history of other diseases of th e circulatory system PERSONAL HISTORY OF OTHER DISEASES OF THE CIRCULAT Diagnosis 06/29/2021 01:30:0 [address] [facility] R60.0 Localized edema LOCALIZED EDEMA Diagnosis 06/29/2021 01:3 0:[address] [facility] I48.0 Paroxysmal atrial fibrillation Paroxysmal atrial fibri llation [id number] 09/15/2021 12:00:00 AM EDT [facility] I50.32 Chronic diastolic heart failure Chronic diastolic hear t failure Problem 07/12/2021 12:00:00 AM EDT [facility] ([facility]) [id number] Essential hypertension Essential hypertension Problem 06/22/2021 12:00:00 AM EDT [facility] ([facility] R07.9 Chest pain Chest pain Problem 04/14/2021 12:00:00 AM ED T [facility] ([facility]) 366.16 Cataract Senile Nuclear Cataract Senile Nuclear Proble m 04/02/2021 12:00:00 AM EDT [place] (Holly Hood MD [facility]) Surgeries/Procedures Procedure Description Date Indications Data Source(s) EP STUDY <td>EP STUDY</td><td>Routine </td><td>09/15/2021 2:32 PM EDT</td><td> Paroxysmal atrial fibrillation</td><td> </td> 09/15/2021 02:32:10 PM EDT Paroxysmal atrial fibrillation [facility] Paroxysmal atrial fibrillation ECG ROUTINE ECG W/LEAST 12 LDS TRCG ONLY W/O I&R <td>E CG 12- LEAD</td><td>Routine</td><td>09/10/2021 10:36 AM EDT</td><td> Paroxysmal atrial fibrillation</td><td></td> 09/10/2021 10:36:19 AM EDT Paroxysmal atrial fibrillation [facility] Paroxysmal atrial fibrillation BLOOD COUNT COMPLETE AUTOMATED <td>CBC</td><td>Routine </td><td>09/10/2021 10:30 AM EDT</td><td> Paroxysmal atrial fibrillation</td><td> </td> 09/10/2021 10:30:00 AM EDT Paroxysmal atrial fibrillation [facility] Paroxysmal atrial fibrillation BLOOD TYPING ABO <td>TYPE AND SCREEN</td><td> Routine</td><td>09/10/2021 10:30 AM EDT</td><td> Paroxysmal atrial fibrillation</td><td> </td> 09/10/2021 10:30:00 AM EDT Paroxysmal atrial fibrillation [facility] Paroxysmal atrial fibrillation BASIC METABOLIC PANEL CALCIUM TOTAL <td>BASIC METABOLI C PANEL</td><td>Routine</td><td>09/10/2021 10:30 AM EDT</td><td> Paroxysmal atrial fibrillation</td><td> </td> 09/10/2021 10:30:00 AM EDT Paroxysmal atrial fibrillation [facility] Paroxysmal atrial fibrillation OFFICE OUTPATIENT VISIT 25 MINUTES 09/09/2021 12:00:00 AM EDT [facility] ([facility], ) DESTRUCTION BENIGN LESIONS 15/> 09/06/2021 12:00:00 AM EDT [facility] ([facility]) OFFICE OUTPATIENT VISIT 25 MINUTES 09/06/2021 12:00:00 AM EDT [facility] ([facility]) OFFICE OUTPATIENT VISIT 5 MINUTES 08/23/2021 12:00:00 AM EDT [facility] ([facility]) ECG ROUTINE ECG W/LEAST 12 LDS W/I&R 07/12/2021 12:00: 00 AM EDT [facility] ([facility]) OFFICE OUTPATIENT VISIT 25 MINUTES 07/12/2021 12:00:00 AM EDT [facility] ([facility]) Electrocardiogram Complete 06/28/2021 12:00:00 AM EDT [facility] ([facility]) OFFICE OUTPATIENT NEW 60 MINUTES 06/28/2021 12:00:00 A M EDT [facility] ([facility]) MYOCRD IMAGE PET PERFUS MULTPL STUDY REST/STRESS 06/24 12:00:00 AM EDT [facility] CV STRS TST XERS&/OR RX CONT ECG I&R ONLY 06/24/2021 1 2:00:00 AM EDT [facility]) ECG ROUTINE ECG W/LEAST 12 LDS W/I&R 05/18/2021 12:00: 00 AM EDT [facility]) Arterial Pressure Waveform Analysis For Assessment Of Centra l Art 05/18/2021 12:00:00 AM EDT [facility] OFFICE OUTPATIENT VISIT 15 MINUTES 05/18/2021 12:00:00 AM EDT [facility] ([facility]) ECHO TTHRC R-T 2D W/WOM-MODE COMPL SPEC&COLR DOP 05/12 12:00:00 AM EDT [facility] ([facility]) OFFICE OUTPATIENT VISIT 15 MINUTES 05/10/2021 12:00:00 AM EDT [facility], ) External ECG Rec>48HR<7D Recording 05/04/2021 12:00:00 AM EDT [facility] ([facility]) External ECG Rec>48HR<7D Review & Interpretation 05/04 12:00:00 AM EDT [facility] ([facility]) OFFICE OUTPATIENT VISIT 25 MINUTES 04/29/2021 12:00:00 AM EDT [facility]) Bronchospasm Evaluation 04/21/2021 12:00:00 AM EDT [facility] ([facility]) Plethysmography Determination Lung Volumes & Per Airway Resi st 04/21/2021 12:00:00 AM EDT [facility] ([facility], ) DIFFUSING CAPACITY 04/21/2021 12:00:00 AM EDT [facility]) ECG ROUTINE ECG W/LEAST 12 LDS W/I&R 04/14/2021 12:00: 00 AM EDT [facility] ([facility]) Arterial Pressure Waveform Analysis For Assessment Of Centra l Art 04/14/2021 12:00:00 AM EDT [facility]) OFFICE OUTPATIENT VISIT 40 MINUTES 04/14/2021 12:00:00 AM EDT [facility] ([facility]) Intermediate Eye Exam Established Patient Intermediate Eye Exam Established Patient 04/02/2021 12:00:00 AM EDT [facility] (Justyn Hood MD [facility]) OFFICE OUTPATIENT VISIT 25 MINUTES 02/08/2021 12:00:00 AM EDT [facility] ([facility]) ECG ROUTINE ECG W/LEAST 12 LDS W/I&R 01/11/2021 12:00: 00 AM EST [facility] ([facility]) OFFICE OUTPATIENT VISIT 25 MINUTES 01/11/2021 12:00:00 AM EST [facility] ([facility]) Immunization: Boostrix 0.5mL IM (TDAP) 10/28/2020 12:0 0:00 AM EST eCW1 ([facility]) Endoscopy Upper GI Biopsy 08/10/2020 12:00:00 AM EDT [facility] ([facility], ) Colonoscopy W/ Poly 08/10/2020 12:00:00 AM EDT [facility] ([facility], ) Results ID Date Data Source [id number] 09/16/2021 02:26:45 PM [facility]FORMATIONPatient MRN Name Date of Age Gend*PT [id number] Galilea Quinteros 1950 71 years F HOPPT Location Admission Date/Time Visit ID Attending Provider09/15/21 09 --- --- EPI ID CSN Admitting Provider [id number] M Rahul Harrington MD([id number])Inpatient History & PhysicalClaudmallory QuinterosMRN:[id number]: here for AF ablationPast Medical History:Past Medical [...] MG capsule Take 600 mg by mouth paxfhvx7309/14/2021 at 2100 Hyoscyamine Sulfate ER 0.375 MG [...] LIST:1. highly sx PAF /2, typical flutter 81375. HTN3. Pericardial Effusion small4. Chronic Cor Pulmonale5. [...] Name Value Range Interpretation Code Description Data [facility] Supporting Document(s) ID Date Data Source [id number] 09/15/2021 02:55:47 PM EDT [facility] Name Value Range Interpretation Code Description Data [facility] Supporting Document(s) &PDF [facility] TEKJVm7eWsBATgEi14/QQSobJLVjv9EoLDlcJGc2KJmhPTJkJ0QigHsqDXJRQTXPDNISPPWYLXFlQITl vci [file] AgICAgICAgICAgICAgICAgICAgICAgICAgICAgICAg ICAgICAgICAgICAgICAgICAgICAgICAgICAgICAgICAgICAgICAgICAgICAgICAgICAgDQogICAgICAg ICAgICAgICAgICAgICAgICAgICAgICAgICAgICAgICAgICAgICAgICAgICAgICAgICAgICAgICAgICAg ICAgICAgICAgICAgICAgICAgICAgICAgICAgICAgIC AgDQogICAgICAgICAgICAgICAgICAgICAgICAgICAgICAgICAgICAgICAgICAgICAgICAgICAgICAgIC AgICAgICAgICAgICAgICAgICAgICAgICAgICAgICAgICAgICAgICAgICAgDQogICAgICAgICAgICAgIC AgICAgICAgICAgICAgICAgICAgICAgICAgICAgICAg ICAgICAgICAgICAgICAgICAgICAgICAgICAgICAgICAgICAgICAgICAgICAgICAgICAgICAgDQogICAg ICAgICAgICAgICAgICAgICAgICAgICAgICAgICAgICAgICAgICAgICAgICAgICAgICAgICAgICAgICAg ICAgICAgICAgICAgICAgICAgICAgICAgICAgICAgIC AgICAgDQogICAgICAgICAgICAgICAgICAgICAgICAgICAgICAgICAgICAgICAgICAgICAgICAgICAgIC AgICAgICAgICAgICAgICAgICAgICAgICAgICAgICAgICAgICAgICAgICAgICAgDQogICAgICAgICAgIC AgICAgICAgICAgICAgICAgICAgICAgICAgICAgICAg ICAgICAgICAgICAgICAgICAgICAgICAgICAgICAgICAgICAgICAgICAgICAgICAgICAgICAgICAgDQog ICAgICAgICAgICAgICAgICAgICAgICAgICAgICAgICAgICAgICAgICAgICAgICAgICAgICAgICAgICAg ICAgICAgICAgICAgICAgICAgICAgICAgICAgICAgIC AgICAgICAgDQogICAgICAgICAgICAgICAgICAgICAgICAgICAgICAgICAgICAgICAgICAgICAgICAgIC AgICAgICAgICAgICAgICAgICAgICAgICAgICAgICAgICAgICAgICAgICAgICAgICAgDQogICAgICAgIC AgICAgICAgICAgICAgICAgICAgICAgICAgICAgICAg ICAgICAgICAgICAgICAgICAgICAgICAgICAgICAgICAgICAgICAgICAgICAgICAgICAgICAgICAgICAg FOw3W6crJSAwGJSjKX9rDNb5Et8+LQgSIwJjLPY0sgLpeM1CHD6ia6UiJHvdFKSqu0OeICk9QQ7EQZXm RAyoBB3TSVtfrt5RMNJoWGXggGUHh1taRyRnZIX7OD JaLslpSF3HODIqP2hbmgLrSXKzOHGTMClvXOBEMJtmLUULUOUaWWRwOuLaHAanGA2Ew3GmzKF7ZDn+Pg 6ETR5vx2AsKBckLsKmDZ2xlb3OYBoZGjUvX7YmvsD2YRQ6ZECiMv3TWXOaKQNtrRDrOJFlBYZMJtZmF4 JvpK53RUOJNg3+VJnjknJmWzuWJqZ9HPRnp2OtMDz5 MG7EDKJyTSf4iHHpBP8wxAKdwTNlKHjpST9FOMF4QXnfOEVcLWIWMI6ELUqzPQS0CRCdzeKeiNUcDDpl KR6ATCXtpaRsKiitCJRMDYs+Bx0EXX0zs6AyILnwYHRxZI2vck1ZSKiACmUlQ0O7wEGxN5Q3TJpdXx3A FUPqKSBdLjJhHNATVFbnVX2CRO7yuwL5OM5ScSSsKR NsWZUizBTgPAo0X62dgQTsEPqfYM3HYGA+Tegan+Sn4AGIVbTNDiKYTxWdLrCTVSFoFuI8GaW0MQt5HyV1 GeUR16jEtjoeDoBXhwAN3CXY1bKHSeWLEVNQ7PrUOfuW8nhaKsPvMdGIBXAsYtI50ktMHoBGQzYET6RC PrHh7JQNYuP9YrhwEjrVsqhbPmRYQuEKNNAG8RWZlw yhJxlHOuuAemHD36mDniVJ1WTa2BJaKmOB4zvm1SeYYpQs3VPZXbXN8YUDRcPQOiNMAlXPI1KWPaIuRs CAyoFVZgOYBgDKS8GODbCWMjYQ8YBzFsSRLlOHL9BwRxZPVvAKXbph3LYJYhDUY2FiOjHDYnCJYaBUSh WSgvWEKbQJVuHIvlKQArNWPrRW7KEhWwFFWwBAUmUL WySSQaQGYmpu5NVDHsKGUvAeLyDEOgQRYvWTHfASwzTRSqYNY9FjE9FKDvVFVdKF0FLwIqFRWsGTG2Hc CvTLJqEGPhwe7BVHOvLYQiSRM4OTBaRHCaUASsBRrqTOWrJEK8TsHbDDSfYAKvTX2HTjVnYMCdYWG5La LgHSXtLWIvmx9PLUSdXQUbDEF9XKSjVZDrYOFsNRix GMEoJXMbBeX6EVObUJCxWY0MAiHxSBQiWTR6TnGjCANmGDTpol2NDBSlOYHpCdUfDPFzRRLqYASrJZfo XTKxGXKiPSS7VOWpDUWgPN9YJhXyZYSeSZUlNiQlLYBcZYDzhr2TGNXnDOUeYkY1NQKfXWAbUDOhPXmh WUUjOJJqMCT4ASXdWLRiPA4YYnErJHGsTcCdOWGfQZ InZGTkwd3UFUNbPTTxQKRmTUHwDSDjYCItQCtoSXAvLBC5VCUtUWFvKPHiLV2LQaSeEBGfXjOlEHvjEU HlBJScoo6GSBAmHQClZWd1GAPzZBDdOZFrHIdgMOHjNNWeEfCcQAEjGQLhED2ZBgNsTOIxSPViASLpDH MvXQHmfh8UGLNsSVK3ApD4TPIfKZSqZASzARaoIQNw WUYlGqTnBVBcOANnIV5LLqEaEHJfZMS2PCPmOMOnWMRbhd5VjBWooPxese6PYPbANk1RxRvkQNLdTPfw Cg9tnDUiUGLuMYEQTh0LdgUgTTFaDTGANNgdJZEbBPi9UxAeKeXhB1IiHRM0KJhsYbHkHxQuDbChP3Ck OKQiWxN8BtReLNQdHMDqUBZkWrm3RGYiMyB0EIHwVY YzYjNlMDI+OP2pIZw+Wy8Xs9AeyhJ3qkBkAEh8GkH0Pp9CMWGJE0HGEc== ID Date Data Source [id number] 09/15/2021 12:49:46 PM EDT [facility] NT INFORMATIONPatient MRN Name Date of Age Gend*PT [id number] Galilea Quinteros 1950 71 years F HOPPT Location Admission Date/Time Visit ID Attending Provider --- --- --- --- EPI ID CSN Admitting Provider [id number] ---AirwayPatient location during procedure: ORUrgency: electiveDifficult airway: [...] to lips: 21 cmPlacement verified by: + [id number] view: grade I - full view of glottis Name Value Range Interpretation Code Description Data Ninoska rce(s) Supporting Document(s) ID Date Data Source [id number] 09/15/2021 12:49:09 PM EDT [facility] NT INFORMATIONPatient MRN Name Date of Age Gend*PT [id number] Galilea Quinteros 1950 71 years F HOPPT Location Admission Date/Time Visit ID Attending Provider --- --- --- --- EPI ID CSN Admitting Provider [id number] ---Arterial Line PlacementPatient location during procedure: ORIndications [...] rce(s) Supporting Document(s) ID Date Data Source [id number] 09/10/2021 04:29:14 PM EDT [facility] INFORMATIONPatient MRN Name Date of Age Gend*PT [id number] Galilea Quinteros 1950 70 years F OPPT Location Admission Date/Time Visit ID Attending Provider --- --- --- Wilbert Harrington MD([id number]) EPI ID CSN Admitting Provider [id number] ---OUTPATIENT / OBSERVATIONAL SURGICAL OR INVASIVE PROCEDUREName: [...] thyromegaly. No carotid bruits.MENTAL / NEUROLOGICAL STATUS: ECCb9ITNJI: Clear to auscultation. No wheezes, rhonchi or crackles.HEART: Rate bradycardic rhythm regular. S1, S2. No murmur, rub or gallop. Looprecorder intact to chestABDOMEN: Obese. Bowel sounds positive times four. Soft, non tender. No reboundtenderness. No hepatosplenomegaly. Negative CVAT.EXTREMITIES: Pulses are symmetrical. Left leg edema.Anesthesia complications: [facility] :: 3/10 Managing Well (medical problems are well controlled,but are not regularly active beyond routine walking).ASSESSMENT: Primary Diagnosis/Indication: Paroxysmal atrial fibrillation.PLAN: Procedure: ABLATION, ARRHYTHMOGENIC FOCUS, FOR ATRIAL FIB RILLATIONECHOCARDIOGRAM, TRANSESOPHAGEAL on 09/15/2021.09/10/2021 4:28 PMLyudmila Kostiv, NPThis document or parts of this document, were dictated using Silentium speaking software. A reasonable attempt at proofreading has beenmade to minimize errors. Please call with any questions or corrections. Name Value Range Interpretation Code Description Data Ninoska rce(s) Supporting Document(s) ID Date Data Source [id number] 09/10/2021 10:38:20 AM EDT [facility] Name Value Range Interpretation Code Description Data Ninoska rce(s) Supporting Document(s) EKG [facility] MLBSYy6lKbCZOzFgs2LmCsRcKOMnBM9qyuv6B7T3kNVtI3IjlEMks9kxQ2VfI4IqOQUuIDVKCB2RpXLb jb2 [file] [id number]= ID Date Data Source [id number] 09/13/2021 01:50:13 PM EDT [facility] SPEC EXP DATE 09/16/2021ATI ENT ABO/Rh A POSITIVEANTIBODY SCREEN NEGATIVETESTING SITE PERFORMED AT [address] [place] [address] BANK COMMENT BLOOD TYPE CONFIRMED. Name Value Range Interpretation Code Description Data Ninoska rce(s) Supporting Document(s) TYPE AND SCREEN [facility] ID Date Data Source [id number] 09/10/2021 03:01:14 PM EDT [facility] Name Value Range Interpretation Code Description Data Ninoska rce(s) Supporting Document(s) SODIUM 139 mmol/L (136-145) [facility] POTASSIUM 4.2 mmol/L (3.6-5.2) [facility] CHLORIDE 109 mmol/L (100-108) H [facility] CO2 25 mmol/L (22-31) [facility] ANION GAP 5 mmol/L (7-16) L [facility] UREA NITROGEN 23 mg/dL (7-24) [facility] CREATININE 0.96 mg/dL (0.60-1.00) [facility] BUN/CREAT RATIO 24.0 RATIO (10.0-20.0) H [facility] GLUCOSE 88 mg/dL (70-99) [facility] CALCIUM 9.8 mg/dL (8.4-10.2) [facility] GFR 57 ml/min/1.73m2 (>59) L [facility] GFR ( AMER) >60 ml/min/1.73m2 (>59) [facility] GFR INTERPRETATION [facility] --NORMAL KIDNEY FUNCTION OR MILD DISEASE - GFR >OR= 60CHRONIC KIDNEY DISEASE - GFR 15 - 59RENAL FAILURE - GFR <15 Est. GFR calculation based on the MDRDstudy equation, which assumes a steadystate for creatinine. Est. GFR should notbe used for medication dosing. ID Date Data Source [id number] 09/10/2021 02:30:47 PM EDT [facility] Name Value Range Interpretation Code Description Data Ninoska rce(s) Supporting Document(s) WBC 5.5 10*3/uL (4.1-11.0) [facility] [place] RBC 4.27 10*6/uL (4.00-5.40) [facility] HGB 13.2 g/dL (12.0-16.0) [facility] HCT 39.2 % (36.0-47.0) [facility] MCV 91.7 fL (80.0-95.0) [facility] MCH 30.9 pg (27.0-32.0) [facility] MCHC 33.7 g/dL (32.0-36.0) [facility] RDW 13.4 % (10.5-14.5) [facility] PLT 183 10*3/uL (150-450) [facility] MPV 8.4 fL (7.1-10.7) [facility] ID Date Data Source [id number] 09/10/2021 08:54:00 AM EDT [facility] Name Value Range Interpretation Code Description Data Ninoska rce(s) Supporting Document(s) SARS coronavirus 2 RNA [Presence] in Res piratory specimen by CARTER with probe detection NOT DETECTED [facility] This lab was reported by [facility]. ID Date Data Source [id number] 09/11/2021 08:52:34 AM EDT [facility] Name Value Range Interpretation Code Description Data Ninoska rce(s) Supporting Document(s) SPECIMEN DESCRIPTION [facility] COVID 19 RESULT (NDET) [facility] NEGATIVE COVID-19 RESULTS DONOT PRECLUDE COVID-2019 INFECTION ANDSHOULD NOT BE USED THE SOLE BASISFOR PATIENT MANAGEMENT DECISIONS. COMMENT [facility] THE [place] FDA HAS MADE THIS TEST AVAILABL EUNDER AN EMERGENCY USE AUTHORIZATION(EUA) FOR THE DETECTION AND/OR DIAGNOSISOF THE VIRUS THAT CAUSES COVID-19.THIS ASSAY AMPLIFIES AND DETECTS [employer] USING BARGEMAN- MEDIATEDAMPLIFICATIONTESTING PERFORMED ON [email or web address] FIRST TEST [facility] EMPL[facility]ED IN [facility] [place] [facility]TOMATIC [facility] DATE OF SYMPT ONSET [facility]PITALIZED [facility] [place] ICU [facility] [place] CARE SET [facility] [place] [facility] ID Date Data Source [id number] 08/11/2021 11:35:00 AM EDT [facility] Name Value Range Interpretation Code Description Data Ninoska rce(s) Supporting Document(s) SARS-CoV-2 (COVID-19) RNA [Presence] in Respiratory specimen by CARTER with probe detection Not Detected [facility] This lab was ordered by [facility] and reported by [facility]. ID Date Data Source [id number] 08/04/2021 02:12:00 PM EDT [facility] A NGIO CHESTCLINICAL HISTORY: [...] Solid Nodules Low risk:<6 mm- No routine [id number] mm- CT at 3-6 months, then consider [...] rce(s) Supporting Document(s) ID Date Data Source [id number] 07/08/2021 08:42:00 AM EDT [facility] ([facility]) Name Value Range Interpretation Code Description Data Ninoska rce(s) Supporting Document(s) Glucose, Fasting 88 mg/dL 70-100 [facility] ([facility]) Creatinine For GFR 0.94 mg/dL 0.55-1.30 [facility] ([facility]) Blood Urea Nitrogen 17 mg/dL 7-18 [facility] ([facility]) Glomerular Filtration Rate Laboratory test result [facility] ([facility]) <content>Units are mL/min/1.73 m2</content>
<content></content>
<content>Chronic Kidney Disease Staging per NKF:</content>
<content></content>
<content>Stage I & II GFR >=60 Normal to Mildly Decreased</content>
<content>Stage III GFR 30- 59 Moderately Decreased</content>
<content>Stage IV GFR 15-29 Severely Decreased</content>
<content>Stage V GFR <15 Very Little GFR Left</content>
<content>ESRD GFR <15 on LICENSE REGISTRATION EXAMINER</content>
<content></content> Potassium Serum 4.3 meq/L 3.5-5.1 MEDENT ([facility]) Sodium Level 142 meq/L 136-145 MEDENT ([facility]) Anion Gap 4 meq/L 8-16 [facility] Chloride Level 112 meq/L 98-107 MEDENT ([facility]iol [facility]) Carbon Dioxide Level 26 meq/L 21-32 MEDENT ([facility]) Calcium Level 9.6 mg/dL 8.8-10.2 MEDENT ([facility]iolo gy [facility]) ID Date Data Source [id number] 07/08/2021 08:42:00 AM EDT MEDENT ([facility]) Name Value Range Interpretation Code Description Data Ninoska rce(s) Supporting Document(s) Triglycerides Level 224 mg/dL MEDENT (Ca [facility]) Cholesterol Level 158 mg/dL MED[facility] ([facility]) HDL Cholesterol 40 mg/dL MED[facility] ([facility]) LDL Cholesterol 73 mg/dL MED[facility] ([facility]) Non-HDL-C 118 mg/dL MED[facility] ([facility]) Cholesterol Risk Ratio 3.950 MED[facility] ([facility]) ID Date Data Source Ultrasound : Leg, left 05/26/2021 12:00:00 AM EDT eCW1 (Counts include 234 beds at the [facility]) Name Value Range Interpretation Code Description Data Ninoska rce(s) Supporting Document(s) Ultrasound : Leg, left eCW1 ([facility]) ID Date Data Source [id number] 04/30/2021 02:37:00 PM EDT MEDENT ([facility]) Name Value Range Interpretation Code Description Data Ninoska rce(s) Supporting Document(s) White Blood Count 7.2 4.0-10.0 MEDENT ([facility]) Red Blood Count 4.72 4.00-5.40 MED[facility] ([facility]) Platelets 192 150-450 MED[facility] ([facility]) Hemoglobin 14.6 MED[facility] ([facility]) Hematocrit 44.4 MEDENT ([facility]) ID Date Data Source [id number] 04/30/2021 02:37:00 PM EDT MEDENT ([facility]) Name Value Range Interpretation Code Description Data Ninoska rce(s) Supporting Document(s) Blood Urea Nitrogen 19 7-18 MEDENT (Ca [facility]) Glucose 86 70-100 [facility] ([facility] [place] Potassium 4.3 3.5-5.1 [facility] ([facility] Creatinine 0.86 0.55-1.30 [facility] ([facility]) Sodium 141 136-145 [facility] ([facility] [place] Calcium 10.0 8.2-9.6 [facility] ([facility] [place] Carbon Dioxide 27 21-32 MEDENT ([facility]) Chloride 108 98-107 MEDENT ([facility]) Glomerular filtration rate/1.73 sq M.pre dicted [Volume Rate/Area] in Serum or Plasma by Creatinine-based formula (MDRD) Laboratory test result MEDENT ([facility]) ID Date Data Source [id number] 04/12/2021 02:31:00 PM EDT MEDENT ([facility]) Name Value Range Interpretation Code Description Data Ninoska rce(s) Supporting Document(s) Digoxin (Lanoxin) 1.3 MEDENT ([facility]) ID Date Data Source [id number] 04/12/2021 02:31:00 PM EDT MED[facility] ([facility]) Name Value Range Interpretation Code Description Data Ninoska rce(s) Supporting Document(s) Creatinine 0.99 0.55-1.30 [facility] ([facility]) Glucose 95 70-100 [facility] ([facility]) Blood Urea Nitrogen 21 7-18 MEDENT ([facility]) Potassium 4.2 3.5-5.1 [facility] ([facility] [place] Sodium 142 136-145 [facility] ([facility] Chloride 110 98-107 [facility] ([facility] [place]) Glomerular filtration rate/1.73 sq M.pre dicted [Volume Rate/Area] in Serum or Plasma by Creatinine-based formula (MDRD) 58.9 [facility] ([facility]) Carbon Dioxide 26 21-32 MED[facility] ([facility]) Calcium 9.3 8.2-9.6 [facility] ([facility] [place]) ID Date Data Source [id number] 04/09/2021 12:35:00 PM EDT [facility] Name Value Range Interpretation Code Description Data Ninoska rce(s) Supporting Document(s) Natriuretic peptide.B prohormone N-Terminal [Mass/volu me] in Serum or Plasma 1166 MEDENT ([facility]) Magnesium Level 2.3 1.8-2.4 MED[facility] ([facility]) Free T4 0.97 [facility] Thyroid Stimulating Hormone 1.480 ME DENT ([facility]) ID Date Data Source [id number] 04/09/2021 12:35:00 PM EDT [facility] Name Value Range Interpretation Code Description Data Ninoska rce(s) Supporting Document(s) White Blood Count 7.2 5.0-10.0 [facility] Red Blood Count 5.00 4.00-5.40 MED[facility] ([facility]) Hemoglobin 15.2 MED[facility] ([facility]) Hematocrit 46.7 MED[facility] ([facility]) Platelets 216 172-450 MEDENT (Cardiology A [facility]) ID Date Data Source [id number] 10/28/2020 11:30:00 AM EST MED[facility] ([facility]) Name Value Range Interpretation Code Description Data Ninoska rce(s) Supporting Document(s) Hemoglobin A1c/Hemoglobin.total in Blood 5.5 MEDENT (Cardiology [facility]) ID Date Data Source [id number] 10/28/2020 11:30:00 AM EST MED[facility] ([facility]) Name Value Range Interpretation Code Description Data Ninoska rce(s) Supporting Document(s) Alanine aminotransferase [Enzymatic activity/volume] in Serum or Pl asma 25 MEDENT (Cardiology [facility]) Albumin [Mass/volume] in Serum or Plasma 4.0 MEDENT (Cardiology [facility]) Carbon dioxide, total [Moles/volume] in Serum or Plasma 27 MEDENT (Cardiology [facility]) Calcium [Mass/volume] in Serum or Plasma 10.2 MEDENT (Cardiology [facility]) Alkaline phosphatase [Enzymatic activity/volume] in Serum or Plasma 6 1 MED[facility] ([facility]) Chloride [Moles/volume] in Serum or Plasma 110 MED[facility] ([facility]) Sodium 141 MEDENT (Cardiology A [facility] of [facility]) Protein [Mass/volume] in Serum or Plasma 6.9 MED[facility] ([facility]) Potassium [Moles/volume] in Serum or Plasma 4.0 MED[facility] ([facility]) Aspartate aminotransferase [Enzymatic activity/volume] in Serum or Plasma 15 MED[facility] ([facility]) Urea nitrogen [Mass/volume] in Serum or Plasma 19 [facility] ([facility]) Glucose 89 70-100 MEDENT ([facility]iology A [facility]) Creatinine For GFR 1.06 MEDENT (Car [facility]ology [facility]) ID Date Data Source [id number] 10/28/2020 11:30:00 AM EST MEDENT ([facility]i [facility]) Name Value Range Interpretation Code Description Data Ninoska rce(s) Supporting Document(s) Cholesterol 157 MED[facility] ([facility]) Triglycerides 207 MEDENT ([facility]o gy [facility]) HDL 47 MED[facility] ([facility]) Cholesterol in LDL [Mass/volume] in Serum or Plasma by calculation 69 [facility] ([facility]) Chol/HDL Ratio 3.340 MED[facility] ([facility]iol [facility]) ID Date Data Source [id number] 10/28/2020 11:30:00 AM EST MEDENT ([facility]) Name Value Range Interpretation Code Description Data Ninoska rce(s) Supporting Document(s) Magnesium Level 2.1 MEDENT ([facility]) ID Date Data Source [id number] LEVEL 10/28/2020 12:00:00 AM EST eCW1 ([facility]) Name Value Range Interpretation Code Description Data Ninoska rce(s) Supporting Document(s) 2.1 1.8-2.4 MAGNESIUM LEVEL eCW1 ([facility]) ID Date Data Source VITAMIN [id number] 10/28/2020 12:00:00 AM EST eCW1 ([facility]) Name Value Range Interpretation Code Description Data Ninoska rce(s) Supporting Document(s) 39.0 30.0-100.0 TOTAL 25(OH) VITAMIN D eC W1 ([facility]) ID Date Data Source LIPID PANEL (CARDIAC RISK) 10/28/2020 12:00:00 AM EST eCW1 ( [facility]) Name Value Range Interpretation Code Description Data Ninoska rce(s) Supporting Document(s) Triglyceride [Mass/volume] in Serum or Plasma by calculation 207 <150 TRIGLYCERIDES LEVEL eCW1 ([facility]) Cholesterol [Moles/volume] in Serum or Plasma 157 <200 CHOLESTEROL LEVEL eCW1 ([facility]) 110 NON-HDL-C eCW1 ([facility]) Cholesterol in LDL [Mass/volume] in Serum or Plasma by calculation 69 <100 LDL CHOLESTEROL eCW1 ([facility]) 3.340 <5 CHOLESTEROL RISK RATIO eCW1 ([facility]) Cholesterol in HDL [Moles/volume] in Serum or Plasma 47 >40 HDL CHOLESTEROL eCW1 ([facility]) ID Date Data Source [id number] 10/28/2020 12:00:00 AM EST eCW1 ([facility]) Name Value Range Interpretation Code Description Data Ninoska rce(s) Supporting Document(s) Hemoglobin A1c/Hemoglobin.total in Blood 5.5 HEMOGLOBIN A1c eCW1 ([facility]) ID Date Data Source Comprehensive Metabolic Profile (CMP) 10/28/2020 12:00:00 AM EST eCW1 ([facility]) Name Value Range Interpretation Code Description Data Ninoska rce(s) Supporting Document(s) 89 70-100 GLUCOSE, FASTING eCW1 ([facility]) 19 7-18 BLOOD UREA NITROGEN eCW1 (Counts include 234 beds at the [facility]) 1.06 0.55-1.30 CREATININE FOR GFR eCW1 ([facility]) 141 136-145 SODIUM LEVEL eCW1 ([facility]) 54.4 >39 GLOMERULAR FILTRATION RATE eCW 1 ([facility]) 4.0 3.5-5.1 POTASSIUM SERUM eCW1 ([facility]) 27 21-32 CARBON DIOXIDE LEVEL eCW1 ([facility]) 10.2 8.8-10.2 CALCIUM LEVEL eCW1 ([facility]) 15 7-37 AST/SGOT eCW1 ([facility]) 110 98-107 CHLORIDE LEVEL eCW1 ([facility]) 61 45-117 ALKALINE PHOSPHATASE eCW1 ([facility]) 0.9 0.2-1.0 BILIRUBIN,TOTAL eCW1 ([facility]) 25 12-78 ALT/SGPT eCW1 ([facility]) 6.9 6.4-8.2 TOTAL PROTEIN eCW1 ([facility]) 1.4 1.2-2.2 ALBUMIN/GLOBULIN RATIO eCW1 ([facility]) 4.0 3.2-5.2 ALBUMIN eCW1 ([facility]) ID Date Data Source [id number] 08/12/2020 12:28:00 PM EDT [facility] Name Value Range Interpretation Code Description Data Ninoska rce(s) Supporting Document(s) Laboratory test finding (navigational concept) Laboratory test result MEDENT ([facility]) ID Date Data Source [id number] 08/10/2020 12:46:00 PM EDT MEDENT ([facility]) Name Value Range Interpretation Code Description Data Ninoska rce(s) Supporting Document(s) Surgical pathology study Laboratory test result MEDENT ([facility]) FINAL DIAGNOSIS A-Stomach, antrum, biopsy: Gastric mucosa [...] MD 08/11/2020 1159 ID Date Data Source [id number] 08/05/2020 12:00:00 PM EDT [facility] Name Value Range Interpretation Code Description Data Ninoska rce(s) Supporting Document(s) SARS coronavirus 2 RNA [facility] This lab was ordered by [facility] and reported by [facility]. Procedure Social History Code Duration Value Status Description Data Source(s ) Alcohol intake 09/15/2021 12:00:00 AM EDT Ex-drinker (finding) comp leted Ex- drinker (finding) [facility] Tobacco use and exposure 09/10/2021 12:00:00 AM EDT Never used co mpleted Never used [facility] Smoking 09/10/2021 12:00:00 AM EDT Never smoker completed Never s moker [facility] Alcohol intake 09/10/2021 12:00:00 AM EDT Ex-drinker (finding) comp leted Ex- drinker (finding) [facility] Smoking 09/09/2021 12:00:00 AM EDT Patient has never smoked co mpleted Patient has never smoked MEDENT ([facility], ) Smoking 07/29/2021 12:00:00 AM EDT Never Smoker completed Never S moker eCW1 ([facility]) Smoking 07/12/2021 12:00:00 AM EDT Patient has never smoked co mpleted Patient has never smoked MEDENT ([facility]) Smoking 06/22/2021 12:00:00 AM EDT Never Smoker completed Never S moker eCW1 ([facility]) Smoking 05/26/2021 12:00:00 AM EDT Never Smoker completed Never S moker eCW1 ([facility]) Smoking 04/21/2021 12:00:00 AM EDT Never Smoker completed Never S moker eCW1 ([facility]) Smoking 04/20/2021 12:00:00 AM EDT Never Smoker completed Never S moker eCW1 ([facility]) Smoking 04/02/2021 09:32:45 AM EDT Never smoked tobacco (findi ng) completed Never smoked tobacco (finding) MELINDA (Holly Hood MD [facility]) Smoking 10/28/2020 12:00:00 AM EST Never Smoker completed Never S moker eCW1 ([facility]) Smoking 10/28/2020 12:00:00 AM EST Never Smoker completed Never S moker eCW1 ([facility]) Smoking 10/28/2020 12:00:00 AM EST Never Smoker completed Never S moker eCW1 ([facility]) Vital Signs ID Date Data Source UNK Name Value Range Interpretation Code Description Data Source(s) Systolic blood pressure 121 mm[Hg] 121 mm[Hg] [facility] Diastolic blood pressure 81 mm[Hg] 81 mm[Hg] [facility] Heart rate 96 /min 96 /min [facility] Body temperature 36.[address] [facility] Respiratory rate 16 /min 16 /min [facility] Oxygen saturation in Arterial blood by Pulse oximetry 94 % 94 % [facility] Body height 160 cm 160 cm [facility] Body weight 102.059 kg 102.059 kg [facility] Body mass index (BMI) [Ratio] 39.86 kg/m2 39.86 kg/m2 [facility] Systolic blood pressure 130 mm[Hg] 130 mm[Hg] [facility] Diastolic blood pressure 77 mm[Hg] 77 mm[Hg] [facility] Heart rate 57 /min 57 /min [facility] Respiratory rate 18 /min 18 /min [facility] Oxygen saturation in Arterial blood by Pulse oximetry 99 % 99 % [facility] Body height 160 cm 160 cm [facility] Body weight 102.331 kg 102.331 kg [facility] Body mass index (BMI) [Ratio] 39.96 kg/m2 39.96 kg/m2 [facility] Body temperature 35.[address] [facility] Systolic blood pressure 126 mm[Hg] 126 mm[Hg] Wilbert TRUJILLO ([facility], ) Diastolic blood pressure 72 mm[Hg] 72 mm[Hg] MEDENT ([facility], ) Heart rate 61 /min 61 /min MEDENT ([facility], ) Oxygen saturation in Arterial blood by Pulse oximetry 98 % 98 % MEDENT ([facility], ) Body height 63.50 [in_i] 63.50 [in_i] MEDENT ([facility], ) 5'3.50" [place] body weight 115 [lb_av] 115 [lb_av] MEDEN T ([facility], ) Systolic blood pressure 149 mm[Hg] 149 mm[Hg] M EDENT ([facility]) Diastolic blood pressure 86 mm[Hg] 86 mm[Hg] MEDENT ([facility]) Oxygen saturation in Arterial blood by Pulse oximetry 98 % 98 % MEDENT ([facility]) Heart rate 59 /min 59 /min MEDENT ([facility]) Body weight 223 [lb_av] 223 [lb_av] eCW1 ([facility]) Body height 63 [in_i] 63 [in_i] eCW1 ([facility]) Body mass index (BMI) [Ratio] 39.5 kg/m2 39.5 k g/m2 eCW1 ([facility]) Systolic blood pressure 126 mm[Hg] 126 mm[Hg] e CW1 ([facility]) Diastolic blood pressure 80 mm[Hg] 80 mm[Hg] eCW1 ([facility]) Systolic blood pressure--sitting 12 mm[Hg] 12 mm[Hg] MEDENT ([facility]) Diastolic blood pressure--sitting 82 mm[Hg] 82 mm[Hg] MEDENT ([facility]) Body weight 220.00 [lb_av] 220.00 [lb_av] MEDEN T ([facility]) Body height 63 [in_i] 63 [in_i] MEDENT ([facility]i [facility]) 5'3" Body mass index (BMI) [Ratio] 39.0 kg/m2 39.0 k g/m2 MEDENT ([facility]) Systolic blood pressure 130 mm[Hg] 130 mm[Hg] M EDENT ([facility]) Diastolic blood pressure 80 mm[Hg] 80 mm[Hg] MEDENT ([facility]) Body weight 222.00 [lb_av] 222.00 [lb_av] MEDEN T ([facility]) Body height 63 [in_i] 63 [in_i] MEDENT ([facility]) 5'3" Body mass index (BMI) [Ratio] 39.3 kg/m2 39.3 k g/m2 MEDENT ([facility]) Body surface area Derived from formula 2.02 m2 2.02 m2 MEDENT ([facility]) Body weight 220 [lb_av] 220 [lb_av] eCW1 ([facility]) Body weight 99.79 kg 99.79 kg eCW1 ([facility]) Body height 63 [in_i] 63 [in_i] eCW1 ([facility]) Body mass index (BMI) [Ratio] 38.97 kg/m2 38.97 kg/m2 eCW1 ([facility]) Heart rate 76 /min 76 /min eCW1 ([facility]) Respiratory rate 18 /min 18 /min eCW1 ([facility]) Diastolic blood pressure 68 mm[Hg] 68 mm[Hg] eCW1 ([facility]) Body temperature 96.9 [degF] 96.9 [degF] eCW1 ( [facility]) Systolic blood pressure 116 mm[Hg] 116 mm[Hg] e CW1 ([facility]) Body weight 217.8 [lb_av] 217.8 [lb_av] eCW1 ([facility]) Body height 63 [in_i] 63 [in_i] eCW1 ([facility]) Body mass index (BMI) [Ratio] 38.58 kg/m2 38.58 kg/m2 eCW1 ([facility]) Heart rate 58 /min 58 /min eCW1 ([facility]) Respiratory rate 18 /min 18 /min eCW1 ([facility]) Body temperature 98.2 [degF] 98.2 [degF] eCW1 ( [facility]) Systolic blood pressure 134 mm[Hg] 134 mm[Hg] e CW1 ([facility]) Diastolic blood pressure 80 mm[Hg] 80 mm[Hg] eCW1 ([facility]) Body mass index (BMI) [Ratio] 39.3 kg/m2 39.3 k g/m2 MEDENT ([facility]) Systolic blood pressure--sitting 145 mm[Hg] 145 mm[Hg] MEDENT ([facility]) CBP, large cuff/Ra Body weight 222.00 [lb_av] 222.00 [lb_av] MEDEN T ([facility]) Body height 63 [in_i] 63 [in_i] MEDENT ([facility]) 5'3" Heart rate 56 /min 56 /min MEDENT ([facility]) Diastolic blood pressure--sitting 85 mm[Hg] 85 mm[Hg] MEDENT ([facility]) CBP, large cuff/Ra Body height 63.50 [in_i] 63.50 [in_i] MEDENT ([facility]) 5'3.50" Body weight 225.00 [lb_av] 225.00 [lb_av] MEDEN T ([facility]) Body mass index (BMI) [Ratio] 39.2 kg/m2 39.2 k g/m2 MEDENT ([facility]) [place] body weight 115 [lb_av] 115 [lb_av] MEDEN T ([facility]) Body weight 102.060 kg 102.060 kg MEDENT ([facility]) Body surface area Derived from formula 2.04 m2 2.04 m2 MEDENT ([facility], ) Systolic blood pressure 142 mm[Hg] 142 mm[Hg] M EDENT ([facility], ) Diastolic blood pressure 86 mm[Hg] 86 mm[Hg] MEDENT ([facility]) Body height 63.50 [in_i] 63.50 [in_i] MEDENT ([facility], ) 5'3.50" Body weight 225.00 [lb_av] 225.00 [lb_av] MEDEN T ([facility]) Body mass index (BMI) [Ratio] 39.2 kg/m2 39.2 k g/m2 [facility] ([facility]) [place] body weight 115 [lb_av] 115 [lb_av] MEDEN T ([facility]) Body weight 102.060 kg 102.060 kg [facility] ([facility]) Body surface area Derived from formula 2.04 m2 2.04 m2 [facility] ([facility]) [place] body weight 115 [lb_av] 115 [lb_av] MEDEN T ([facility]) Body surface area Derived from formula 2.04 m2 2.04 m2 [facility] ([facility]) Oxygen saturation in Arterial blood by Pulse oximetry 97 % 97 % [facility] ([facility]) Systolic blood pressure 126 mm[Hg] 126 mm[Hg] M EDENT ([facility]) Diastolic blood pressure 72 mm[Hg] 72 mm[Hg] [facility] ([facility]) Heart rate 62 /min 62 /min [facility] ([facility]) Body temperature 97.4 [degF] 97.4 [degF] [facility] ([facility]) Body height 63.50 [in_i] 63.50 [in_i] [facility] ([facility]) 5'3.50" Body weight 222.50 [lb_av] 222.50 [[facility]_av] [facility] Body mass index (BMI) [Ratio] 38.8 kg/m2 38.8 k g/m2 [facility] ([facility]) Body weight 100.926 kg 100.926 kg [facility] ([facility]) Body weight 222.2 [lb_av] 222.2 [lb_av] eCW1 ([facility]) Body height 63 [in_i] 63 [in_i] eCW1 ([facility]) Body mass index (BMI) [Ratio] 39.36 kg/m2 39.36 kg/m2 eCW1 ([facility]) Heart rate 60 /min 60 /min eCW1 ([facility]) Respiratory rate 18 /min 18 /min eCW1 ([facility]) Body temperature 98.6 [degF] 98.6 [degF] eCW1 ( [facility]) Systolic blood pressure 158 mm[Hg] 158 mm[Hg] e CW1 ([facility]) Diastolic blood pressure 98 mm[Hg] 98 mm[Hg] eCW1 ([facility]) Systolic blood pressure--sitting 133 mm[Hg] 133 mm[Hg] MEDENT ([facility]) CBP, large cuff/Ra Body weight 221.00 [lb_av] 221.00 [lb_av] MEDEN T ([facility]) Body height 63 [in_i] 63 [in_i] [facility] ([facility] 5'3" Body mass index (BMI) [Ratio] 39.1 kg/m2 39.1 k g/m2 [facility] ([facility]) Heart rate 61 /min 61 /min [facility] ([facility]) Diastolic blood pressure--sitting 82 mm[Hg] 82 mm[Hg] [facility] ([facility]) CBP, large cuff/Ra Body temperature 96.9 [degF] 96.9 [degF] [facility] ([facility]) Respiratory rate 17 /min 17 /min [facility] ( [facility]) Body weight 220.00 [lb_av] 220.00 [lb_av] MEDEN T ([facility]) Body temperature 96.9 [degF] 96.9 [degF] [facility] ([facility]) Body weight 220.00 [lb_av] 220.00 [lb_av] [facility] T ([facility]) Respiratory rate 17 /min 17 /min [facility] ( [facility]) Body height 63 [in_i] 63 [in_i] [facility] 5'3" Systolic blood pressure--sitting 118 mm[Hg] 118 mm[Hg] [facility] ([facility]) Ra, medium cuff Diastolic blood pressure--sitting 70 mm[Hg] 70 mm[Hg] [facility] ([facility]) Ra, medium cuff Body weight 220.00 [lb_av] 220.00 [lb_av] MEDEN T ([facility]) Body mass index (BMI) [Ratio] 39.0 kg/m2 39.0 k g/m2 [facility] ([facility]) Heart rate 56 /min 56 /min [facility] ([facility]) Systolic blood pressure 128 mm[Hg] 128 mm[Hg] M EDENT ([facility]) Diastolic blood pressure 84 mm[Hg] 84 mm[Hg] [facility] ([facility]) Body height 63.50 [in_i] 63.50 [facility]_i[facility] 5'3.50" Body weight 220.00 [lb_av] 220.00 [lb_av] MEDEN T ([facility]) Body mass index (BMI) [Ratio] 38.4 kg/m2 38.4 k g/m2 [facility] ([facility]) [place] body weight 115 [lb_av] 115 [lb_av] MEDEN T ([facility]) Body weight 99.792 kg 99.792 kg [facility] ([facility]) Body surface area Derived from formula 2.03 m2 2.03 m2 [facility] ([facility]) Heart rate 70 /min 70 /min eCW1 ([facility]) Respiratory rate 18 /min 18 /min eCW1 ([facility]) Body weight 220 [lb_av] 220 [lb_av] eCW1 ([facility]) Body height 63 [in_i] 63 [in_i] eCW1 ([facility]) Body mass index (BMI) [Ratio] 38.97 kg/m2 38.97 kg/m2 eCW1 ([facility]) Systolic blood pressure 138 mm[Hg] 138 mm[Hg] e CW1 ([facility]) Body temperature 98.6 [degF] 98.6 [degF] eCW1 ( [facility]) Diastolic blood pressure 82 mm[Hg] 82 mm[Hg] eCW1 ([facility]) Diastolic blood pressure 82 mm[Hg] 82 mm[Hg] [facility] ([facility]) Systolic blood pressure 118 mm[Hg] 118 mm[Hg] M [facility] ([facility]) Body height 63.50 [in_i] 63.50 [in_i] [facility] 5'3.50" Body weight 219.00 [lb_av] 219.00 [lb_av] MEDEN T ([facility]) Body mass index (BMI) [Ratio] 38.2 kg/m2 38.2 k g/m2 [facility] ([facility]) [place] body weight 115 [lb_av] 115 [lb_av] [facility] Body weight 99.338 kg 99.338 kg [facility] ([facility]) Body surface area Derived from formula 2.02 m2 2.02 m2 [facility] ([facility]) Body temperature 97.5 [degF] 97.5 [degF] [facility] ([facility]) Systolic blood pressure 140 mm[Hg] 140 mm[Hg] [facility] ([facility]) Diastolic blood pressure 80 mm[Hg] 80 mm[Hg] [facility] ([facility]) Systolic blood pressure 138 mm[Hg] 138 mm[Hg] [facility] ([facility]) Diastolic blood pressure 84 mm[Hg] 84 mm[Hg] [facility] ([facility]) Heart rate 59 /min 59 /min [facility] ([facility]) Oxygen saturation in Arterial blood by Pulse oximetry 97 % 97 % [facility] ([facility]) Body temperature 97.4 [degF] 97.4 [degF] [facility] ([facility]) Body height 63.50 [in_i] 63.50 [in_i] [facility] ([facility]) 5'3.50" Body weight 214.50 [lb_av] 214.50 [lb_av] [facility] Body mass index (BMI) [Ratio] 37.4 kg/m2 37.4 k g/m2 [facility] ([facility]) [place] body weight 115 [lb_av] 115 [lb_av] [facility] Body weight 97.297 kg 97.297 kg [facility] ([facility]) Body height 63.50 [in_i] 63.50 [in_i] [facility] ([facility]) 5'3.50" Systolic blood pressure 163 mm[Hg] 163 mm[Hg] M [facility] ([facility]) Body weight 214.00 [lb_av] 214.00 [lb_av] [facility] ([facility]) Diastolic blood pressure 93 mm[Hg] 93 mm[Hg] [facility] ([facility]) Body mass index (BMI) [Ratio] 37.3 kg/m2 37.3 k g/m2 [facility] ([facility]) Body weight 97.070 kg 97.070 kg [facility] ([facility]) Patient Treatment Plan of Care Planned Activity Planned Date Details Description Data Source (s) Magnesium Chloride 0.72101 MEQ/ML / Pota ssium Chloride 0.0497 MEQ/ML / Sodium Acetate 0.0163 MEQ/ML / Sodium Chloride 0.0899 MEQ/ML / Sodium gluconate 5.02 MG/ML Injectable Solution [Normosol-R] 09/15/2021 04:00:00 PM EDT [facility] HYDROmorphone (DILAUDID) injection 0.5 mg 09/15/2021 03:01:03 PM ED T [facility] labetalol (NORMODYNE,TRANDATE) injection 5 mg 09/15/2021 03:01:03 P M EDT [facility] ondansetron (ZOFRAN) injection 4 mg 09/15/2021 02:51:28 PM EDT [facility] normal saline flush 0.9 % injection 3 mL 09/15/2021 10:00:00 AM EDT [facility] normal saline flush 0.9 % injection 3 mL 09/15/2021 10:00:00 AM EDT [facility]
[2021-09-30 15:10] LABS: ALBUMIN 3.9 GM/DL (3.2-5.2); BILIRUBIN,DIRECT 0.3 MG/DL (0.0-0.2); BILIRUBIN,TOTAL 1.1 MG/DL (0.2-1.0); CALCIUM LEVEL 10.5 MG/DL (8.8-10.2); CK-MB VALUE MASS 2.4 NG/ML (<3.6); FREE T4 1.28 NG/DL (0.76-1.46); MAGNESIUM LEVEL 2.1 MG/DL (1.8-2.4); MB/CK RELATIVE INDEX 3.58 (< OR =4); POTASSIUM SERUM 3.9 MEQ/L (3.5-5.1); THYROID STIMULATING HORMONE 2.02 uIU/ML (0.358-3.740); TOTAL PROTEIN 6.9 GM/DL (6.4-8.2); TROPONIN I 0.08 NG/ML (< 0.10)
[2021-09-30 15:15] VITALS: BP 149/82
--- NOTE | 2021-10-01 07:48 | ECGEPIP ---
[facility] - ED Test Date: 2021-09-30 Pat Name: GALILEA DAWSON Department: Room: - Gender: Female Transmission Tester: SARANYA : 1950 Requested By: Ml Hwang Order Number: [id number] Reading MD: Raul Rider Measurements Intervals Ray Rate: 137 P: WA: QRS: 41 QRSD: 74 T: 98 QT: 302 QTc: 456 Interpretive Statements Atrial fibrillation with rapid ventricular response Nonspecific ST and T wave abnormality RHYTHM/RATE CHANGE COMPARED TO 04/30/21 Electronically Signed on 10-01-2021 7:48:27 EST by Raul Rider
== END 2021-09-30 15:52 | disposition home or self-care (01) ==
LOC: M ED 12:18
DX: I48.91 Unspecified atrial fibrillation (principal); I11.0 Hypertensive heart disease with heart failure; I27.20 Pulmonary hypertension, unspecified; F41.9 Anxiety disorder, unspecified; Z95.818 Presence of other cardiac implants and grafts; Z88.0 Allergy status to penicillin; Z88.1 Allergy status to other antibiotic agents; Z88.5 Allergy status to narcotic agent; Z88.8 Allergy status to other drugs, medicaments and biological substances; Z79.899 Other long term (current) drug therapy; Z79.01 Long term (current) use of anticoagulants

== ENCOUNTER 2021-10-03 11:21 | Observation (INO) | payer MEDICARE, OTHER ==
[~2021-10-03] VITALS: Ht 160 cm; Wt 102.6 kg
--- OUTSIDE RECORDS SUMMARY | 2021-10-03 11:31 | CCD ---
Author Author [facility] Organization [facility] Address Unknown Phone Unavailable Care Team Providers Care Chart Changer Name Role Phone Rahul Harrington MD Unavailable [...] Unavaila ble MigeedRahul MD Unavailable Unavaila ble Migeed Rahul Stanislaw Thakkar MD Unavailable Unavaila ble Len, Rahul Thakkar MD Unavailable Unavaila ble MigRahul joyner MD Unavailable Unavaila ble Sarah Perdomo MD [...] Unavailable Unavailable Licha LINDER MD Unavailable Unavailable iLcha LINDER MD Unavailable Unavailable Licha LINDER MD [...] L Jerri RPA Unavailable Unavailable Barnes, L Jreri RPA Unavailable Unavailable Barnes, L Jerri RPA Unavailable Unavailable Barnes, L Jerri RPA Unavailable Unavailable Barnes, L Jerri RPA Unavailable Unavailable KOSTIV, VU Unavailable Unavailable Waller, A Phyl C WPF DEVELOPER-BC Unavailable Unavailable Waller, A Phyl C WPF DEVELOPER-BC Unavailable Unavailable Waller, A Phyl C WPF DEVELOPER-BC Unavailable Unavailable Waller, A Phyl C WPF DEVELOPER-BC Unavailable Unavailable Waller, A Phyl C WPF DEVELOPER-BC Unavailable Unavailable Waller, A Phyl C WPF DEVELOPER-BC Unavailable Unavailable Waller, A Phyl C WPF DEVELOPER-BC Unavailable Unavailable Waller, A Phyl C WPF DEVELOPER-BC Unavailable Unavailable Waller, A Phyl C WPF DEVELOPER-BC Unavailable Unavailable Waller, A Phyl C WPF DEVELOPER-BC Unavailable Unavailable Waller, A Phyl C WPF DEVELOPER-BC Unavailable Unavailable Waller, A Phyl C WPF DEVELOPER-BC Unavailable Unavailable Waller, A Phyl C WPF DEVELOPER-BC Unavailable Unavailable Waller, A Phyl C WPF DEVELOPER-BC Unavailable Unavailable Waller, A Phyl C WPF DEVELOPER-BC Unavailable Unavailable Waller, A Phyl C WPF DEVELOPER-BC Unavailable Unavailable Waller, A Phyl C WPF DEVELOPER-BC Unavailable Unavailable Waller, A Phyl C WPF DEVELOPER-BC Unavailable Unavailable Waller, A Phyl C WPF DEVELOPER-BC Unavailable Unavailable Waller, A Phyl C WPF DEVELOPER-BC Unavailable Unavailable Waller, A Phyl C WPF DEVELOPER-BC Unavailable Unavailable Waller, A Phyl C WPF DEVELOPER-BC Unavailable Unavailable Waller, A Phyl C WPF DEVELOPER-BC Unavailable Unavailable Waller, A Phyl C WPF DEVELOPER-BC Unavailable Unavailable Waller, A Phyl C WPF DEVELOPER-BC Unavailable Unavailable Waller, A Phyl C WPF DEVELOPER-BC Unavailable Unavailable Waller, A Phyl C WPF DEVELOPER-BC Unavailable Unavailable Waller, A Phyl C WPF DEVELOPER-BC Unavailable Unavailable Waller, A Phyl C WPF DEVELOPER-BC Unavailable Unavailable Waller, A Phyl C WPF DEVELOPER-BC Unavailable Unavailable Waller, A Phyl C WPF DEVELOPER-BC Unavailable Unavailable Waller, A Phyl C WPF DEVELOPER-BC Unavailable Unavailable Hegard, Herminia C WPF DEVELOPER Unavailable Unavailable Hegard, Herminia C WPF DEVELOPER Unavailable Unavailable Hegard, Herminia C WPF DEVELOPER Unavailable Unavailable Hegard, Herminia C WPF DEVELOPER Unavailable Unavailable Hegard, Herminia C WPF DEVELOPER Unavailable Unavailable Hegard, Herminia C WPF DEVELOPER Unavailable Unavailable Hegard, Herminia C WPF DEVELOPER Unavailable Unavailable Hegard, Herminia C WPF DEVELOPER Unavailable Unavailable Hegard, Herminia C WPF DEVELOPER Unavailable Unavailable Hegard, Herminia C WPF DEVELOPER Unavailable Unavailable Hegard, Herminia C WPF DEVELOPER Unavailable Unavailable Hegard, Herminia C WPF DEVELOPER Unavailable Unavailable Hegard, Herminia C WPF DEVELOPER Unavailable Unavailable Hegard, Herminia C WPF DEVELOPER Unavailable Unavailable Hegard, Herminia C WPF DEVELOPER Unavailable Unavailable Hegard, Herminia C WPF DEVELOPER Unavailable Unavailable Hegard, Herminia C WPF DEVELOPER Unavailable Unavailable Re-disclosure Warning The records that [...] is protected by Article 27-F of the [facility] Public Health law. If you continue you may have access to information: Regarding HIV / AIDS; Provided by facilities licensed or operated by the [facility] Office of Mental Health; or Provided by the [facility] Office for People With Developmental Disabilities. If such information is present, then the following [facility] mandated warning applies: This information has been [...] may result in a fine or senior care sentence or both. A general authorization for the release of medical or other information is NOT sufficient authorization for further disc losure. Allergies and Adverse Reactions Type Description Substance Reaction Status Data Source(s ) Propensity to adverse reactions TOPIRAMATE topiramate Acti ve [facility] Propensity to adverse reactions OXYCODONE Oxycodone Acti ve [facility] Propensity to adverse reactions INDAPAMIDE Indapamide Palpitations Lo w Active [facility] Low Propensity to adverse reactions DIGOXIN AND RELATED Digoxin And Rel ated Active [facility] Propensity to adverse reactions CARVEDILOL carvedilol Palpitations Lo w Active [facility] Low Propensity to adverse reactions ADHESIVE TAPE Adhesive Tape Itching Low Rash Low [facility] Low Low Propensity to adverse reactions TETRACYCLINES & RELATED TETRACYC LINES & RELATED Rash [facility] Propensity to adverse reactions SULFA ANTIBIOTICS SULFA ANTIBIOTICS R tracy [facility] Propensity to adverse reactions PENICILLINS Penicillin Rash [facility] Propensity to adverse reactions AMOXICILLIN Amoxicillin Rash [facility] Propensity to adverse reactions OXYCODONE OXYCODONE [facility] Propensity to adverse reactions INDAPAMIDE INDAPAMIDE [facility] Propensity to adverse reactions CARVEDILOL CARVEDILOL [facility] Propensity to adverse reactions DIGOXIN AND RELATED DIGOXIN AND RELAT ED [facility] Substance/Environmental Agent Allergy Substance/Environmenta l Agent [...] AM EDT - 09/15/2021 07:43:00 PM EDT [facility] Patient discharged. Outpatient Attender: Bijan Harrington MDReferrer: Bijan KEYS.PAT 09/10/2021 09:20:53 AM EDT - 09/10/2021 10:38:57 AM EDT [facility] Outpatient Referrer: Bijan KEYS.PAT 09:01:13 AM EDT - 09/10/2021 09:01:22 AM EDT [facility] Outpatient Attender: Sarah Thornton/Oliver/Antonino/Josh ndl 09/09/2021 11:00:00 AM EDT [facility] ([facility]) Outpatient Attender: Herminia MANZANARESP Main Office 1 09:45:00 AM EDT [facility] ([facility]) Outpatient Attender: FREDDIE ALANIZ PA Main Office 08/23/2021 1 1:30:00 AM EDT [facility] ([facility]) ( GYNANN) [facility] Yearly BACK PADDER Exam [address] [place] [address] 07/29/2021 12:00:00 AM EDT eCW1 (Counts include 234 beds at the [facility]) Outpatient Referrer: Bijan Harrington MD 07/13/2021 02:57:2 0 PM EDT [facility] Outpatient Referrer: Bijan Harrington MD 07/13/2021 02:13:[address] [facility] Outpatient Attender: FREDDIE RESENDIZ Main Office 07/12/2021 0 9:45:00 AM EDT [facility] ([facility]) Outpatient Attender: GLORIA LINDER MD 06/29/2021 01:30: 00 PM [facility] Outpatient Attender: Bijan Harrington MD [facility] 06/28/2021 11:15:00 AM EDT [facility] ([facility]) Office Visit, Est Pt., Level 3 PC [address] [place] [address] 06/22/2021 12:00:00 AM EDT eCW1 (Counts include 234 beds at the [facility]) Outpatient [address] [facility] [address] 05/26/2021 12:00:00 AM EDT eCW1 ([facility]) Outpatient Attender: HOLLY HUBER MD Main Office 05/18/2021 09:00:00 AM EDT [facility] ([facility]) Outpatient Attender: Carol Thornton/Oliver/Millie velázquez/Janusz 05/10/2021 11:15:00 AM EDT [facility] ([facility]) Outpatient Attender: Sarah Thornton/Oliver/Antonino/Josh ndl 04/29/2021 09:30:00 AM EDT [facility] ([facility]) Outpatient [address] [facility] [address] 04/21/2021 12:00:00 AM EDT eCW1 ([facility]) OFFICE OUTPATIENT VISIT 40 MINUTES Attender: HOLLY HUBER MD Ma in Office 04/14/2021 01:30:00 PM EDT [facility]) Unknown [address] [facility] [address] 04/12/2021 12:00:00 AM EDT eCW1 ([facility]) <td ID="encounterTypeDescriptionID0">2 Y ear Follow-Up</td><td>Holly Hood MD, FACS</td><td>Holly Warren MD 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 04/02/2021 08:53:0 0 AM EDT - 04/02/2021 09:32:00 AM EDT Essential HypertensionCataract Senile NuclearBorderline 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Retinopathy Hypertensive Both Eyes MELINDA (Holly Hood MD [facility]) Essential Hypertension Cataract Senile Nuclear Borderline Glaucoma Open Angle with Bord cuba Findings Both Eyes Peripheral Retinal Degeneration Paving S tone Both Eyes Retinopathy Hypertensive Both Eyes Unknown [address] [facility] [address] 03/26/2021 12:00:00 AM EDT eCW1 ([facility]) Outpatient Attender: Ynes Waller [facility] Main Office 0 02/08/2021 01:45:00 PM EDT [facility] ([facility]) Outpatient Attender: FREDDIE RESENDIZ Main Office 01/11/2021 0 8:45:00 AM EST [facility] ([facility]) Unknown [address] [facility] [address] 12/21/2020 12:00:00 AM EST eCW1 ([facility]) Outpatient Attender: Carol Garza Norberto/[place]/A ngel/Reindl 11/09/2020 08:00:00 AM EST [facility] ([facility] ) Outpatient [address] [facility] [address] 10/28/2020 12:00:00 AM EST eCW1 ([facility]) Outpatient Attender: Carol Loraang/[place]/A ngel/Reindl 09/08/2020 11:15:00 AM EDT [facility] ([facility] Medardo romero ) Outpatient Attender: Sarah Thornton/[place]/Antonino/Josh ndl 08/06/2020 11:00:00 AM EDT [facility] ([facility] Fernando holcomb, ) Outpatient Attender: Jerri Thornton/[place]/Antonino/R eindl 08/04/2020 10:45:00 AM EDT [facility] ([facility] zhang, ) Immunizations Vaccine Date Status Description Data Source(s) COVID-19 VACCINE Moderna 09/21/2021 12:00:00 AM EDT completed [facility] Vaccine Series Complete: YESThis Data wa s Submitted to [facility] Via [employer]. COVID-19 VACCINE Moderna 01/30/2021 12:00:00 AM EST completed [facility] Vaccine Series Complete: YESThis Data wa s Submitted to [facility] Via [employer]. COVID-19 VACCINE Moderna 01/01/2021 12:00:00 AM EST completed [facility] Vaccine Series Complete: NOThis Data was Submitted to [facility] Via [employer]. Tdap 10/28/2020 11:41:00 AM EST completed [facility] Tdap 10/28/2020 11:41:00 AM EST completed e [facility]) Tdap 10/28/2020 11:41:00 AM EST completed e CW[facility] ([facility]) Tdap 10/28/2020 11:41:00 AM EST completed e CW[facility] ([facility]) Tdap 10/28/2020 11:41:00 AM EST completed e CW1 ([facility]) Tdap 10/28/2020 11:41:00 AM EST completed e CW1 ([facility]) Tdap 10/28/2020 11:41:00 AM EST completed e CW1 ([facility]) Tdap 10/28/2020 11:41:00 AM EST completed e CW1 ([facility]) Medications Medication Brand Name Start Date Product Form Dose Route Admi nistrative Instructions Pharmacy Instructions Status Indications Reaction Description Data Source(s) Magnesium Chloride 0.17806 MEQ/ML / Pota ssium Chloride 0.0497 MEQ/ML / Sodium Acetate 0.0163 MEQ/ML / Sodium Chloride 0.0899 MEQ/ML / Sodium gluconate 5.02 MG/ML Injectable Solution [Normosol-R] electrolyte-R (NORMOSOL-R/PLASMALYTE-R) solution 1,000 mL electrolyte-R (NORMOSOL-R/PLASMALYTE-R) solution 1,000 mL 09/15/2021 04:00:00 PM EDT 1000 mL Intravenous active at 100 mL/hr, 1,000 mL, Intravenous, Continuous, Starting on Mon09/15/21 at 1600, PACU (only) [facility] Medication administered onsite labetalol (NORMODYNE,TRANDATE) injection 5 mg [id number] 09/15/2021 03:01:03 PM EDT 5 mg Intravenous active 5 mg , Intravenous, Every 5 min PRN, high blood pressure, for SBP greater than 160, Starting on Mon09/15/21 at 1501, For 4 doses, PACU (only)
Max of 20 MG, hold for HR less than 60
[facility] Medication administered onsite HYDROmorphone (DILAUDID) injection 0.5 mg [id number] 09/15/2021 03:01:03 PM EDT 0.5 mg Intravenous active 0.5 mg, Intravenous, Every 5 min PRN, severe pain (7-10), Starting on Mon09/15/21 at 1501, For 2 doses, PACU (only) [facility] Medication administered onsite fentaNYL Citrate (PF) (SUBLIMAZE) injection 25 mcg [id number] 09/15/2021 03:01:03 PM EDT 25 ug Intravenous active Postoperativ e Pain 25 mcg, Intravenous, Every 5 min PRN, moderate pain (4 to 6), Starting on Mon09/15/21 at 1501, For 11 doses, PACU (only) [facility] Postoperative Pain Medication administered onsite Albuterol 0.83 MG/ML Inhalant Solution a lbuterol (PROVENTIL) nebulizer solution 2.5 mg albuterol (PROVENTIL) nebulizer solution 2.5 mg 2020 03:01:02 PM EDT 2.5 mg completed 2.5 mg , Nebulization, Once as needed, wheezing, Starting on Mon09/15/21 at 1501, For 1 dose, PACU (only) [facility] Medication administered onsite ondansetron (ZOFRAN) injection 4 mg [id number] 09/15/2021 02:51:2 8 PM EDT 4 mg Intravenous active 4 mg, In travenous, Every 8 hours PRN, nausea, vomiting, Starting on Mon09/15/21 at 1451, Post-op [facility] Medication administered onsite Acetaminophen 325 MG Oral Tablet acetaminophen (TYLENO L) 325 MG tablet 650 mg acetaminophen (TYLENOL) 325 MG tablet 650 mg 09/15/2021 02:51:28 PM EDT 650 mg Oral active 650 mg, Or al, Every 6 hours PRN, mild pain (1-3), Starting on Mon09/15/21 at 1451, Post-op
"Maximum dose of acetaminophen is 4,000 mg from all sources in 24 hours."
[facility] Medication administered onsite protamine injection [id number] 09/15/2021 02:13:57 PM EDT active As needed, Starting on Mon09/15/21 at 1413, Intra-Pro cedure [facility] Medication administered onsite 1 ML heparin sodium, porcine 1000 UNT/ML Injection hep tia (porcine) injection heparin (porcine) injection 09/15/2021 01:18:30 PM EDT active As needed, Starting on Mon09/15/21 at 1318, Intra-Procedure [facility] Medication administered onsite normal saline flush 0.9 % injection 3 mL [id number] 09/15/2021 10:00:00 AM EDT 3 mL Intravenous active 3 mL , Intravenous, Every 8 hours (scheduled), First dose on Mon09/15/21 at 1000, Pre-op
Rapid push positive pressure flushing shall be performed with a 10 cc normal saline syringe to check the PATENCY of a PIV site prior to any infusion therapy initiation unless resistance is met.
[facility] Medication administered onsite normal saline flush 0.9 % injection 3 mL [id number] 09/15/2021 10:00:00 AM EDT 3 mL Intravenous active 3 mL , Intravenous, Every 8 hours (scheduled), First dose on Mon09/15/21 at 1000, Pre-op
Rapid push positive pressure flushing shall be performed with a 10 cc normal saline syringe to check the PATENCY of a PIV site prior to any infusion therapy initiation unless resistance is met.
[facility] Medication administered onsite Rosuvastatin calcium 40 MG Oral Tablet Rosuvastatin Calcium 07/09/2021 12:00:00 AM EDT ORAL active [facility] ([facility] Cequa Cequa 07/01/2021 12:00:00 AM EDT active [facility] ([facility]) valsartan 80 MG Oral Tablet Valsartan 05/18/2021 12:00:00 AM EDT ORAL active [facility] ([facility]) Atenolol 25 MG Oral Tablet Atenolol 05/18/2021 12:00:00 AM EDT ORAL active [facility] ([facility]) Atenolol 25 MG Oral Tablet Atenolol 05/17/2021 12:00:00 AM EDT ORAL completed [facility] ([facility]) 12 HR Guaifenesin 600 MG Extended Release Oral Tablet [Mucin ex] Mucinex 04/29/2021 12:00:00 AM EDT ORAL completed [facility] ([facility], ) Amiodarone hydrochloride 200 MG Oral Tablet Amiodarone HCL 04/14/2021 12:00:00 AM EDT ORAL completed [facility] ([facility]) Digoxin 0.25 MG Oral Tablet Digoxin 250 MCG Digoxin 250 MCG 04/14/2021 12:00:00 AM EDT 0.5 {tablet} active Digoxin 250 MCG [facility] Calcium Carbonate 500 MG Chewable Tablet Calcium Antacid 04/13/2021 12:00:00 AM EDT active [facility] ([facility]) Metronidazole 7.5 MG/ML Topical Cream Metronidazole 04/13/2021 12:00:00 AM EDT active [facility] ( [facility]) Cranberry 04/13/2021 12:00:00 AM EDT ORAL complete d [facility] ([facility]) Acetaminophen 325 MG Oral Tablet Acetaminophen 04/13/2021 12:00:00 AM EDT active [facility] ([facility]) Digoxin 0.25 MG Oral Tablet [Digox] Digox 04/11/2021 12:00:00 AM EDT ORAL completed [facility] ([facility]) Cyclosporine 0.5 MG/ML Ophthalmic Suspen bere [Restasis] Restasis 0.05% Ophthalmic Emulsion Restasis 0.05% Ophthalmic Emulsion 04/02/2021 12:00:00 AM EDT 1 active cyclospo rine 0.5 MG/ML Ophthalmic Suspension [Restasis] MELINDA (Holly Hood MD [facility]) modafinil 100 MG Oral Tablet Modafinil 02/05/2021 12:00:00 AM EDT completed [facility] ([facility], ) Covid-19 vaccine, Unspecified 01/30/2021 12:00:00 AM EST completed [facility] ([facility], ) Medication administered onsite 12 HR Hyoscyamine Sulfate 0.375 MG Extended Release Or al Tablet Hyoscyamine Sulfate ER 01/10/2021 12:00:00 AM EST ORAL active [facility] ([facility]) Fluticasone Propionate Fluticasone Propionate 01/10/2021 12:00:[address] active [facility] ([facility]) Cyclosporine 0.5 MG/ML Ophthalmic Suspension [Restasis] Rest asis 01/10/2021 12:00:00 AM EST OPHTHALMIC completed [facility] ([facility]) WHEAT DEXTRIN 3500 MG Oral Powder [Benefiber] Benefiber 01/10/2021 12:00:00 AM EST ORAL active [facility] ([facility]) Covid-19 vaccine, Unspecified 01/02/2021 12:00:00 AM EST completed [facility] ([facility], ) Medication administered onsite Sucralfate 1000 MG Oral Tablet Sucralfate 08/10/2020 12:00:00 AM EDT ORAL completed [facility] ([facility], ) Insurance Providers Payer name Policy type / Coverage type Policy ID Covered libertarian ID Covered libertarian's relationship to wilson Policy Wilson Plan Information [id number] [employer] Part B [id number] Self [id number] [employer] Part B [id number] Self [id number] [employer] Med[employer] Part B [id number] Self [employer] Med[employer] Part B [id number] [id number] Self [id number] [employer] Med[employer] Part B [id number] Self DME Jurisdiction A NHIC C [id number] SELF [id number] MEDICARE [id number] SP [id number] A MEDICARE [id number] Shraddha [id number] Medicare (Part B) Medicare Primary [id number] Self [id number] Medicare (Part B) Medicare Primary [id number] Self 4 [id number] Medicare (Part B) Medicare Primary [id number] Self 1 [id number] Medicare (Part B) Medicare Primary [id number] Self 1 [id number] Medicare (Part B) Medicare Primary [id number] Self 1 [id number] Medicare C [id number] SELF [id number] A Medicare (Part B) Medicare Primary [id number] Self [id number] Medicare (Part B) Medicare Primary [id number] Self [id number] MEDICARE A [id number] Self [id number] Medicare (Part B) Medicare Primary [id number] Self MEDICARE [id number] Medicare Medicare Primary [id number] Self Medicare (Part B) Medicare Primary [id number] Self [id number] UMR [id number] UMR U [id number] Self [id number] UMR [id number] Shraddha [id number] Medicare C [id number] SELF [id number] A DME Jurisdiction A [facility] C [id number] SELF [id number] UMR F [id number] SELF [id number] UMR F [id number] SELF [id number] Umr Medigap Part B [id number] Self [id number] Umr Commercial [id number] Self [id number] INSURANCE COVID-19 [id number] xOVID 2 [id number] INSURANCE COVID-19 COVID Shraddha C OVID INSURANCE COVID-19 COVID Shraddha C OVID Medicare [place] Medicare Primary [id number] Self 1 [id number] Medicare [place]GS Medicare Primary [id number] Self 4 [id number] [employer] PHCS Ppo Medigap Part B [id number] Self [id number] [employer] PHCS Ppo Medigap Part B [id number] Self [id number] Ghi Medigap Part B [id number] [id number] Self [id number] Medicare [place]/NGS Medicare Primary [id number] Self 1 [id number] Ghi Medigap Part B [id number] 6.0 Self [id number] Medicare [place]/NGS Medicare Primary [id number] Self 1 [id number] ANSI-Commercial [id number] ANSI-Medicare Part B [id number] ANS-Medicare Part B [id number] ANSI-Commercial [id number] ANS-Medicare Part B [id number] ANSI-Commercial [id number] ANSI-Medicare Part B [id number] ANSI-Commercial [id number] [facility] Part B [id number] 6.0 Self [id number] Medicare [facility] Medicare Primary [id number] Self 1 [id number] [facility] [id number] SP [id number] MEDICARE [id number] SP [id number] A [facility] [place] [id number] SP [id number] [facility] Part B [id number] 6.0 Self [id number] [facility] Medicare Primary [id number] Self 1 [id number] MEDICARE C [id number] S [id number] A [employer] PPO O [id number] S [id number] [employer] [facility] Ppo Medigap Part B [id number]. [id number] Self [id number] Ghi Medigap Part B [id number] 2.0.1.631089.3.227.99.8646.656 6.0 Self [id number] Medicare [place] Medicare Primary [id number] [id number] Self 1 [id number] Ghi Medigap Part B [id number] 2.0.1.166960.3.227.99.8646.656 6.0 Self [id number] Medicare [place] Medicare Primary [id number] 2.0.1.898279.3.227.99.8646.6566.0 Self 1 [id number] Ghi Medigap Part B [id number] 2..1.435628.3.227.99.8646.656 6.0 Self [id number] Medicare [place] Medicare Primary [id number]6.0 Self 1 [id number] Ghi Medigap Part B [id number] 2.0.1.318362.3.227.99.8646.656 6.0 Self [id number] Medicare [place] Medicare Primary [id number] 2.0.1.147640.3.227.99.8646.6566.0 Self 1 [id number] Ghi Medigap Part B [id number] 2.0.1.385970.3.227.99.8646.656 6.0 Self [id number] Medicare [place] Medicare Primary [id number] .[id number] Self 1 [id number] [employer] PHCS Ppo Medigap Part B [id number] 2.16.840.1.111489.3.227. [id number] Self [id number] Ghi Medigap Part B [id number] 6.0 Self [id number] Medicare [facility] Medicare Primary [id number] Self [id number] [facility] [id number] SP [id number] MEDICARE [id number] SP [id number] A Ghi Medigap Part B [id number] Self Medicare [facility] Medicare Primary [id number] Self [employer]OMCO [id number] SP [id number] [employer] -O/P [id number] 18 [id number] MEDICARE -O/P [id number] 18 [id number] SELF PAY UNAVAILABLE SP UNAVAILA BLE [employer] Medigap Part B [id number] Self Medicare [place] Primary [id number] Self MEDICARE [id number] SP [id number] UMR [id number] S [id number] [place] MEDICARE DIVISION [id number] S [id number] MEDICARE [place] [id number] S [id number] [employer] [place] Other 0 [id number] Self 0 Medicare Part B [facility] Other 0 [id number] Self 0 [place]MR [place] [id number] 18 [id number] MEDICARE PART A [facility] [id number] 18 [id number] UMR O [id number] S [id number] MEDICARE C [id number] S [id number] MEDICARE C [id number] S [id number] [employer] PH[employer] Ppo Medigap Part B [id number] Self [id number] [employer] [place] Other 0 [id number] Self 0 Medicare Part B [facility] Other 0 [id number] Self 0 UMR -PHYSICIAN [id number] 1 [id number] MEDICARE PART A -O/P [id number] 18 [id number] Ghi Medigap Part B [id number] Self [id number] Medicare [place] Medicare Primary [id number] Self [id number] Medicare [place] Medicare Primary [id number] Self [id number] ANSI-Medicare Part B [id number] ANSI-Commercial [id number] [employer] Ppo Medigap Part B [id number] Self [id number] [employer] [facility] Ppo Medigap Part B [id number] Self [id number] Ghi Medigap Part B [id number] 6.0 Self [id number] Medicare [place] Medicare Primary [id number] Self 1 [id number] Medicare [facility] Medicare Primary [id number] Self [id number] ANSI-Commercial [id number] ANSI-Medicare Part B [id number] ANSI-Commercial [id number] ANSI-Medicare Part B [id number] ANSI-Medicare Part B [id number] ANSI-Commercial [id number] [facility] Part B [id number] 6.0 Self [id number] Problems, Conditions, and Diagnoses Code Display Name Description Problem Type Effective Dates Data Source(s) I48.0 Paroxysmal atrial fibrillation Paroxysmal atrial fibri llation Diagnosis 09/10/2021 09:20:53 AM EDT [facility] U07.1 COVID-19 COVID-19 Diagnosis 09/10/2021 09:01:13 AM ED T [facility] Z86.79 Personal history of other diseases of th e circulatory system PERSONAL HISTORY OF OTHER DISEASES OF THE CIRCULAT Diagnosis 06/29/2021 01:30:0 0 PM EDT [facility] R60.0 Localized edema LOCALIZED EDEMA Diagnosis 06/29/2021 01:3 0:00 PM T [facility] I48.0 Paroxysmal atrial fibrillation Paroxysmal atrial fibri llation [id number] 09/15/2021 12:00:00 AM EDT [facility] I50.32 Chronic diastolic heart failure Chronic diastolic hear t failure Problem 07/12/2021 12:00:00 AM EDT [facility] ([facility]) [id number] Essential hypertension Essential hypertension Problem 06/22/2021 12:00:00 AM EDT [facility] ([facility] R07.9 Chest pain Chest pain Problem 04/14/2021 12:00:00 AM ED T [facility] ([facility]) 366.16 Cataract Senile Nuclear Cataract Senile Nuclear Proble m 04/02/2021 12:00:00 AM EDT [place] (Holly Hood MD [facility]) Surgeries/Procedures Procedure Description Date Indications Data Source(s) EP STUDY <td>EP STUDY</td><td>Routine </td><td>09/15/2021 2:32 PM EDT</td><td> Paroxysmal atrial fibrillation</td><td> </td> 09/15/2021 02:32:10 PM EDT Paroxysmal atrial fibrillation [facility] Paroxysmal atrial fibrillation ECG ROUTINE ECG W/LEAST 12 LDS TRCG ONLY W/O I&R <td>E CG 12- LEAD</td><td>Routine</td><td>09/10/2021 10:36 AM EDT</td><td> Paroxysmal atrial fibrillation</td><td></td> 09/10/2021 10:36:19 AM EDT Paroxysmal atrial fibrillation [facility] Paroxysmal atrial fibrillation BLOOD COUNT COMPLETE AUTOMATED <td>CBC</td><td>Routine </td><td>09/10/2021 10:30 AM EDT</td><td> Paroxysmal atrial fibrillation</td><td> </td> 09/10/2021 10:30:00 AM EDT Paroxysmal atrial fibrillation [facility] Paroxysmal atrial fibrillation BLOOD TYPING ABO <td>TYPE AND SCREEN</td><td> Routine</td><td>09/10/2021 10:30 AM EDT</td><td> Paroxysmal atrial fibrillation</td><td> </td> 09/10/2021 10:30:00 AM EDT Paroxysmal atrial fibrillation [facility] Paroxysmal atrial fibrillation BASIC METABOLIC PANEL CALCIUM TOTAL <td>BASIC METABOLI C PANEL</td><td>Routine</td><td>09/10/2021 10:30 AM EDT</td><td> Paroxysmal atrial fibrillation</td><td> </td> 09/10/2021 10:30:00 AM EDT Paroxysmal atrial fibrillation [facility] Paroxysmal atrial fibrillation OFFICE OUTPATIENT VISIT 25 MINUTES 09/09/2021 12:00:00 AM EDT [facility] ([facility], ) DESTRUCTION BENIGN LESIONS 15/> 09/06/2021 12:00:00 AM EDT [facility] ([facility] Practitioners) OFFICE OUTPATIENT VISIT 25 MINUTES 09/06/2021 12:00:00 AM EDT [facility] ([facility] Nurse [facility]) OFFICE OUTPATIENT VISIT 5 MINUTES 08/23/2021 12:00:00 AM EDT [facility] ([facility]) ECG ROUTINE ECG W/LEAST 12 LDS W/I&R 07/12/2021 12:00: 00 AM EDT [facility] ([facility]) OFFICE OUTPATIENT VISIT 25 MINUTES 07/12/2021 12:00:00 AM EDT [facility] ([facility]) Electrocardiogram Complete 06/28/2021 12:00:00 AM EDT [facility] ([facility]) OFFICE OUTPATIENT NEW 60 MINUTES 06/28/2021 12:00:00 A M EDT [facility] ([facility]) MYOCRD IMAGE PET PERFUS MULTPL STUDY REST/STRESS 06/24 12:00:00 AM EDT [facility]) CV STRS TST XERS&/OR RX CONT ECG I&R ONLY 06/24/2021 1 2:00:00 AM EDT [facility] ([facility]) ECG ROUTINE ECG W/LEAST 12 LDS W/I&R 05/18/2021 12:00: [address] [facility] ([facility]) Arterial Pressure Waveform Analysis For Assessment Of Centra l Art 05/18/2021 12:00:00 AM EDT [facility] ([facility]) OFFICE OUTPATIENT VISIT 15 MINUTES 05/18/2021 12:00:[address] [facility] ([facility]) ECHO TTHRC R-T 2D W/WOM-MODE COMPL SPEC&COLR DOP 05/12 12:00:[address] [facility] ([facility]) OFFICE OUTPATIENT VISIT 15 MINUTES 05/10/2021 12:00:[address] [facility] ([facility], ) External ECG Rec>48HR<7D Recording 05/04/2021 12:00:[address] [facility] ([facility]) External ECG Rec>48HR<7D Review & Interpretation 05/04 12:00:[address] [facility] ([facility]) OFFICE OUTPATIENT VISIT 25 MINUTES 04/29/2021 12:00:00 AM EDT [facility] ([facility]) Bronchospasm Evaluation 04/21/2021 12:00:[address] [facility] ([facility]) Plethysmography Determination Lung Volumes & Per Airway Resi st 04/21/2021 12:00:00 AM EDT [facility] ) DIFFUSING CAPACITY 04/21/2021 12:00:00 AM EDT [facility] ([facility]) ECG ROUTINE ECG W/LEAST 12 LDS W/I&R 04/14/2021 12:00: [address] [facility] ([facility]) Arterial Pressure Waveform Analysis For Assessment Of Centra l Art 04/14/2021 12:00:[address] [facility] ([facility]) OFFICE OUTPATIENT VISIT 40 MINUTES 04/14/2021 12:00:00 AM EDT [facility] ([facility]) Intermediate Eye Exam Established Patient Intermediate Eye Exam Established Patient 04/02/2021 12:00:00 AM EDT [facility] (Justyn Hood MD [facility]) OFFICE OUTPATIENT VISIT 25 MINUTES 02/08/2021 12:00:00 AM EDT [facility] ([facility]) ECG ROUTINE ECG W/LEAST 12 LDS W/I&R 01/11/2021 12:00: 00 AM EST [facility] ([facility]) OFFICE OUTPATIENT VISIT 25 MINUTES 01/11/2021 12:00:00 AM EST [facility] ([facility]) Immunization: Boostrix 0.5mL IM (TDAP) 10/28/2020 12:0 0:00 AM EST [facility] Endoscopy Upper GI Biopsy 08/10/2020 12:00:00 AM EDT [facility] ([facility], ) Colonoscopy W/ Poly 08/10/2020 12:00:00 AM EDT [facility] ([facility], ) Results ID Date Data Source [id number] 09/16/2021 02:26:45 PM [facility]FORMATION[facility] MRN Name Date of Age Gend*PT [id number] Galilea Quinteros 1950 71 years F HOPPT Location Admission Date/Time Visit ID Attending Provider09/15/21 09 --- --- EPI ID CSN Admitting Provider [id number] M Rahul Harrington MD([id number])Inpatient History & PhysicalClstephany QuinterosMRN:[id number]: here for AF ablationPast Medical History:Past Medical [...] MG capsule Take 600 mg by mouth [id number]/14/2021 at 2100 Hyoscyamine Sulfate ER 0.375 MG [...] LIST:1. highly sx PAF /2, typical flutter 30768. HTN3. Pericardial Effusion small4. Chronic Cor Pulmonale5. [...] Name Value Range Interpretation Code Description [facility] Supporting Document(s) ID Date Data Source [id number] 09/15/2021 02:55:47 PM EDT [facility] Name Value Range Interpretation Code Description Data [facility](s) Supporting Document(s) &PDF [facility] UYXNDe9rGqWYRmBk60/TQWfqJYItk4GjVSrdBIx9FIpaMERaG9MuoKneQVFAFSFZCVBZACREWEAzGTBw vci [file] AgICAgICAgICAgICAgICAgICAgICAgICAgICAgICAg ICAgICAgICAgICAgICAgICAgICAgICAgICAgICAgICAgICAgICAgICAgICAgICAgICAgDQogICAgICAg ICAgICAgICAgICAgICAgICAgICAgICAgICAgICAgICAgICAgICAgICAgICAgICAgICAgICAgICAgICAg ICAgICAgICAgICAgICAgICAgICAgICAgICAgICAgIC AgDQogICAgICAgICAgICAgICAgICAgICAgICAgICAgICAgICAgICAgICAgICAgICAgICAgICAgICAgIC AgICAgICAgICAgICAgICAgICAgICAgICAgICAgICAgICAgICAgICAgICAgDQogICAgICAgICAgICAgIC AgICAgICAgICAgICAgICAgICAgICAgICAgICAgICAg ICAgICAgICAgICAgICAgICAgICAgICAgICAgICAgICAgICAgICAgICAgICAgICAgICAgICAgDQogICAg ICAgICAgICAgICAgICAgICAgICAgICAgICAgICAgICAgICAgICAgICAgICAgICAgICAgICAgICAgICAg ICAgICAgICAgICAgICAgICAgICAgICAgICAgICAgIC AgICAgDQogICAgICAgICAgICAgICAgICAgICAgICAgICAgICAgICAgICAgICAgICAgICAgICAgICAgIC AgICAgICAgICAgICAgICAgICAgICAgICAgICAgICAgICAgICAgICAgICAgICAgDQogICAgICAgICAgIC AgICAgICAgICAgICAgICAgICAgICAgICAgICAgICAg ICAgICAgICAgICAgICAgICAgICAgICAgICAgICAgICAgICAgICAgICAgICAgICAgICAgICAgICAgDQog ICAgICAgICAgICAgICAgICAgICAgICAgICAgICAgICAgICAgICAgICAgICAgICAgICAgICAgICAgICAg ICAgICAgICAgICAgICAgICAgICAgICAgICAgICAgIC AgICAgICAgDQogICAgICAgICAgICAgICAgICAgICAgICAgICAgICAgICAgICAgICAgICAgICAgICAgIC AgICAgICAgICAgICAgICAgICAgICAgICAgICAgICAgICAgICAgICAgICAgICAgICAgDQogICAgICAgIC AgICAgICAgICAgICAgICAgICAgICAgICAgICAgICAg ICAgICAgICAgICAgICAgICAgICAgICAgICAgICAgICAgICAgICAgICAgICAgICAgICAgICAgICAgICAg HTz9A0xxMRThVEIwRY3sGMf0Gf7+KGiBEtEuRZC6baNpdF3KUQ5ul9ZyMKnaMKUup3EzFXv6TD1MLPLy KReuGD6UYNbuvh3WPQFgYLHeyAEEo2irFgUnMPM6JR TyWpapHR6YPWKvO3eccqLyTPQxUVTXEXhwZPUNRXljKQZJVVPpRGWuVmXfUZxfWQ5Of2BitJY2EZc+Pg 3WMG3js5NvRQfyVgQgGX5inl8CPWkVTvNlQ1TayuM2VDZ5OHCoTg2WWPDyUXHdiNXjXBBaAFXUFrUwB8 TqoD66RWYZLo9+VOiuryElXjxIYeF6ATLfp1ZoINs6 BU3XSXXiQEn1wLPxID7ixUPgxFBdKQbpJF9YXFC7TBozEGHoJFIERI2TGZhdTKM5UNVfbnGvbWLeGKao EE2QRPDzamAbFoipKQYVPBj+Ek6LNN4gc7LaAYiiALSlMJ2syv7JWSxLJuIlQ9K4pRCxA2C5JDlfTz3O CQNvPXCuLxFcZTVUTXfoGP2RZL7auuE4DX0XqTAuPU UzNEWyvPNmOJj3M83ijNOjQNqkBV3FSWJ+Tegan+Gk4WDVSeBANiOTEjBaOoDQVDQqMrK3JqH7CTo4SyW4 FcQG66dQeqdkUqQAfxSC9DEH6dJSMiCSWPFL1YsPUzhJ8cenEuGbBpYLFPDdSiC97jmNWfUPLaKQR7DM LhRf4YCHDbR5SsfuRucVqfhsNfGMVgBDNDSP7FVSgy cnSewRMxtChfWX66jTdcVR8ACs5VNeDtWD0yqd6EqRVnWx0WJQObUP1SDWLzKBDmXWRwGKT4XGPoCvPq UYozJKVsEHRpYPA0UTYyGSJuCN7PJzEbNQHsIDA0XbGqBXImCQPyrt3MDUDpZGL6KlUvSVKsWYQqXXZa OWmgZSJxSLHmZIsaLQUpWNGsCL9KNhXyZEVxMCQoYN LaWYXpTEPyiv0MNEEyBOZuYxQcCTJeUZMwAZXaECboBKInRYR3CcA0NYNjMQYsIL5NToSdINFgSZU6Wj NhBQXmOKOozb9BVUNcFBIeJGS2TUEqABYhAGMiBYuuTNNgQJP8CuNjGLXwQRZgDV5IQyGgMANwOIY9Fz XeQARkSZTqtj4QBNWuDKUcSZC0PWRvNABwNOQtDKzy DWOyBNGaIkD3JULiPNVlEG3DIxYqIEMsXSP5XaHyNRLyTFZpyr4JRMEnCSOgTrXoKEAwNQVzLRItQFfe BYEpWSJdWOZ6FPOnIADcOW6DPwVfWIGwSLVrXlCqMFHeSLPgxf8QDGZdMCCkDdM8ONYjZGFaMOFmXNif EFLuDUTpFGU0EJRgVYUnAK9HAiUpAZQoDwNnTKMyFM DaPWLspp0KOWMdSCQnNAVxXSWiPYTkXUDkDNcuUAHaEFH7UPAeXQMmYZOmSV1RFmGrZCPcMcEmTSegSA KpTZSylc5VETCbJIDxUNo3AACfHSSdUAUhSGiyVSTxFHQhVmUdKMTuWYCsPT3THeRrOGMkZJVfOMAcRP GkTCAtsa5BOFXdZNI6OsS0GSLcWXNwTJNdQSmuTLGg IYUlUmRiUGLtCRNpPS6TPlBrORUgPRG4VPKjHXUpJYNdbo0IcKDjoNvqnv0OQTuDUp3ShUsiFEYbVBtk Da7dxIPiGNQtFYGQTo6PyjPcMZLaVDNSYOlkIEBqECr5XgXcUtQdS8JoGAM6WUslEmPqYdHjZfDrH8Xu CIHvAcE8YlXjJKRzNEWeBOIqVbt5SPZnRyK5SPAxDF YzYjNlMDI+CD5sPTm+Jh6Nf4NjgeV7ihEzNXe4NmS6Zf5LENAAQ4NGIp== ID Date Data Source [id number] 09/15/2021 12:49:46 PM EDT [facility] NT INFORMATIONPatient MRN Name Date of Age Gend*PT [id number] Galilea Quinteros 1950 71 years F HOPPT Location Admission Date/Time Visit ID Attending Provider --- --- --- --- EPI ID CSN Admitting Provider [id number] ---AirwayPatient location during procedure: ORUrgency: electiveDifficult airway: [...] to lips: 21 cmPlacement verified by: + [id number] view: grade I - full view of glottis Name Value Range Interpretation Code Description Data Ninoska rce(s) Supporting Document(s) ID Date Data Source [id number] 09/15/2021 12:49:09 PM EDT [facility] NT INFORMATIONPatient MRN Name Date of Age Gend*PT [id number] Galilea Quinteros 1950 71 years F HOPPT Location Admission Date/Time Visit ID Attending Provider --- --- --- --- EPI ID CSN Admitting Provider [id number] ---Arterial Line PlacementPatient location during procedure: ORIndications [...] rce(s) Supporting Document(s) ID Date Data Source [id number] 09/10/2021 04:29:14 PM EDT [facility]FORMATION[facility] MRN Name Date of Age Gend*PT [id number] Galilea Quinteros 1950 70 years F OPPT Location Admission Date/Time Visit ID Attending Provider --- --- --- Wilbert Harrington MD([id number]) EPI ID CSN Admitting Provider [id number] ---OUTPATIENT / OBSERVATIONAL SURGICAL OR INVASIVE PROCEDUREName: [...] thyromegaly. No carotid bruits.MENTAL / NEUROLOGICAL STATUS: [id number]: Clear to auscultation. No wheezes, rhonchi or crackles.HEART: Rate bradycardic rhythm regular. S1, S2. No murmur, rub or gallop. Looprecorder intact to chestABDOMEN: Obese. Bowel sounds positive times four. Soft, non tender. No reboundtenderness. No hepatosplenomegaly. Negative CVAT.EXTREMITIES: Pulses are symmetrical. Left leg edema.Anesthesia complications: deniesCS Frailty Scale :: 3/10 Managing Well (medical problems are well controlled,but are not regularly active beyond routine walking).ASSESSMENT: Primary Diagnosis/Indication: Paroxysmal atrial fibrillation.PLAN: Procedure: ABLATION, ARRHYTHMOGENIC FOCUS, FOR ATRIAL FIB RILLATIONECHOCARDIOGRAM, TRANSESOPHAGEAL on 09/15/2021.09/10/2021 4:28 PMLyudmimeenu Kostiv, NPThis document or parts of this document, were dictated using [employer] speaking software. A reasonable attempt at proofreading has beenmade to minimize errors. Please call with any questions or corrections. Name Value Range Interpretation Code Description Data Ninoska rce(s) Supporting Document(s) ID Date Data Source [id number] 09/10/2021 10:38:20 AM EDT [facility] Name Value Range Interpretation Code Description Data Ninoska rce(s) Supporting Document(s) EKG [facility] SQFOIx6aElQDJuLwe4BnWtKtWUHdPC4uhnl8L3M5nXBgJ3RurIIxd6quV0OlP8NfFESwEECJTA7XyXOr jb2 [file] [id number]= ID Date Data Source [id number] 09/13/2021 01:50:13 PM EDT [facility] SPEC EXP DATE 09/16/2021ATI ENT ABO/Rh A POSITIVEANTIBODY SCREEN NEGATIVETESTING SITE PERFORMED AT [address] [place] [address] BANK COMMENT BLOOD TYPE CONFIRMED. Name Value Range Interpretation Code Description Data Ninoska rce(s) Supporting Document(s) TYPE AND SCREEN [facility] ID Date Data Source [id number] 09/10/2021 03:01:14 PM EDT [facility] Name Value Range Interpretation Code Description Data Ninoska rce(s) Supporting Document(s) SODIUM 139 mmol/L (136-145) [facility] POTASSIUM 4.2 mmol/L (3.6-5.2) [facility] CHLORIDE 109 mmol/L (100-108) H [facility] CO2 25 mmol/L (22-31) [facility] ANION GAP 5 mmol/L (7-16) L [facility] UREA NITROGEN 23 mg/dL (7-24) [facility] CREATININE 0.96 mg/dL (0.60-1.00) [facility] BUN/CREAT RATIO 24.0 RATIO (10.0-20.0) H [facility] GLUCOSE 88 mg/dL (70-99) [facility] CALCIUM 9.8 mg/dL (8.4-10.2) [facility] GFR 57 ml/min/1.73m2 (>59) L [facility] GFR ( AMER) >60 ml/min/1.73m2 (>59) [facility] GFR INTERPRETATION [facility] --NORMAL KIDNEY FUNCTION OR MILD DISEASE - GFR >OR= 60CHRONIC KIDNEY DISEASE - GFR 15 - 59RENAL FAILURE - GFR <15 Est. GFR calculation based on the MDRDstudy equation, which assumes a steadystate for creatinine. Est. GFR should notbe used for medication dosing. ID Date Data Source [id number] 09/10/2021 02:30:47 PM EDT [facility] Name Value Range Interpretation Code Description Data Ninoska rce(s) Supporting Document(s) WBC 5.5 10*3/uL (4.1-11.0) [facility] RBC 4.27 10*6/uL (4.00-5.40) [facility] HGB 13.2 g/dL (12.0-16.0) [facility] HCT 39.2 % (36.0-47.0) [facility] MCV 91.7 fL (80.0-95.0) [facility] MCH 30.9 pg (27.0-32.0) [facility] MCHC 33.7 g/dL (32.0-36.0) [facility] RDW 13.4 % (10.5-14.5) [facility] PLT 183 10*3/uL (150-450) [facility] MPV 8.4 fL (7.1-10.7) [facility] ID Date Data Source [id number] 09/10/2021 08:54:00 AM EDT [facility] Name Value Range Interpretation Code Description Data Ninoska rce(s) Supporting Document(s) SARS coronavirus 2 RNA [Presence] in Res piratory specimen by CARTER with probe detection NOT DETECTED [facility] This lab was reported by [facility]. ID Date Data Source [id number] 09/11/2021 08:52:34 AM EDT [facility] Name Value Range Interpretation Code Description Data Ninoska rce(s) Supporting Document(s) SPECIMEN DESCRIPTION [facility] [place] COVID 19 RESULT (NDET) [facility] NEGATIVE COVID-19 RESULTS DONOT PRECLUDE COVID-2019 INFECTION ANDSHOULD NOT BE USED THE SOLE BASISFOR PATIENT MANAGEMENT DECISIONS. COMMENT [facility] THE [place] FDA HAS MADE THIS TEST AVAILABL EUNDER AN EMERGENCY USE AUTHORIZATION(EUA) FOR THE DETECTION AND/OR DIAGNOSISOF THE VIRUS THAT CAUSES COVID-19.THIS ASSAY AMPLIFIES AND DETECTS [employer] USING PROFESSOR OF INDUSTRIAL TECHNOLOGY- MEDIATEDAMPLIFICATIONTESTING PERFORMED ON [employer] FIRST TEST [facility] EMPLOYED IN HLTHCARE [facility] [place] [facility] DATE OF SYMPT ONSET [facility] [place] [facility] ICU [facility] CONGREGATE CARE SET [facility] [place] [facility] ID Date Data Source [id number] 08/11/2021 11:35:00 AM EDT [facility] Name Value Range Interpretation Code Description Data Ninoska rce(s) Supporting Document(s) SARS-CoV-2 (COVID-19) RNA [Presence] in Respiratory specimen by CARTER with probe detection Not Detected [facility] This lab was ordered by [facility] and reported by [facility]. ID Date Data Source [id number] 08/04/2021 02:12:00 PM EDT [facility] CT A NGIO CHESTCLINICAL [...] Solid Nodules Low risk:<6 mm- No routine [id number] mm- CT at 3-6 months, then consider [...] rce(s) Supporting Document(s) ID Date Data Source [id number] 07/08/2021 08:42:00 AM EDT [facility] ([facility]) Name Value Range Interpretation Code Description Data Ninoska rce(s) Supporting Document(s) Glucose, Fasting 88 mg/dL 70-100 [facility] ([facility]) Creatinine For GFR 0.94 mg/dL 0.55-1.30 [facility] ([facility]) Blood Urea Nitrogen 17 mg/dL 7-18 [facility] ([facility]) Glomerular Filtration Rate Laboratory test result [facility] ([facility]) <content>Units are mL/min/1.73 m2</content>
<content></content>
<content>Chronic Kidney Disease Staging per NKF:</content>
<content></content>
<content>Stage I & II GFR >=60 Normal to Mildly Decreased</content>
<content>Stage III GFR 30- 59 Moderately Decreased</content>
<content>Stage IV GFR 15-29 Severely Decreased</content>
<content>Stage V GFR <15 Very Little GFR Left</content>
<content>ESRD GFR <15 on CAUSTIC PUMP OPERATOR</content>
<content></content> Potassium Serum 4.3 meq/L 3.5-5.1 [facility] ([facility]) Sodium Level 142 meq/L 136-145 MEDENT ([facility]) Anion Gap 4 meq/L 8-16 [facility] Chloride Level 112 meq/L 98-107 MEDENT ([facility]iol ogy [facility]) Carbon Dioxide Level 26 meq/L 21-32 MEDENT ([facility]) Calcium Level 9.6 mg/dL 8.8-10.2 MEDENT (Cardiolo gy [facility] of [facility]) ID Date Data Source [id number] 07/08/2021 08:42:00 AM EDT MEDENT ([facility]i [facility]) Name Value Range Interpretation Code Description Data Ninoska rce(s) Supporting Document(s) Triglycerides Level 224 mg/dL MEDENT (Ca rdiology [facility]) Cholesterol Level 158 mg/dL MEDENT ([facility]) HDL Cholesterol 40 mg/dL MEDENT ([facility]io [facility]) LDL Cholesterol 73 mg/dL MEDENT ([facility]io [facility]) Non-HDL-C 118 mg/dL MED[facility] Cholesterol Risk Ratio 3.950 MEDENT ([facility]) ID Date Data Source Ultrasound : Leg, left 05/26/2021 12:00:00 AM EDT eCW1 ([facility]) Name Value Range Interpretation Code Description Data Ninoska rce(s) Supporting Document(s) Ultrasound : Leg, left eCW1 ([facility]) ID Date Data Source [id number] 04/30/2021 02:37:00 PM EDT MEDENT ([facility]i [facility]) Name Value Range Interpretation Code Description Data Ninoska rce(s) Supporting Document(s) White Blood Count 7.2 4.0-10.0 MEDENT ([facility]) Red Blood Count 4.72 4.00-5.40 MEDENT (Cardio [facility]) Platelets 192 150-450 MEDENT ([facility]) Hemoglobin 14.6 MEDENT ([facility]) Hematocrit 44.4 MEDENT ([facility]) ID Date Data Source [id number] 04/30/2021 02:37:00 PM EDT MEDENT ([facility]i [facility]) Name Value Range Interpretation Code Description Data Nnioska rce(s) Supporting Document(s) Blood Urea Nitrogen 19 7-18 MEDENT (Ca [facility]diology [facility]) Glucose 86 70-100 MEDENT (Cardiology A ssociates [...] [facility]) ID Date Data Source [id number] 04/12/2021 02:31:00 PM EDT MEDENT ([facility]i [facility]y [facility] of [facility]) Name Value Range Interpretation Code Description Data Ninoska rce(s) Supporting Document(s) Digoxin (Lanoxin) 1.3 MEDENT ([facility]) ID Date Data Source [id number] 04/12/2021 02:31:00 PM EDT MEDENT ([facility]i [facility]y [facility] of [facility]) Name Value Range Interpretation Code Description Data Ninoska rce(s) Supporting Document(s) Creatinine 0.99 0.55-1.30 [facility] ([facility] Glucose 95 70-100 [facility] ([facility] [place]) Blood Urea Nitrogen 21 7-18 MEDENT (Ca [facility]diology [facility] of [facility]) Potassium 4.2 3.5-5.1 [facility] ([facility] [place] Sodium 142 136-145 [facility] ([facility] [place]) Chloride 110 98-107 MED[facility] ([facility] [place]) Glomerular filtration rate/1.73 sq M.pre dicted [Volume Rate/Area] in Serum or Plasma by Creatinine-based formula (MDRD) 58.9 MEDENT ([facility]) Carbon Dioxide 26 21-32 MEDENT ([facility]iol [facility]gy [facility]) Calcium 9.3 8.2-9.6 [facility] ([facility] [place]) ID Date Data Source [id number] 04/09/2021 12:35:00 PM EDT MEDENT ([facility]) Name Value Range Interpretation Code Description Data Ninoska rce(s) Supporting Document(s) Natriuretic peptide.B prohormone N-Terminal [Mass/volu me] in Serum or Plasma 1166 MEDENT ([facility]) Magnesium Level 2.3 1.8-2.4 MEDENT ([facility]io [facility]y [facility]) Free T4 0.97 MED[facility] ([facility] Thyroid Stimulating Hormone 1.480 ME DENT ([facility]) ID Date Data Source [id number] 04/09/2021 12:35:00 PM EDT MEDENT ([facility]) Name Value Range Interpretation Code Description Data Ninoska rce(s) Supporting Document(s) White Blood Count 7.2 5.0-10.0 [facility] Red Blood Count 5.00 4.00-5.40 [facility] ([facility] Hemoglobin 15.2 MEDENT ([facility]) Hematocrit 46.7 MEDENT ([facility]) Platelets 216 172-450 MEDENT (Cardiology [facility]) ID Date Data Source [id number] 10/28/2020 11:30:00 AM EST MEDENT ([facility]) Name Value Range Interpretation Code Description Data Ninoska rce(s) Supporting Document(s) Hemoglobin A1c/Hemoglobin.total in Blood 5.5 MEDENT (Cardiology [facility]) ID Date Data Source [id number] 10/28/2020 11:30:00 AM EST MEDENT ([facility]) Name Value Range Interpretation Code Description Data Ninoska rce(s) Supporting Document(s) Alanine aminotransferase [Enzymatic activity/volume] in Serum or Pl asma 25 MEDENT ([facility]) Albumin [Mass/volume] in Serum or Plasma 4.0 MEDENT ([facility]) Carbon dioxide, total [Moles/volume] in Serum or Plasma 27 MEDENT ([facility]) Calcium [Mass/volume] in Serum or Plasma 10.2 MEDENT (Cardiology [facility]) Alkaline phosphatase [Enzymatic activity/volume] in Serum or [...] [facility]) ID Date Data Source [id number] 10/28/2020 11:30:00 AM EST MEDENT ([facility]i [facility]y [facility] of [facility]) Name Value Range Interpretation Code Description Data Ninoska rce(s) Supporting Document(s) Cholesterol 157 MEDENT ([facility]) Triglycerides 207 MEDENT ([facility]iolo gy [facility]) HDL 47 MEDENT ([facility]iology A [facility]) Cholesterol in LDL [Mass/volume] in Serum or Plasma by calculation 69 MEDENT ([facility]) Chol/HDL Ratio 3.340 MEDENT ([facility]iol [facility]gy [facility]) ID Date Data Source [id number] 10/28/2020 11:30:00 AM EST MEDENT ([facility]i [facility]) Name Value Range Interpretation Code Description Data Ninoska rce(s) Supporting Document(s) Magnesium Level 2.1 MEDENT ([facility]io [facility]y [facility]) ID Date Data Source MAGNESIUM LEVEL 10/28/2020 12:00:00 AM EST eCW1 (Counts include 234 beds at the [facility]) Name Value Range Interpretation Code Description Data Ninoska rce(s) Supporting Document(s) 2.1 1.8-2.4 MAGNESIUM LEVEL eCW1 ([facility]) ID Date Data Source VITAMIN D [id number] 10/28/2020 12:00:00 AM EST eCW1 ([facility]) Name Value Range Interpretation Code Description Data Ninoska rce(s) Supporting Document(s) 39.0 30.0-100.0 TOTAL 25(OH) VITAMIN D eC W1 ([facility]) ID Date Data Source LIPID PANEL (CARDIAC RISK) 10/28/2020 12:00:00 AM EST eCW1 ( [facility]) Name Value Range Interpretation Code Description Data Ninoska rce(s) Supporting Document(s) Triglyceride [Mass/volume] in Serum or Plasma by calculation 207 <150 TRIGLYCERIDES LEVEL eCW1 ([facility]) Cholesterol [Moles/volume] in Serum or Plasma 157 <200 CHOLESTEROL LEVEL eCW1 ([facility]) 110 NON-HDL-C eCW1 ([facility]) Cholesterol in LDL [Mass/volume] in Serum or Plasma by calculation 69 <100 LDL CHOLESTEROL eCW1 ([facility]) 3.340 <5 CHOLESTEROL RISK RATIO eCW1 ([facility]) Cholesterol in HDL [Moles/volume] in Serum or Plasma 47 >40 HDL CHOLESTEROL eCW1 ([facility]) ID Date Data Source [id number] 10/28/2020 12:00:00 AM EST eCW1 (Counts include 234 beds at the [facility]) Name Value Range Interpretation Code Description Data Ninoska rce(s) Supporting Document(s) Hemoglobin A1c/Hemoglobin.total in Blood 5.5 HEMOGLOBIN A1c eCW1 ([facility]) ID Date Data Source Comprehensive Metabolic Profile (CMP) 10/28/2020 12:00:00 AM EST eCW1 ([facility]) Name Value Range Interpretation Code Description Data Ninoska rce(s) Supporting Document(s) 89 70-100 GLUCOSE, FASTING eCW1 (Counts include 234 beds at the [facility]) 19 7-18 BLOOD UREA NITROGEN eCW1 ([facility]) 1.06 0.55-1.30 CREATININE FOR GFR eCW1 ([facility]) 141 136-145 SODIUM LEVEL eCW1 ([facility]) 54.4 >39 GLOMERULAR FILTRATION RATE eCW 1 ([facility]) 4.0 3.5-5.1 POTASSIUM SERUM eCW1 ([facility]) 27 21-32 CARBON DIOXIDE LEVEL eCW1 ([facility]) 10.2 8.8-10.2 CALCIUM LEVEL eCW1 ([facility]) 15 7-37 AST/SGOT eCW1 ([facility]) 110 98-107 CHLORIDE LEVEL eCW1 ([facility]) 61 45-117 ALKALINE PHOSPHATASE eCW1 ([facility]) 0.9 0.2-1.0 BILIRUBIN,TOTAL eCW1 ([facility]) 25 12-78 ALT/SGPT eCW1 ([facility]) 6.9 6.4-8.2 TOTAL PROTEIN eCW1 ([facility]) 1.4 1.2-2.2 ALBUMIN/GLOBULIN RATIO eCW1 ([facility]) 4.0 3.2-5.2 ALBUMIN eCW1 ([facility]) ID Date Data Source [id number] 08/12/2020 12:28:00 PM EDT [facility]) Name Value Range Interpretation Code Description Data Ninoska rce(s) Supporting Document(s) Laboratory test finding (navigational concept) Laboratory test result MEDENT ([facility]) ID Date Data Source [id number] 08/10/2020 12:46:00 PM EDT [facility] ([facility]) Name Value Range Interpretation Code Description Data Ninoska rce(s) Supporting Document(s) Surgical pathology study Laboratory test result MEDENT ([facility]) FINAL DIAGNOSIS A-Stomach, antrum, biopsy: Gastric mucosa [...] MD 08/11/2020 1159 ID Date Data Source [id number] 08/05/2020 12:00:00 PM EDT [facility] Name Value Range Interpretation Code Description Data Ninoska rce(s) Supporting Document(s) SARS coronavirus 2 RNA [facility] This lab was ordered by [facility] and reported by [facility]. Procedure Social History Code Duration Value Status Description Data Source(s ) Alcohol intake 09/15/2021 12:00:00 AM EDT Ex-drinker (finding) comp leted Ex- drinker (finding) [facility] Tobacco use and exposure 09/10/2021 12:00:00 AM EDT Never used co mpleted Never used [facility] Smoking 09/10/2021 12:00:00 AM EDT Never smoker completed Never s moker [facility] Alcohol intake 09/10/2021 12:00:00 AM EDT Ex-drinker (finding) comp leted Ex- drinker (finding) [facility] Smoking 09/09/2021 12:00:00 AM EDT Patient has never smoked co mpleted Patient has never smoked MEDENT ([facility] ) Smoking 07/29/2021 12:00:00 AM EDT Never Smoker completed Never S moker eCW1 ([facility]) Smoking 07/12/2021 12:00:00 AM EDT Patient has never smoked co mpleted Patient has never smoked MEDENT ([facility]) Smoking 06/22/2021 12:00:00 AM EDT Never Smoker completed Never S moker eCW1 ([facility]) Smoking 05/26/2021 12:00:00 AM EDT Never Smoker completed Never S moker eCW1 ([facility]) Smoking 04/21/2021 12:00:00 AM EDT Never Smoker completed Never S moker eCW1 ([facility]) Smoking 04/20/2021 12:00:00 AM EDT Never Smoker completed Never S moker eCW1 ([facility]) Smoking 04/02/2021 09:32:45 AM EDT Never smoked tobacco (findi ng) completed Never smoked tobacco (finding) MELINDA (Holly Hood MD [facility]) Smoking 10/28/2020 12:00:00 AM EST Never Smoker completed Never S moker eCW1 ([facility]) Smoking 10/28/2020 12:00:00 AM EST Never Smoker completed Never S moker eCW1 ([facility]) Smoking 10/28/2020 12:00:00 AM EST Never Smoker completed Never S moker eCW1 ([facility]) Vital Signs ID Date Data Source UNK Name Value Range Interpretation Code Description Data Source(s) Systolic blood pressure 121 mm[Hg] 121 mm[Hg] [facility] Diastolic blood pressure 81 mm[Hg] 81 mm[Hg] [facility] Heart rate 96 /min 96 /min [facility] Body temperature 36.78 Ginny 36.78 Ginny [facility] Respiratory rate 16 /min 16 /min [facility] Oxygen saturation in Arterial blood by Pulse oximetry 94 % 94 % [facility] Body weight 102.059 kg 102.059 kg [facility] Body height 160 cm 160 cm [facility] Body mass index (BMI) [Ratio] 39.86 kg/m2 39.86 kg/m2 [facility] Systolic blood pressure 130 mm[Hg] 130 mm[Hg] [facility] Diastolic blood pressure 77 mm[Hg] 77 mm[Hg] [facility] Heart rate 57 /min 57 /min [facility] Respiratory rate 18 /min 18 /min [facility] Oxygen saturation in Arterial blood by Pulse oximetry 99 % 99 % [facility] Body height 160 cm 160 cm [facility] Body weight 102.331 kg 102.331 kg [facility] Body mass index (BMI) [Ratio] 39.96 kg/m2 39.96 kg/m2 [facility] Body temperature 35.67 Ginny 35.67 Ginny [facility] Systolic blood pressure 126 mm[Hg] 126 mm[Hg] [facility] Diastolic blood pressure 72 mm[Hg] 72 mm[Hg] MEDENT ([facility], ) Heart rate 61 /min 61 /min MEDENT ([facility], ) Oxygen saturation in Arterial blood by Pulse oximetry 98 % 98 % MEDENT ([facility], ) Body height 63.50 [in_i] 63.50 [in_i] MEDENT ([facility], ) 5'3.50" [place] body weight 115 [lb_av] 115 [lb_av] MEDEN T ([facility], ) Systolic blood pressure 149 mm[Hg] 149 mm[Hg] M EDENT ([facility]) Diastolic blood pressure 86 mm[Hg] 86 mm[Hg] MEDENT ([facility]) Oxygen saturation in Arterial blood by Pulse oximetry 98 % 98 % MEDENT ([facility]) Heart rate 59 /min 59 /min MEDENT ([facility]) Body weight 223 [lb_av] 223 [lb_av] eCW1 ([facility]) Body height 63 [in_i] 63 [in_i] eCW1 (Counts include 234 beds at the [facility]) Body mass index (BMI) [Ratio] 39.5 kg/m2 39.5 k g/m2 eCW1 ([facility]) Systolic blood pressure 126 mm[Hg] 126 mm[Hg] e CW1 ([facility]) Diastolic blood pressure 80 mm[Hg] 80 mm[Hg] eCW1 ([facility]) Systolic blood pressure--sitting 12 mm[Hg] 12 mm[Hg] MEDENT ([facility]) Diastolic blood pressure--sitting 82 mm[Hg] 82 mm[Hg] MEDENT ([facility]) Body weight 220.00 [lb_av] 220.00 [lb_av] MEDEN T ([facility]) Body height 63 [in_i] 63 [in_i] MEDENT ([facility]i [facility]logy [facility]) 5'3" Body mass index (BMI) [Ratio] 39.0 kg/m2 39.0 k g/m2 MEDENT ([facility]) Systolic blood pressure 130 mm[Hg] 130 mm[Hg] M EDENT ([facility]) Diastolic blood pressure 80 mm[Hg] 80 mm[Hg] MEDENT ([facility]) Body weight 222.00 [lb_av] 222.00 [lb_av] MEDEN T ([facility]) Body height 63 [in_i] 63 [in_i] MEDENT ([facility] 5'3" Body mass index (BMI) [Ratio] 39.3 kg/m2 39.3 k g/m2 MEDENT ([facility]) Body surface area Derived from formula 2.02 m2 2.02 m2 MEDENT ([facility]) Body weight 220 [lb_av] 220 [lb_av] eCW1 ([facility]) Diastolic blood pressure 68 mm[Hg] 68 mm[Hg] eCW1 ([facility]) Body weight 99.79 kg 99.79 kg eCW1 (Counts include 234 beds at the [facility]) Body height 63 [in_i] 63 [in_i] eCW1 (Counts include 234 beds at the [facility]) Body mass index (BMI) [Ratio] 38.97 kg/m2 38.97 kg/m2 eCW1 ([facility]) Heart rate 76 /min 76 /min eCW1 ([facility]) Respiratory rate 18 /min 18 /min eCW1 ([facility]) Body temperature 96.9 [degF] 96.9 [degF] eCW1 ( [facility]) Systolic blood pressure 116 mm[Hg] 116 mm[Hg] e CW1 ([facility]) Body weight 217.8 [lb_av] 217.8 [lb_av] eCW1 ([facility]) Body height 63 [in_i] 63 [in_i] eCW1 (Counts include 234 beds at the [facility]) Body mass index (BMI) [Ratio] 38.58 kg/m2 38.58 kg/m2 eCW1 ([facility]) Heart rate 58 /min 58 /min eCW1 ([facility]) Respiratory rate 18 /min 18 /min eCW1 ([facility]) Body temperature 98.2 [degF] 98.2 [degF] eCW1 ( [facility]) Systolic blood pressure 134 mm[Hg] 134 mm[Hg] e CW1 ([facility]) Diastolic blood pressure 80 mm[Hg] 80 mm[Hg] eCW1 ([facility]) Body mass index (BMI) [Ratio] 39.3 kg/m2 39.3 k g/m2 MEDENT ([facility]) Systolic blood pressure--sitting 145 mm[Hg] 145 mm[Hg] MEDENT ([facility]) CBP, large cuff/Ra Body weight 222.00 [lb_av] 222.00 [lb_av] MEDEN T ([facility]) Body height 63 [in_i] 63 [in_i] MEDENT ([facility]i [facility]y [facility]) 5'3" Heart rate 56 /min 56 /min MEDENT ([facility]io [facility]) Diastolic blood pressure--sitting 85 mm[Hg] 85 mm[Hg] MEDENT ([facility]) CBP, large cuff/Ra Body mass index (BMI) [Ratio] 39.2 kg/m2 39.2 k g/m2 MEDENT ([facility], ) Body height 63.50 [in_i] 63.50 [in_i] MEDENT ([facility], ) 5'3.50" Body weight 225.00 [lb_av] 225.00 [lb_av] MEDEN T ([facility], ) [place] body weight 115 [lb_av] 115 [lb_av] MEDEN T ([facility], ) Body weight 102.060 kg 102.060 kg MEDENT ([facility], ) Body surface area Derived from formula 2.04 m2 2.04 m2 MEDENT ([facility], ) Systolic blood pressure 142 mm[Hg] 142 mm[Hg] M EDENT ([facility], ) Diastolic blood pressure 86 mm[Hg] 86 mm[Hg] MEDENT ([facility], ) Body height 63.50 [in_i] 63.50 [in_i] MEDENT ([facility], ) 5'3.50" Body weight 225.00 [lb_av] 225.00 [lb_av] MEDEN T ([facility]) Body mass index (BMI) [Ratio] 39.2 kg/m2 39.2 k g/m2 [facility] ([facility]) [place] body weight 115 [lb_av] 115 [lb_av] MEDEN T ([facility]) Body weight 102.[address] [facility] Body surface area Derived from formula 2.[address] [facility] ([facility]) Oxygen saturation in Arterial blood by Pulse oximetry 97 % 97 % [facility] ([facility]) [place] body weight 115 [lb_av] 115 [lb_av] MEDEN T ([facility]) Body surface area Derived from formula 2.[address] [facility] ([facility]) Heart rate 62 /min 62 /min [facility] ([facility]) Body temperature 97.4 [degF] 97.4 [degF] [facility] ([facility]) Body height 63.50 [in_i] 63.50 [in_i] [facility] ([facility]) 5'3.50" Body weight 222.50 [lb_av] 222.50 [lb_av] MEDEN T ([facility]) Systolic blood pressure 126 mm[Hg] 126 mm[Hg] [facility] Diastolic blood pressure 72 mm[Hg] 72 mm[Hg] [facility] ([facility]) Body mass index (BMI) [Ratio] 38.8 kg/m2 38.8 k g/m2 [facility] ([facility]) Body weight 100.[address] [facility] Body weight 222.2 [lb_av] 222.2 [lb_av] eCW1 ([facility]) Body height 63 [in_i] 63 [in_i] eCW1 (Counts include 234 beds at the [facility]) Body mass index (BMI) [Ratio] 39.36 kg/m2 39.36 kg/m2 eCW1 ([facility]) Heart rate 60 /min 60 /min eCW1 ([facility]) Respiratory rate 18 /min 18 /min eCW1 ([facility]) Body temperature 98.6 [degF] 98.6 [degF] eCW1 ( [facility]) Systolic blood pressure 158 mm[Hg] 158 mm[Hg] e CW1 ([facility]) Diastolic blood pressure 98 mm[Hg] 98 mm[Hg] eCW1 ([facility]) Systolic blood pressure--sitting 133 mm[Hg] 133 mm[Hg] MEDENT ([facility]) CBP, large cuff/Ra Body weight 221.00 [lb_av] 221.00 [lb_av] MEDEN T ([facility]) Body height 63 [in_i] 63 [in_i] MEDENT ([facility]i [facility]) 5'3" Body mass index (BMI) [Ratio] 39.1 kg/m2 39.1 k g/m2 MEDENT ([facility]) Heart rate 61 /min 61 /min MEDENT ([facility]io [facility]) Diastolic blood pressure--sitting 82 mm[Hg] 82 mm[Hg] MEDENT ([facility]) CBP, large cuff/Ra Body temperature 96.9 [degF] 96.9 [degF] [facility] ([facility] Respiratory rate 17 /min 17 /min MED[facility] ( [facility]) Body weight 220.00 [lb_av] 220.00 [lb_av] MEDEN T ([facility]) Body weight 220.00 [lb_av] 220.00 [lb_av] MEDEN T ([facility]) Body temperature 96.9 [degF] 96.9 [degF] MEDENT ([facility]) Respiratory rate 17 /min 17 /min MED[facility] ( [facility]) Body height 63 [in_i] 63 [in_i] MEDENT ([facility]i [facility]) 5'3" Systolic blood pressure--sitting 118 mm[Hg] 118 mm[Hg] MEDENT ([facility]) Ra, medium cuff Diastolic blood pressure--sitting 70 mm[Hg] 70 mm[Hg] MEDENT ([facility]) Ra, medium cuff Body weight 220.00 [lb_av] 220.00 [lb_av] MEDEN T ([facility]) Body mass index (BMI) [Ratio] 39.0 kg/m2 39.0 k g/m2 MEDENT ([facility]) Heart rate 56 /min 56 /min MEDENT ([facility]io [facility]) Systolic blood pressure 128 mm[Hg] 128 mm[Hg] M EDENT ([facility]) Diastolic blood pressure 84 mm[Hg] 84 mm[Hg] MEDENT ([facility]) Body height 63.50 [in_i] 63.50 [[facility]_i] [facility] 5'3.50" Body weight 220.00 [lb_av] 220.00 [lb_av] MEDEN T ([facility]) Body mass index (BMI) [Ratio] 38.4 kg/m2 38.4 k g/m2 [facility] [place] body weight 115 [lb_av] 115 [lb_av] MEDEN T ([facility]) Body weight 99.[address] [facility] Body surface area Derived from formula 2.[address] [facility] [facility] Body weight 220 [lb_av] 220 [lb_av] eCW1 ([facility]) Body height 63 [in_i] 63 [in_i] eCW1 (Counts include 234 beds at the [facility]) Body mass index (BMI) [Ratio] 38.97 kg/m2 38.97 kg/m2 e[facility] Heart rate 70 /min 70 /min eCW1 ([facility]) Respiratory rate 18 /min 18 /min eCW1 ([facility]) Body temperature 98.6 [degF] 98.6 [degF] eCW1 ( [facility]) Systolic blood pressure 138 mm[Hg] 138 mm[Hg] e CW1 ([facility]) Diastolic blood pressure 82 mm[Hg] 82 mm[Hg] eCW1 ([facility]) Diastolic blood pressure 82 mm[Hg] 82 mm[Hg] [facility] ([facility]) Systolic blood pressure 118 mm[Hg] 118 mm[Hg] [facility] ([facility]) Body height 63.50 [in_i] 63.50 [in_i] [facility] ([facility]) 5'3.50" Body weight 219.00 [lb_av] 219.00 [lb_av] [facility] ([facility]) Body mass index (BMI) [Ratio] 38.2 kg/m2 38.2 k g/m2 [facility] ([facility]) [place] body weight 115 [lb_av] 115 [lb_av] [facility] Body weight 99.[address] [facility] Body surface area Derived from formula 2.[address] [facility] ([facility]) Body temperature 97.5 [degF] 97.5 [degF] [facility] ([facility]) Systolic blood pressure 140 mm[Hg] 140 mm[Hg] [facility] ([facility]) Diastolic blood pressure 80 mm[Hg] 80 mm[Hg] [facility] ([facility]) Systolic blood pressure 138 mm[Hg] 138 mm[Hg] [facility] ([facility]) Diastolic blood pressure 84 mm[Hg] 84 mm[Hg] [facility] ([facility]) Heart rate 59 /min 59 /min [facility] ([facility]) Oxygen saturation in Arterial blood by Pulse oximetry 97 % 97 % [facility] ([facility]) Body temperature 97.4 [degF] 97.4 [degF] [facility] ([facility]) Body height 63.50 [in_i] 63.50 [in_i] [facility] ([facility]) 5'3.50" Body weight 214.50 [lb_av] 214.50 [lb_av] [facility] Body mass index (BMI) [Ratio] 37.4 kg/m2 37.4 k g/m2 [facility] ([facility]) [place] body weight 115 [lb_av] 115 [lb_av] [facility] Body weight 97.[address] [facility] Systolic blood pressure 163 mm[Hg] 163 mm[Hg] [facility] ([facility]) Diastolic blood pressure 93 mm[Hg] 93 mm[Hg] [facility] ([facility]) Body height 63.50 [in_i] 63.50 [in_i] [facility] ([facility]) 5'3.50" Body weight 214.00 [lb_av] 214.00 [lb_av] [facility] ([facility]) Body mass index (BMI) [Ratio] 37.3 kg/m2 37.3 k g/m2 [facility] ([facility]) Body weight 97.[address] [facility] Patient Treatment Plan of Care Planned Activity Planned Date Details Description Data Source (s) Magnesium Chloride 0.91074 MEQ/ML / Pota ssium Chloride 0.0497 MEQ/ML / Sodium Acetate 0.0163 MEQ/ML / Sodium Chloride 0.0899 MEQ/ML / Sodium gluconate 5.02 MG/ML Injectable Solution [Normosol-R] 09/15/2021 04:00:00 PM EDT [facility] HYDROmorphone (DILAUDID) injection 0.5 mg 09/15/2021 03:01:03 PM ED T [facility] labetalol (NORMODYNE,TRANDATE) injection 5 mg 09/15/2021 03:01:03 P M EDT [facility] ondansetron (ZOFRAN) injection 4 mg 09/15/2021 02:51:28 PM EDT [facility] normal saline flush 0.9 % injection 3 mL 09/15/2021 10:00:00 AM EDT [facility] normal saline flush 0.9 % injection 3 mL 09/15/2021 10:00:00 AM EDT [facility]
[2021-10-03 12:05] LABS: BASO % 0.3 % (0.0-1.0); EOS # 0.1 10^3/uL (0.0-0.5); EOS % 1.6 % (0.0-3.0); HEMATOCRIT 42.7 % (36.0-47.0); HEMOGLOBIN 13.9 g/dl (12.0-15.5); LYMPH # 1.7 10^3/uL (1.5-5.0); LYMPH % 26.8 % (24.0-44.0); MEAN CORPUSCULAR HEMOGLOBIN 30.4 pg (27.0-33.0); MEAN CORPUSCULAR HGB CONC 32.6 g/dl (32.0-36.5); MEAN CORPUSCULAR VOLUME 93.4 fl (80.0-96.0); MONO # 0.5 10^3/uL (0.0-0.8); MONO % 7.6 % (2.0-8.0); NEUTROPHILS # 3.9 10^3/uL (1.5-8.5); NEUTROPHILS % 63.2 % (36.0-66.0); PLATELET COUNT, AUTOMATED 205 10^3/uL (150-450); RED BLOOD COUNT 4.57 10^6/uL (4.00-5.40); WHITE BLOOD COUNT 6.2 10^3/uL (4.0-10.0)
--- NOTE | 2021-10-03 12:35 | REP ---
INDICATION: CHEST PAIN. COMPARISON: Portable chest 09/30/2021. TECHNIQUE: Upright AP portable chest image was obtained. FINDINGS: There is chronic elevation of the right hemidiaphragm. There is thickening of the horizontal inter lobar fissure on the right. The left lung is clear. There is cardiomegaly without congestive heart failure. There is calcific vascular disease of the thoracic aorta. There is a loop recorder projected over the left heart. The upper abdomen is unremarkable. There are no bony abnormalities. IMPRESSION: 1. Cardiomegaly without congestive heart failure. 2. Chronic elevation of the right hemidiaphragm and thickening of the right horizontal interlobar fissure. No significant change. <Electronically signed by Panchito Anton > 10/03/21 1347
[2021-10-03] MEDS: METOPROLOL 5 MG/5 ML VIAL IV SCH ×3 (12:45→13:52)
[2021-10-03 12:46] LABS: CALCIUM LEVEL 10.2 MG/DL (8.8-10.2); CK-MB VALUE MASS 2.5 NG/ML (<3.6); CREATININE FOR GFR 1.11 MG/DL (0.55-1.30); DIGOXIN LEVEL 1.1 NG/ML (0.5-2.0); FREE T4 1.06 NG/DL (0.76-1.46); GLOMERULAR FILTRATION RATE 51.4 (>39); MB/CK RELATIVE INDEX 3.47 (< OR =4); PHOSPHORUS LEVEL 2.5 MG/DL (2.5-4.9); POTASSIUM SERUM 4.2 MEQ/L (3.5-5.1); THYROID STIMULATING HORMONE 1.32 uIU/ML (0.358-3.740); TROPONIN I 0.06 NG/ML (< 0.10)
--- OUTSIDE RECORDS SUMMARY | 2021-10-03 12:48 | CCD ---
Author Author [facility] Organization [facility] Address Unknown Phone Unavailable Care Team Providers Care Analytical Clerk Name Role Phone Rahul Harrington MD Unavailable [...] KOSTIV, VU Unavailable Unavailable Waller, A Phyl CORRECTIONAL MAINTENANCE TECHNICIAN-BC Unavailable Unavailable Waller, A Phyl CORRECTIONAL MAINTENANCE TECHNICIAN-BC Unavailable Unavailable Waller, A Phyl CORRECTIONAL MAINTENANCE TECHNICIAN-BC Unavailable Unavailable Waller, A Phyl CORRECTIONAL MAINTENANCE TECHNICIAN-BC Unavailable Unavailable Waller, A Phyl CORRECTIONAL MAINTENANCE TECHNICIAN-BC Unavailable Unavailable Waller, A Phyl CORRECTIONAL MAINTENANCE TECHNICIAN-BC Unavailable Unavailable Waller, A Phyl CORRECTIONAL MAINTENANCE TECHNICIAN-BC Unavailable Unavailable Waller, A Phyl CORRECTIONAL MAINTENANCE TECHNICIAN-BC Unavailable Unavailable Waller, A Phyl CORRECTIONAL MAINTENANCE TECHNICIAN-BC Unavailable Unavailable Waller, A Phyl CORRECTIONAL MAINTENANCE TECHNICIAN-BC Unavailable Unavailable Waller, A Phyl CORRECTIONAL MAINTENANCE TECHNICIAN-BC Unavailable Unavailable Waller, A Phyl CORRECTIONAL MAINTENANCE TECHNICIAN-BC Unavailable Unavailable Waller, A Phyl CORRECTIONAL MAINTENANCE TECHNICIAN-BC Unavailable Unavailable Waller, A Phyl CORRECTIONAL MAINTENANCE TECHNICIAN-BC Unavailable Unavailable Waller, A Phyl CORRECTIONAL MAINTENANCE TECHNICIAN-BC Unavailable Unavailable Waller, A Phyl CORRECTIONAL MAINTENANCE TECHNICIAN-BC Unavailable Unavailable Waller, A Phyl CORRECTIONAL MAINTENANCE TECHNICIAN-BC Unavailable Unavailable Waller, A Phyl CORRECTIONAL MAINTENANCE TECHNICIAN-BC Unavailable Unavailable Waller, A Phyl CORRECTIONAL MAINTENANCE TECHNICIAN-BC Unavailable Unavailable Waller, A Phyl CORRECTIONAL MAINTENANCE TECHNICIAN-BC Unavailable Unavailable Waller, A Phyl CORRECTIONAL MAINTENANCE TECHNICIAN-BC Unavailable Unavailable Waller, A Phyl CORRECTIONAL MAINTENANCE TECHNICIAN-BC Unavailable Unavailable Waller, A Phyl CORRECTIONAL MAINTENANCE TECHNICIAN-BC Unavailable Unavailable Waller, A Phyl CORRECTIONAL MAINTENANCE TECHNICIAN-BC Unavailable Unavailable Waller, A Phyl CORRECTIONAL MAINTENANCE TECHNICIAN-BC Unavailable Unavailable Waller, A Phyl CORRECTIONAL MAINTENANCE TECHNICIAN-BC Unavailable Unavailable Waller, A Phyl CORRECTIONAL MAINTENANCE TECHNICIAN-BC Unavailable Unavailable Waller, A Phyl CORRECTIONAL MAINTENANCE TECHNICIAN-BC Unavailable Unavailable Waller, A Phyl CORRECTIONAL MAINTENANCE TECHNICIAN-BC Unavailable Unavailable Waller, A Phyl CORRECTIONAL MAINTENANCE TECHNICIAN-BC Unavailable Unavailable Waller, A Phyl CORRECTIONAL MAINTENANCE TECHNICIAN-BC Unavailable Unavailable Waller, A Phyl CORRECTIONAL MAINTENANCE TECHNICIAN-BC Unavailable Unavailable Hegard, Herminia CORRECTIONAL MAINTENANCE TECHNICIAN Unavailable Unavailable Hegard, Herminia CORRECTIONAL MAINTENANCE TECHNICIAN Unavailable Unavailable Hegard, Herminia CORRECTIONAL MAINTENANCE TECHNICIAN Unavailable Unavailable Hegard, Herminia CORRECTIONAL MAINTENANCE TECHNICIAN Unavailable Unavailable Hegard, Herminia CORRECTIONAL MAINTENANCE TECHNICIAN Unavailable Unavailable Hegard, Herminia CORRECTIONAL MAINTENANCE TECHNICIAN Unavailable Unavailable Hegard, Herminia CORRECTIONAL MAINTENANCE TECHNICIAN Unavailable Unavailable Hegard, Herminia CORRECTIONAL MAINTENANCE TECHNICIAN Unavailable Unavailable Hegard, Herminia CORRECTIONAL MAINTENANCE TECHNICIAN Unavailable Unavailable Hegard, Herminia CORRECTIONAL MAINTENANCE TECHNICIAN Unavailable Unavailable Hegard, Herminia CORRECTIONAL MAINTENANCE TECHNICIAN Unavailable Unavailable Hegard, Herminia CORRECTIONAL MAINTENANCE TECHNICIAN Unavailable Unavailable Hegard, Herminia CORRECTIONAL MAINTENANCE TECHNICIAN Unavailable Unavailable Hegard, Herminia CORRECTIONAL MAINTENANCE TECHNICIAN Unavailable Unavailable Hegard, Herminia CORRECTIONAL MAINTENANCE TECHNICIAN Unavailable Unavailable Hegard, Herminia CORRECTIONAL MAINTENANCE TECHNICIAN Unavailable Unavailable Hegard, Herminia CORRECTIONAL MAINTENANCE TECHNICIAN Unavailable Unavailable Re-disclosure Warning The records that [...] by Article 27-F of the [facility] Public Health law. If you continue you may have access to information: Regarding HIV / AIDS; Provided by facilities licensed or operated by the [facility] Office of Mental Health; or Provided by the [facility] Office for People With Developmental Disabilities. If such information is present, then the following [facility] mandated warning applies: This information has [...] law may result in a fine or snf sentence or both. A general authorization for the release of medical or other information is NOT sufficient authorization for further disc losure. Allergies and Adverse Reactions Type Description Substance Reaction Status Data Source(s ) Propensity to adverse reactions TOPIRAMATE topiramate Acti ve [facility] Propensity to adverse reactions OXYCODONE Oxycodone Acti ve [facility] Propensity to adverse reactions INDAPAMIDE Indapamide Palpitations Lo w Active [facility] Low Propensity to adverse reactions DIGOXIN AND RELATED Digoxin And Rel ated Active [facility] Propensity to adverse reactions CARVEDILOL carvedilol Palpitations Lo w Active [facility] Low Propensity to adverse reactions ADHESIVE TAPE Adhesive Tape Itching Low Rash Low [facility] Low Low Propensity to adverse reactions TETRACYCLINES & RELATED TETRACYC LINES & RELATED Rash [facility] Propensity to adverse reactions SULFA ANTIBIOTICS SULFA ANTIBIOTICS R tracy [facility] Propensity to adverse reactions PENICILLINS Penicillin Rash [facility] Propensity to adverse reactions AMOXICILLIN Amoxicillin Rash [facility] Propensity to adverse reactions OXYCODONE OXYCODONE [facility] Propensity to adverse reactions INDAPAMIDE INDAPAMIDE [facility] Propensity to adverse reactions CARVEDILOL CARVEDILOL [facility] Propensity to adverse reactions DIGOXIN AND RELATED DIGOXIN AND RELAT ED [facility] Substance/Environmental Agent Allergy Substance/Environmenta l Agent Allergy tizanidine [facility] Substance/Environmental Agent Allergy Substance/Environmenta l Agent Allergy cyclobenzaprine [facility] Family History Family Member Name Family Member Gender Family Member Status Date o f Status Description Data Source(s) Unknown Unknown Problem [facility] Unknown Unknown Problem [facility] Unknown Unknown Problem [facility] Encounters Encounter Providers Location Date Indications Data Source(s ) Outpatient Attender: Bijan Harrington MD Admitter: Bijan Harrington MDReferrer: VU DUARTE [email or web address] 09/15/2021 09:01:00 AM EDT - 09/15/2021 07:43:00 PM EDT [facility] Patient discharged. Outpatient Attender: Bijan Harrington MDReferrer: Bijan KEYS.PAT 09/10/2021 09:20:53 AM EDT - 09/10/2021 10:38:57 AM EDT [facility] Outpatient Referrer: Bijan KEYS.PAT 09:01:13 AM EDT - 09/10/2021 09:01:22 AM EDT [facility] Outpatient Attender: Sarah Thornton/Oliver/Antonino/Josh ndl 09/09/2021 11:00:00 AM EDT [facility] ([facility] Outpatient Attender: Herminia MANZANARESP Main Office 1 09:45:00 AM EDT [facility] ([facility]) Outpatient Attender: FREDDIE ALANIZ PA Main Office 08/23/2021 1 1:30:00 AM EDT [facility] ([facility]) ( GYNANN) [facility] 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 [address] [place] [address] 07/29/2021 12:00:00 AM EDT eCW1 ([facility]) Outpatient Referrer: Bijan Harrington MD 07/13/2021 02:57:2 0 PM EDT [facility] Outpatient Referrer: Bijan Harrington MD 07/13/2021 02:13:5 2 PM EDT [facility] Outpatient Attender: FREDDIE RESENDIZ Main Office 07/12/2021 0 9:45:00 AM EDT [facility] ([facility]) Outpatient Attender: GLORIA LINDER MD 06/29/2021 01:30: 00 PM [facility] Outpatient Attender: Bijan Harrington MD [facility] Cardiology Asso ciates 06/28/2021 11:15:00 AM EDT [facility] ([facility] Cardiac Catheter ization [facility]) Office Visit, Est Pt., Level 3 PC [address] [place] [address] 06/22/2021 12:00:00 AM EDT eCW1 ([facility]) [place] [address] [facility] [address] 05/26/2021 12:00:00 AM EDT eCW1 ([facility]) Outpatient Attender: HOLLY HUBER MD Main Office 05/18/2021 09:00:00 AM EDT [facility] ([facility]) Outpatient Attender: Carol Thornton/Oliver/Millie velázquez/Janusz 05/10/2021 11:15:00 AM EDT [facility] ([facility] Outpatient Attender: Sarah Thornton/Oliver/Antonino/Josh ndl 04/29/2021 09:30:00 AM EDT [facility] ([facility] [place] [address] [facility] [address] 04/21/2021 12:00:00 AM EDT eCW1 ([facility]) OFFICE OUTPATIENT VISIT 40 MINUTES Attender: HOLLY HUBER MD Ma in Office 04/14/2021 01:30:00 PM EDT [facility]) Unknown [address] [facility] [address] 04/12/2021 12:00:00 AM EDT eCW1 ([facility]) <td ID="encounterTypeDescriptionID0">2 Y ear Follow-Up</td><td>Holly Hood MD, FACS</td><td>Holly Warren MD [facility]</td><td>04/02/2021</td><td>8:53AM</td><td>9:32AM</td><td><content ID="encounterDiagnosisID0-0">Cataract Senile Nuclear</content>, <content ID="encounterDiagnosisID0-1">Essential Hypertension</content>, <content ID="encounterDiagnosisID0-2">Retinopathy Hypertensive Both Eyes</content>, <content ID="encounterDiagnosisID0-3">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</content>, <content ID="encounterDiagnosisID0-4">Borderline 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</content></td>Outpatient Attender: Holly Hood MD, FACS Holly Warren MD [facility] 04/02/2021 08:53:0 0 AM EDT - 04/02/2021 09:32:00 AM EDT Essential HypertensionCataract Senile NuclearBorderline 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Retinopathy Hypertensive Both Eyes MELINDA (Holly Hood MD [facility]) Essential Hypertension Cataract Senile Nuclear Borderline Glaucoma Open Angle with Bord cuba Findings Both Eyes Peripheral Retinal Degeneration Paving S tone Both Eyes Retinopathy Hypertensive Both Eyes Unknown [address] [facility] [address] 03/26/2021 12:00:00 AM EDT eCW1 ([facility]) Outpatient Attender: Ynes Waller [facility] Main Office 0 02/08/2021 01:45:00 PM EDT [facility] ([facility]) Outpatient Attender: FREDDIE RESENDIZ Main Office 01/11/2021 0 8:45:00 AM EST [facility] ([facility]) Unknown [address] [facility] [address] 12/21/2020 12:00:00 AM EST eCW1 ([facility]) Outpatient Attender: Carol Garza Norberto/[place]/A ngel/Reindl 11/09/2020 08:00:00 AM EST [facility] [place] [address] [facility] [address] 10/28/2020 12:00:00 AM EST eCW1 ([facility]) Outpatient Attender: Carol Loraang/[place]/A ngel/Reindl 09/08/2020 11:15:00 AM EDT [facility] ([facility] ) Outpatient Attender: Sarah Thornton/[place]/Antonino/Josh ndl 08/06/2020 11:00:00 AM EDT [facility] ([facility], ) Outpatient Attender: Jerri Thornton/[place]/Antonino/R eindl 08/04/2020 10:45:00 AM EDT [facility] ([facility]hang, ) Immunizations Vaccine Date Status Description Data Source(s) COVID-19 VACCINE Moderna 09/21/2021 12:00:00 AM EDT completed [facility] Vaccine Series Complete: YESThis Data wa s Submitted to [facility] Via [employer]. COVID-19 VACCINE Moderna 01/30/2021 12:00:00 AM EST completed [facility] Vaccine Series Complete: YESThis Data wa s Submitted to [facility] Via [employer]. COVID-19 VACCINE Moderna 01/01/2021 12:00:00 AM EST completed [facility] Vaccine Series Complete: NOThis Data was Submitted to [facility] Via [employer]. Tdap 10/28/2020 11:41:00 AM EST completed e CW1 ([facility]) Tdap 10/28/2020 11:41:00 AM EST completed e CW1 ([facility]) Tdap 10/28/2020 11:41:00 AM EST completed e CW1 ([facility]) Tdap 10/28/2020 11:41:00 AM EST completed e CW1 ([facility]) Tdap 10/28/2020 11:41:00 AM EST completed e CW1 ([facility]) Tdap 10/28/2020 11:41:00 AM EST completed e CW1 ([facility]) Tdap 10/28/2020 11:41:00 AM EST completed e CW1 ([facility]) Tdap 10/28/2020 11:41:00 AM EST completed e CW1 ([facility]) Medications Medication Brand Name Start Date Product Form Dose Route Admi nistrative Instructions Pharmacy Instructions Status Indications Reaction Description Data Source(s) Magnesium Chloride 0.53093 MEQ/ML / Pota ssium Chloride 0.0497 MEQ/ML / Sodium Acetate 0.0163 MEQ/ML / Sodium Chloride 0.0899 MEQ/ML / Sodium gluconate 5.02 MG/ML Injectable Solution [Normosol-R] electrolyte-R (NORMOSOL-R/PLASMALYTE-R) solution 1,000 mL electrolyte-R (NORMOSOL-R/PLASMALYTE-R) solution 1,000 mL 09/15/2021 04:00:00 PM EDT 1000 mL Intravenous active at 100 mL/hr, 1,000 mL, Intravenous, Continuous, Starting on Mon09/15/21 at 1600, PACU (only) [facility] Medication administered onsite labetalol (NORMODYNE,TRANDATE) injection 5 mg [id number] 09/15/2021 03:01:03 PM EDT 5 mg Intravenous active 5 mg , Intravenous, Every 5 min PRN, high blood pressure, for SBP greater than 160, Starting on Mon09/15/21 at 1501, For 4 doses, PACU (only)
Max of 20 MG, hold for HR less than 60
[facility] Medication administered onsite HYDROmorphone (DILAUDID) injection 0.5 mg [id number] 09/15/2021 03:01:03 PM EDT 0.5 mg Intravenous active 0.5 mg, Intravenous, Every 5 min PRN, severe pain (7-10), Starting on Mon09/15/21 at 1501, For 2 doses, PACU (only) [facility] Medication administered onsite fentaNYL Citrate (PF) (SUBLIMAZE) injection 25 mcg [id number] 09/15/2021 03:01:03 PM EDT 25 ug Intravenous active Postoperativ e Pain 25 mcg, Intravenous, Every 5 min PRN, moderate pain (4 to 6), Starting on Mon09/15/21 at 1501, For 11 doses, PACU (only) [facility] Postoperative Pain Medication administered onsite Albuterol 0.83 MG/ML Inhalant Solution a lbuterol (PROVENTIL) nebulizer solution 2.5 mg albuterol (PROVENTIL) nebulizer solution 2.5 mg 2020 03:01:02 PM EDT 2.5 mg completed 2.5 mg , Nebulization, Once as needed, wheezing, Starting on Mon09/15/21 at 1501, For 1 dose, PACU (only) [facility] Medication administered onsite ondansetron (ZOFRAN) injection 4 mg [id number] 09/15/2021 02:51:2 8 PM EDT 4 mg Intravenous active 4 mg, In travenous, Every 8 hours PRN, nausea, vomiting, Starting on Mon09/15/21 at 1451, Post-op [facility] Medication administered onsite Acetaminophen 325 MG Oral Tablet acetaminophen (TYLENO L) 325 MG tablet 650 mg acetaminophen (TYLENOL) 325 MG tablet 650 mg 09/15/2021 02:51:28 PM EDT 650 mg Oral active 650 mg, Or al, Every 6 hours PRN, mild pain (1-3), Starting on Mon09/15/21 at 1451, Post-op
"Maximum dose of acetaminophen is 4,000 mg from all sources in 24 hours."
[facility] Medication administered onsite protamine injection [id number] 09/15/2021 02:13:57 PM EDT active As needed, Starting on Mon09/15/21 at 1413, Intra-Pro cedure [facility] Medication administered onsite 1 ML heparin sodium, porcine 1000 UNT/ML Injection hep tia (porcine) injection heparin (porcine) injection 09/15/2021 01:18:30 PM EDT active As needed, Starting on Mon09/15/21 at 1318, Intra-Procedure [facility] Medication administered onsite normal saline flush 0.9 % injection 3 mL [id number] 09/15/2021 10:00:00 AM EDT 3 mL Intravenous active 3 mL , Intravenous, Every 8 hours (scheduled), First dose on Mon09/15/21 at 1000, Pre-op
Rapid push positive pressure flushing shall be performed with a 10 cc normal saline syringe to check the PATENCY of a PIV site prior to any infusion therapy initiation unless resistance is met.
[facility] Medication administered onsite normal saline flush 0.9 % injection 3 mL [id number] 09/15/2021 10:00:00 AM EDT 3 mL Intravenous active 3 mL , Intravenous, Every 8 hours (scheduled), First dose on Mon09/15/21 at 1000, Pre-op
Rapid push positive pressure flushing shall be performed with a 10 cc normal saline syringe to check the PATENCY of a PIV site prior to any infusion therapy initiation unless resistance is met.
[facility] Medication administered onsite Rosuvastatin calcium 40 MG Oral Tablet Rosuvastatin Calcium 07/09/2021 12:00:00 AM EDT ORAL active [facility] ([facility]) Cequa Cequa 07/01/2021 12:00:00 AM EDT active [facility] ([facility]) valsartan 80 MG Oral Tablet Valsartan 05/18/2021 12:00:00 AM EDT ORAL active [facility] ([facility]) Atenolol 25 MG Oral Tablet Atenolol 05/18/2021 12:00:00 AM EDT ORAL active [facility] ([facility]) Atenolol 25 MG Oral Tablet Atenolol 05/17/2021 12:00:00 AM EDT ORAL completed [facility] ([facility]) 12 HR Guaifenesin 600 MG Extended Release Oral Tablet [Mucin ex] Mucinex 04/29/2021 12:00:00 AM EDT ORAL completed [facility] ([facility], ) Amiodarone hydrochloride 200 MG Oral Tablet Amiodarone HCL 04/14/2021 12:00:00 AM EDT ORAL completed [facility] ([facility]) Digoxin 0.25 MG Oral Tablet Digoxin 250 MCG Digoxin 250 MCG 04/14/2021 12:00:00 AM EDT 0.5 {tablet} active Digoxin 250 MCG eCW1 ([facility]) Calcium Carbonate 500 MG Chewable Tablet Calcium Antacid 04/13/2021 12:00:00 AM EDT active [facility] ([facility]) Metronidazole 7.5 MG/ML Topical Cream Metronidazole 04/13/2021 12:00:00 AM EDT active [facility] ( [facility]) Cranberry 04/13/2021 12:00:00 AM EDT ORAL complete d [facility] ([facility]) Acetaminophen 325 MG Oral Tablet Acetaminophen 04/13/2021 12:00:00 AM EDT active [facility] ([facility]) Digoxin 0.25 MG Oral Tablet [Digox] Digox 04/11/2021 12:00:00 AM EDT ORAL completed [facility] ([facility]) Cyclosporine 0.5 MG/ML Ophthalmic Suspen bere [Restasis] Restasis 0.05% Ophthalmic Emulsion Restasis 0.05% Ophthalmic Emulsion 04/02/2021 12:00:00 AM EDT 1 active cyclospo rine 0.5 MG/ML Ophthalmic Suspension [Restasis] MELINDA (Holly Hood MD [facility]) modafinil 100 MG Oral Tablet Modafinil 02/05/2021 12:00:00 AM EDT completed [facility] ([facility] ) Covid-19 vaccine, Unspecified 01/30/2021 12:00:00 AM EST completed [facility] ([facility], ) Medication administered onsite 12 HR Hyoscyamine Sulfate 0.375 MG Extended Release Or al Tablet Hyoscyamine Sulfate ER 01/10/2021 12:00:00 AM EST ORAL active [facility] ([facility]) Fluticasone Propionate Fluticasone Propionate 01/10/2021 12:00:[address] active [facility] ([facility]) Cyclosporine 0.5 MG/ML Ophthalmic Suspension [Restasis] Rest asis 01/10/2021 12:00:00 AM EST OPHTHALMIC completed [facility] ([facility]) WHEAT DEXTRIN 3500 MG Oral Powder [Benefiber] Benefiber 01/10/2021 12:00:00 AM EST ORAL active [facility] ([facility]) Covid-19 vaccine, Unspecified 01/02/2021 12:00:00 AM EST completed [facility] ([facility], ) Medication administered onsite Sucralfate 1000 MG Oral Tablet Sucralfate 08/10/2020 12:00:00 AM EDT ORAL completed [facility] ([facility], ) Insurance Providers Payer name Policy type / Coverage type Policy ID Covered constitution party ID Covered constitution party's relationship to wilson Policy Wilson Plan Information [id number] [employer] Part B [id number] Self [id number] [employer] Part B [id number] Self [id number] [employer] Med[employer] Part B [id number] Self [employer] Part B [id number] Self [id number] [employer] Med[employer] Part B [id number] Self DME Jurisdiction A NHIC C [id number] SELF [id number] MEDICARE [id number] SP [id number] A MEDICARE [id number] Shraddha [id number] Medicare (Part B) Medicare Primary [id number] Self [id number] Medicare (Part B) Medicare Primary [id number] Self 4 [id number] Medicare (Part B) Medicare Primary [id number] Self 1 [id number] Medicare (Part B) Medicare Primary [id number] Self 1 [id number] Medicare (Part B) Medicare Primary [id number] Self 1 [id number] Medicare C [id number] SELF [id number] Medicare (Part B) Medicare Primary [id number] Self [id number] Medicare (Part B) Medicare Primary [id number] Self [id number] MEDICARE A [id number] Self [id number] Medicare (Part B) Medicare Primary [id number] Self MEDICARE [id number] Medicare Medicare Primary [id number] Self Medicare (Part B) Medicare Primary [id number] Self [id number] UMR [id number] UMR U [id number] Self [id number] UMR [id number] Shraddha [id number] Medicare C [id number] SELF [id number] A DME Jurisdiction A PSYCHIATRIC C [id number] SELF [id number] UMR F [id number] SELF [id number] UMR F [id number] SELF [id number] Umr Medigap Part B [id number] Self [id number] Umr Commercial [id number] Self [id number] INSURANCE COVID-19 [id number] xOVID 2 [id number] INSURANCE COVID-19 COVID Shraddha C OVID INSURANCE COVID-19 COVID Shraddha C OVID [place] Primary [id number] Self 1 [id number] Medicare [place] Medicare Primary [id number] Self [id number] [employer] PHCS Ppo Medigap Part B [id number] Self [id number] [employer] PHCS Ppo Medigap Part B [id number] Self [id number] Ghi Medigap Part B [id number] [id number] Self [id number] Medicare [place] Medicare Primary [id number] Self 1 [id number] Ghi Medigap Part B [id number] [id number] Self [id number] Medicare [place] Medicare Primary [id number] Self 1 [id number] ANSI-Commercial [id number] ANSI-Medicare Part B [id number] ANS-Medicare Part B [id number] ANSI-Commercial [id number] ANS-Medicare Part B [id number] ANSI-Commercial [id number] ANSI-Medicare Part B [id number] ANSI-Commercial [id number] [facility] Part B [id number] ..[id number] 6.0 Self [id number] Medicare [facility] Medicare Primary [id number] .[id number] Self 1 [id number] [facility] [id number] SP [id number] MEDICARE [id number] SP [id number] A [facility] [id number] SP [id number] [facility] Part B [id number] .[id number] 6.0 Self [id number] Medicare [facility] Medicare Primary [id number] .[id number] Self 1 [id number] MEDICARE C [id number] S [id number] A [employer] PPO O [id number] S [id number] [employer] [facility] Ppo Medigap Part B [id number] 2.840.1.750747.3.227. [id number] Self [id number] G[facility] Medigap Part B [id number] 2.0.1.875880.3.227.99.8646.656 6.0 Self [id number] [place] Primary [id number] 2.0.1.041181.3.227.99.8646.6566.0 Self 1 [id number] Ghi Medigap Part B [id number] 2.0.1.764455.3.227.99.8646.656 6.0 Self [id number] [place] Medicare Primary [id number] 2.0.1.884570.3.227.99.8646.6566.0 Self 1 [id number] Ghi Medigap Part B [id number] 2..1.661889.3.227.99.8646.656 6.0 Self [id number] [place] Medicare Primary [id number] 2.840.1.472873.3.227.99.8646.6566.0 Self 1 [id number] Ghi Medigap Part B [id number] 2.0.1.122211.3.227.99.8646.656 6.0 Self [id number] [place] Medicare Primary [id number] 2.0.1.404665.3.227.99.8646.6566.0 Self 1 [id number] Ghi Medigap Part B [id number] 2.0.1.147576.3.227.99.8646.656 6.0 Self [id number] [place] Medicare Primary [id number] .[id number]66.0 Self 1 [id number] [employer] [facility] Ppo Medigap Part B [id number] 2.16.840.1.971294.3.227. 99.572.99668.0 Self [id number] Ghi Medigap Part B [id number] 2.16.840.1.330309.3.227.99.8646.656 6.0 Self [id number] Medicare [facility] Medicare Primary [id number] 2.16.840.1.718983.3.227.99.8646.6566.0 Self 1 [id number] UMR [facility] [id number] SP [id number] MEDICARE [id number] SP [id number] A Ghi Medigap Part B [id number] Self Medicare [facility] Medicare Primary [id number] Self [employer] [id number] SP [id number] [employer] -O/P [id number] 18 [id number] MEDICARE -O/P [id number] 18 [id number] SELF PAY UNAVAILABLE SP UNAVAILA BLE [facility] Medigap Part B [id number] Self Medicare [place] Primary [id number] Self MEDICARE [id number] SP [id number] [id number] UMR [id number] S [id number] [employer] [employer] [id number] S [id number] MEDICARE [place] [id number] S [id number] [employer] [place] Other 0 [id number] Self 0 Medicare Part B [facility] Other 0 [id number] Self 0 UMR CO [id number] 18 [id number] MEDICARE PART A [facility] [id number] 18 [id number] UMR O [id number] S [id number] MEDICARE C [id number] S [id number] MEDICARE C [id number] S [id number] [facility] [facility] Ppo Medigap Part B [id number] Self [id number] [employer] [place] Other 0 [id number] Self 0 Medicare Part B [facility] Other 0 [id number] Self 0 UMR -PHYSICIAN [id number] 1 [id number] MEDICARE PART A -O/P [id number] 18 [id number] Ghi Medigap Part B [id number] Self [id number] [place] Medicare Primary [id number] Self [id number] [place] Medicare Primary [id number] Self [id number] ANSI-Medicare Part B [id number] ANSI-Commercial [id number] [employer] Ppo Medigap Part B [id number] Self [id number] [employer] Ppo Medigap Part B [id number] Self [id number] Ghi Medigap Part B [id number] .[id number] 6.0 Self [id number] Medicare [place] Medicare Primary [id number] .[id number] Self 1 [id number] Medicare [facility] Medicare Primary [id number] Self [id number] ANSI-Commercial [id number] ANSI-Medicare Part B [id number] ANSI-Commercial [id number] ANSI-Medicare Part B [id number] ANSI-Medicare Part B [id number] ANSI-Commercial [id number] [facility] Part B [id number] 6.0 Self [id number] Problems, Conditions, and Diagnoses Code Display Name Description Problem Type Effective Dates Data Source(s) I48.0 Paroxysmal atrial fibrillation Paroxysmal atrial fibri llation Diagnosis 09/10/2021 09:20:53 AM EDT [facility] U07.1 COVID-19 COVID-19 Diagnosis 09/10/2021 09:01:13 AM ED T [facility] Z86.79 Personal history of other diseases of th e circulatory system PERSONAL HISTORY OF OTHER DISEASES OF THE CIRCULAT Diagnosis 06/29/2021 01:30:0 0 PM EDT [facility] R60.0 Localized edema LOCALIZED EDEMA Diagnosis 06/29/2021 01:3 0:00 PM T [facility] I48.0 Paroxysmal atrial fibrillation Paroxysmal atrial fibri llation [id number] 09/15/2021 12:00:00 AM EDT [facility] I50.32 Chronic diastolic heart failure Chronic diastolic hear t failure Problem 07/12/2021 12:00:00 AM EDT [facility] ([facility]) [id number] Essential hypertension Essential hypertension Problem 06/22/2021 12:00:00 AM EDT [facility] ([facility]) R07.9 Chest pain Chest pain Problem 04/14/2021 12:00:00 AM ED T [facility] ([facility]) 366.16 Cataract Senile Nuclear Cataract Senile Nuclear Proble m 04/02/2021 12:00:00 AM EDT NORRIS (Holly Hood MD [facility]) Surgeries/Procedures Procedure Description Date Indications Data Source(s) EP STUDY <td>EP STUDY</td><td>Routine </td><td>09/15/2021 2:32 PM EDT</td><td> Paroxysmal atrial fibrillation</td><td> </td> 09/15/2021 02:32:10 PM EDT Paroxysmal atrial fibrillation [facility] Paroxysmal atrial fibrillation ECG ROUTINE ECG W/LEAST 12 LDS TRCG ONLY W/O I&R <td>E CG 12- LEAD</td><td>Routine</td><td>09/10/2021 10:36 AM EDT</td><td> Paroxysmal atrial fibrillation</td><td></td> 09/10/2021 10:36:19 AM EDT Paroxysmal atrial fibrillation [facility] Paroxysmal atrial fibrillation BLOOD COUNT COMPLETE AUTOMATED <td>CBC</td><td>Routine </td><td>09/10/2021 10:30 AM EDT</td><td> Paroxysmal atrial fibrillation</td><td> </td> 09/10/2021 10:30:00 AM EDT Paroxysmal atrial fibrillation [facility] Paroxysmal atrial fibrillation BLOOD TYPING ABO <td>TYPE AND SCREEN</td><td> Routine</td><td>09/10/2021 10:30 AM EDT</td><td> Paroxysmal atrial fibrillation</td><td> </td> 09/10/2021 10:30:00 AM EDT Paroxysmal atrial fibrillation [facility] Paroxysmal atrial fibrillation BASIC METABOLIC PANEL CALCIUM TOTAL <td>BASIC METABOLI C PANEL</td><td>Routine</td><td>09/10/2021 10:30 AM EDT</td><td> Paroxysmal atrial fibrillation</td><td> </td> 09/10/2021 10:30:00 AM EDT Paroxysmal atrial fibrillation [facility] Paroxysmal atrial fibrillation OFFICE OUTPATIENT VISIT 25 MINUTES 09/09/2021 12:00:00 AM EDT [facility] ([facility], ) DESTRUCTION BENIGN LESIONS 15/> 09/06/2021 12:00:00 AM EDT [facility] ([facility]) OFFICE OUTPATIENT VISIT 25 MINUTES 09/06/2021 12:00:00 AM EDT [facility] ([facility] Nurse [facility]) OFFICE OUTPATIENT VISIT 5 MINUTES 08/23/2021 12:00:00 AM EDT [facility] ([facility]) ECG ROUTINE ECG W/LEAST 12 LDS W/I&R 07/12/2021 12:00: 00 AM EDT [facility] ([facility]) OFFICE OUTPATIENT VISIT 25 MINUTES 07/12/2021 12:00:00 AM EDT [facility] ([facility]) Electrocardiogram Complete 06/28/2021 12:00:00 AM EDT [facility] ([facility]) OFFICE OUTPATIENT NEW 60 MINUTES 06/28/2021 12:00:00 A M EDT [facility] ([facility]) MYOCRD IMAGE PET PERFUS MULTPL STUDY REST/STRESS 06/24 12:00:00 [facility] CV STRS TST XERS&/OR RX CONT ECG I&R ONLY 06/24/2021 1 2:00:00 AM EDT [facility]) ECG ROUTINE ECG W/LEAST 12 LDS W/I&R 05/18/2021 12:00: 00 AM EDT [facility] ([facility]) Arterial Pressure Waveform Analysis For Assessment Of Centra l Art 05/18/2021 12:00:00 AM EDT [facility]) OFFICE OUTPATIENT VISIT 15 MINUTES 05/18/2021 12:00:00 AM EDT [facility] ([facility]) ECHO TTHRC R-T 2D W/WOM-MODE COMPL SPEC&COLR DOP 05/12 12:00:00 AM EDT [facility] ([facility]) OFFICE OUTPATIENT VISIT 15 MINUTES 05/10/2021 12:00:00 AM EDT [facility] ([facility], ) External ECG Rec>48HR<7D Recording 05/04/2021 12:00:00 AM EDT [facility] ([facility]) External ECG Rec>48HR<7D Review & Interpretation 05/04 12:00:00 AM EDT [facility] ([facility]) OFFICE OUTPATIENT VISIT 25 MINUTES 04/29/2021 12:00:00 AM [facility]T [facility]) Bronchospasm Evaluation 04/21/2021 12:00:00 AM EDT [facility] ([facility]) Plethysmography Determination Lung Volumes & Per Airway Resi st 04/21/2021 12:00:00 AM EDT [facility], ) DIFFUSING CAPACITY 04/21/2021 12:00:00 AM EDT [facility]) ECG ROUTINE ECG W/LEAST 12 LDS W/I&R 04/14/2021 12:00: 00 AM EDT [facility] ([facility]) Arterial Pressure Waveform Analysis For Assessment Of Centra l Art 04/14/2021 12:00:00 AM EDT [facility] ([facility]) OFFICE OUTPATIENT VISIT 40 MINUTES 04/14/2021 12:00:00 AM EDT [facility] ([facility]) Intermediate Eye Exam Established Patient Intermediate Eye Exam Established Patient 04/02/2021 12:00:00 AM EDT MELINDA (Justyn Hood MD [facility]) OFFICE OUTPATIENT VISIT 25 MINUTES 02/08/2021 12:00:00 AM EDT [facility] ([facility]) ECG ROUTINE ECG W/LEAST 12 LDS W/I&R 01/11/2021 12:00: 00 AM EST [facility] ([facility]) OFFICE OUTPATIENT VISIT 25 MINUTES 01/11/2021 12:00:00 AM EST [facility] ([facility]) Immunization: Boostrix 0.5mL IM (TDAP) 10/28/2020 12:0 0:00 AM EST eCW1 ([facility]) Endoscopy Upper GI Biopsy 08/10/2020 12:00:00 AM EDT [facility] ([facility], ) Colonoscopy W/ Poly 08/10/2020 12:00:00 AM EDT [facility] ([facility], ) Results ID Date Data Source [id number] 09/16/2021 02:26:45 PM EDT [facility] INFORMATIONPatient MRN Name Date of Age Gend*PT [id number] Galilea Quinteros 1950 71 years F HOPPT Location Admission Date/Time Visit ID Attending Provider09/15/21 09 --- --- EPI ID CSN Admitting Provider [id number] M Rahul Harrington MD([id number])Inpatient History & PhysicalClstephany QuinterosMRN:[id number]: here for AF ablationPast Medical History:Past Medical [...] MG capsule Take 600 mg by mouth wrailtd8509/14/2021 at 2100 Hyoscyamine Sulfate ER 0.375 MG [...] LIST:1. highly sx PAF /2, typical flutter 42165. HTN3. Pericardial Effusion small4. Chronic Cor Pulmonale5. [...] Name Value Range Interpretation Code Description [facility] Document(s) ID Date Data Source [id number] 09/15/2021 02:55:47 PM EDT [facility] Name Value Range Interpretation Code Description Data [facility](s) Supporting Document(s) &PDF [facility] GWWFAy1vUvJNEiEp60/WTPdtCDGep5KuZFsyVWw8RBtdDUEbW5XjeQcgCTYCZSTWAVWJGYAKCZMsLJKa vci [file] AgICAgICAgICAgICAgICAgICAgICAgICAgICAgICAg ICAgICAgICAgICAgICAgICAgICAgICAgICAgICAgICAgICAgICAgICAgICAgICAgICAgDQogICAgICAg ICAgICAgICAgICAgICAgICAgICAgICAgICAgICAgICAgICAgICAgICAgICAgICAgICAgICAgICAgICAg ICAgICAgICAgICAgICAgICAgICAgICAgICAgICAgIC AgDQogICAgICAgICAgICAgICAgICAgICAgICAgICAgICAgICAgICAgICAgICAgICAgICAgICAgICAgIC AgICAgICAgICAgICAgICAgICAgICAgICAgICAgICAgICAgICAgICAgICAgDQogICAgICAgICAgICAgIC AgICAgICAgICAgICAgICAgICAgICAgICAgICAgICAg ICAgICAgICAgICAgICAgICAgICAgICAgICAgICAgICAgICAgICAgICAgICAgICAgICAgICAgDQogICAg ICAgICAgICAgICAgICAgICAgICAgICAgICAgICAgICAgICAgICAgICAgICAgICAgICAgICAgICAgICAg ICAgICAgICAgICAgICAgICAgICAgICAgICAgICAgIC AgICAgDQogICAgICAgICAgICAgICAgICAgICAgICAgICAgICAgICAgICAgICAgICAgICAgICAgICAgIC AgICAgICAgICAgICAgICAgICAgICAgICAgICAgICAgICAgICAgICAgICAgICAgDQogICAgICAgICAgIC AgICAgICAgICAgICAgICAgICAgICAgICAgICAgICAg ICAgICAgICAgICAgICAgICAgICAgICAgICAgICAgICAgICAgICAgICAgICAgICAgICAgICAgICAgDQog ICAgICAgICAgICAgICAgICAgICAgICAgICAgICAgICAgICAgICAgICAgICAgICAgICAgICAgICAgICAg ICAgICAgICAgICAgICAgICAgICAgICAgICAgICAgIC AgICAgICAgDQogICAgICAgICAgICAgICAgICAgICAgICAgICAgICAgICAgICAgICAgICAgICAgICAgIC AgICAgICAgICAgICAgICAgICAgICAgICAgICAgICAgICAgICAgICAgICAgICAgICAgDQogICAgICAgIC AgICAgICAgICAgICAgICAgICAgICAgICAgICAgICAg ICAgICAgICAgICAgICAgICAgICAgICAgICAgICAgICAgICAgICAgICAgICAgICAgICAgICAgICAgICAg CTd2C6biOZVwCOIuRY9tRTp7So4+ECdOQaJmUEA0bcFdxI6QGX7li7OpBWbiLUOjx0ZxFMi9WK8KAZJz EBfrWI9UVEaygr8OJDTeZEYabKBGb7tjOcDxQZO4PO QbEegwKP2PHJUqD3eaivPsEMBrFZOSTKexVCHQISvrSUEDQLIjBSWlXrKmDRedYZ7If2TuxZV5ZZl+Pg 2RLT0hl2QdKQacBaIqLS9cvp3CYNgHDaWiC3RughN8HUD6NUQcRa8WYOMsOYKqnTKuDMTuSHHGFnYyZ4 WdjB58BBDMGf3+XRvikhHtSsgNWbG2KKJio7BeZJp4 NR8HOCQyKTn7xOAiXQ9msBKehLZoQTowML3JLTE4DLkbVEZvRLMEAG6JFGtuZNZ7JTPfwkQdmFTrXHdx QE8RYOCftmOlIdadTYZWTLv+Mb4SKP7hs5CnQNrhEBWpUP9hit8KVCrBSrRyR8Q8lGCiR6M8AUsnNt1Z BFPxJATuWaKwREDHAHxlSG7IID4rdpK0YU5GtCOzEP DwARXcqOLxQMn7N10yzOPkLQinCU2HVZZ+Tegan+Qy4WNGIiAKAzDQDsOtHrIQVAGuNbM0PuE7HFt7GfR8 SmJL62sRzcezNvETknOI0GZT0jICKhHQGXTC3LfEPyhD0ixxDtDmKhQIPSEdYmZ21pkWVvJBSpWGJ0LF LuMe6HCAQjW8QretCyaJlmswZhRNKzZDJNVZ4IXGeu kcChcDZasBfuGL48pPefGW2WGo2AGxNbTV6htr0VvUVhNm7YVBYxGC4FPZZzLTYaNCQrOBO1MFWyMxVu QAafBQZoNZLyXPZ8CIRqNDMgHP8NFpCjEBXwUMN4MmGwHTRiDEPukw1BTIBqTIF4ZvZlPSKoXXHiOEQu DCpyGZKsNEGsJQmqOHEbEDExPE8FXiFiLMXyQDFoCZ TgHESjSCKtgj3KLCSvHONmTqWoHHWvKQJrLSOyWGeoMGAtGKX0HnX6ZKNwFLUgPY9SGbCzJVBbFJA3Rv LiFTEsLMVqqk8PAEBiSLVwAWU8NJAvMBJhIUOkYXyyNSSzUMX7BmZlRPDpAFZdBS2RYhSwQADaJBX9Qq JpZYRaUAYnrm7OQGQeOXEcOJW3YUCvLPIjUXYwSXkf ADWqIKWgAoX1NWAeCXDoWA4XGaHlTMBvTYD1QtChDZOqBVJihn8NDKCjRNPoZnTlIYVwJJZqRVCgZMel VWNxHHQxRPP3UDDdJRFaAF0YHzMjXETqPJJsCfHgGKAwVJEvxz1PSZKaFZCdGjE9NEPrJRGfWCVePQkp ZYUkAUAdVKM6FPRtKWBxJM7NAhPlFYLlYqWvMBPaJM SxUUUptl9MEJZzXAZgXOMaNZFqNJEbECOxAXbmTPIxVTU4DFHsYZSzWJUxLJ9SHxBxRDOqSzXrVJqeWS DmXNNvky3GKZQoETMjVMv9XKNwYTWeCWDoCSilTUOwJMHwPwQgCCQaVRCiEN2AWsSvCMOiGWEpIQGmFN MxYBWeiw0SKOFmYWI4TaM4YBLrMUWqPNDsZFgfLSCr MHEvLrBvZCJjMDEyQM1ILnBzAKXgBMD2WYLcBPXtBXVfzs9WnOMozRmqxu9PMJcJDe6MjQhqEUOpXDsm Jb8sxMHlWGLqOAKQYt4EysPoTOYfEWDTXJkbXRNpJCw6MpLqVnScW0NaVTJ8FVuqEcVjGrXxHaJuO3Bz IUUwItE0RkZxBTIiLNZdNUTlJhl7ARYpWfJ4WAWdER YzYjNlMDI+MK0oRUp+If4Xd0WsayG2pxErVVy0IdZ0Vi2GBWBTW8WEQg== ID Date Data Source [id number] 09/15/2021 12:49:46 PM EDT [facility] NT INFORMATIONPatient MRN Name Date of Age Gend*PT [id number] Galilea Quinteros 1950 71 years F HOPPT Location Admission Date/Time Visit ID Attending Provider --- --- --- --- EPI ID CSN Admitting Provider [id number] ---AirwayPatient location during procedure: ORUrgency: electiveDifficult airway: [...] to lips: 21 cmPlacement verified by: + [id number] view: grade I - full view of glottis Name Value Range Interpretation Code Description Data Ninoska rce(s) Supporting Document(s) ID Date Data Source [id number] 09/15/2021 12:49:09 PM EDT [facility] NT INFORMATIONPatient MRN Name Date of Age Gend*PT [id number] Galilea Quinteros 1950 71 years F HOPPT Location Admission Date/Time Visit ID Attending Provider --- --- --- --- EPI ID CSN Admitting Provider [id number] ---Arterial Line PlacementPatient location during procedure: ORIndications [...] rce(s) Supporting Document(s) ID Date Data Source [id number] 09/10/2021 04:29:14 PM EDT [facility] INFORMATIONPatient MRN Name Date of Age Gend*PT [id number] Galilea Quinteros 1950 70 years F OPPT Location Admission Date/Time Visit ID Attending Provider --- --- --- Wilbert Harrington MD([id number]) EPI ID CSN Admitting Provider [id number] ---OUTPATIENT / OBSERVATIONAL SURGICAL OR INVASIVE PROCEDUREName: [...] thyromegaly. No carotid bruits.MENTAL / NEUROLOGICAL STATUS: [id number]: Clear to auscultation. No wheezes, rhonchi or [...] parts of this document, were dictated using Medypal speaking software. A reasonable attempt at proofreading has beenmade to minimize errors. Please call with any questions or corrections. Name Value Range Interpretation Code Description Data Ninoska rce(s) Supporting Document(s) ID Date Data Source [id number] 09/10/2021 10:38:20 AM EDT [facility] Name Value Range Interpretation Code Description Data Ninoska rce(s) Supporting Document(s) EKG [facility] BZSPXi1rLkVARpFmc6JeLpErMYUkVO4mtrh5O0R4zLGwF3HnqWVbx2fcB8QkX7CmSGMrAQQRND9NtWLw jb2 [file] [id number]= ID Date Data Source [id number] 09/13/2021 01:50:13 PM EDT [facility] SPEC EXP DATE 09/16/2021ATI ENT ABO/Rh A POSITIVEANTIBODY SCREEN NEGATIVETESTING SITE PERFORMED AT [address] [place] [address] BANK COMMENT BLOOD TYPE CONFIRMED. Name Value Range Interpretation Code Description Data Ninoska rce(s) Supporting Document(s) TYPE AND SCREEN [facility] ID Date Data Source [id number] 09/10/2021 03:01:14 PM EDT [facility] Name Value Range Interpretation Code Description Data Ninoska rce(s) Supporting Document(s) SODIUM 139 mmol/L (136-145) [facility] POTASSIUM 4.2 mmol/L (3.6-5.2) [facility] CHLORIDE 109 mmol/L (100-108) H [facility] CO2 25 mmol/L (22-31) [facility] ANION GAP 5 mmol/L (7-16) L [facility] UREA NITROGEN 23 mg/dL (7-24) [facility] CREATININE 0.96 mg/dL (0.60-1.00) [facility] BUN/CREAT RATIO 24.0 RATIO (10.0-20.0) H [facility] GLUCOSE 88 mg/dL (70-99) [facility] CALCIUM 9.8 mg/dL (8.4-10.2) [facility] GFR 57 ml/min/1.73m2 (>59) L [facility] GFR ( AMER) >60 ml/min/1.73m2 (>59) [facility] GFR INTERPRETATION [facility] --NORMAL KIDNEY FUNCTION OR MILD DISEASE - GFR >OR= 60CHRONIC KIDNEY DISEASE - GFR 15 - 59RENAL FAILURE - GFR <15 Est. GFR calculation based on the MDRDstudy equation, which assumes a steadystate for creatinine. Est. GFR should notbe used for medication dosing. ID Date Data Source [id number] 09/10/2021 02:30:47 PM EDT [facility] Name Value Range Interpretation Code Description Data Ninoska rce(s) Supporting Document(s) WBC 5.5 10*3/uL (4.1-11.0) [facility] RBC 4.27 10*6/uL (4.00-5.40) [facility] HGB 13.2 g/dL (12.0-16.0) [facility] HCT 39.2 % (36.0-47.0) [facility] MCV 91.7 fL (80.0-95.0) [facility] MCH 30.9 pg (27.0-32.0) [facility] MCHC 33.7 g/dL (32.0-36.0) [facility] RDW 13.4 % (10.5-14.5) [facility] PLT 183 10*3/uL (150-450) [facility] MPV 8.4 fL (7.1-10.7) [facility] ID Date Data Source [id number] 09/10/2021 08:54:00 AM EDT [facility] Name Value Range Interpretation Code Description Data Ninoska rce(s) Supporting Document(s) SARS coronavirus 2 RNA [Presence] in Res piratory specimen by CARTER with probe detection NOT DETECTED [facility] This lab was reported by [facility]. ID Date Data Source [id number] 09/11/2021 08:52:34 AM EDT [facility] Name Value Range Interpretation Code Description Data Ninoska rce(s) Supporting Document(s) SPECIMEN DESCRIPTION [facility] [place] COVID 19 RESULT (NDET) [facility] [place] NEGATIVE COVID-19 RESULTS DONOT PRECLUDE COVID-2019 INFECTION ANDSHOULD NOT BE USED THE SOLE BASISFOR PATIENT MANAGEMENT DECISIONS. COMMENT [facility] THE [place] FDA HAS MADE THIS TEST AVAILABL EUNDER AN EMERGENCY USE AUTHORIZATION(EUA) FOR THE DETECTION AND/OR DIAGNOSISOF THE VIRUS THAT CAUSES COVID-19.THIS ASSAY AMPLIFIES AND DETECTS [employer] USING AVICULTURIST- MEDIATEDAMPLIFICATIONTESTING PERFORMED ON [employer] FIRST TEST [facility] [place] EMPL[facility]ED IN HLTHCARE [facility] [place] [facility]TOMAT[facility] DATE OF SYMPT ONSET [facility] [place] [facility] ICU [facility] CONGREGATE CARE SET [facility] [place] [facility] ID Date Data Source [id number] 08/11/2021 11:35:00 AM EDT [facility] Name Value Range Interpretation Code Description Data Ninoska rce(s) Supporting Document(s) SARS-CoV-2 (COVID-19) RNA [Presence] in Respiratory specimen by CARTER with probe detection Not Detected [facility] This lab was ordered by [facility] and reported by [facility]. ID Date Data Source [id number] 08/04/2021 02:12:00 PM EDT [facility] CT A NGIO CHESTCLINICAL [...] Solid Nodules Low risk:<6 mm- No routine [id number] mm- CT at 3-6 months, then consider [...] rce(s) Supporting Document(s) ID Date Data Source [id number] 07/08/2021 08:42:00 AM EDT [facility] ([facility]) Name Value Range Interpretation Code Description Data Ninoska rce(s) Supporting Document(s) Glucose, Fasting 88 mg/dL 70-100 [facility] ([facility]) Creatinine For GFR 0.94 mg/dL 0.55-1.30 [facility] ([facility]) Blood Urea Nitrogen 17 mg/dL 7-18 [facility] ([facility]) Glomerular Filtration Rate Laboratory test result [facility] ([facility]) <content>Units are mL/min/1.73 m2</content>
<content></content>
<content>Chronic Kidney Disease Staging per NKF:</content>
<content></content>
<content>Stage I & II GFR >=60 Normal to Mildly Decreased</content>
<content>Stage III GFR 30- 59 Moderately Decreased</content>
<content>Stage IV GFR 15-29 Severely Decreased</content>
<content>Stage V GFR <15 Very Little GFR Left</content>
<content>ESRD GFR <15 on PLASTIC CABLEMAKING MACHINE OPERATOR</content>
<content></content> Potassium Serum 4.3 meq/L 3.5-5.1 [facility] ([facility]) Sodium Level 142 meq/L 136-145 [facility] (Cardiolog y [facility]) Anion Gap 4 meq/L 8-16 [facility] Chloride Level 112 meq/L 98-107 MEDENT (Cardiol ogy [facility]) Carbon Dioxide Level 26 meq/L 21-32 MEDENT ([facility]) Calcium Level 9.6 mg/dL 8.8-10.2 MEDENT (Cardiolo gy [facility]) ID Date Data Source [id number] 07/08/2021 08:42:00 AM EDT MEDENT (Cardi ology [facility]) Name Value Range Interpretation Code Description Data Ninoska rce(s) Supporting Document(s) Triglycerides Level 224 mg/dL MEDENT (Ca rdiology [facility]) Cholesterol Level 158 mg/dL MEDENT (Card iology [facility]) HDL Cholesterol 40 mg/dL MEDENT ([facility]io [facility]) LDL Cholesterol 73 mg/dL MEDENT (Cardio logy [facility]) Non-HDL-C 118 mg/dL [facility] Cholesterol Risk Ratio 3.950 MEDENT (Cardiology [facility]) ID Date Data Source Ultrasound : Leg, left 05/26/2021 12:00:00 AM EDT eCW1 ([facility]) Name Value Range Interpretation Code Description Data Ninoska rce(s) Supporting Document(s) Ultrasound : Leg, left eCW1 ([facility]) ID Date Data Source [id number] 04/30/2021 02:37:00 PM EDT MEDENT (Cardi [facility]logy [facility]) Name Value Range Interpretation Code Description Data Ninoska rce(s) Supporting Document(s) White Blood Count 7.2 4.0-10.0 MEDENT (Card [facility]) Red Blood Count 4.72 4.00-5.40 MEDENT (Cardio logy [facility]) Platelets 192 150-450 MEDENT ([facility]) Hemoglobin 14.6 MEDENT ([facility]) Hematocrit 44.4 MEDENT ([facility]) ID Date Data Source [id number] 04/30/2021 02:37:00 PM EDT MEDENT ([facility]i [facility]y [facility]) Name Value Range Interpretation Code Description Data Ninoska rce(s) Supporting Document(s) Blood Urea Nitrogen 19 7-18 MEDENT (Ca rdiology [facility]) Glucose 86 70-100 [facility] ([facility] [place] Potassium 4.3 3.5-5.1 [facility] ([facility] Creatinine 0.86 0.55-1.30 [facility] ([facility]) Sodium 141 136-145 [facility] ([facility] [place] Calcium 10.0 8.2-9.6 MED[facility] ([facility] [place] Carbon Dioxide 27 21-32 MEDENT ([facility]iol [facility]) Chloride 108 98-107 MEDENT ([facility]) Glomerular filtration rate/1.73 sq M.pre dicted [Volume Rate/Area] in Serum or Plasma by Creatinine-based formula (MDRD) Laboratory test result MEDENT ([facility]) ID Date Data Source [id number] 04/12/2021 02:31:00 PM EDT MEDENT ([facility]i [facility]) Name Value Range Interpretation Code Description Data Ninoska rce(s) Supporting Document(s) Digoxin (Lanoxin) 1.3 MEDENT (Card [facility]ology [facility]) ID Date Data Source [id number] 04/12/2021 02:31:00 PM EDT MEDENT ([facility]i [facility]) Name Value Range Interpretation Code Description Data Ninoska rce(s) Supporting Document(s) Creatinine 0.99 0.55-1.30 MEDENT ([facility]) Glucose 95 70-100 [facility] ([facility] [place] Blood Urea Nitrogen 21 7-18 MEDENT (Ca [facility]diology [facility]) Potassium 4.2 3.5-5.1 [facility] ([facility] [place] Sodium 142 136-145 [facility] ([facility] [place] Chloride 110 98-107 MED[facility] ([facility] [place]) Glomerular filtration rate/1.73 sq M.pre dicted [Volume Rate/Area] in Serum or Plasma by Creatinine-based formula (MDRD) 58.9 MEDENT ([facility]) Carbon Dioxide 26 21-32 MEDENT ([facility]iol [facility]) Calcium 9.3 8.2-9.6 [facility] ([facility] [place] ID Date Data Source [id number] 04/09/2021 12:35:00 PM EDT MEDENT ([facility]) Name Value Range Interpretation Code Description Data Ninoska rce(s) Supporting Document(s) Natriuretic peptide.B prohormone N-Terminal [Mass/volu me] in Serum or Plasma 1166 MEDENT (Personal Care Assistant [facility]) Magnesium Level 2.3 1.8-2.4 MEDENT (Cardio logy [facility]) Free T4 0.97 [facility] Thyroid Stimulating Hormone 1.480 ME DENT (Cardiology [facility]) ID Date Data Source [id number] 04/09/2021 12:35:00 PM EDT MEDENT ([facility]) Name Value Range Interpretation Code Description Data Ninoska rce(s) Supporting Document(s) White Blood Count 7.2 5.0-10.0 [facility] Red Blood Count 5.00 4.00-5.40 MEDENT ([facility]) Hemoglobin 15.2 MEDENT (Cardiology [facility]) Hematocrit 46.7 MEDENT ([facility]iology [facility]) Platelets 216 172-450 MEDENT (Cardiology [facility]) ID Date Data Source [id number] 10/28/2020 11:30:00 AM EST MEDENT ([facility]) Name Value Range Interpretation Code Description Data Ninoska rce(s) Supporting Document(s) Hemoglobin A1c/Hemoglobin.total in Blood 5.5 MEDENT ([facility]) ID Date Data Source [id number] 10/28/2020 11:30:00 AM EST MEDENT ([facility]) Name Value Range Interpretation Code Description Data Ninoska rce(s) Supporting Document(s) Alanine aminotransferase [Enzymatic activity/volume] in Serum or Pl asma 25 MEDENT ([facility]iology [facility]) Albumin [Mass/volume] in Serum or Plasma 4.0 MEDENT ([facility]iology [facility]) Carbon dioxide, total [Moles/volume] in Serum or Plasma 27 MEDENT ([facility]) Calcium [Mass/volume] in Serum or Plasma 10.2 MEDENT ([facility]) Alkaline phosphatase [Enzymatic activity/volume] in Serum or Plasma 6 1 MEDENT ([facility]) Chloride [Moles/volume] in Serum or Plasma 110 MEDENT ([facility]) Sodium 141 MEDENT ([facility]) Protein [Mass/volume] in Serum or Plasma 6.9 MEDENT ([facility]) Potassium [Moles/volume] in Serum or Plasma 4.0 MEDENT ([facility]) Aspartate aminotransferase [Enzymatic activity/volume] in Serum or Plasma 15 MEDENT ([facility]) Urea nitrogen [Mass/volume] in Serum or Plasma 19 MEDENT ([facility]) Glucose 89 70-100 MEDENT ([facility]) Creatinine For GFR 1.06 MEDENT (Car diology [facility]) ID Date Data Source [id number] 10/28/2020 11:30:00 AM EST MEDENT ([facility]i [facility]y [facility]) Name Value Range Interpretation Code Description Data Ninoska rce(s) Supporting Document(s) Cholesterol 157 MEDENT ([facility]) Triglycerides 207 MEDENT ([facility]iolo gy [facility]) HDL 47 MEDENT ([facility]) Cholesterol in LDL [Mass/volume] in Serum or Plasma by calculation 69 MEDENT ([facility]) Chol/HDL Ratio 3.340 MEDENT ([facility]iol [facility]gy [facility]) ID Date Data Source [id number] 10/28/2020 11:30:00 AM EST MEDENT ([facility]i [facility]y [facility]) Name Value Range Interpretation Code Description Data Ninoska rce(s) Supporting Document(s) Magnesium Level 2.1 MEDENT (Cardio [facility]y [facility]) ID Date Data Source MAGNESIUM LEVEL 10/28/2020 12:00:00 AM EST eCW1 ([facility]) Name Value Range Interpretation Code Description Data Ninoska rce(s) Supporting Document(s) 2.1 1.8-2.4 MAGNESIUM LEVEL eCW1 ([facility]) ID Date Data Source VITAMIN D [id number] 10/28/2020 12:00:00 AM EST eCW1 ([facility]) Name Value Range Interpretation Code Description Data Ninoska rce(s) Supporting Document(s) 39.0 30.0-100.0 TOTAL 25(OH) VITAMIN D eC W1 ([facility]) ID Date Data Source LIPID PANEL (CARDIAC RISK) 10/28/2020 12:00:00 AM EST eCW1 ( [facility]) Name Value Range Interpretation Code Description Data Ninoska rce(s) Supporting Document(s) Triglyceride [Mass/volume] in Serum or Plasma by calculation 207 <150 TRIGLYCERIDES LEVEL eCW1 ([facility]) Cholesterol [Moles/volume] in Serum or Plasma 157 <200 CHOLESTEROL LEVEL eCW1 ([facility]) 110 NON-HDL-C eCW1 ([facility]) Cholesterol in LDL [Mass/volume] in Serum or Plasma by calculation 69 <100 LDL CHOLESTEROL eCW1 ([facility]) 3.340 <5 CHOLESTEROL RISK RATIO eCW1 ([facility]) Cholesterol in HDL [Moles/volume] in Serum or Plasma 47 >40 HDL CHOLESTEROL eCW1 ([facility]) ID Date Data Source [id number] 10/28/2020 12:00:00 AM EST eCW1 ([facility]) Name Value Range Interpretation Code Description Data Ninoska rce(s) Supporting Document(s) Hemoglobin A1c/Hemoglobin.total in Blood 5.5 HEMOGLOBIN A1c eCW1 ([facility]) ID Date Data Source Comprehensive Metabolic Profile (CMP) 10/28/2020 12:00:00 AM EST eCW1 ([facility]) Name Value Range Interpretation Code Description Data Ninoska rce(s) Supporting Document(s) 89 70-100 GLUCOSE, FASTING eCW1 ([facility]) 19 7-18 BLOOD UREA NITROGEN eCW1 ([facility]) 1.06 0.55-1.30 CREATININE FOR GFR eCW1 ([facility]) 141 136-145 SODIUM LEVEL eCW1 ([facility]) 54.4 >39 GLOMERULAR FILTRATION RATE eCW 1 ([facility]) 4.0 3.5-5.1 POTASSIUM SERUM eCW1 ([facility]) 27 21-32 CARBON DIOXIDE LEVEL eCW1 (On license of [facility]) 10.2 8.8-10.2 CALCIUM LEVEL eCW1 ([facility]) 15 7-37 AST/SGOT eCW1 ([facility]) 110 98-107 CHLORIDE LEVEL eCW1 ([facility]) 61 45-117 ALKALINE PHOSPHATASE eCW1 (On license of [facility]) 0.9 0.2-1.0 BILIRUBIN,TOTAL eCW1 ([facility]) 25 12-78 ALT/SGPT eCW1 ([facility]) 6.9 6.4-8.2 TOTAL PROTEIN eCW1 ([facility]) 1.4 1.2-2.2 ALBUMIN/GLOBULIN RATIO eCW1 ([facility]) 4.0 3.2-5.2 ALBUMIN eCW1 ([facility]) ID Date Data Source [id number] 08/12/2020 12:28:00 PM EDT MEDENT ([facility]) Name Value Range Interpretation Code Description Data Ninoska rce(s) Supporting Document(s) Laboratory test finding (navigational concept) Laboratory test result MEDENT ([facility]) ID Date Data Source [id number] 08/10/2020 12:46:00 PM EDT MEDENT ([facility]) Name Value Range Interpretation Code Description Data Ninoska rce(s) Supporting Document(s) Surgical pathology study Laboratory test result MEDENT ([facility]) FINAL DIAGNOSIS A-Stomach, antrum, biopsy: Gastric [...] MD 08/11/2020 1159 ID Date Data Source [id number] 08/05/2020 12:00:00 PM EDT [facility] Name Value Range Interpretation Code Description Data Ninoska rce(s) Supporting Document(s) SARS coronavirus 2 RNA [facility] This lab was ordered by [facility] and reported by [facility]. Procedure Social History Code Duration Value Status Description Data Source(s ) Alcohol intake 09/15/2021 12:00:00 AM EDT Ex-drinker (finding) comp leted Ex- drinker (finding) [facility] Tobacco use and exposure 09/10/2021 12:00:00 AM EDT Never used co mpleted Never used [facility] Smoking 09/10/2021 12:00:00 AM EDT Never smoker completed Never s moker [facility] Alcohol intake 09/10/2021 12:00:00 AM EDT Ex-drinker (finding) comp leted Ex- drinker (finding) [facility] Smoking 09/09/2021 12:00:00 AM EDT Patient has never smoked co mpleted Patient has never smoked MEDENT ([facility], ) Smoking 07/29/2021 12:00:00 AM EDT Never Smoker completed Never S moker eCW1 ([facility]) Smoking 07/12/2021 12:00:00 AM EDT Patient has never smoked co mpleted Patient has never smoked MEDENT ([facility]) Smoking 06/22/2021 12:00:00 AM EDT Never Smoker completed Never S moker eCW1 ([facility]) Smoking 05/26/2021 12:00:00 AM EDT Never Smoker completed Never S moker eCW1 ([facility]) Smoking 04/21/2021 12:00:00 AM EDT Never Smoker completed Never S moker eCW1 ([facility]) Smoking 04/20/2021 12:00:00 AM EDT Never Smoker completed Never S moker eCW1 ([facility]) Smoking 04/02/2021 09:32:45 AM EDT Never smoked tobacco (findi ng) completed Never smoked tobacco (finding) MELINDA (Holly Hood MD [facility]) Smoking 10/28/2020 12:00:00 AM EST Never Smoker completed Never S moker eCW1 ([facility]) Smoking 10/28/2020 12:00:00 AM EST Never Smoker completed Never S moker eCW1 ([facility]) Smoking 10/28/2020 12:00:00 AM EST Never Smoker completed Never S moker eCW1 ([facility]) Vital Signs ID Date Data Source UNK Name Value Range Interpretation Code Description Data Source(s) Systolic blood pressure 121 mm[Hg] 121 mm[Hg] [facility] Diastolic blood pressure 81 mm[Hg] 81 mm[Hg] [facility] Heart rate 96 /min 96 /min [facility] Body temperature 36.78 Ginny 36.78 Ginny [facility] Respiratory rate 16 /min 16 /min [facility] Oxygen saturation in Arterial blood by Pulse oximetry 94 % 94 % [facility] Body weight 102.059 kg 102.059 kg [facility] Body mass index (BMI) [Ratio] 39.86 kg/m2 39.86 kg/m2 [facility] Body height 160 cm 160 cm [facility] Systolic blood pressure 130 mm[Hg] 130 mm[Hg] [facility] Diastolic blood pressure 77 mm[Hg] 77 mm[Hg] [facility] Heart rate 57 /min 57 /min [facility] Respiratory rate 18 /min 18 /min [facility] Oxygen saturation in Arterial blood by Pulse oximetry 99 % 99 % [facility] Body height 160 cm 160 cm [facility] Body weight 102.331 kg 102.331 kg [facility] Body mass index (BMI) [Ratio] 39.96 kg/m2 39.96 kg/m2 [facility] Body temperature 35.67 Ginny 35.67 Ginny [facility] Systolic blood pressure 126 mm[Hg] 126 mm[Hg] [facility] Diastolic blood pressure 72 mm[Hg] 72 mm[Hg] MEDENT ([facility], ) Heart rate 61 /min 61 /min MEDENT ([facility], ) Oxygen saturation in Arterial blood by Pulse oximetry 98 % 98 % MEDENT ([facility], ) Body height 63.50 [in_i] 63.50 [in_i] MEDENT ([facility], ) 5'3.50" [place] body weight 115 [lb_av] 115 [lb_av] MEDEN T ([facility], ) Systolic blood pressure 149 mm[Hg] 149 mm[Hg] M EDENT ([facility]) Diastolic blood pressure 86 mm[Hg] 86 mm[Hg] MEDENT ([facility]) Oxygen saturation in Arterial blood by Pulse oximetry 98 % 98 % MEDENT ([facility]) Heart rate 59 /min 59 /min MEDENT ([facility]) Body weight 223 [lb_av] 223 [lb_av] eCW1 ([facility]) Body height 63 [in_i] 63 [in_i] eCW1 ([facility]) Body mass index (BMI) [Ratio] 39.5 kg/m2 39.5 k g/m2 eCW1 ([facility]) Systolic blood pressure 126 mm[Hg] 126 mm[Hg] e CW1 ([facility]) Diastolic blood pressure 80 mm[Hg] 80 mm[Hg] eCW1 ([facility]) Systolic blood pressure--sitting 12 mm[Hg] 12 mm[Hg] MEDENT ([facility]) Diastolic blood pressure--sitting 82 mm[Hg] 82 mm[Hg] MEDENT ([facility]) Body weight 220.00 [lb_av] 220.00 [lb_av] MEDEN T ([facility]) Body height 63 [in_i] 63 [in_i] MEDENT (Cardi ology [facility]) 5'3" Body mass index (BMI) [Ratio] 39.0 kg/m2 39.0 k g/m2 MEDENT ([facility]) Systolic blood pressure 130 mm[Hg] 130 mm[Hg] M EDENT ([facility] Diastolic blood pressure 80 mm[Hg] 80 mm[Hg] MEDENT ([facility] Body weight 222.00 [lb_av] 222.00 [lb_av] MEDEN T ([facility]) Body height 63 [in_i] 63 [in_i] MEDENT ([facility]) 5'3" Body mass index (BMI) [Ratio] 39.3 kg/m2 39.3 k g/m2 MEDENT ([facility]) Body surface area Derived from formula 2.02 m2 2.02 m2 MEDENT ([facility]) Body weight 220 [lb_av] 220 [lb_av] eCW1 ([facility]) Body weight 99.79 kg 99.79 kg eCW1 ([facility]) Body height 63 [in_i] 63 [in_i] eCW1 ([facility]) Body mass index (BMI) [Ratio] 38.97 kg/m2 38.97 kg/m2 eCW1 ([facility]) Heart rate 76 /min 76 /min eCW1 ([facility]) Diastolic blood pressure 68 mm[Hg] 68 mm[Hg] eCW1 ([facility]) Respiratory rate 18 /min 18 /min eCW1 ([facility]) Body temperature 96.9 [degF] 96.9 [degF] eCW1 ( [facility]) Systolic blood pressure 116 mm[Hg] 116 mm[Hg] e CW1 ([facility]) Body weight 217.8 [lb_av] 217.8 [lb_av] eCW1 ([facility]) Body height 63 [in_i] 63 [in_i] eCW1 ([facility]) Body mass index (BMI) [Ratio] 38.58 kg/m2 38.58 kg/m2 eCW1 ([facility]) Heart rate 58 /min 58 /min eCW1 ([facility]) Respiratory rate 18 /min 18 /min eCW1 ([facility]) Body temperature 98.2 [degF] 98.2 [degF] eCW1 ( [facility]) Systolic blood pressure 134 mm[Hg] 134 mm[Hg] e CW1 ([facility]) Diastolic blood pressure 80 mm[Hg] 80 mm[Hg] eCW1 ([facility]) Body mass index (BMI) [Ratio] 39.3 kg/m2 39.3 k g/m2 MEDENT ([facility]) Systolic blood pressure--sitting 145 mm[Hg] 145 mm[Hg] MEDENT ([facility]) CBP, large cuff/Ra Body weight 222.00 [lb_av] 222.00 [lb_av] MEDEN T ([facility]) Body height 63 [in_i] 63 [in_i] MEDENT (Cardi ology [facility]) 5'3" Heart rate 56 /min 56 /min MEDENT (Cardio logy [facility]) Diastolic blood pressure--sitting 85 mm[Hg] 85 mm[Hg] MEDENT ([facility]) CBP, large cuff/Ra Body mass index (BMI) [Ratio] 39.2 kg/m2 39.2 k g/m2 MEDENT ([facility]) [place] body weight 115 [lb_av] 115 [lb_av] MEDEN T ([facility], ) Body weight 102.060 kg 102.060 kg MEDENT ([facility]) Body surface area Derived from formula 2.04 m2 2.04 m2 MEDENT ([facility], ) Body height 63.50 [in_i] 63.50 [in_i] MEDENT ([facility]) 5'3.50" Body weight 225.00 [lb_av] 225.00 [lb_av] MEDEN T ([facility], ) Systolic blood pressure 142 mm[Hg] 142 mm[Hg] M EDENT ([facility], ) Diastolic blood pressure 86 mm[Hg] 86 mm[Hg] MEDENT ([facility], ) Body height 63.50 [in_i] 63.50 [in_i] MEDENT ([facility], ) 5'3.50" Body weight 225.00 [lb_av] 225.00 [lb_av] MEDEN T ([facility]) Body mass index (BMI) [Ratio] 39.2 kg/m2 39.2 k g/m2 [facility] ([facility]) [place] body weight 115 [lb_av] 115 [lb_av] MEDEN T ([facility]) Body weight 102.060 kg 102.060 kg [facility] ([facility]) Body surface area Derived from formula 2.04 m2 2.04 m2 [facility] ([facility]) Body surface area Derived from formula 2.04 m2 2.04 m2 [facility] ([facility]) [place] body weight 115 [lb_av] 115 [lb_av] MEDEN T ([facility]) Oxygen saturation in Arterial blood by Pulse oximetry 97 % 97 % [facility] ([facility]) Heart rate 62 /min 62 /min [facility] ([facility]) Body temperature 97.4 [degF] 97.4 [degF] [facility] ([facility]) Body height 63.50 [in_i] 63.50 [in_i] [facility] ([facility]) 5'3.50" Body weight 222.50 [lb_av] 222.50 [lb_av] MEDEN T ([facility]) Systolic blood pressure 126 mm[facility]Hg] [facility] Diastolic blood pressure 72 mm[Hg] 72 mm[Hg] [facility] ([facility]) Body mass index (BMI) [Ratio] 38.8 kg/m2 38.8 k g/m2 [facility] ([facility]) Body weight 100.926 kg 100.926 kg [facility] ([facility]) Body weight 222.2 [lb_av] 222.2 [lb_av] eCW1 ([facility]) Body height 63 [in_i] 63 [in_i] eCW1 ([facility]) Body mass index (BMI) [Ratio] 39.36 kg/m2 39.36 kg/m2 eCW1 ([facility]) Heart rate 60 /min 60 /min eCW1 ([facility]) Respiratory rate 18 /min 18 /min eCW1 ([facility]) Body temperature 98.6 [degF] 98.6 [degF] eCW1 ( [facility]) Systolic blood pressure 158 mm[Hg] 158 mm[Hg] e CW1 ([facility]) Diastolic blood pressure 98 mm[Hg] 98 mm[Hg] eCW1 ([facility]) Systolic blood pressure--sitting 133 mm[Hg] 133 mm[Hg] MEDENT ([facility]) CBP, large cuff/Ra Body weight 221.00 [lb_av] 221.00 [lb_av] MEDEN T ([facility]) Body height 63 [in_i] 63 [in_i] MEDENT ([facility]i [facility]) 5'3" Body mass index (BMI) [Ratio] 39.1 kg/m2 39.1 k g/m2 MEDENT ([facility]) Heart rate 61 /min 61 /min MEDENT ([facility]io [facility]) Diastolic blood pressure--sitting 82 mm[Hg] 82 mm[Hg] MEDENT ([facility]) CBP, large cuff/Ra Body temperature 96.9 [...] [in_i] 63 [in_i] MEDENT ([facility]i [facility]) 5'3" Systolic blood pressure--sitting 118 mm[Hg] 118 mm[Hg] MEDENT ([facility]) Ra, medium cuff Diastolic blood pressure--sitting 70 mm[Hg] 70 mm[Hg] MEDENT ([facility]) Ra, medium cuff Body weight 220.00 [lb_av] 220.00 [lb_av] MEDEN T ([facility]) Body mass index (BMI) [Ratio] 39.0 kg/m2 39.0 k g/m2 MEDENT ([facility]) Heart rate 56 /min 56 /min MEDENT ([facility]io [facility]) Systolic blood pressure 128 mm[Hg] 128 mm[Hg] M EDENT ([facility]) Diastolic blood pressure 84 mm[Hg] 84 mm[Hg] MEDENT ([facility]) Body height 63.50 [in_i] 63.50 [in_i] MEDENT ([facility]) 5'3.50" Body weight 220.00 [lb_av] 220.00 [lb_av] MEDEN T ([facility]) Body mass index (BMI) [Ratio] 38.4 kg/m2 38.4 k g/m[facility] [place] body weight 115 [lb_av] 115 [lb_av] MEDEN T ([facility]) Body weight 99.792 kg 99.792 kg [facility] Body surface area Derived from formula 2.03 m2 2.03 m2 [facility] ([facility]) Heart rate 70 /min 70 /min eCW1 ([facility]) Body weight 220 [lb_av] 220 [lb_av] eCW1 ([facility]) Body height 63 [in_i] 63 [in_i] eCW1 ([facility]) Body mass index (BMI) [Ratio] 38.97 kg/m2 38.97 kg/m2 eCW1 ([facility]) Respiratory rate 18 /min 18 /min eCW1 ([facility]) Body temperature 98.6 [degF] 98.6 [degF] eCW1 ( [facility]) Systolic blood pressure 138 mm[Hg] 138 mm[Hg] e CW1 ([facility]) Diastolic blood pressure 82 mm[Hg] 82 mm[Hg] eCW1 ([facility]) Diastolic blood pressure 82 mm[Hg] 82 mm[Hg] [facility] ([facility]) Systolic blood pressure 118 mm[Hg] 118 mm[facility]Hg] [facility] Body height 63.50 [in_i] 63.50 [in_i] [facility] 5'3.50" Body weight 219.00 [lb_av] 219.00 [lb_av] MEDEN T ([facility]) Body mass index (BMI) [Ratio] 38.2 kg/m2 38.2 k g/m2 [facility] ([facility]) [place] body weight 115 [lb_av] 115 [lb_av] [facility] Body weight 99.338 kg 99.338 kg [facility] ([facility]) Body surface area Derived from formula 2.02 m2 2.02 m2 [facility] ([facility]) Systolic blood pressure 140 mm[Hg] 140 mm[Hg] M [facility]) Diastolic blood pressure 80 mm[Hg] 80 mm[Hg] [facility] ([facility]) Body temperature 97.5 [degF] 97.5 [degF] [facility] ([facility]) Systolic blood pressure 138 mm[Hg] 138 mm[Hg] M [facility] ([facility]) Diastolic blood pressure 84 mm[Hg] 84 mm[Hg] [facility] ([facility]) Heart rate 59 /min 59 /min [facility] ([facility]) Oxygen saturation in Arterial blood by Pulse oximetry 97 % 97 % [facility] ([facility]) Body temperature 97.4 [degF] 97.4 [degF] [facility] ([facility]) Body height 63.50 [in_i] 63.50 [in_i] [facility] ([facility]) 5'3.50" Body weight 214.50 [lb_av] 214.50 [lb_av] MEDEN T ([facility]) Body mass index (BMI) [Ratio] 37.4 kg/m2 37.4 k g/m2 [facility] ([facility]) [place] body weight 115 [lb_av] 115 [lb_av] [facility] Body weight 97.297 kg 97.297 kg [facility] ([facility]) Systolic blood pressure 163 mm[Hg] 163 mm[Hg] M EDENT ([facility]) Diastolic blood pressure 93 mm[Hg] 93 mm[Hg] [facility] ([facility]) Body height 63.50 [in_i] 63.50 [in_i] [facility] ([facility]) 5'3.50" Body weight 214.00 [lb_av] 214.00 [lb_av] [facility] ([facility]) Body mass index (BMI) [Ratio] 37.3 kg/m2 37.3 k g/m2 [facility] ([facility]) Body weight 97.070 kg 97.070 kg [facility] ([facility]) Patient Treatment Plan of Care Planned Activity Planned Date Details Description Data Source (s) Magnesium Chloride 0.09370 MEQ/ML / Pota ssium Chloride 0.0497 MEQ/ML / Sodium Acetate 0.0163 MEQ/ML / Sodium Chloride 0.0899 MEQ/ML / Sodium gluconate 5.02 MG/ML Injectable Solution [Normosol-R] 09/15/2021 04:00:00 PM EDT [facility] HYDROmorphone (DILAUDID) injection 0.5 mg 09/15/2021 03:01:03 PM ED T [facility] labetalol (NORMODYNE,TRANDATE) injection 5 mg 09/15/2021 03:01:03 P M EDT [facility] ondansetron (ZOFRAN) injection 4 mg 09/15/2021 02:51:28 PM EDT [facility] normal saline flush 0.9 % injection 3 mL 09/15/2021 10:00:00 AM EDT [facility] normal saline flush 0.9 % injection 3 mL 09/15/2021 10:00:00 AM EDT [facility]
[2021-10-03] MEDS ORDERED: DIGOXIN INJ 0.5 MG/2 ML AMP (J1160) IV STA ×2 (14:22→16:00)
[2021-10-03] MEDS ORDERED: FLECAINIDE 50MG TABLET PO ONE ×2 (14:25→16:00)
[2021-10-03] MEDS ORDERED: atenoloL 25 MG TAB PO ONE ×2 (14:25→16:00)
[2021-10-03] MEDS ORDERED: GLUCOSE 4GM CHEW TABLET PO PRN (16:05)
[2021-10-03] MEDS ORDERED: SUCRALFATE 1 GM TAB PO PRN (16:05)
[2021-10-03] MEDS ORDERED: GABAPENTIN 300 MG CAP PO PRN (16:05)
[2021-10-03] MEDS ORDERED: ACETAMINOPHEN 325 MG TAB PO PRN (16:05)
[2021-10-03] MEDS ORDERED: GLUCAGON INJ 1MG VIAL SC PRN (16:05)
[2021-10-03] MEDS ORDERED: DEXTROSE 50% 50 ML SYRINGE IV PRN (16:05)
[2021-10-03] MEDS ORDERED: MOM 30ML SUSPENSION UDC PO PRN (16:05)
[2021-10-03] MEDS ORDERED: ROSU40TA4 PO (16:44)
[2021-10-03] MEDS ORDERED: FLEC25TA PO (16:44)
[2021-10-03] MEDS ORDERED: XIID5DRO OU (16:44)
[2021-10-03] MEDS ORDERED: ATEN25TA PO (16:44)
[2021-10-03] MEDS ORDERED: DIGO0.253 PO (16:44)
[2021-10-03] MEDS ORDERED: HOME MED LIST COMPLETE! XX SCH (16:45)
--- OUTSIDE RECORDS SUMMARY | 2021-10-03 17:01 | CCD ---
Author Author [facility] Organization [facility] Address Unknown Phone Unavailable Care Team Providers Care Dewatering Filtering Supervisor Name Role Phone Rahul Harrington MD Unavailable [...] Unavaila ble MigeedRahul MD Unavailable Unavaila ble MigeedRhaul MD Unavailable Unavaila ble MigeedRahul MD Unavailable Unavaila ble MigeedRahul MD Unavailable Unavaila ble MigeedRahul MD Unavailable Unavaila ble MigeedRahul MD Unavailable Unavaila ble Migeed Rahul Stanislaw Thakkar MD Unavailable Unavaila ble Len, Rahul Thakkar MD Unavailable Unavaila ble MigRahul joyner MD Unavailable Unavaila ble Sarah Perdomo MD Unavailable Unavailable Sarha Perdomo MD Unavailable Unavailable Sarah Perdomo MD [...] Unavailable Unavailable Licha LINDER MD Unavailable Unavailable Lihca LINDER MD Unavailable Unavailable Licha LINDER MD Unavailable Unavailable Licha LINDER MD Unavailable Unavailable Licha LINDER MD Unavailable Unavailable Licha LINDER MD Unavailable Unavailable Licha LINDER MD Unavailable Unavailable Licha LINDER MD Unavailable Unavailable Licha LINDER MD Unavailable Unavailable Licha LINDER MD Unavailable Unavailable Licha LINDER MD Unavailable Unavailable Lciha LINDER MD Unavailable Unavailable Licha LINDER MD [...] KOSTIV, VU Unavailable Unavailable Waller, A Phyl ARCHITECT MANAGER-BC Unavailable Unavailable Waller, A Phyl ARCHITECT MANAGER-BC Unavailable Unavailable Waller, A Phyl ARCHITECT MANAGER-BC Unavailable Unavailable Waller, A Phyl ARCHITECT MANAGER-BC Unavailable Unavailable Waller, A Phyl ARCHITECT MANAGER-BC Unavailable Unavailable Waller, A Phyl ARCHITECT MANAGER-BC Unavailable Unavailable Waller, A Phyl ARCHITECT MANAGER-BC Unavailable Unavailable Waller, A Phyl ARCHITECT MANAGER-BC Unavailable Unavailable Waller, A Phyl ARCHITECT MANAGER-BC Unavailable Unavailable Waller, A Phyl ARCHITECT MANAGER-BC Unavailable Unavailable Waller, A Phyl ARCHITECT MANAGER-BC Unavailable Unavailable Waller, A Phyl ARCHITECT MANAGER-BC Unavailable Unavailable Waller, A Phyl ARCHITECT MANAGER-BC Unavailable Unavailable Waller, A Phyl ARCHITECT MANAGER-BC Unavailable Unavailable Waller, A Phyl ARCHITECT MANAGER-BC Unavailable Unavailable Waller, A Phyl ARCHITECT MANAGER-BC Unavailable Unavailable Waller, A Phyl ARCHITECT MANAGER-BC Unavailable Unavailable Waller, A Phyl ARCHITECT MANAGER-BC Unavailable Unavailable Waller, A Phyl ARCHITECT MANAGER-BC Unavailable Unavailable Waller, A Phyl ARCHITECT MANAGER-BC Unavailable Unavailable Waller, A Phyl ARCHITECT MANAGER-BC Unavailable Unavailable Waller, A Phyl ARCHITECT MANAGER-BC Unavailable Unavailable Waller, A Phyl ARCHITECT MANAGER-BC Unavailable Unavailable Waller, A Phyl ARCHITECT MANAGER-BC Unavailable Unavailable Waller, A Phyl ARCHITECT MANAGER-BC Unavailable Unavailable Waller, A Phyl ARCHITECT MANAGER-BC Unavailable Unavailable Waller, A Phyl ARCHITECT MANAGER-BC Unavailable Unavailable Waller, A Phyl ARCHITECT MANAGER-BC Unavailable Unavailable Waller, A Phyl ARCHITECT MANAGER-BC Unavailable Unavailable Waller, A Phyl ARCHITECT MANAGER-BC Unavailable Unavailable Waller, A Phyl ARCHITECT MANAGER-BC Unavailable Unavailable Waller, A Phyl ARCHITECT MANAGER-BC Unavailable Unavailable Hegard, Herminia ARCHITECT MANAGER Unavailable Unavailable Hegard, Herminia ARCHITECT MANAGER Unavailable Unavailable Hegard, Herminia ARCHITECT MANAGER Unavailable Unavailable Hegard, Herminia ARCHITECT MANAGER Unavailable Unavailable Hegard, Herminia ARCHITECT MANAGER Unavailable Unavailable Hegard, Herminia ARCHITECT MANAGER Unavailable Unavailable Hegard, Herminia ARCHITECT MANAGER Unavailable Unavailable Hegard, Herminia ARCHITECT MANAGER Unavailable Unavailable Hegard, Herminia ARCHITECT MANAGER Unavailable Unavailable Hegard, Herminia ARCHITECT MANAGER Unavailable Unavailable Hegard, Herminia ARCHITECT MANAGER Unavailable Unavailable Hegard, Herminia ARCHITECT MANAGER Unavailable Unavailable Hegard, Herminia ARCHITECT MANAGER Unavailable Unavailable Hegard, Herminia ARCHITECT MANAGER Unavailable Unavailable Hegard, Herminia ARCHITECT MANAGER Unavailable Unavailable Hegard, Herminia ARCHITECT MANAGER Unavailable Unavailable Hegard, Herminia ARCHITECT MANAGER Unavailable Unavailable Re-disclosure Warning The records [...] is protected by Article 27-F of the [facility] Public Health law. If you continue you may have access to information: Regarding HIV / AIDS; Provided by facilities licensed or operated by the [facility] Office of Mental Health; or Provided by the [facility] Office for People With Developmental Disabilities. If such information is present, then the following [facility] mandated warning applies: This information has been [...] law may result in a fine or long term sentence or both. A general authorization for the release of medical or other information is NOT sufficient authorization for further disc losure. Allergies and Adverse Reactions Type Description Substance Reaction Status Data Source(s ) Propensity to adverse reactions TOPIRAMATE topiramate Acti ve [facility] Propensity to adverse reactions OXYCODONE Oxycodone Acti ve [facility] Propensity to adverse reactions INDAPAMIDE Indapamide Palpitations Lo w Active [facility] Low Propensity to adverse reactions DIGOXIN AND RELATED Digoxin And Rel ated Active [facility] Propensity to adverse reactions CARVEDILOL carvedilol Palpitations Lo w Active [facility] Low Propensity to adverse reactions ADHESIVE TAPE Adhesive Tape Itching Low Rash Low [facility] Low Low Propensity to adverse reactions TETRACYCLINES & RELATED TETRACYC LINES & RELATED Rash [facility] Propensity to adverse reactions SULFA ANTIBIOTICS SULFA ANTIBIOTICS R tracy [facility] Propensity to adverse reactions PENICILLINS Penicillin Rash [facility] Propensity to adverse reactions AMOXICILLIN Amoxicillin Rash [facility] Propensity to adverse reactions OXYCODONE OXYCODONE [facility] Propensity to adverse reactions INDAPAMIDE INDAPAMIDE [facility] Propensity to adverse reactions CARVEDILOL CARVEDILOL [facility] Propensity to adverse reactions DIGOXIN AND RELATED DIGOXIN AND RELAT ED [facility] Substance/Environmental Agent Allergy Substance/Environmenta l Agent Allergy tizanidine [facility] Substance/Environmental Agent Allergy Substance/Environmenta l Agent Allergy cyclobenzaprine [facility] Family History Family Member Name Family Member Gender Family Member Status Date o f Status Description Data Source(s) Unknown Unknown Problem [facility] Unknown Unknown Problem [facility] ([facility] Unknown Unknown Problem [facility] ([facility]) Encounters Encounter Providers Location Date Indications Data Source(s ) Outpatient Attender: Bijan Harrington MD Admitter: Bijan Harrington MDReferrer: VU DUARTE [email or web address] 09/15/2021 09:01:00 AM EDT - 09/15/2021 07:43:00 PM EDT [facility] Patient discharged. Outpatient Attender: Bijan Harrington MDReferrer: Bijan KEYS.PAT 09/10/2021 09:20:53 AM EDT - 09/10/2021 10:38:57 AM EDT [facility] Outpatient Referrer: Bijan KEYS.PAT 09:01:13 AM EDT - 09/10/2021 09:01:22 AM EDT [facility] Outpatient Attender: Sarah Thornton/Oliver/Antonino/Josh ndl 09/09/2021 11:00:00 AM EDT [facility] ([facility]) Outpatient Attender: Herminia MANZANARESP Main Office 1 09:45:00 AM EDT [facility] ([facility]) Outpatient Attender: FREDDIE ALANIZ PA Main Office 08/23/2021 1 1:30:00 AM EDT [facility] ([facility]) ( GYNANN) [facility] Yearly [employer] Exam [address] [place] [address] 07/29/2021 12:00:00 AM EDT eCW1 ([facility]) Outpatient Referrer: Bijan Harrington MD 07/13/2021 02:57:[address] [facility] Outpatient Referrer: Bijan Harrington MD 07/13/2021 02:13:[address] [facility] Outpatient Attender: FREDDIE RESENDIZ Main Office 07/12/2021 0 9:45:00 AM EDT [facility] ([facility]) Outpatient Attender: GLORIA LINDER MD 06/29/2021 01:30: 00 PM [facility] Outpatient Attender: Bijan Harrington MD [facility] Cardiology Asso ciates 06/28/2021 11:15:00 AM EDT [facility] ([facility] Cardiac Catheter [facility]) Office Visit, Est Pt., Level 3 PC [address] [place] [address] 06/22/2021 12:00:00 AM EDT eCW1 ([facility]) [place] [address] [facility] [address] 05/26/2021 12:00:00 AM EDT eCW1 ([facility]) Outpatient Attender: HOLLY HUBER MD Main Office 05/18/2021 09:00:00 AM EDT [facility] ([facility]) Outpatient Attender: Carol Thornton/Oliver/Millie velázquez/Janusz 05/10/2021 11:15:00 AM EDT [facility] ([facility]) Outpatient Attender: Sarah Thornton/Oliver/Antonino/Josh ndl 04/29/2021 09:30:00 AM EDT [facility] ([facility]) [place] [address] [facility] [address] 04/21/2021 12:00:00 AM EDT eCW1 ([facility]) OFFICE OUTPATIENT VISIT 40 MINUTES Attender: HOLLY HUBER MD Ma in Office 04/14/2021 01:30:00 PM EDT [facility]) Unknown [address] [facility] [address] 04/12/2021 12:00:00 AM EDT eCW1 ([facility]) <td ID="encounterTypeDescriptionID0">2 Y ear Follow-Up</td><td>Holly Hood MD, FACS</td><td>Holly Warren MD [facility]</td><td>04/02/2021</td><td>8:53AM</td><td>9:32AM</td><td><content ID="encounterDiagnosisID0-0">Cataract Senile Nuclear</content>, <content ID="encounterDiagnosisID0-1">Essential Hypertension</content>, <content ID="encounterDiagnosisID0-2">Retinopathy Hypertensive Both Eyes</content>, <content ID="encounterDiagnosisID0-3">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</content>, <content ID="encounterDiagnosisID0-4">Borderline 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</content></td>Outpatient Attender: Holly Hood MD, FACS Holly aWrren MD [facility] 04/02/2021 08:53:0 0 AM EDT - 04/02/2021 09:32:00 AM EDT Essential HypertensionCataract Senile NuclearBorderline 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Retinopathy Hypertensive Both Eyes MELINDA (Holly Hood MD [facility]) Essential Hypertension Cataract Senile Nuclear Borderline Glaucoma Open Angle with Bord cuba Findings Both Eyes Peripheral Retinal Degeneration Paving S tone Both Eyes Retinopathy Hypertensive Both Eyes Unknown [address] [address] 03/26/2021 12:00:00 AM EDT eCW1 ([facility]) Outpatient Attender: Ynes Waller [facility] Main Office 0 02/08/2021 01:45:00 PM EDT [facility] ([facility]) Outpatient Attender: FREDDIE RESENDIZ Main Office 01/11/2021 0 8:45:00 AM EST [facility] ([facility]) [place] [address] [address] 12/21/2020 12:00:00 AM EST eCW1 ([facility]) Outpatient Attender: Carol Garza Norberto/Majestic/A ngel/Reindl 11/09/2020 08:00:00 AM EST [facility] ([facility] ) [place] [address] [address] 10/28/2020 12:00:00 AM EST eCW1 ([facility]) Outpatient Attender: Carol Loraang/Majestic/A ngel/Reindl 09/08/2020 11:15:00 AM EDT [facility] ([facility] Medardo romero ) Outpatient Attender: Sarah Thornton/Majestic/Antonino/Josh ndl 08/06/2020 11:00:00 AM EDT [facility] ([facility] Fernando holcomb, ) Outpatient Attender: Jerri Thornton/Majestic/Antonino/R eindl 08/04/2020 10:45:00 AM EDT [facility] ([facility] zhang, ) Immunizations Vaccine Date Status Description Data Source(s) COVID-19 VACCINE Moderna 09/21/2021 12:00:00 AM EDT completed [place] Vaccine Series Complete: YESThis Data wa s Submitted to [facility]. COVID-19 VACCINE Moderna 01/30/2021 12:00:00 AM EST completed [place] Vaccine Series Complete: YESThis Data wa s Submitted to [facility] Via [employer]. COVID-19 VACCINE Moderna 01/01/2021 12:00:00 AM EST completed [place] Vaccine Series Complete: NOThis Data was Submitted to [facility] Via [employer]. Tdap 10/28/2020 11:41:00 AM EST completed e CW1 ([facility]) Tdap 10/28/2020 11:41:00 AM EST completed e CW1 ([facility]) Tdap 10/28/2020 11:41:00 AM EST completed e CW1 ([facility]) Tdap 10/28/2020 11:41:00 AM EST completed e CW1 ([facility]) Tdap 10/28/2020 11:41:00 AM EST completed e CW1 ([facility]) Tdap 10/28/2020 11:41:00 AM EST completed e CW1 ([facility]) Tdap 10/28/2020 11:41:00 AM EST completed e CW1 ([facility]) Tdap 10/28/2020 11:41:00 AM EST completed e CW1 ([facility]) Medications Medication Brand Name Start Date Product Form Dose Route Admi nistrative Instructions Pharmacy Instructions Status Indications Reaction Description Data Source(s) Magnesium Chloride 0.40456 MEQ/ML / Pota ssium Chloride 0.0497 MEQ/ML / Sodium Acetate 0.0163 MEQ/ML / Sodium Chloride 0.0899 MEQ/ML / Sodium gluconate 5.02 MG/ML Injectable Solution [Normosol-R] electrolyte-R (NORMOSOL-R/PLASMALYTE-R) solution 1,000 mL electrolyte-R (NORMOSOL-R/PLASMALYTE-R) solution 1,000 mL 09/15/2021 04:00:00 PM EDT 1000 mL Intravenous active at 100 mL/hr, 1,000 mL, Intravenous, Continuous, Starting on Mon09/15/21 at 1600, PACU (only) [facility] Medication administered onsite labetalol (NORMODYNE,TRANDATE) injection 5 mg [id number] 09/15/2021 03:01:03 PM EDT 5 mg Intravenous active 5 mg , Intravenous, Every 5 min PRN, high blood pressure, for SBP greater than 160, Starting on Mon09/15/21 at 1501, For 4 doses, PACU (only)
Max of 20 MG, hold for HR less than 60
[facility] Medication administered onsite HYDROmorphone (DILAUDID) injection 0.5 mg [id number] 09/15/2021 03:01:03 PM EDT 0.5 mg Intravenous active 0.5 mg, Intravenous, Every 5 min PRN, severe pain (7-10), Starting on Mon09/15/21 at 1501, For 2 doses, PACU (only) [facility] Medication administered onsite fentaNYL Citrate (PF) (SUBLIMAZE) injection 25 mcg [id number] 09/15/2021 03:01:03 PM EDT 25 ug Intravenous active Postoperativ e Pain 25 mcg, Intravenous, Every 5 min PRN, moderate pain (4 to 6), Starting on Mon09/15/21 at 1501, For 11 doses, PACU (only) [facility] Postoperative Pain Medication administered onsite Albuterol 0.83 MG/ML Inhalant Solution a lbuterol (PROVENTIL) nebulizer solution 2.5 mg albuterol (PROVENTIL) nebulizer solution 2.5 mg 2020 03:01:02 PM EDT 2.5 mg completed 2.5 mg , Nebulization, Once as needed, wheezing, Starting on Mon09/15/21 at 1501, For 1 dose, PACU (only) [facility] Medication administered onsite ondansetron (ZOFRAN) injection 4 mg [id number] 09/15/2021 02:51:2 8 PM EDT 4 mg Intravenous active 4 mg, In travenous, Every 8 hours PRN, nausea, vomiting, Starting on Mon09/15/21 at 1451, Post-op [facility] Medication administered onsite Acetaminophen 325 MG Oral Tablet acetaminophen (TYLENO L) 325 MG tablet 650 mg acetaminophen (TYLENOL) 325 MG tablet 650 mg 09/15/2021 02:51:28 PM EDT 650 mg Oral active 650 mg, Or al, Every 6 hours PRN, mild pain (1-3), Starting on Mon09/15/21 at 1451, Post-op
"Maximum dose of acetaminophen is 4,000 mg from all sources in 24 hours."
[facility] Medication administered onsite protamine injection [id number] 09/15/2021 02:13:57 PM EDT active As needed, Starting on Mon09/15/21 at 1413, Intra-Pro cedure [facility] Medication administered onsite 1 ML heparin sodium, porcine 1000 UNT/ML Injection hep tia (porcine) injection heparin (porcine) injection 09/15/2021 01:18:30 PM EDT active As needed, Starting on Mon09/15/21 at 1318, Intra-Procedure [facility] Medication administered onsite normal saline flush 0.9 % injection 3 mL [id number] 09/15/2021 10:00:00 AM EDT 3 mL Intravenous active 3 mL , Intravenous, Every 8 hours (scheduled), First dose on Mon09/15/21 at 1000, Pre-op
Rapid push positive pressure flushing shall be performed with a 10 cc normal saline syringe to check the PATENCY of a PIV site prior to any infusion therapy initiation unless resistance is met.
[facility] Medication administered onsite normal saline flush 0.9 % injection 3 mL [id number] 09/15/2021 10:00:00 AM EDT 3 mL Intravenous active 3 mL , Intravenous, Every 8 hours (scheduled), First dose on Mon09/15/21 at 1000, Pre-op
Rapid push positive pressure flushing shall be performed with a 10 cc normal saline syringe to check the PATENCY of a PIV site prior to any infusion therapy initiation unless resistance is met.
[facility] Medication administered onsite Rosuvastatin calcium 40 MG Oral Tablet Rosuvastatin Calcium 07/09/2021 12:00:00 AM EDT ORAL active [facility] Cequa Cequa 07/01/2021 12:00:00 AM EDT active [facility] ([facility]) valsartan 80 MG Oral Tablet Valsartan 05/18/2021 12:00:00 AM EDT ORAL active [facility] ([facility]) Atenolol 25 MG Oral Tablet Atenolol 05/18/2021 12:00:00 AM EDT ORAL active [facility] ([facility]) Atenolol 25 MG Oral Tablet Atenolol 05/17/2021 12:00:00 AM EDT ORAL completed [facility] ([facility]) 12 HR Guaifenesin 600 MG Extended Release Oral Tablet [Mucin ex] Mucinex 04/29/2021 12:00:00 AM EDT ORAL completed [facility] ([facility], ) Amiodarone hydrochloride 200 MG Oral Tablet Amiodarone HCL 04/14/2021 12:00:00 AM EDT ORAL completed [facility] ([facility]) Digoxin 0.25 MG Oral Tablet Digoxin 250 MCG Digoxin 250 MCG 04/14/2021 12:00:00 AM EDT 0.5 {tablet} active Digoxin 250 MCG eCW1 ([facility]) Calcium Carbonate 500 MG Chewable Tablet Calcium Antacid 04/13/2021 12:00:00 AM EDT active [facility] ([facility] Metronidazole 7.5 MG/ML Topical Cream Metronidazole 04/13/2021 12:00:00 AM EDT active [facility] ( [facility]) Cranberry 04/13/2021 12:00:00 AM EDT ORAL complete d [facility] ([facility]) Acetaminophen 325 MG Oral Tablet Acetaminophen 04/13/2021 12:00:00 AM EDT active [facility] ([facility]) Digoxin 0.25 MG Oral Tablet [Digox] Digox 04/11/2021 12:00:00 AM EDT ORAL completed [facility] ([facility]) Cyclosporine 0.5 MG/ML Ophthalmic Suspen bere [Restasis] Restasis 0.05% Ophthalmic Emulsion Restasis 0.05% Ophthalmic Emulsion 04/02/2021 12:00:00 AM EDT 1 active cyclospo rine 0.5 MG/ML Ophthalmic Suspension [Restasis] MELINDA (Holly Hood MD [facility]) modafinil 100 MG Oral Tablet Modafinil 02/05/2021 12:00:00 AM EDT completed [facility] ([facility], ) Covid-19 vaccine, Unspecified 01/30/2021 12:00:00 AM EST completed [facility] ([facility], ) Medication administered onsite 12 HR Hyoscyamine Sulfate 0.375 MG Extended Release Or al Tablet Hyoscyamine Sulfate ER 01/10/2021 12:00:00 AM EST ORAL active [facility] ([facility]) Fluticasone Propionate Fluticasone Propionate 01/10/2021 12:00:[address] active [facility] ([facility]) Cyclosporine 0.5 MG/ML Ophthalmic Suspension [Restasis] Rest asis 01/10/2021 12:00:00 AM EST OPHTHALMIC completed [facility] ([facility]) WHEAT DEXTRIN 3500 MG Oral Powder [Benefiber] Benefiber 01/10/2021 12:00:00 AM EST ORAL active [facility] ([facility]) Covid-19 vaccine, Unspecified 01/02/2021 12:00:00 AM EST completed [facility] ([facility], ) Medication administered onsite Sucralfate 1000 MG Oral Tablet Sucralfate 08/10/2020 12:00:00 AM EDT ORAL completed [facility] ([facility], ) Insurance Providers Payer name Policy type / Coverage type Policy ID Covered alliance party ID Covered alliance party's relationship to wilson Policy Wilson Plan Information [id number] [employer] Med[employer] Part B [id number] Self [id number] [employer] Med[employer] Part B [id number] Self [id number] [employer] Med[employer] Part B [id number] Self [employer] Med[employer] Part B [id number] Self [id number] [employer] Med[employer]ap Part B [id number] Self DME Jurisdiction A NHIC C [id number] SELF [id number] MEDICARE [id number] SP [id number] A MEDICARE [id number] Shraddha [id number] Medicare (Part B) Medicare Primary [id number] Self [id number] Medicare (Part B) Medicare Primary [id number] Self [id number] Medicare (Part B) Medicare Primary [id number] Self 1 [id number] Medicare (Part B) Medicare Primary [id number] Self 1 [id number] Medicare (Part B) Medicare Primary [id number] Self 1 [id number] Medicare C [id number] SELF [id number] Medicare (Part B) Medicare Primary [id number] Self [id number] Medicare (Part B) Medicare Primary [id number] Self [id number] MEDICARE A [id number] Self [id number] Medicare (Part B) Medicare Primary [id number] Self MEDICARE [id number] Medicare Medicare Primary [id number] Self Medicare (Part B) Medicare Primary [id number] Self [id number] UMR [id number] UMR U [id number] Self [id number] UMR [id number] Shraddha [id number] Medicare C [id number] SELF [id number] A DME Jurisdiction A [facility] C [id number] SELF [id number] UMR F [id number] SELF [id number] UMR F [id number] SELF [id number] Umr Medigap Part B [id number] Self [id number] Umr Commercial [id number] Self [id number] INSURANCE COVID-19 [id number] xOVID 2 [id number] INSURANCE COVID-19 COVID Shraddha C OVID INSURANCE COVID-19 COVID Shraddha C OVID Medicare [place] Primary [id number] Self 1 [id number] Medicare [place] Medicare Primary [id number] Self [id number] [employer] PHCS Ppo Medigap Part B [id number] Self [id number] [employer] PHCS Ppo Medigap Part B [id number] Self [id number] Ghi Medigap Part B [id number] Self [id number] Medicare [place] Medicare Primary [id number] Self 1 [id number] Ghi Medigap Part B [id number] [id number] Self [id number] Medicare [place] Medicare Primary [id number] Self [id number] ANSI-Commercial [id number] ANSI-Medicare Part B [id number] ANS-Medicare Part B [id number] ANSI-Commercial [id number] ANS-Medicare Part B [id number] ANSI-Commercial [id number] ANSI-Medicare Part B [id number] ANSI-Commercial [id number] [facility] Part B [id number] ..[id number] 6.0 Self [id number] Medicare [facility] Medicare Primary [id number] .[id number] Self 1 [id number] [facility] [id number] SP [id number] MEDICARE [id number] SP [id number] A [facility] [id number] SP [id number] [facility] Part B [id number] .[id number] 6.0 Self [id number] Medicare [facility] Medicare Primary [id number] Self 1 [id number] MEDICARE C [id number] S [id number] A [employer] PPO O [id number] S [id number] [employer] Ppo Medigap Part B [id number]. [id number] Self [id number] Ghi Medigap Part B [id number] 2.0.1.750195.3.227.99.8646.656 6.0 Self [id number] [place] Primary [id number] [id number]66.0 Self 1 [id number] Ghi Medigap Part B [id number] 2.0.1.308624.3.227.99.8646.656 6.0 Self [id number] [place] Medicare Primary [id number] 2.0.1.466928.3.227.99.8646.6566.0 Self 1 [id number] Ghi Medigap Part B [id number] 2..1.774243.3.227.99.8646.656 6.0 Self [id number] Medicare [place] Medicare Primary [id number]646.6566.0 Self 1 [id number] Ghi Medigap Part B [id number] 2.0.1.289827.3.227.99.8646.656 6.0 Self [id number] Medicare [place] Medicare Primary [id number] 2.0.1.941356.3.227.99.8646.6566.0 Self 1 [id number] Ghi Medigap Part B [id number] 2.0.1.960098.3.227.99.8646.656 6.0 Self [id number] Medicare [place] Medicare Primary [id number] .0.1.302255.3.227.99.8646.6566.0 Self 1 [id number] [employer] Ppo Medigap Part B [id number] 2.16.840.1.299115.3.227. 99.572.45991.0 Self [id number] Ghi Medigap Part B [id number] 2.16.840.1.921998.3.227.99.8646.656 6.0 Self [id number] Medicare [facility] Medicare Primary [id number]46.6566.0 Self 1 [id number] UMR [facility] [id number] SP [id number] MEDICARE [id number] SP [id number] A Ghi Medigap Part B [id number] Self Medicare [facility] Medicare Primary [id number] Self [employer] [id number] SP [id number] [employer] -O/P [id number] 18 [id number] MEDICARE -O/P [id number] 18 [id number] SELF PAY UNAVAILABLE SP UNAVAILA BLE [employer] Medigap Part B [id number] Self Medicare [place] Primary [id number] Self MEDICARE [id number] SP [id number] UMR [id number] S [id number] [facility] MEDICARE DIVISION [id number] S [id number] MEDICARE - [place] [id number] S [id number] [employer] [place] Other 0 [id number] Self 0 Medicare Part B [facility] Other 0 [id number] Self 0 [id number] 18 [id number] MEDICARE PART A [facility] [id number] 18 [id number] UMR O [id number] S [id number] MEDICARE C [id number] S [id number] MEDICARE C [id number] S [id number] [employer] Ppo Medigap Part B [id number] Self [id number] [employer] [place] Other 0 [id number] Self 0 Medicare Part B [facility] Other 0 [id number] Self 0 UMR -PHYSICIAN [id number] 1 [id number] MEDICARE PART A -O/P [id number] 18 [id number] Ghi Medigap Part B [id number] Self [id number] Medicare [place] Medicare Primary [id number] Self [id number] Medicare [place] Medicare Primary [id number] Self [id number] ANSI-Medicare Part B [id number] ANSI-Commercial [id number] [employer] Ppo Medigap Part B [id number] Self [id number] [employer] Ppo Medigap Part B [id number] Self [id number] Ghi Medigap Part B [id number] .1.244534.3.227.99.8646.656 6.0 Self [id number] Medicare [place] Medicare Primary [id number] .[id number] Self 1 [id number] Medicare [facility] Medicare Primary [id number] Self [id number] ANSI-Commercial [id number] ANSI-Medicare Part B [id number] ANSI-Commercial [id number] ANSI-Medicare Part B [id number] ANSI-Medicare Part B [id number] ANSI-Commercial [id number] [facility] Part B [id number] 6.0 Self [id number] Problems, Conditions, and Diagnoses Code Display Name Description Problem Type Effective Dates Data Source(s) I48.0 Paroxysmal atrial fibrillation Paroxysmal atrial fibri llation Diagnosis 09/10/2021 09:20:53 AM EDT [facility] U07.1 COVID-19 COVID-19 Diagnosis 09/10/2021 09:01:13 AM ED T [facility] Z86.79 Personal history of other diseases of th e circulatory system PERSONAL HISTORY OF OTHER DISEASES OF THE CIRCULAT Diagnosis 06/29/2021 01:30:0 0 PM EDT [facility] R60.0 Localized edema LOCALIZED EDEMA Diagnosis 06/29/2021 01:3 0:00 PM T [facility] I48.0 Paroxysmal atrial fibrillation Paroxysmal atrial fibri llation [id number] 09/15/2021 12:00:00 AM EDT [facility] I50.32 Chronic diastolic heart failure Chronic diastolic hear t failure Problem 07/12/2021 12:00:00 AM EDT [facility] ([facility]) [id number] Essential hypertension Essential hypertension Problem 06/22/2021 12:00:00 AM EDT [facility] ([facility] R07.9 Chest pain Chest pain Problem 04/14/2021 12:00:00 AM ED T [facility] ([facility]) 366.16 Cataract Senile Nuclear Cataract Senile Nuclear Proble m 04/02/2021 12:00:00 AM EDT [facility] (Holly Hood MD [facility]) Surgeries/Procedures Procedure Description Date Indications Data Source(s) EP STUDY <td>EP STUDY</td><td>Routine </td><td>09/15/2021 2:32 PM EDT</td><td> Paroxysmal atrial fibrillation</td><td> </td> 09/15/2021 02:32:10 PM EDT Paroxysmal atrial fibrillation [facility] Paroxysmal atrial fibrillation ECG ROUTINE ECG W/LEAST 12 LDS TRCG ONLY W/O I&R <td>E CG 12- LEAD</td><td>Routine</td><td>09/10/2021 10:36 AM EDT</td><td> Paroxysmal atrial fibrillation</td><td></td> 09/10/2021 10:36:19 AM EDT Paroxysmal atrial fibrillation [facility] Paroxysmal atrial fibrillation BLOOD COUNT COMPLETE AUTOMATED <td>CBC</td><td>Routine </td><td>09/10/2021 10:30 AM EDT</td><td> Paroxysmal atrial fibrillation</td><td> </td> 09/10/2021 10:30:00 AM EDT Paroxysmal atrial fibrillation [facility] Paroxysmal atrial fibrillation BLOOD TYPING ABO <td>TYPE AND SCREEN</td><td> Routine</td><td>09/10/2021 10:30 AM EDT</td><td> Paroxysmal atrial fibrillation</td><td> </td> 09/10/2021 10:30:00 AM EDT Paroxysmal atrial fibrillation [facility] Paroxysmal atrial fibrillation BASIC METABOLIC PANEL CALCIUM TOTAL <td>BASIC METABOLI C PANEL</td><td>Routine</td><td>09/10/2021 10:30 AM EDT</td><td> Paroxysmal atrial fibrillation</td><td> </td> 09/10/2021 10:30:00 AM EDT Paroxysmal atrial fibrillation [facility] Paroxysmal atrial fibrillation OFFICE OUTPATIENT VISIT 25 MINUTES 09/09/2021 12:00:00 AM EDT [facility] ([facility], ) DESTRUCTION BENIGN LESIONS 15/> 09/06/2021 12:00:00 AM EDT [facility] ([facility]) OFFICE OUTPATIENT VISIT 25 MINUTES 09/06/2021 12:00:00 AM EDT [facility] ([facility]) OFFICE OUTPATIENT VISIT 5 MINUTES 08/23/2021 12:00:00 AM EDT [facility] ([facility]) ECG ROUTINE ECG W/LEAST 12 LDS W/I&R 07/12/2021 12:00: 00 AM EDT [facility] ([facility]) OFFICE OUTPATIENT VISIT 25 MINUTES 07/12/2021 12:00:00 AM EDT [facility] ([facility]) Electrocardiogram Complete 06/28/2021 12:00:00 AM EDT [facility] ([facility]) OFFICE OUTPATIENT NEW 60 MINUTES 06/28/2021 12:00:00 A M EDT [facility] ([facility]) MYOCRD IMAGE PET PERFUS MULTPL STUDY REST/STRESS 06/24 12:00:00 AM EDT [facility] CV STRS TST XERS&/OR RX CONT ECG I&R ONLY 06/24/2021 1 2:00:00 AM EDT [facility]) ECG ROUTINE ECG W/LEAST 12 LDS W/I&R 05/18/2021 12:00: 00 AM EDT [facility] ([facility]) Arterial Pressure Waveform Analysis For Assessment Of Centra l Art 05/18/2021 12:00:00 AM EDT [facility]) OFFICE OUTPATIENT VISIT 15 MINUTES 05/18/2021 12:00:00 AM EDT [facility] ([facility]) ECHO TTHRC R-T 2D W/WOM-MODE COMPL SPEC&COLR DOP 05/12 12:00:00 AM EDT [facility] ([facility]) OFFICE OUTPATIENT VISIT 15 MINUTES 05/10/2021 12:00:00 AM EDT [facility] ([facility], ) External ECG Rec>48HR<7D Recording 05/04/2021 12:00:00 AM EDT [facility] ([facility]) External ECG Rec>48HR<7D Review & Interpretation 05/04 12:00:00 AM EDT [facility] ([facility]) OFFICE OUTPATIENT VISIT 25 MINUTES 04/29/2021 12:00:00 AM EDT [facility]) Bronchospasm Evaluation 04/21/2021 12:00:00 AM EDT [facility] ([facility]) Plethysmography Determination Lung Volumes & Per Airway Resi st 04/21/2021 12:00:00 AM EDT [facility], ) DIFFUSING CAPACITY 04/21/2021 12:00:00 AM EDT [facility] ([facility]) ECG ROUTINE ECG W/LEAST 12 LDS W/I&R 04/14/2021 12:00: 00 AM EDT [facility] ([facility]) Arterial Pressure Waveform Analysis For Assessment Of Centra l Art 04/14/2021 12:00:00 AM EDT [facility] ([facility]) OFFICE OUTPATIENT VISIT 40 MINUTES 04/14/2021 12:00:00 AM EDT [facility] ([facility]) Intermediate Eye Exam Established Patient Intermediate Eye Exam Established Patient 04/02/2021 12:00:00 AM EDT [facility] (Justyn Hood MD [facility]) OFFICE OUTPATIENT VISIT 25 MINUTES 02/08/2021 12:00:00 AM EDT [facility] ([facility]) ECG ROUTINE ECG W/LEAST 12 LDS W/I&R 01/11/2021 12:00: 00 AM EST [facility] ([facility]) OFFICE OUTPATIENT VISIT 25 MINUTES 01/11/2021 12:00:00 AM EST [facility] ([facility]) Immunization: Boostrix 0.5mL IM (TDAP) 10/28/2020 12:0 0:00 AM EST eCW1 ([facility]) Endoscopy Upper GI Biopsy 08/10/2020 12:00:00 AM EDT [facility] ([facility], ) Colonoscopy W/ Poly 08/10/2020 12:00:00 AM EDT [facility] ([facility], ) Results ID Date Data Source [id number] 09/16/2021 02:26:45 PM [facility] MR[facility] Name Date of Age Gend*PT [id number] Galilea Quinteros 1950 71 years F HOPPT Location Admission Date/Time Visit ID Attending Provider09/15/21 09 --- --- EPI ID CSN Admitting Provider [id number] M Rahul Harrington MD([id number])Inpatient History & PhysicalClstephany QuinterosMRN:[id number]: here for AF ablationPast Medical History:Past Medical [...] MG capsule Take 600 mg by mouth evxoozg7809/14/2021 at 2100 Hyoscyamine Sulfate ER 0.375 MG [...] LIST:1. highly sx PAF /2, typical flutter 88673. HTN3. Pericardial Effusion small4. Chronic Cor Pulmonale5. [...] Name Value Range Interpretation Code Description Data [facility] Supporting Document(s) ID Date Data Source [id number] 09/15/2021 02:55:47 PM EDT [facility] Name Value Range Interpretation Code Description Data [facility](s) Supporting Document(s) &PDF [facility] BTNHJi7yRaYEXfCx14/BBIeoTBAzb3AoHMedKCb3OZdtIJHxK8FipHvzDYXZHNACHCJEMSGBZVOmXQDg vci [file] AgICAgICAgICAgICAgICAgICAgICAgICAgICAgICAg ICAgICAgICAgICAgICAgICAgICAgICAgICAgICAgICAgICAgICAgICAgICAgICAgICAgDQogICAgICAg ICAgICAgICAgICAgICAgICAgICAgICAgICAgICAgICAgICAgICAgICAgICAgICAgICAgICAgICAgICAg ICAgICAgICAgICAgICAgICAgICAgICAgICAgICAgIC AgDQogICAgICAgICAgICAgICAgICAgICAgICAgICAgICAgICAgICAgICAgICAgICAgICAgICAgICAgIC AgICAgICAgICAgICAgICAgICAgICAgICAgICAgICAgICAgICAgICAgICAgDQogICAgICAgICAgICAgIC AgICAgICAgICAgICAgICAgICAgICAgICAgICAgICAg ICAgICAgICAgICAgICAgICAgICAgICAgICAgICAgICAgICAgICAgICAgICAgICAgICAgICAgDQogICAg ICAgICAgICAgICAgICAgICAgICAgICAgICAgICAgICAgICAgICAgICAgICAgICAgICAgICAgICAgICAg ICAgICAgICAgICAgICAgICAgICAgICAgICAgICAgIC AgICAgDQogICAgICAgICAgICAgICAgICAgICAgICAgICAgICAgICAgICAgICAgICAgICAgICAgICAgIC AgICAgICAgICAgICAgICAgICAgICAgICAgICAgICAgICAgICAgICAgICAgICAgDQogICAgICAgICAgIC AgICAgICAgICAgICAgICAgICAgICAgICAgICAgICAg ICAgICAgICAgICAgICAgICAgICAgICAgICAgICAgICAgICAgICAgICAgICAgICAgICAgICAgICAgDQog ICAgICAgICAgICAgICAgICAgICAgICAgICAgICAgICAgICAgICAgICAgICAgICAgICAgICAgICAgICAg ICAgICAgICAgICAgICAgICAgICAgICAgICAgICAgIC AgICAgICAgDQogICAgICAgICAgICAgICAgICAgICAgICAgICAgICAgICAgICAgICAgICAgICAgICAgIC AgICAgICAgICAgICAgICAgICAgICAgICAgICAgICAgICAgICAgICAgICAgICAgICAgDQogICAgICAgIC AgICAgICAgICAgICAgICAgICAgICAgICAgICAgICAg ICAgICAgICAgICAgICAgICAgICAgICAgICAgICAgICAgICAgICAgICAgICAgICAgICAgICAgICAgICAg LNm9B5bjRYAsYVZfOS6oBSc3Od2+SHiFWrVbUKW1dfRihK1LBO2bt8DgRGxaGJYan5BdIGh1KQ3NXAFy BPbaMS1HIMqjhs7UWHFpKZXhrQTRo4jhXnIuYUP0AN KcQzcwMP5UVBQyS1pdzeZsZSHnXCRZCHujTZKJYWagEIEWLAYfGFCrVsFjXIfgNU5Pc5AnoAL3XIi+Pg 6KDG2db6QaFPyhZiXzKV3niw0XXFcLTkTaG8YmjqF3BAA0LXFnXj3ATFFvWAIkgPYkVWIaENLSGqEwT6 NjmA22FWDYIa5+HFrvlkXdGvhBVpV9XJZpi8AqQLg2 CX5UQEErJYn6iORhPQ2bsXUolOUpXWfoGS3YFNE6ZCfqMSJtJDCAFB5JYPskASP0KBUeeyCjwNGgAHxj XV9NXYWxsoZhOagcUQHKLHp+Nm1UOS9az4UvXOkrUEAhLQ9fed7LRMfDSuKsF9O5pGTvT1Q8AOqeZb7V LSQtNUJgRxXtQZBWXCohAS2ZWA9povL1FI4ZnRFrWJ SmSMTqiUMzRIk9A38ekLRnGNzvYE1DNGT+Tegan+Rg4AFDYiSNSbRIAbYgGnNKIBHmZvU5UqB7RIh6NyM0 VsQV83gUmsmoRtRUbvXB2BHI6iVRZrYDZRRJ6HcETtcK4tsuBaQdPsUQWWSpNxW12cvLNlCFHdLAT8LG NaGo0LHSRfK1HtnyMogMahqdRvPDZgMOUZKV8VXPes vjSunEYxdXojMM71tEumYY1DYy0JPzRuQJ5rcb1OpMNjAc7ZWJQpSW7GXUOtWCPrPYSiPFC6LSIzKhYv WDavBILkYDWvPUU5RUAeNITsWM2RIyGhOKVlDFJ5BxIyPDTnCAFyae9PMYYfBAV3PoJjTOQaMTLwMDMq CXeuHKUiHQNwPBhyIYAbQPOoVP4NVyQiQNGhYDCsWB SgOTJbVDHolv7AZVFqQZZqCgRpRTUvMEPeFNVhJFucFRKyBEA3VeG0FZFpREYpOM6MLdZqQVBtBPQ3Nr DpCCIqVOVsih9YWAZyGVObENB8SHJcLCMnBJLdQIjhJDToCBZ3WaEqGGBiVPQfJW1OCrBqVHAaZRQ3Cp CdUNMjXXAufc0UHLVjYMPqZEV6SEMuHIWvYYPjBXzt VHTjXWYiMgG0YQCnUSEhWG5CKoOxYVCjJBJ0HmSaRZIuMKKvjc8JNKIqDVLvBzVySGRvXEPuKCHjMBlz XVIfLXEeEIU8AILkZMMvBR9COaUnTROrPWMcLyPgDEBuZCHkjm2BDBSjVAJyMxI2NWLwLPLdAPOsFAcc IRZuHOXlMND2KEMjMRFxAD9UFqLlUNHjSbMcPBFfFN OwRGKszx8ADVPnASOyIQEdTLUeAPGtDNPdPFxqUQYgNJV6NCBgINKqFCEdWW3QUrVyKLHdGsRkXBirBU HyMNJwfm7RXGFfNXCxBNs9CJBbBDHvBOOgFSkvILPaHRCyVoQhCCStJJWxHT8OQbZdXIJtSNSoQJDkJM OuVHNjlm1FQRPpJGU4DiG2SFGaGRCoJNXyYIafDJAr JQTcZdGnSJKnKHUcWZ1RWtSzGVAqMTY0MYGhIMXpMZRxng4GvRNwzLxcrs5JZYoCOb5GyLduNMDzFJyt Za7kiIJjMJUuOCVSXa3CgmQwMIKbBIKQPBouLAEvFXu1QtSyBmZyF0JlFBZ7LNykFpCnEfYnSvYfR2Yc ZBTaBzH0WqRaVIIyUMVfBZNaPpy6MGNeMoX4LFOdZJ YzYjNlMDI+XB9gAIm+Ig8Hd3TaemD1nzHtSAz4BmT4Ip8LHZKJC5XXRk== ID Date Data Source [id number] 09/15/2021 12:49:46 PM EDT [facility] NT INFORMATIONPatient MRN Name Date of Age Gend*PT [id number] Galilea Quinteros 1950 71 years F HOPPT Location Admission Date/Time Visit ID Attending Provider --- --- --- --- EPI ID CSN Admitting Provider [id number] ---AirwayPatient location during procedure: ORUrgency: electiveDifficult airway: [...] to lips: 21 cmPlacement verified by: + [id number] view: grade I - full view of glottis Name Value Range Interpretation Code Description Data Ninoska rce(s) Supporting Document(s) ID Date Data Source [id number] 09/15/2021 12:49:09 PM EDT [facility] NT INFORMATIONPatient MRN Name Date of Age Gend*PT [id number] Galilea Quinteros 1950 71 years F HOPPT Location Admission Date/Time Visit ID Attending Provider --- --- --- --- EPI ID CSN Admitting Provider [id number] ---Arterial Line PlacementPatient location during procedure: ORIndications [...] rce(s) Supporting Document(s) ID Date Data Source [id number] 09/10/2021 04:29:14 PM EDT [facility]FORMATION[facility]N Name Date of Age Gend*PT [id number] Galilea Quinteros 1950 70 years F OPPT Location Admission Date/Time Visit ID Attending Provider --- --- --- Wilbert Harrington MD([id number]) EPI ID CSN Admitting Provider [id number] ---OUTPATIENT / OBSERVATIONAL SURGICAL OR INVASIVE PROCEDUREName: [...] thyromegaly. No carotid bruits.MENTAL / NEUROLOGICAL STATUS: [id number]: Clear to auscultation. No wheezes, rhonchi or [...] parts of this document, were dictated using Wowboard speaking software. A reasonable attempt at proofreading has beenmade to minimize errors. Please call with any questions or corrections. Name Value Range Interpretation Code Description Data Ninoska rce(s) Supporting Document(s) ID Date Data Source [id number] 09/10/2021 10:38:20 AM EDT [facility] Name Value Range Interpretation Code Description Data Ninoska rce(s) Supporting Document(s) EKG [facility] RLIDCl8sGbWWLqYhr9AyWtKxGRTqDT6djqp0I7T5qYXcS0RnxFUus0tcH3XpT5KwXHKeRPWMBL0KaBWp jb2 [file] [id number]= ID Date Data Source [id number] 09/13/2021 01:50:13 PM EDT [facility] SPEC EXP DATE 09/16/2021ATI ENT ABO/Rh A POSITIVEANTIBODY SCREEN NEGATIVETESTING SITE PERFORMED AT [address] [place] [address] BANK COMMENT BLOOD TYPE CONFIRMED. Name Value Range Interpretation Code Description Data Ninoska rce(s) Supporting Document(s) TYPE AND SCREEN [facility] ID Date Data Source [id number] 09/10/2021 03:01:14 PM EDT [facility] Name Value Range Interpretation Code Description Data Ninoska rce(s) Supporting Document(s) SODIUM 139 mmol/L (136-145) [facility] POTASSIUM 4.2 mmol/L (3.6-5.2) [facility] CHLORIDE 109 mmol/L (100-108) H [facility] CO2 25 mmol/L (22-31) [facility] ANION GAP 5 mmol/L (7-16) L [facility] UREA NITROGEN 23 mg/dL (7-24) [facility] CREATININE 0.96 mg/dL (0.60-1.00) [facility] BUN/CREAT RATIO 24.0 RATIO (10.0-20.0) H [facility] GLUCOSE 88 mg/dL (70-99) [facility] CALCIUM 9.8 mg/dL (8.4-10.2) [facility] GFR 57 ml/min/1.73m2 (>59) L [facility] GFR ( AMER) >60 ml/min/1.73m2 (>59) [facility] GFR INTERPRETATION [facility] --NORMAL KIDNEY FUNCTION OR MILD DISEASE - GFR >OR= 60CHRONIC KIDNEY DISEASE - GFR 15 - 59RENAL FAILURE - GFR <15 Est. GFR calculation based on the MDRDstudy equation, which assumes a steadystate for creatinine. Est. GFR should notbe used for medication dosing. ID Date Data Source [id number] 09/10/2021 02:30:47 PM EDT [facility] Name Value Range Interpretation Code Description Data Ninoska rce(s) Supporting Document(s) WBC 5.5 10*3/uL (4.1-11.0) [facility] [place] RBC 4.27 10*6/uL (4.00-5.40) [facility] HGB 13.2 g/dL (12.0-16.0) [facility] HCT 39.2 % (36.0-47.0) [facility] MCV 91.7 fL (80.0-95.0) [facility] MCH 30.9 pg (27.0-32.0) [facility] MCHC 33.7 g/dL (32.0-36.0) [facility] RDW 13.4 % (10.5-14.5) [facility] PLT 183 10*3/uL (150-450) [facility] MPV 8.4 fL (7.1-10.7) [facility] ID Date Data Source [id number] 09/10/2021 08:54:00 AM EDT [facility] Name Value Range Interpretation Code Description Data Ninoska rce(s) Supporting Document(s) SARS coronavirus 2 RNA [Presence] in Res piratory specimen by CARTER with probe detection NOT DETECTED [facility] This lab was reported by [facility]. ID Date Data Source [id number] 09/11/2021 08:52:34 AM EDT [facility] Name Value Range Interpretation Code Description Data Ninoska rce(s) Supporting Document(s) SPECIMEN DESCRIPTION [facility] [place] COVID 19 RESULT (NDET) [facility] NEGATIVE COVID-19 RESULTS DONOT PRECLUDE COVID-2019 INFECTION ANDSHOULD NOT BE USED THE SOLE BASISFOR PATIENT MANAGEMENT DECISIONS. COMMENT [facility] THE [place] FDA HAS MADE THIS TEST AVAILABL EUNDER AN EMERGENCY USE AUTHORIZATION(EUA) FOR THE DETECTION AND/OR DIAGNOSISOF THE VIRUS THAT CAUSES COVID-19.THIS ASSAY AMPLIFIES AND DETECTS [employer] USING DRAMA THERAPIST- MEDIATEDAMPLIFICATIONTESTING PERFORMED ON [employer] FIRST TEST [facility] EMPLOYED IN HLTHCARE [facility] [place] [facility] DATE OF SYMPT ONSET [facility] CONGREGATE CARE SET [facility] [place] [facility] ID Date Data Source [id number] 08/11/2021 11:35:00 AM EDT [facility] Name Value Range Interpretation Code Description Data Ninoska rce(s) Supporting Document(s) SARS-CoV-2 (COVID-19) RNA [Presence] in Respiratory specimen by CARTER with probe detection Not Detected [facility] This lab was ordered by [facility] and reported by [email or web address]. ID Date Data Source [id number] 08/04/2021 02:12:00 PM EDT [facility]: CT A NGIO CHESTCLINICAL HISTORY: [...] Solid Nodules Low risk:<6 mm- No routine [id number] mm- CT at 3-6 months, then consider [...] rce(s) Supporting Document(s) ID Date Data Source [id number] 07/08/2021 08:42:00 AM EDT [facility] ([facility]) Name Value Range Interpretation Code Description Data Ninoska rce(s) Supporting Document(s) Glucose, Fasting 88 mg/dL 70-100 [facility] ([facility]) Creatinine For GFR 0.94 mg/dL 0.55-1.30 [facility] ([facility]) Blood Urea Nitrogen 17 mg/dL 7-18 [facility] ([facility]) Glomerular Filtration Rate Laboratory test result [facility] ([facility]) <content>Units are mL/min/1.73 m2</content>
<content></content>
<content>Chronic Kidney Disease Staging per NKF:</content>
<content></content>
<content>Stage I & II GFR >=60 Normal to Mildly Decreased</content>
<content>Stage III GFR 30- 59 Moderately Decreased</content>
<content>Stage IV GFR 15-29 Severely Decreased</content>
<content>Stage V GFR <15 Very Little GFR Left</content>
<content>ESRD GFR <15 on GETTER WELDER</content>
<content></content> Potassium Serum 4.3 meq/L 3.5-5.1 MEDENT ([facility]) Sodium Level 142 meq/L 136-145 MEDENT ([facility]) Anion Gap 4 meq/L 8-16 [facility] Chloride Level 112 meq/L 98-107 MEDENT ([facility]) Carbon Dioxide Level 26 meq/L 21-32 MEDENT ([facility]) Calcium Level 9.6 mg/dL 8.8-10.2 MEDENT ([facility]) ID Date Data Source [id number] 07/08/2021 08:42:00 AM EDT MEDENT ([facility]) Name Value Range Interpretation Code Description Data Ninoska rce(s) Supporting Document(s) Triglycerides Level 224 mg/dL MEDENT ([facility]) Cholesterol Level 158 mg/dL MEDENT ([facility]) HDL Cholesterol 40 mg/dL MEDENT ([facility]) LDL Cholesterol 73 mg/dL MEDENT ([facility]) Non-HDL-C 118 mg/dL [facility] ([facility] Cholesterol Risk Ratio 3.950 MEDENT ([facility]) ID Date Data Source Ultrasound : Leg, left 05/26/2021 12:00:00 AM EDT eCW1 ([facility]) Name Value Range Interpretation Code Description Data Ninoska rce(s) Supporting Document(s) Ultrasound : Leg, left eCW1 ([facility]) ID Date Data Source [id number] 04/30/2021 02:37:00 PM EDT MEDENT ([facility]) Name Value Range Interpretation Code Description Data Ninoska rce(s) Supporting Document(s) White Blood Count 7.2 4.0-10.0 MEDENT ([facility]) Red Blood Count 4.72 4.00-5.40 MEDENT ([facility]) Platelets 192 150-450 MEDENT ([facility] Hemoglobin 14.6 MEDENT ([facility]) Hematocrit 44.4 MEDENT ([facility]) ID Date Data Source [id number] 04/30/2021 02:37:00 PM EDT MEDENT ([facility]) Name Value Range Interpretation Code Description Data Ninoska rce(s) Supporting Document(s) Blood Urea Nitrogen 19 7-18 MEDENT ([facility]) Glucose 86 70-100 [facility] ([facility] [place] Potassium 4.3 3.5-5.1 [facility] ([facility] Creatinine 0.86 0.55-1.30 [facility] ([facility]) Sodium 141 136-145 [facility] ([facility] [place] Calcium 10.0 8.2-9.6 [facility] ([facility] [place] Carbon Dioxide 27 21-32 MEDENT ([facility]) Chloride 108 98-107 MEDENT ([facility]) Glomerular filtration rate/1.73 sq M.pre dicted [Volume Rate/Area] in Serum or Plasma by Creatinine-based formula (MDRD) Laboratory test result MEDENT ([facility]) ID Date Data Source [id number] 04/12/2021 02:31:00 PM EDT MEDENT ([facility]) Name Value Range Interpretation Code Description Data Ninoska rce(s) Supporting Document(s) Digoxin (Lanoxin) 1.3 MEDENT ([facility]) ID Date Data Source [id number] 04/12/2021 02:31:00 PM EDT MEDENT ([facility]) Name Value Range Interpretation Code Description Data Ninoska rce(s) Supporting Document(s) Creatinine 0.99 0.55-1.30 MED[facility] ([facility]) Glucose 95 70-100 [facility] ([facility] [place] Blood Urea Nitrogen 21 7-18 MEDENT ([facility]) Potassium 4.2 3.5-5.1 [facility] ([facility] [place] Sodium 142 136-145 MED[facility] ([facility] [place] Chloride 110 98-107 [facility] ([facility] [place] Glomerular filtration rate/1.73 sq M.pre dicted [Volume Rate/Area] in Serum or Plasma by Creatinine-based formula (MDRD) 58.9 MED[facility] ([facility]) Carbon Dioxide 26 21-32 MEDENT ([facility]) Calcium 9.3 8.2-9.6 [facility] ([facility] [place] ID Date Data Source [id number] 04/09/2021 12:35:00 PM EDT MED[facility] ([facility] Name Value Range Interpretation Code Description Data Ninoska rce(s) Supporting Document(s) Natriuretic peptide.B prohormone N-Terminal [Mass/volu me] in Serum or Plasma 1166 MEDENT ([facility]) Magnesium Level 2.3 1.8-2.4 MEDENT ([facility]) Free T4 0.97 [facility] ([facility] Thyroid Stimulating Hormone 1.480 ME DENT ([facility]) ID Date Data Source [id number] 04/09/2021 12:35:00 PM EDT MED[facility] ([facility]) Name Value Range Interpretation Code Description Data Ninoska rce(s) Supporting Document(s) White Blood Count 7.2 5.0-10.0 [facility] Red Blood Count 5.00 4.00-5.40 MEDENT ([facility]) Hemoglobin 15.2 MEDENT ([facility]) Hematocrit 46.7 MEDENT ([facility]) Platelets 216 172-450 MEDENT ([facility]) ID Date Data Source [id number] 10/28/2020 11:30:00 AM EST MED[facility] ([facility] Name Value Range Interpretation Code Description Data Ninoska rce(s) Supporting Document(s) Hemoglobin A1c/Hemoglobin.total in Blood 5.5 MEDENT ([facility]) ID Date Data Source [id number] 10/28/2020 11:30:00 AM EST MED[facility] ([facility] Name Value Range Interpretation Code Description Data Ninoska rce(s) Supporting Document(s) Alanine aminotransferase [Enzymatic activity/volume] in Serum or Pl asma 25 MEDENT ([facility]) Albumin [Mass/volume] in Serum or Plasma 4.0 MEDENT ([facility]) Carbon dioxide, total [Moles/volume] in Serum or Plasma 27 MEDENT ([facility]) Calcium [Mass/volume] in Serum or Plasma 10.2 MEDENT ([facility]) Alkaline phosphatase [Enzymatic activity/volume] in Serum or Plasma 6 1 MEDENT ([facility]) Chloride [Moles/volume] in Serum or Plasma 110 MEDENT ([facility]) Sodium 141 MEDENT ([facility]) Protein [Mass/volume] in Serum or Plasma 6.9 MEDENT ([facility]) Potassium [Moles/volume] in Serum or Plasma 4.0 MEDENT ([facility]) Aspartate aminotransferase [Enzymatic activity/volume] in Serum or Plasma 15 MED[facility] ([facility]) Urea nitrogen [Mass/volume] in Serum or Plasma 19 MEDENT ([facility]) Glucose 89 70-100 MEDENT ([facility]) Creatinine For GFR 1.06 MEDENT ([facility]) ID Date Data Source [id number] 10/28/2020 11:30:00 AM EST MEDENT ([facility]) Name Value Range Interpretation Code Description Data Ninoska rce(s) Supporting Document(s) Cholesterol 157 MEDENT ([facility]) Triglycerides 207 MEDENT ([facility]) HDL 47 MED[facility] ([facility] Cholesterol in LDL [Mass/volume] in Serum or Plasma by calculation 69 MEDENT ([facility]) Chol/HDL Ratio 3.340 MEDENT ([facility]) ID Date Data Source [id number] 10/28/2020 11:30:00 AM EST MEDENT ([facility]) Name Value Range Interpretation Code Description Data Ninoska rce(s) Supporting Document(s) Magnesium Level 2.1 MEDENT ([facility]) ID Date Data Source MAGNESIUM LEVEL 10/28/2020 12:00:00 AM EST eCW1 ([facility]) Name Value Range Interpretation Code Description Data Ninoska rce(s) Supporting Document(s) 2.1 1.8-2.4 MAGNESIUM LEVEL eCW1 ([facility]) ID Date Data Source VITAMIN D [id number] 10/28/2020 12:00:00 AM EST eCW1 ([facility]) Name Value Range Interpretation Code Description Data Ninoska rce(s) Supporting Document(s) 39.0 30.0-100.0 TOTAL 25(OH) VITAMIN D eC W1 ([facility]) ID Date Data Source LIPID PANEL (CARDIAC RISK) 10/28/2020 12:00:00 AM EST eCW1 ( [facility]) Name Value Range Interpretation Code Description Data Ninoska rce(s) Supporting Document(s) Triglyceride [Mass/volume] in Serum or Plasma by calculation 207 <150 TRIGLYCERIDES LEVEL eCW1 ([facility]) Cholesterol [Moles/volume] in Serum or Plasma 157 <200 CHOLESTEROL LEVEL eCW1 ([facility]) 110 NON-HDL-C eCW1 ([facility]) Cholesterol in LDL [Mass/volume] in Serum or Plasma by calculation 69 <100 LDL CHOLESTEROL eCW1 ([facility]) 3.340 <5 CHOLESTEROL RISK RATIO eCW1 ([facility]) Cholesterol in HDL [Moles/volume] in Serum or Plasma 47 >40 HDL CHOLESTEROL eCW1 ([facility]) ID Date Data Source [id number] 10/28/2020 12:00:00 AM EST eCW1 ([facility]) Name Value Range Interpretation Code Description Data Ninoska rce(s) Supporting Document(s) Hemoglobin A1c/Hemoglobin.total in Blood 5.5 HEMOGLOBIN A1c eCW1 ([facility]) ID Date Data Source Comprehensive Metabolic Profile (CMP) 10/28/2020 12:00:00 AM EST eCW1 ([facility]) Name Value Range Interpretation Code Description Data Ninoska rce(s) Supporting Document(s) 89 70-100 GLUCOSE, FASTING eCW1 ([facility]) 19 7-18 BLOOD UREA NITROGEN eCW1 ([facility]) 1.06 0.55-1.30 CREATININE FOR GFR eCW1 ([facility]) 141 136-145 SODIUM LEVEL eCW1 ([facility]) 54.4 >39 GLOMERULAR FILTRATION RATE eCW 1 ([facility]) 4.0 3.5-5.1 POTASSIUM SERUM eCW1 ([facility]) 27 21-32 CARBON DIOXIDE LEVEL eCW1 ([facility]) 10.2 8.8-10.2 CALCIUM LEVEL eCW1 ([facility]) 15 7-37 AST/SGOT eCW1 ([facility]) 110 98-107 CHLORIDE LEVEL eCW1 ([facility]) 61 45-117 ALKALINE PHOSPHATASE eCW1 ([facility]) 0.9 0.2-1.0 BILIRUBIN,TOTAL eCW1 ([facility]) 25 12-78 ALT/SGPT eCW1 ([facility]) 6.9 6.4-8.2 TOTAL PROTEIN eCW1 ([facility]) 1.4 1.2-2.2 ALBUMIN/GLOBULIN RATIO eCW1 ([facility]) 4.0 3.2-5.2 ALBUMIN eCW1 ([facility]) ID Date Data Source [id number] 08/12/2020 12:28:00 PM EDT MEDENT ([facility]) Name Value Range Interpretation Code Description Data Ninoska rce(s) Supporting Document(s) Laboratory test finding (navigational concept) Laboratory test result MEDENT ([facility]) ID Date Data Source [id number] 08/10/2020 12:46:00 PM EDT MEDENT ([facility]) Name Value Range Interpretation Code Description Data Ninoska rce(s) Supporting Document(s) Surgical pathology study Laboratory test result MEDENT ([facility]) FINAL DIAGNOSIS A-Stomach, antrum, biopsy: Gastric [...] MD 08/11/2020 1159 ID Date Data Source [id number] 08/05/2020 12:00:00 PM EDT [facility] Name Value Range Interpretation Code Description Data Ninoska rce(s) Supporting Document(s) SARS coronavirus 2 RNA [facility] This lab was ordered by [facility] and reported by [facility]. Procedure Social History Code Duration Value Status Description Data Source(s ) Alcohol intake 09/15/2021 12:00:00 AM EDT Ex-drinker (finding) comp leted Ex- drinker (finding) [facility] Tobacco use and exposure 09/10/2021 12:00:00 AM EDT Never used co mpleted Never used [facility] Smoking 09/10/2021 12:00:00 AM EDT Never smoker completed Never s moker [facility] Alcohol intake 09/10/2021 12:00:00 AM EDT Ex-drinker (finding) comp leted Ex- drinker (finding) [facility] Smoking 09/09/2021 12:00:00 AM EDT Patient has never smoked co mpleted Patient has never smoked MEDENT ([facility], ) Smoking 07/29/2021 12:00:00 AM EDT Never Smoker completed Never S moker eCW1 ([facility]) Smoking 07/12/2021 12:00:00 AM EDT Patient has never smoked co mpleted Patient has never smoked MEDENT ([facility]) Smoking 06/22/2021 12:00:00 AM EDT Never Smoker completed Never S moker eCW1 ([facility]) Smoking 05/26/2021 12:00:00 AM EDT Never Smoker completed Never S moker eCW1 ([facility]) Smoking 04/21/2021 12:00:00 AM EDT Never Smoker completed Never S moker eCW1 ([facility]) Smoking 04/20/2021 12:00:00 AM EDT Never Smoker completed Never S moker eCW1 ([facility]) Smoking 04/02/2021 09:32:45 AM EDT Never smoked tobacco (findi ng) completed Never smoked tobacco (finding) MELINDA (Holly Hood MD [facility]) Smoking 10/28/2020 12:00:00 AM EST Never Smoker completed Never S moker eCW1 ([facility]) Smoking 10/28/2020 12:00:00 AM EST Never Smoker completed Never S moker eCW1 ([facility]) Smoking 10/28/2020 12:00:00 AM EST Never Smoker completed Never S moker eCW1 ([facility]) Vital Signs ID Date Data Source UNK Name Value Range Interpretation Code Description Data Source(s) Systolic blood pressure 121 mm[Hg] 121 mm[Hg] [facility] Diastolic blood pressure 81 mm[Hg] 81 mm[Hg] [facility] Heart rate 96 /min 96 /min [facility] Body temperature 36.78 Ginny 36.78 Ginny [facility] Respiratory rate 16 /min 16 /min [facility] Oxygen saturation in Arterial blood by Pulse oximetry 94 % 94 % [facility] Body weight 102.059 kg 102.059 kg [facility] Body height 160 cm 160 cm [facility] Body mass index (BMI) [Ratio] 39.86 kg/m2 39.86 kg/m2 [facility] Systolic blood pressure 130 mm[Hg] 130 mm[Hg] [facility] Diastolic blood pressure 77 mm[Hg] 77 mm[Hg] [facility] Heart rate 57 /min 57 /min [facility] Respiratory rate 18 /min 18 /min [facility] Oxygen saturation in Arterial blood by Pulse oximetry 99 % 99 % [facility] Body height 160 cm 160 cm [facility] Body weight 102.331 kg 102.331 kg [facility] Body mass index (BMI) [Ratio] 39.96 kg/m2 39.96 kg/m2 [facility] Body temperature 35.67 Ginny 35.67 Ginny [facility] Systolic blood pressure 126 mm[Hg] 126 mm[Hg] [facility] Diastolic blood pressure 72 mm[Hg] 72 mm[Hg] MEDENT ([facility], ) Heart rate 61 /min 61 /min MEDENT ([facility], ) Oxygen saturation in Arterial blood by Pulse oximetry 98 % 98 % MEDENT ([facility], ) Body height 63.50 [in_i] 63.50 [in_i] MEDENT ([facility], ) 5'3.50" [place] body weight 115 [lb_av] 115 [lb_av] MEDEN T ([facility], ) Systolic blood pressure 149 mm[Hg] 149 mm[Hg] M EDENT ([facility]) Diastolic blood pressure 86 mm[Hg] 86 mm[Hg] MEDENT ([facility]) Oxygen saturation in Arterial blood by Pulse oximetry 98 % 98 % MEDENT ([facility]) Heart rate 59 /min 59 /min MEDENT ([facility]) Body weight 223 [lb_av] 223 [lb_av] eCW1 ([facility]) Body height 63 [in_i] 63 [in_i] eCW1 ([facility]) Body mass index (BMI) [Ratio] 39.5 kg/m2 39.5 k g/m2 eCW1 ([facility]) Systolic blood pressure 126 mm[Hg] 126 mm[Hg] e CW1 ([facility]) Diastolic blood pressure 80 mm[Hg] 80 mm[Hg] eCW1 ([facility]) Systolic blood pressure--sitting 12 mm[Hg] 12 mm[Hg] MEDENT ([facility]) Diastolic blood pressure--sitting 82 mm[Hg] 82 mm[Hg] MEDENT ([facility]) Body weight 220.00 [lb_av] 220.00 [lb_av] MEDEN T ([facility]) Body height 63 [in_i] 63 [in_i] MEDENT ([facility]) 5'3" Body mass index (BMI) [Ratio] 39.0 kg/m2 39.0 k g/m2 MEDENT ([facility]) Systolic blood pressure 130 mm[Hg] 130 mm[Hg] M EDENT ([facility] Diastolic blood pressure 80 mm[Hg] 80 mm[Hg] MEDENT ([facility] Body weight 222.00 [lb_av] 222.00 [lb_av] MEDEN T ([facility] Body height 63 [in_i] 63 [in_i] MEDENT ([facility]) 5'3" Body mass index (BMI) [Ratio] 39.3 kg/m2 39.3 k g/m2 MEDENT ([facility]) Body surface area Derived from formula 2.02 m2 2.02 m2 MEDENT ([facility]) Body weight 220 [lb_av] 220 [lb_av] eCW1 ([facility]) Diastolic blood pressure 68 mm[Hg] 68 mm[Hg] eCW1 ([facility]) Body weight 99.79 kg 99.79 kg eCW1 ([facility]) Body height 63 [in_i] 63 [in_i] eCW1 ([facility]) Body mass index (BMI) [Ratio] 38.97 kg/m2 38.97 kg/m2 eCW1 ([facility]) Heart rate 76 /min 76 /min eCW1 ([facility]) Respiratory rate 18 /min 18 /min eCW1 ([facility]) Body temperature 96.9 [degF] 96.9 [degF] eCW1 ( [facility]) Systolic blood pressure 116 mm[Hg] 116 mm[Hg] e CW1 ([facility]) Body weight 217.8 [lb_av] 217.8 [lb_av] eCW1 ([facility]) Body height 63 [in_i] 63 [in_i] eCW1 ([facility]) Body mass index (BMI) [Ratio] 38.58 kg/m2 38.58 kg/m2 eCW1 ([facility]) Heart rate 58 /min 58 /min eCW1 ([facility]) Respiratory rate 18 /min 18 /min eCW1 ([facility]) Body temperature 98.2 [degF] 98.2 [degF] eCW1 ( [facility]) Systolic blood pressure 134 mm[Hg] 134 mm[Hg] e CW1 ([facility]) Diastolic blood pressure 80 mm[Hg] 80 mm[Hg] eCW1 ([facility]) Body mass index (BMI) [Ratio] 39.3 kg/m2 39.3 k g/m2 MEDENT ([facility]) Systolic blood pressure--sitting 145 mm[Hg] 145 mm[Hg] MEDENT ([facility]) CBP, large cuff/Ra Body weight 222.00 [lb_av] 222.00 [lb_av] MEDEN T ([facility]) Body height 63 [in_i] 63 [in_i] MEDENT ([facility]) 5'3" Heart rate 56 /min 56 /min MEDENT ([facility]) Diastolic blood pressure--sitting 85 mm[Hg] 85 mm[Hg] MEDENT ([facility]) CBP, large cuff/Ra Body height 63.50 [in_i] 63.50 [in_i] MEDENT ([facility], ) 5'3.50" Body weight 225.00 [lb_av] 225.00 [lb_av] MEDEN T ([facility]) Body mass index (BMI) [Ratio] 39.2 kg/m2 39.2 k g/m2 MEDENT ([facility]) [place] body weight 115 [lb_av] 115 [lb_av] MEDEN T ([facility]) Body weight 102.060 kg 102.060 kg MEDENT ([facility]) Body surface area Derived from formula 2.04 m2 2.04 m2 MEDENT ([facility], ) Systolic blood pressure 142 mm[Hg] 142 mm[Hg] M EDENT ([facility], ) Diastolic blood pressure 86 mm[Hg] 86 mm[Hg] MEDENT ([facility], ) Body height 63.50 [in_i] 63.50 [in_i] MEDENT ([facility], ) 5'3.50" Body weight 225.00 [lb_av] 225.00 [lb_av] MEDEN T ([facility]) Body mass index (BMI) [Ratio] 39.2 kg/m2 39.2 k g/m2 [facility] ([facility]) [place] body weight 115 [lb_av] 115 [lb_av] MEDEN T ([facility]) Body weight 102.060 kg 102.060 kg [facility] ([facility]) Body surface area Derived from formula 2.04 m2 2.04 m2 [facility] ([facility]) Oxygen saturation in Arterial blood by Pulse oximetry 97 % 97 % [facility] ([facility]) [place] body weight 115 [lb_av] 115 [lb_av] MEDEN T ([facility]) Body surface area Derived from formula 2.04 m2 2.04 m2 [facility] ([facility]) Heart rate 62 /min 62 /min [facility] ([facility]) Body temperature 97.4 [degF] 97.4 [degF] [facility] ([facility]) Body height 63.50 [in_i] 63.50 [in_i] [facility] ([facility]) 5'3.50" Body weight 222.50 [lb_av] 222.50 [lb_av] MEDEN T ([facility]) Systolic blood pressure 126 mm[Hg] 126 mm[Hg] [facility] Diastolic blood pressure 72 mm[Hg] 72 mm[Hg] [facility] ([facility]) Body mass index (BMI) [Ratio] 38.8 kg/m2 38.8 k g/m2 [facility] ([facility]) Body weight 100.926 kg 100.926 kg [facility] ([facility]) Body weight 222.2 [lb_av] 222.2 [lb_av] eCW1 ([facility]) Body height 63 [in_i] 63 [in_i] eCW1 ([facility]) Body mass index (BMI) [Ratio] 39.36 kg/m2 39.36 kg/m2 eCW1 ([facility]) Heart rate 60 /min 60 /min eCW1 ([facility]) Respiratory rate 18 /min 18 /min eCW1 ([facility]) Body temperature 98.6 [degF] 98.6 [degF] eCW1 ( [facility]) Systolic blood pressure 158 mm[Hg] 158 mm[Hg] e CW1 ([facility]) Diastolic blood pressure 98 mm[Hg] 98 mm[Hg] eCW1 ([facility]) Systolic blood pressure--sitting 133 mm[Hg] 133 mm[Hg] MEDENT ([facility]) CBP, large cuff/Ra Body weight 221.00 [lb_av] 221.00 [lb_av] MEDEN T ([facility]) Body height 63 [in_i] 63 [in_i] MEDENT ([facility]) 5'3" Body mass index (BMI) [Ratio] 39.1 kg/m2 39.1 k g/m2 MEDENT ([facility] [facility] Heart rate 61 /min 61 /min [facility] ([facility]) Diastolic blood pressure--sitting 82 mm[Hg] 82 mm[Hg] [facility] ([facility]) CBP, large cuff/Ra Body temperature 96.9 [...] 17 /min [facility] ( [facility]) Systolic blood pressure--sitting 118 mm[Hg] 118 mm[Hg] [facility] ([facility]) Ra, medium cuff Body height 63 [in_i] 63 [in_i] [facility] 5'3" Diastolic blood pressure--sitting 70 mm[Hg] 70 mm[Hg] [facility] ([facility]) Ra, medium cuff Body weight 220.00 [lb_av] 220.00 [lb_av] MEDEN T ([facility]) Body mass index (BMI) [Ratio] 39.0 kg/m2 39.0 k g/m2 [facility] ([facility]) Heart rate 56 /min 56 /min [facility] ([facility]) Systolic blood pressure 128 mm[Hg] 128 mm[Hg] M EDENT ([facility]) Diastolic blood pressure 84 mm[Hg] 84 mm[Hg] [facility] ([facility]) Body height 63.50 [in_i] 63.50 [in_i] [facility] ([facility]) 5'3.50" Body weight 220.00 [lb_av] 220.00 [lb_av] MEDEN T ([facility]) Body mass index (BMI) [Ratio] 38.4 kg/m2 38.4 k g/m2 [facility] ([facility]) [place] body weight 115 [lb_av] 115 [lb_av] MEDEN T ([facility]) Body weight 99.792 kg 99.792 kg [facility] ([facility]) Body surface area Derived from formula 2.03 m2 2.03 m2 [facility] ([facility]) Body weight 220 [lb_av] 220 [lb_av] eCW1 ([facility]) Body height 63 [in_i] 63 [in_i] eCW1 ([facility]) Body mass index (BMI) [Ratio] 38.97 kg/m2 38.97 kg/m2 W1 ([facility]) Respiratory rate 18 /min 18 /min eCW1 ([facility]) Body temperature 98.6 [degF] 98.6 [degF] eCW1 ( [facility]) Systolic blood pressure 138 mm[Hg] 138 mm[Hg] e CW1 ([facility]) Diastolic blood pressure 82 mm[Hg] 82 mm[Hg] eCW1 ([facility]) Heart rate 70 /min 70 /min eCW1 ([facility]) Diastolic blood pressure 82 mm[Hg] 82 mm[Hg] [facility] ([facility]) Systolic blood pressure 118 mm[Hg] 118 mm[Hg] [facility] ([facility]) Body height 63.50 [in_i] 63.50 [in_i] MEDENT ([facility]) 5'3.50" Body weight 219.00 [lb_av] 219.00 [lb_av] MEDEN T ([facility]) Body mass index (BMI) [Ratio] 38.2 kg/m2 38.2 k g/m2 [facility] ([facility]) [place] body weight 115 [lb_av] 115 [lb_av] MEDEN T ([facility]) Body weight 99.338 kg 99.338 kg [facility] ([facility]) Body surface area Derived from formula 2.02 m2 2.02 m2 [facility] ([facility]) Body temperature 97.5 [degF] 97.5 [degF] [facility] ([facility]) Systolic blood pressure 140 mm[Hg] 140 mm[Hg] [facility] ([facility]) Diastolic blood pressure 80 mm[Hg] 80 mm[Hg] [facility] ([facility]) Systolic blood pressure 138 mm[Hg] 138 mm[Hg] [facility] ([facility]) Diastolic blood pressure 84 mm[Hg] 84 mm[Hg] [facility] ([facility]) Heart rate 59 /min 59 /min [facility] ([facility]) Oxygen saturation in Arterial blood by Pulse oximetry 97 % 97 % [facility] ([facility]) Body temperature 97.4 [degF] 97.4 [degF] [facility] ([facility]) Body height 63.50 [in_i] 63.50 [in_i] [facility] ([facility]) 5'3.50" Body weight 214.50 [lb_av] 214.50 [lb_av] MEDEN T ([facility]) Body mass index (BMI) [Ratio] 37.4 kg/m2 37.4 k g/m2 [facility] ([facility]) [place] body weight 115 [lb_av] 115 [lb_av] [facility]) Body weight 97.297 kg 97.297 kg [facility] ([facility]) Body height 63.50 [in_i] 63.50 [in_i] [facility] ([facility]) 5'3.50" Body weight 214.00 [lb_av] 214.00 [lb_av] [facility] ([facility]) Body mass index (BMI) [Ratio] 37.3 kg/m2 37.3 k g/m2 [facility] ([facility]) Body weight 97.070 kg 97.070 kg [facility] ([facility]) Systolic blood pressure 163 mm[Hg] 163 mm[Hg] M [facility] ([facility]) Diastolic blood pressure 93 mm[Hg] 93 mm[Hg] [facility] ([facility]) Patient Treatment Plan of Care Planned Activity Planned Date Details Description Data Source (s) Magnesium Chloride 0.22153 MEQ/ML / Pota ssium Chloride 0.0497 MEQ/ML / Sodium Acetate 0.0163 MEQ/ML / Sodium Chloride 0.0899 MEQ/ML / Sodium gluconate 5.02 MG/ML Injectable Solution [Normosol-R] 09/15/2021 04:00:00 PM EDT [facility] HYDROmorphone (DILAUDID) injection 0.5 mg 09/15/2021 03:01:03 PM ED T [facility] labetalol (NORMODYNE,TRANDATE) injection 5 mg 09/15/2021 03:01:03 P M EDT [facility] ondansetron (ZOFRAN) injection 4 mg 09/15/2021 02:51:28 PM EDT [facility] normal saline flush 0.9 % injection 3 mL 09/15/2021 10:00:00 AM EDT [facility] normal saline flush 0.9 % injection 3 mL 09/15/2021 10:00:00 AM EDT [facility]
--- NOTE | 2021-10-03 17:16 | HPEPDOC ---
[facility] Medical History & Physical Date of Admission Oct 03, 2021 Date of Service: Oct 03, 2021 Attending Physician: OFE REED MD History and Physical CHIEF COMPLAINT: Palpitations HISTORY OF PRESENT ILLNESS: 71 yo W with chronic afib s/p recent cardiac ablation by Dr. Blood in [place] on 09/15, on eliquis, atenolol 25 BID, 2 days ago was started on digoxin and flecainide, is a patient of Dr. Lemon, now presenting to the ED with persistent tachycardia and found to be in Afib with RVR with rates to 140s. She also [place] a history of HFpEF, pulmonary hypertension, HTN, HLD, obesity, MILLY on CPAP, DM, endometriosis of the colon, IBS, GERD, fibrocystic breast with yearly mammograms, depression and degenerative disc disease. In the ED she is normotensive and afebrile but in rapid Afib. Dr. Meza initially gave metop 5 IV without effect then spoke with Dr. Arellano who is on for cardiology and he recommended 0.25mg IV digoxin and flecainide 50mg, but only came down to the 130s and then now recommended repeat doses of both meds that are pending. She otherwise reports chest tightness with her palpitations without any shortness of breath, radiation, dizziness, recent fever, chills, congestion, rhinorrhea, recent travel, history of hematemesis, hemoptysis, hematochezia or melena. Workup was notable for WBC 6.2, Hgb 13.9, platelets 205m na 141, K 4.2, Cr 1.11, glucose 120, TSh 1.32, free T4 1.06, troponin 0.06, digoxin level of 1.1, EKG that showed no ST segment changes but Afib with RVR and CXR showed stable cardiomegaly without any infiltrates, effusions or vascular cephalization. She is now being admitted to medicine for persistent Afib with RVR. PAST MEDICAL HISTORY: chronic afib s/p recent cardiac ablation by Dr. Blood in [place] on 09/15, on eliquis, atenolol 25 BID, 2 days ago was started on digoxin and flecainide HFpEF pulmonary hypertension HTN HLD obesity MILLY on CPAP DM endometriosis of the colon IBS GERD fibrocystic breast tissue with yearly mammograms depression degenerative disc disease. PAST SURGICAL HISTORY: EGD/colo Small bowel resection Bladder surgery? with sling cholecystectomy hysterectomy D&C x 2 R foot hammer toe Bunionectomy Vascular ablation of lower extremity and subclavian nodule Tonsillectomy SOCIAL HISTORY: No alcohol No nicotine use No illicit drug use FAMILY HISTORY: Father: at 48 from cardiac disease. Also had hypertension Mother: in 2019. Had DM, HTN, HLD, hypothyroidism Brother: has prostate CA Brother: heart disease sister: hypertension Children: None ALLERGIES: Please see below. REVIEW OF SYSTEMS: 10 point ROS was completed and was otherwise negative, except for the pertinent complaints noted in the HPI. HOME MEDICATIONS: Please see below. PHYSICAL EXAMINATION: VITAL SIGNS: see below GENERAL APPEARANCE: NAD HEENT: NCAT, EOMI, MMM CARDIOVASCULAR: Irregularly irregular, tachycardic, no noted murmurs LUNGS: CTAB, without wheezing, rales or rhonchi ABDOMEN: Obese, normoactive sounds, soft, NTND EXTREMITIES: WWP, no LE edema, 2+ DP pulses NEUROLOGICAL: CN3-12 intact, speech is clear, moving all 4 limbs with full strength and full tone. Sensation intact throughout PSYCHIATRIC: Aox3 LABORATORY DATA and IMAGING: Reviewed and summarized above. See below for full details MICROBIOLOGY: Please see below. ASSESSMENT: 71 yo W with chronic afib s/p recent cardiac ablation by Dr. Blood in [place] on 09/15, on eliquis, atenolol 25 BID, 2 days ago was started on digoxin and flecainide, is a patient of Dr. Lemon, now presenting to the ED with persistent tachycardia and found to be in Afib with RVR with rates to 140s and now being admitted for persistent Afib with RVR. PLAN: Persistent Afib with RVR: has a history of, and was being optimized in the outpatient setting and recently started on digoxin and flecainide -s/p ablation on 09/15, unfortunately, it is persisting -continue atenolol 25 BID -s/p digoxin 0.25 IV x 2 in the ED and flecainide 50mg PO x 2 in the ED. Will plan on continuing digoxin 0.1 QD, flecainide 50 BID and atenolol 25 BID -continue eliquis 5 BID -telemetry -TSH and free T4 were wnl -CBC is wnl, exam is nonfocal, CXR was without volume overload or PNA. Unlikely driven by occult infection or HF, she is euvolemic on exam Chronic HFpEF: euvolemic -continue home torsemide torsemide 5mg daily HTN: -continue valsartan 80 QD, atenolol 25 BID GERD: -continue pantoprazole 40 QD and sucralfate PRN HLD: -continue home rosuvastatin chronic pain: -continue gabapentin DVT ppx: eliquis 5 BID Dispo: obs Vital Signs Vital Signs Date Time Temp Pulse Resp B/P (MAP) Pulse Ox O2 Delivery O2 Flow Rate FiO2 10/03/21 15:45 124 120/57 (78) 96 10/03/21 11:21 98.1 22 Room Air Laboratory Data Labs 24H Laboratory Tests 2 10/03/21 11:54: Immature Granulocyte % (Auto) 0.5, Neutrophils (%) (Auto) 63.2, Lymphocytes (%) (Auto) 26.8, Monocytes (%) (Auto) 7.6, Eosinophils (%) (Auto) 1.6, Basophils (%) (Auto) 0.3, Neutrophils # (Auto) 3.9, Lymphocytes # (Auto) 1.7, Monocytes # (Auto) 0.5, Eosinophils # (Auto) 0.1, Basophils # (Auto) 0.0, Nucleated Red Blood Cells % (auto) 0.0, Anion Gap 7L, Glomerular Filtration Rate 51.4, Calcium Level 10.2, Phosphorus Level 2.5, Magnesium Level 2.0, Total Creatine Kinase 72, Creatine Kinase MB 2.5, Creatine Kinase MB Relative Index 3.47, Troponin I 0.06, Thyroid Stimulating Hormone (TSH) 1.320, Free Thyroxine 1.06, Digoxin Level 1.1 CBC/BMP Laboratory Tests 10/03/21 11:54 Home Medications Scheduled Apixaban (Eliquis) 5 Mg Tab, 5 MG PO BID 2nd DOSE AT DINNER Atenolol (Atenolol) 25 Mg Tablet, 25 MG PO BID Cholecalciferol (Vitamin D3) (Vitamin D3) 25 Mcg Capsule, 50 MCG PO DAILY Conjugated Estrogens (Premarin) 30 Gm Cream.appl, 1 DOSE PV 3XW MON, WED, FRI Cranberry Fruit (Cranberry) 400 Mg Tablet, 400 MG PO DAILY Digoxin (Digoxin) 250 Mcg Tablet, 250 MCG PO DAILY Flecainide Acetate (Flecainide Acetate) 50 Mg Tablet, 50 MG PO BID Fluticasone Propionate (Flonase Allergy Relief) 9.9 Ml [place].susp, 2 SPRAY NARES DAILY Levocarnitine (l-Carnitine) 500 Mg Tablet, 500 MG PO BID Lifitegrast (Xiidra) 5% Droperette, 1 DROP OU BID Lutein/Zeaxanthin (Lutein-Zeaxanthin 20-1 mg Sfgl) 1 Each Capsule, 1 CAP PO DAILY Lycopene (Lycopene) 10 Mg Capsule, 10 MG PO BID Magnesium (Magnesium) 250 Mg Tablet, 1 TAB PO QPM Multivit-Min/FA/Lycopen/Lutein (Senior Tabs) 1 Each Tablet, 1 TAB PO QPM Pantoprazole Sodium (Pantoprazole Sodium) 40 Mg Tablet.dr, 40 MG PO DAILY Potassium Gluconate (Potassium) 99 Mg Tablet, 99 MG PO DAILY Rosuvastatin Calcium (Rosuvastatin Calcium) 40 Mg Tablet, 40 MG PO QPM Selenomethionine (Selenium) 200 Mcg Tablet, 200 MCG PO DAILY Torsemide (Torsemide) 5 Mg Tab, 5 MG PO DAILY Trazodone HCl (Trazodone HCl) 100 Mg Tablet, 100 MG PO QHS Ubidecarenone (Co Q-10) 200 Mg Capsule, 200 MG PO DAILY Valsartan (Valsartan) 80 Mg Tablet, 80 MG PO QHS Scheduled PRN Acetaminophen (Acetaminophen) 325 Mg Tablet, 325 MG PO Q4H PRN for PAIN OR FEVER Gabapentin (Gabapentin) 300 Mg Cap, 600 MG PO QHS PRN for PAIN Hyoscyamine Sulfate (Hyoscyamine Sulfate ER) 0.375 Mg Tab.er.12h, 0.375 MG PO DAILYPRN PRN for pain Sucralfate (Sucralfate) 1 Gm Tablet, 1 GM PO DAILY PRN for ULCERS Allergies Coded Allergies: Penicillins (Verified Allergy, Mild, RASH, 10/03/21) Sulfa (Sulfonamide Antibiotics) (Verified Allergy, Mild, RASH, 10/03/21) adhesive (Verified Allergy, Mild, RASH, 10/03/21) amoxicillin (Verified Allergy, Mild, rash, 10/03/21) tetracycline (Verified Allergy, Mild, RASH, 10/03/21) cyclobenzaprine (Verified Allergy, Unknown, "MUSCLE RELAXANTS", 10/03/21) tizanidine (Verified Allergy, Unknown, "MUSCLE RELAXANTS", 10/03/21) carvedilol (Verified Adverse Reaction, Intermediate, PALPITATIONS, 10/03/21) indapamide (Verified Adverse Reaction, Intermediate, PALPITATIONS, 10/03/21) digoxin (Verified Adverse Reaction, Mild, LOWERED HEART RATE, 10/03/21) oxycodone (Verified Adverse Reaction, Mild, GI UPSET, 10/03/21) topiramate (Verified Adverse Reaction, Mild, DEPRESSION, 10/03/21) A-FIB/CHADSVASC A-FIB History Current/History of A-Fib/PAF?: Yes Current PO Anticoag Therapy: Yes Treatment Treatment ordered: Apixaban OFE REED MD Oct 03, 2021 16:45
[2021-10-03] MEDS ORDERED: HumaLOG INSULIN (NovoLOG) PER UNIT SC SCH ×2 (17:30→21:00)
[2021-10-03 17:46] LABS: RSV AMPLIFICATION NEGATIVE (NEGATIVE)
[2021-10-03] MEDS ORDERED: MAGNESIUM OXIDE 400MG TAB (MAG-OX) PO SCH (18:00)
[2021-10-03] MEDS ORDERED: ROSUVASTATIN 10 MG TAB (CRESTOR) PO SCH (18:00)
[2021-10-03 20:10] VITALS: BP 120/84
--- NOTE | 2021-10-03 20:11 | ECGEPIP ---
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
[2021-10-03] MEDS ORDERED: VALSARTAN 80 MG TAB (DIOVAN) PO SCH (21:00)
[2021-10-03] MEDS ORDERED: traZODone 100 MG TAB PO SCH (21:00)
[2021-10-03] MEDS: APIXABAN 5 MG TAB (ELIQUIS) PO SCH (21:47)
[2021-10-03] MEDS: atenoloL 25 MG TAB PO SCH (22:03)
[2021-10-04 05:55] LABS: HEMOGLOBIN 13.6 g/dl (12.0-15.5); MEAN CORPUSCULAR HEMOGLOBIN 30.9 pg (27.0-33.0); MEAN CORPUSCULAR HGB CONC 33.2 g/dl (32.0-36.5); MEAN CORPUSCULAR VOLUME 93.2 fl (80.0-96.0); PLATELET COUNT, AUTOMATED 183 10^3/uL (150-450); WHITE BLOOD COUNT 7.4 10^3/uL (4.0-10.0)
[2021-10-04 06:00] VITALS: BP 138/80
[2021-10-04 06:27] LABS: CREATININE FOR GFR 1.03 MG/DL (0.55-1.30); GLOMERULAR FILTRATION RATE 56.1 (>39); MAGNESIUM LEVEL 2.2 MG/DL (1.8-2.4); POTASSIUM SERUM 4.3 MEQ/L (3.5-5.1)
[2021-10-04] MEDS ORDERED: PANTOPRAZOLE 40MG TAB (PROTONIX) PO SCH (09:00)
[2021-10-04] MEDS ORDERED: DIGOXIN 0.25 MG TAB PO SCH (09:00)
[2021-10-04] MEDS ORDERED: FLUTICASONE PROP 0.05% NASAL SPRAY 16 GM (FLONASE) NARES SCH (09:00)
[2021-10-04] MEDS ORDERED: TORSEMIDE 10 MG TABLET PO SCH (09:00)
[2021-10-04] MEDS ORDERED: FLECAINIDE 50MG TABLET PO SCH (09:00)
[2021-10-04 09:39] VITALS: BP 114/71
[2021-10-04] MEDS: atenoloL 25 MG TAB PO SCH (09:39)
[2021-10-04] MEDS: APIXABAN 5 MG TAB (ELIQUIS) PO SCH (09:41)
--- NOTE | 2021-10-04 10:55 | DS.PDOC ---
Discharge Summary General Date of Admission Oct 03, 2021 at 11:22 Date of Discharge 10/04/2021 Primary Care Physician: Magali Brown Attending Physician: OFE REED MD Discharge Summary PROCEDURES PERFORMED DURING STAY: None ADMITTING/DISCHARGE DIAGNOSES: afib w/ RVR chronic afib s/p recent cardiac ablation by Dr. Blood in [place] on 09/15, on eliquis, atenolol 25 BID, 10/01/21 was started on digoxin and flecainide HFpEF pulmonary hypertension Pulmonary fibrosis follows with Dr. Perdomo HTN HLD obesity MILLY on CPAP COMPLICATIONS/CHIEF COMPLAINT: Atrial Fibrillation W/ Rapid Ventricular Response. HISTORY OF PRESENT ILLNESS: 71 yo W with chronic afib s/p recent cardiac ablation by Dr. Blood in [place] on 09/15, on eliquis, atenolol 25 BID, 2 days ago was started on digoxin and flecainide, is a patient of Dr. Lemon, now presenting to the ED with persistent tachycardia and found to be in Afib with RVR with rates to 140s. She also [place] a history of HFpEF, pulmonary hypertension, HTN, HLD, obesity, MILLY on CPAP, DM, endometriosis of the colon, IBS, GERD, fibrocystic breast with yearly mammograms, depression and degenerative disc disease. In the ED she is normotensive and afebrile but in rapid Afib. Dr. Meza initially gave metop 5 IV without effect then spoke with Dr. Arellano who is on for cardiology and he recommended 0.25mg IV digoxin and flecainide 50mg, but only came down to the 130s and then now recommended repeat doses of both meds that are pending. She otherwise reports chest tightness with her palpitations without any shortness of breath, radiation, dizziness, recent fever, chills, congestion, rhinorrhea, recent travel, history of hematemesis, hemoptysis, hematochezia or melena. Workup was notable for WBC 6.2, Hgb 13.9, platelets 205m na 141, K 4.2, Cr 1.11, glucose 120, TSh 1.32, free T4 1.06, troponin 0.06, digoxin level of 1.1, EKG that showed no ST segment changes but Afib with RVR and CXR showed stable cardiomegaly without any infiltrates, effusions or vascular cephalization. She is now being admitted to medicine for persistent Afib with RVR. HOSPITAL COURSE: Patient received 2 extra doses of IV digoxin and received no further medication changes. She was admitted overnight and no medication changes were done as the patient had already converted to simply persistent atrial fibrillation. She was monitored overnight and had no further episodes of rapid ventricular response. Her mink rancher, Dr. Malhotra, was contacted the morning of discharge to see if he felt it may be necessary to do a repeat echocardiogram since she had last had one done just prior to her most recent cardiac ablation on 09/15. Her repeat echo showed a normal ejection fraction some moderate left atrial dilatation and moderate pulmonary hypertension and he did not feel that a repeat would be required as the cold balloon ablation procedure is less likely to cause structural defects in the heart than an electrical ablation would be. She was also feeling short of breath and had been complaining previously about shortness of breath with some exertion a walking test with pulse ox was performed and she only went as low as 91% so she did not qualify for any home O2. As the patient has a history of pulmonary fibrosis, pulmonary hypertension in the setting of A. fib with RVR we suspect that her feelings of shortness of breath were due to this as her chest x-ray was clear without signs of fluid overload and she was euvolemic on exam. Of note, Dr. Malhotra did mention that it was not abnormal for afib to persist up to 6 months s/p ablation. DISCHARGE MEDICATIONS: Please see below. ALLERGIES: Please see below. PHYSICAL EXAMINATION ON DISCHARGE: VITAL SIGNS: see below GENERAL APPEARANCE: NAD HEENT: NCAT, EOMI, MMM CARDIOVASCULAR: Irregularly irregular, tachycardic, no noted murmurs LUNGS: CTAB, without wheezing, rales or rhonchi ABDOMEN: Obese, normoactive sounds, soft, NTND EXTREMITIES: WWP, no LE edema, 2+ DP pulses NEUROLOGICAL: CN3-12 intact, speech is clear, moving all 4 limbs with full strength and full tone. Sensation intact throughout PSYCHIATRIC: Aox3 LABORATORY DATA: Please see below. IMAGIN10/03/2021 chest x-ray: IMPRESSION: 1. Cardiomegaly without congestive heart failure. 2. Chronic elevation of the right hemidiaphragm and thickening of the right horizontal interlobar fissure. No significant change. ACTIVITY: As tolerated. DIET: 2 gram sodium diet DISCHARGE PLAN: Home DISCHARGE INSTRUCTIONS: 1. Please follow-up with primary care physician in the next 7 days 2. Please call the pulmonology office to schedule follow-up to further address exertional dyspnea 3. Please call cardiology office to schedule follow-up. ITEMS TO FOLLOWUP ON ON OUTPATIENT: 1. Sensation of exertional dyspnea DISCHARGE CONDITION: [Stable]. TIME SPENT ON DISCHARGE: 23 minutes. Vital Signs/I&Os Vital Signs Date Time Temp Pulse Resp B/P (MAP) Pulse Ox O2 Delivery O2 Flow Rate FiO2 10/04/21 09:40 91 10/04/21 09:39 114/71 10/04/21 06:00 97.8 18 95 Nasal Cannula 2.0 I&O- Last 24 Hours up to 6 AM 10/04/21 06:00 Intake Total 0 ml Output Total 0 ml Balance 0 ml Laboratory Data Labs 24H Laboratory Tests 2 10/03/21 11:54: Immature Granulocyte % (Auto) 0.5, Neutrophils (%) (Auto) 63.2, Lymphocytes (%) (Auto) 26.8, Monocytes (%) (Auto) 7.6, Eosinophils (%) (Auto) 1.6, Basophils (%) (Auto) 0.3, Neutrophils # (Auto) 3.9, Lymphocytes # (Auto) 1.7, Monocytes # (Auto) 0.5, Eosinophils # (Auto) 0.1, Basophils # (Auto) 0.0, Nucleated Red Blood Cells % (auto) 0.0, Anion Gap 7L, Glomerular Filtration Rate 51.4, Calcium Level 10.2, Phosphorus Level 2.5, Magnesium Level 2.0, Total Creatine Kinase 72, Creatine Kinase MB 2.5, Creatine Kinase MB Relative Index 3.47, Troponin I 0.06, Thyroid Stimulating Hormone (TSH) 1.320, Free Thyroxine 1.06, Digoxin Level 1.1 10/03/21 16:51: Coronavirus (COVID-19)(PCR) NEGATIVE, Influenza Type A (RT-PCR) NEGATIVE, Influenza Type B (RT-PCR) NEGATIVE, Respiratory Syncytial Virus (PCR) NEGATIVE 10/04/21 05:11: Nucleated Red Blood Cells % (auto) 0.0, Anion Gap 7L, Glomerular Filtration Rate 56.1, Calcium Level 10.0, Magnesium Level 2.2 10/04/21 10:24: CBC/BMP Laboratory Tests 10/03/21 11:54 10/04/21 05:11 Discharge Medications Scheduled Apixaban (Eliquis) 5 Mg Tab, 5 MG PO BID, (Reported) 2nd DOSE AT [facility] Atenolol (Atenolol) 25 Mg Tablet, 25 MG PO BID, (Reported) Cholecalciferol (Vitamin D3) (Vitamin D3) 25 Mcg Capsule, 50 MCG PO DAILY, (Reported) Conjugated Estrogens (Premarin) 30 Gm Cream.appl, 1 DOSE PV 3XW, (Reported) MON, WED, FRI Cranberry Fruit (Cranberry) 400 Mg Tablet, 400 MG PO DAILY, (Reported) Digoxin (Digoxin) 250 Mcg Tablet, 250 MCG PO DAILY, (Reported) Flecainide Acetate (Flecainide Acetate) 50 Mg Tablet, 50 MG PO BID, (Reported) Fluticasone Propionate (Flonase Allergy Relief) 9.9 Ml Armbrust.susp, 2 SPRAY NARES DAILY, (Reported) Levocarnitine (l-Carnitine) 500 Mg Tablet, 500 MG PO BID, (Reported) Lifitegrast (Xiidra) 5% Droperette, 1 DROP OU BID, (Reported) Lutein/Zeaxanthin (Lutein-Zeaxanthin 20-1 mg Sfgl) 1 Each Capsule, 1 CAP PO DAILY, (Reported) Lycopene (Lycopene) 10 Mg Capsule, 10 MG PO BID, (Reported) Magnesium (Magnesium) 250 Mg Tablet, 1 TAB PO QPM, (Reported) Multivit-Min/FA/Lycopen/Lutein (Senior Tabs) 1 Each Tablet, 1 TAB PO QPM, (Reported) Pantoprazole Sodium (Pantoprazole Sodium) 40 Mg Tablet.dr, 40 MG PO DAILY, (Reported) Potassium Gluconate (Potassium) 99 Mg Tablet, 99 MG PO DAILY, (Reported) Rosuvastatin Calcium (Rosuvastatin Calcium) 40 Mg Tablet, 40 MG PO QPM, (Reported) Selenomethionine (Selenium) 200 Mcg Tablet, 200 MCG PO DAILY, (Reported) Torsemide (Torsemide) 5 Mg Tab, 5 MG PO DAILY, (Reported) Trazodone HCl (Trazodone HCl) 100 Mg Tablet, 100 MG PO QHS, (Reported) Ubidecarenone (Co Q-10) 200 Mg Capsule, 200 MG PO DAILY, (Reported) Valsartan (Valsartan) 80 Mg Tablet, 80 MG PO QHS, (Reported) Scheduled PRN Acetaminophen (Acetaminophen) 325 Mg Tablet, 325 MG PO Q4H PRN for PAIN OR FEVER, (Reported) Gabapentin (Gabapentin) 300 Mg Cap, 600 MG PO QHS PRN for PAIN, (Reported) Hyoscyamine Sulfate (Hyoscyamine Sulfate ER) 0.375 Mg Tab.er.12h, 0.375 MG PO DAILYPRN PRN for pain, (Reported) Sucralfate (Sucralfate) 1 Gm Tablet, 1 GM PO DAILY PRN for ULCERS, (Reported) Allergies Coded Allergies: Penicillins (Verified Allergy, Mild, RASH, 10/03/21) Sulfa (Sulfonamide Antibiotics) (Verified Allergy, Mild, RASH, 10/03/21) adhesive (Verified Allergy, Mild, RASH, 10/03/21) amoxicillin (Verified Allergy, Mild, rash, 10/03/21) tetracycline (Verified Allergy, Mild, RASH, 10/03/21) cyclobenzaprine (Verified Allergy, Unknown, "MUSCLE RELAXANTS", 10/03/21) tizanidine (Verified Allergy, Unknown, "MUSCLE RELAXANTS", 10/03/21) carvedilol (Verified Adverse Reaction, Intermediate, PALPITATIONS, ) indapamide (Verified Adverse Reaction, Intermediate, PALPITATIONS, 10/03/21) digoxin (Verified Adverse Reaction, Mild, LOWERED HEART RATE, 10/03/21) oxycodone (Verified Adverse Reaction, Mild, GI UPSET, 10/03/21) topiramate (Verified Adverse Reaction, Mild, DEPRESSION, 10/03/21) GME ATTESTATION GME ATTESTATION My faculty preceptor for this patient encounter was physically present during the encounter and was fully available. All aspects of the patient interview, examination, medical decision making process, and medical care plan development were reviewed and approved by the faculty preceptor. The faculty preceptor is aware and concurs with the plan as stated in the body of this note and will attest to such by his/her cosignature. ATTENDING NOTE I personally examined the patient and discussed her hospital course, interval history, findings, lab and imaging findings with the resident team and I agree with the above noted findings, assessment and plan as thoroughly detailed by the resident physician above. Briefly, Ms. Quinteros came in for persistent Afib with RVR and will now be discharged home on her atenolo 25 BID, digoxin 0.25mg, flecainide 50 BID and eliquis 5 BID, with close cardiology follow up and PCP follow up within 1 week. JACKIE GUEVARA DO Oct 04, 2021 10:55 OFE REED MD Oct 05, 2021 10:12
== END 2021-10-04 12:59 | disposition home or self-care (01) ==
LOC: M ED 11:21 → M ED INP 11:22 → ENRESERV 18:57 → M MSPAV 20:12
PROVIDERS: ADMIT Internal Medicine; ATTEND Internal Medicine
DX: I48.20 Chronic atrial fibrillation, unspecified (principal); I50.30 Unspecified diastolic (congestive) heart failure; I27.0 Primary pulmonary hypertension; J84.10 Pulmonary fibrosis, unspecified; E11.9 Type 2 diabetes mellitus without complications; I10 Essential (primary) hypertension; E78.5 Hyperlipidemia, unspecified; E66.9 Obesity, unspecified; G47.33 Obstructive sleep apnea (adult) (pediatric); K58.8 Other irritable bowel syndrome; K21.9 Gastro-esophageal reflux disease without esophagitis; F32.9 Major depressive disorder, single episode, unspecified; Z79.01 Long term (current) use of anticoagulants; Z79.899 Other long term (current) drug therapy; Z88.0 Allergy status to penicillin; Z88.2 Allergy status to sulfonamides; Z88.8 Allergy status to other drugs, medicaments and biological substances; Z88.5 Allergy status to narcotic agent
CPT/HCPCS: 36415; 71045; 80048; 80162; 82550; 82553; 83735; 84100; 84439; 84443; 84484; 85025; 85027; 87631; 93005; 93041; 94760; 96374; 96375; 96376; 97116; 97161; 99285; G0378; J1160

== ENCOUNTER → 2021-11-01 | Outpatient (CLI) | payer MEDICARE, OTHER ==
[~2021-11-01] MED LIST changes: +ATEN25TA PO; +FLEC25TA PO; +ROSU40TA4 PO; +XIID5DRO OU
[2021-11-01 14:35] LABS: BASO % 0.5 % (0.0-1.0); EOS # 0.2 10^3/uL (0.0-0.5); HEMATOCRIT 44.1 % (36.0-47.0); HEMOGLOBIN 14.2 g/dl (12.0-15.5); LYMPH # 1.4 10^3/uL (1.5-5.0); LYMPH % 25.2 % (24.0-44.0); MEAN CORPUSCULAR HEMOGLOBIN 30.1 pg (27.0-33.0); MEAN CORPUSCULAR HGB CONC 32.2 g/dl (32.0-36.5); MEAN CORPUSCULAR VOLUME 93.4 fl (80.0-96.0); MONO # 0.6 10^3/uL (0.0-0.8); MONO % 10.5 % (2.0-8.0); NEUTROPHILS # 3.5 10^3/uL (1.5-8.5); NEUTROPHILS % 60.4 % (36.0-66.0); PLATELET COUNT, AUTOMATED 172 10^3/uL (150-450); RED BLOOD COUNT 4.72 10^6/uL (4.00-5.40); WHITE BLOOD COUNT 5.7 10^3/uL (4.0-10.0)
[2021-11-01 17:42] LABS: ALBUMIN 3.8 GM/DL (3.2-5.2); BILIRUBIN,TOTAL 1.2 MG/DL (0.2-1.0); CALCIUM LEVEL 9.9 MG/DL (8.8-10.2); CREATININE FOR GFR 1.06 MG/DL (0.55-1.30); FREE T4 1.06 NG/DL (0.76-1.46); GLOMERULAR FILTRATION RATE 54.2 (>39); POTASSIUM SERUM 3.9 MEQ/L (3.5-5.1); THYROID STIMULATING HORMONE 1.47 uIU/ML (0.358-3.740); TOTAL PROTEIN 6.4 GM/DL (6.4-8.2)
== END ==
LOC: M PLALAB 10:06
PROVIDERS: ATTEND Physician Assistant Medical
DX: R10.10 Upper abdominal pain, unspecified (principal); R53.83 Other fatigue

== ENCOUNTER → 2021-11-16 | Outpatient (CLI) | payer MEDICARE, OTHER | LOC: M WUC 08:17 | PROVIDERS: ATTEND Physician Assistant | DX: I48.0 Paroxysmal atrial fibrillation (principal); Z79.01 Long term (current) use of anticoagulants ==

== ENCOUNTER → 2021-11-24 | Outpatient (CLI) | payer MEDICARE, OTHER ==
--- NOTE | 2021-11-24 10:32 | REP ---
INDICATION: UPPER ABD PAIN. COMPARISON: 07/12/2011 TECHNIQUE: Real-time sonographic evaluation of the right upper quadrant with Doppler FINDINGS: Multiple ultrasonographic images of the liver shows diffuse increased echos throughout the hepatic parenchyma without evidence of a mass or ductal dilatation. The common bile duct measures approximately 4 mm in its greatest transverse dimension. Images of the pancreatic region show no gross abnormality. The imaged portion of the right kidney is unchanged from the prior exam. IMPRESSION: Status post cholecystectomy. Fatty infiltration of the liver. Accredited by the [employer] in General Ultrasound. <Electronically signed by Jesus Mcmillan > 11/24/21 1024
== END ==
LOC: M RAD 09:49
PROVIDERS: ATTEND Physician Assistant Medical
DX: R10.10 Upper abdominal pain, unspecified (principal)

== ENCOUNTER → 2021-12-27 | Outpatient (CLI) | payer MEDICARE, OTHER ==
[~2021-12-27] MED LIST changes: +E-Z-GAS II EFFERVESCENT PACKET (SODIUM BICARB./CITRIC ACID/SIMETHICONE) As Ordered ONE; +E-Z-HD 98% w/w 340GM SUSP BTL As Ordered ONE; +E-Z-PAQUE 96% w/w SUSP 176GM BTL As Ordered ONE
== END ==
LOC: M RAD 09:10
PROVIDERS: ATTEND Physician Assistant Medical
DX: K21.9 Gastro-esophageal reflux disease without esophagitis (principal); R10.10 Upper abdominal pain, unspecified

== ENCOUNTER → 2022-02-14 | Outpatient (CLI) | payer MEDICARE, OTHER ==
[~2022-02-14] MED LIST changes: -E-Z-GAS II EFFERVESCENT PACKET (SODIUM BICARB./CITRIC ACID/SIMETHICONE) As Ordered ONE; -E-Z-HD 98% w/w 340GM SUSP BTL As Ordered ONE; -E-Z-PAQUE 96% w/w SUSP 176GM BTL As Ordered ONE
[2022-02-14 12:37] LABS: CREATININE FOR GFR 1.02 MG/DL (0.55-1.30); GLOMERULAR FILTRATION RATE 56.7 (>39)
== END ==
LOC: M WUC 10:26
PROVIDERS: ATTEND Physician Assistant Medical
DX: R10.10 Upper abdominal pain, unspecified (principal); R93.3 Abnormal findings on diagnostic imaging of other parts of digestive tract; R63.4 Abnormal weight loss

== ENCOUNTER → 2022-02-23 | Outpatient (CLI) | payer MEDICARE, OTHER ==
[~2022-02-23] MED LIST changes: +GLUCAGON INJ 1MG VIAL As Ordered ONE; +ISOVUE-370 76% 100ML VIAL As Ordered ONE; +NEULUMEX 0.1% SUSPENSION 450ML BOTTLE (FORMERLY VOLUMEN) As Ordered ONE
== END ==
LOC: M RAD 09:04
PROVIDERS: ATTEND Physician Assistant Medical
DX: R63.4 Abnormal weight loss (principal)
CPT/HCPCS: 74177; J1610; Q9967

== ENCOUNTER → 2022-03-21 | Outpatient (CLI) | payer MEDICARE, OTHER ==
[~2022-03-21] MED LIST changes: -GLUCAGON INJ 1MG VIAL As Ordered ONE; -ISOVUE-370 76% 100ML VIAL As Ordered ONE; -NEULUMEX 0.1% SUSPENSION 450ML BOTTLE (FORMERLY VOLUMEN) As Ordered ONE
[2022-03-21 12:55] LABS: HEMOGLOBIN 13.4 g/dl (12.0-15.5); MEAN CORPUSCULAR HEMOGLOBIN 30.5 pg (27.0-33.0); MEAN CORPUSCULAR HGB CONC 31.9 g/dl (32.0-36.5); MEAN CORPUSCULAR VOLUME 95.7 fl (80.0-96.0); PLATELET COUNT, AUTOMATED 191 10^3/uL (150-450); RED BLOOD COUNT 4.39 10^6/uL (4.00-5.40); WHITE BLOOD COUNT 7.7 10^3/uL (4.0-10.0)
[2022-03-21 13:30] LABS: ALBUMIN 3.7 GM/DL (3.2-5.2); ALT/SGPT 36 U/L (12-78); BLOOD UREA NITROGEN 16 MG/DL (7-18); CALCIUM LEVEL 10.3 MG/DL (8.8-10.2); CARBON DIOXIDE LEVEL 31 MEQ/L (21-32); CHLORIDE LEVEL 107 MEQ/L (98-107); CHOLESTEROL LEVEL 123 MG/DL (<200); CHOLESTEROL RISK RATIO 3.843 (<5); GLOMERULAR FILTRATION RATE > 60.0 (>39); GLUCOSE, FASTING 102 MG/DL (70-100); HDL CHOLESTEROL 32 MG/DL (>40); LDL CHOLESTEROL 43 MG/DL (<100); MAGNESIUM LEVEL 2.3 MG/DL (1.8-2.4); NON-HDL-C 91 MG/DL; SODIUM LEVEL 141 MEQ/L (136-145); TOTAL PROTEIN 6.4 GM/DL (6.4-8.2); TRIGLYCERIDES LEVEL 240 MG/DL (<150)
== END ==
LOC: M WUC 09:09
PROVIDERS: ATTEND Physician Assistant
DX: E78.2 Mixed hyperlipidemia (principal); I10 Essential (primary) hypertension; I48.0 Paroxysmal atrial fibrillation

== ENCOUNTER → 2022-03-24 | Outpatient (CLI) | payer MEDICARE, OTHER | LOC: M LABSMTC 09:57 | PROVIDERS: ATTEND Anesthesiology | DX: Z01.818 Encounter for other preprocedural examination (principal); Z11.52 Encounter for screening for COVID-19 ==

== ENCOUNTER 2022-03-29 11:08 | Day surgery (SDC) | payer MEDICARE, OTHER ==
[~2022-03-29] VITALS: Ht 160 cm; Wt 86.2 kg
[~2022-03-29 11:08] MED LIST changes: +NS 1,000 ML IV ONE
[2022-03-29] MEDS ORDERED: propofoL 200 MG/20 ML VIAL As Ordered ONE (12:40)
[2022-03-29] MEDS ORDERED: LIDOCAINE 2% 100MG/5ML SDV (FOR ANES.) As Ordered ONE (12:40)
[2022-03-29] MEDS ORDERED: fentaNYL 100 MCG/2 ML INJECTION As Ordered ONE (12:40)
[2022-03-29 13:39] VITALS: BP 112/54
== END 2022-03-29 13:53 | disposition home or self-care (01) ==
LOC: M OPP 11:08
PROVIDERS: ATTEND Internal Medicine Gastroenterology
DX: K31.7 Polyp of stomach and duodenum (principal); R93.3 Abnormal findings on diagnostic imaging of other parts of digestive tract; Z79.01 Long term (current) use of anticoagulants; Z79.810 Long term (current) use of selective estrogen receptor modulators (SERMs); Z79.899 Other long term (current) drug therapy; Z88.0 Allergy status to penicillin; Z88.1 Allergy status to other antibiotic agents; Z88.2 Allergy status to sulfonamides; Z88.5 Allergy status to narcotic agent; Z88.8 Allergy status to other drugs, medicaments and biological substances; Z91.048 Other nonmedicinal substance allergy status; Z95.818 Presence of other cardiac implants and grafts; Z90.49 Acquired absence of other specified parts of digestive tract
CPT/HCPCS: 43251; 88305; J3010

== ENCOUNTER → 2022-04-08 | Outpatient (CLI) | payer MEDICARE, OTHER ==
[~2022-04-08] MED LIST changes: -NS 1,000 ML IV ONE
== END ==
LOC: M RAD 08:41
PROVIDERS: ATTEND Physician Assistant Medical
DX: R11.0 Nausea (principal); R10.10 Upper abdominal pain, unspecified
CPT/HCPCS: 78264; A9541

== ENCOUNTER → 2022-04-14 | Outpatient (CLI) | payer MEDICARE, OTHER ==
[2022-04-14 13:16] LABS: FREE T4 1.02 NG/DL (0.76-1.46); THYROID STIMULATING HORMONE 1.01 uIU/ML (0.358-3.740)
[2022-04-14 13:35] LABS: HEMOGLOBIN A1c 5.3 %
== END ==
LOC: M WUC 09:35
PROVIDERS: ATTEND Physician Assistant Medical
DX: K31.84 Gastroparesis (principal); Z79.899 Other long term (current) drug therapy

== ENCOUNTER → 2022-06-07 | Outpatient (CLI) | payer MEDICARE, OTHER | LOC: M WUC 08:22 | PROVIDERS: ATTEND Nurse Practitioner Adult Health | DX: M25.511 Pain in right shoulder (principal); M25.551 Pain in right hip; M25.521 Pain in right elbow; W19.XXXA Unspecified fall, initial encounter ==

== ENCOUNTER → 2022-06-22 | Outpatient (REF) | payer MEDICARE, OTHER | LOC: M SFHCPLAZ 10:52 | PROVIDERS: ATTEND Nurse Practitioner Adult Health | DX: E55.9 Vitamin D deficiency, unspecified (principal); E78.5 Hyperlipidemia, unspecified; Z13.1 Encounter for screening for diabetes mellitus ==

== ENCOUNTER → 2022-08-18 | Outpatient (CLI) | payer MEDICARE, OTHER | LOC: M WHC 08:32 | PROVIDERS: ATTEND Nurse Practitioner Family | DX: Z12.31 Encounter for screening mammogram for malignant neoplasm of breast (principal); Z13.820 Encounter for screening for osteoporosis; M85.89 Other specified disorders of bone density and structure, multiple sites ==

== ENCOUNTER → 2022-09-14 | Outpatient (CLI) | payer MEDICARE, OTHER ==
[2022-09-14 12:27] LABS: ALBUMIN 3.7 GM/DL (3.2-5.2); BILIRUBIN,TOTAL 0.8 MG/DL (0.2-1.0); CALCIUM LEVEL 9.9 MG/DL (8.8-10.2); CHOLESTEROL RISK RATIO 2.893 (<5); CREATININE FOR GFR 1.03 MG/DL (0.55-1.30); GLOMERULAR FILTRATION RATE 55.9 (>39); POTASSIUM SERUM 3.9 MEQ/L (3.5-5.1); THYROID STIMULATING HORMONE 1.11 uIU/ML (0.358-3.740); TOTAL PROTEIN 6.4 GM/DL (6.4-8.2)
[2022-09-14 20:16] LABS: TOTAL 25(OH) VITAMIN D 56.2 NG/ML (30.0-100.0)
[2022-09-14 22:18] LABS: HEMOGLOBIN A1c 5.4 %
== END ==
LOC: M WUC 08:39
PROVIDERS: ATTEND Nurse Practitioner Adult Health
DX: Z00.00 Encounter for general adult medical examination without abnormal findings (principal); E55.9 Vitamin D deficiency, unspecified; E78.5 Hyperlipidemia, unspecified; Z79.899 Other long term (current) drug therapy

== ENCOUNTER → 2022-09-14 | Outpatient (CLI) | payer MEDICARE, OTHER ==
[2022-09-14 11:26] LABS: HEMOGLOBIN 13.4 g/dl (12.0-15.5); MEAN CORPUSCULAR HEMOGLOBIN 30.4 pg (27.0-33.0); MEAN CORPUSCULAR HGB CONC 31.9 g/dl (32.0-36.5); MEAN CORPUSCULAR VOLUME 95.2 fl (80.0-96.0); PLATELET COUNT, AUTOMATED 178 10^3/uL (150-450); RED BLOOD COUNT 4.41 10^6/uL (4.00-5.40); WHITE BLOOD COUNT 5.8 10^3/uL (4.0-10.0)
[2022-09-14 12:26] LABS: CREATININE FOR GFR 1.04 MG/DL (0.55-1.30); GLOMERULAR FILTRATION RATE 55.3 (>39); POTASSIUM SERUM 3.9 MEQ/L (3.5-5.1)
[2022-09-14 12:27] LABS: ALBUMIN 3.7 GM/DL (3.2-5.2); BILIRUBIN,TOTAL 0.8 MG/DL (0.2-1.0); CALCIUM LEVEL 10.1 MG/DL (8.8-10.2); CHOLESTEROL RISK RATIO 2.875 (<5); MAGNESIUM LEVEL 2.1 MG/DL (1.8-2.4); TOTAL PROTEIN 6.5 GM/DL (6.4-8.2)
== END ==
LOC: M WUC 08:35
PROVIDERS: ATTEND Physician Assistant
DX: E78.2 Mixed hyperlipidemia (principal); I10 Essential (primary) hypertension

== ENCOUNTER → 2022-12-30 | Outpatient (CLI) | payer MEDICARE, OTHER ==
[2022-12-30 11:53] LABS: HEMATOCRIT 42.7 % (36.0-47.0); HEMOGLOBIN 13.6 g/dl (12.0-15.5); MEAN CORPUSCULAR HEMOGLOBIN 30.4 pg (27.0-33.0); MEAN CORPUSCULAR HGB CONC 31.9 g/dl (32.0-36.5); MEAN CORPUSCULAR VOLUME 95.3 fl (80.0-96.0); PLATELET COUNT, AUTOMATED 186 10^3/uL (150-450); RED BLOOD COUNT 4.48 10^6/uL (4.00-5.40)
[2022-12-30 12:11] LABS: HEMOGLOBIN A1c 5.2 % (4.0-6.0)
[2022-12-30 12:15] LABS: ALT/SGPT 26 U/L (7.0-40); AST/SGOT < 8 U/L (<34); BLOOD UREA NITROGEN 17 MG/DL (9-23); CALCIUM LEVEL 10.5 MG/DL (8.3-10.6); CARBON DIOXIDE LEVEL 30 MMOL/L (20-31); CHLORIDE LEVEL 107 MMOL/L (98-107); CREATININE FOR GFR 1.02 MG/DL (0.55-1.30); GLOMERULAR FILTRATION RATE 56.6 (>39); GLUCOSE, FASTING 84 MG/DL (74-106); POTASSIUM SERUM 4.5 MMOL/L (3.5-5.1); SODIUM LEVEL 142 MMOL/L (136-145)
[2022-12-30 12:16] LABS: ALBUMIN 3.9 G/DL (3.2-5.2); ALKALINE PHOSPHATASE 55 U/L (46-116); CHOLESTEROL LEVEL 133 MG/DL (<200); CHOLESTEROL RISK RATIO 2.69 (<5); HDL CHOLESTEROL 49.3 MG/DL (>40); LDL CHOLESTEROL 60.9 MG/DL (<100); NON-HDL-C 84 MG/DL; TOTAL PROTEIN 6.2 G/DL (5.7-8.2); TRIGLYCERIDES LEVEL 114 MG/DL (<150)
[2022-12-30 12:18] LABS: TOTAL 25(OH) VITAMIN D 49.5 NG/ML (20.0-100.0)
== END ==
LOC: M WUC 10:01
PROVIDERS: ATTEND Nurse Practitioner Adult Health
DX: E78.5 Hyperlipidemia, unspecified (principal); Z13.1 Encounter for screening for diabetes mellitus; E55.9 Vitamin D deficiency, unspecified; I10 Essential (primary) hypertension; I48.91 Unspecified atrial fibrillation; M25.561 Pain in right knee; Z79.899 Other long term (current) drug therapy

== ENCOUNTER → 2023-03-27 | Outpatient (CLI) | payer MEDICARE, OTHER ==
[2023-03-29 12:09] LABS: ANTI DOUBLE STRAND-DNA AB 1 IU/mL (0-9); ANTINUCLEAR ANTIBODIES DIRECT Positive (Negative); RNP ANTIBODIES 0.2 AI (0.0-0.9); SJOGREN'S ANTI SS-A 0.6 AI (0.0-0.9); SJOGREN'S ANTI SS-B >8.0 AI (0.0-0.9); SMITH ANTIBODIES <0.2 AI (0.0-0.9)
== END ==
LOC: M WUC 11:08
PROVIDERS: ATTEND Internal Medicine Critical Care Medicine
DX: I27.20 Pulmonary hypertension, unspecified (principal)

== ENCOUNTER → 2023-04-14 | Outpatient (CLI) | payer MEDICARE, OTHER ==
[2023-04-14 17:22] LABS: BASO % 0.5 % (0.0-1.0); EOS # 0.1 10^3/uL (0.0-0.5); EOS % 1.9 % (0.0-3.0); HEMATOCRIT 43.2 % (36.0-47.0); LYMPH # 1.7 10^3/uL (1.5-5.0); LYMPH % 26.4 % (24.0-44.0); MEAN CORPUSCULAR HEMOGLOBIN 30.8 pg (27.0-33.0); MEAN CORPUSCULAR HGB CONC 32.4 g/dl (32.0-36.5); MEAN CORPUSCULAR VOLUME 94.9 fl (80.0-96.0); MONO # 0.5 10^3/uL (0.0-0.8); MONO % 8.4 % (2.0-8.0); NEUTROPHILS # 3.9 10^3/uL (1.5-8.5); NEUTROPHILS % 62.3 % (36.0-66.0); PLATELET COUNT, AUTOMATED 197 10^3/uL (150-450); RED BLOOD COUNT 4.55 10^6/uL (4.00-5.40); WHITE BLOOD COUNT 6.3 10^3/uL (4.0-10.0)
[2023-04-14 17:37] LABS: ERYTHROCYTE SEDIMENTATION RATE 12 mm/hr (0-30)
[2023-04-14 17:46] LABS: C REACTIVE PROTEIN QUANTITATIV < 0.40 MG/DL (<1.0)
[2023-04-14 17:47] LABS: ALBUMIN 3.9 G/DL (3.2-5.2); ALKALINE PHOSPHATASE 56 U/L (46-116); ALT/SGPT 22 U/L (7.0-40); AST/SGOT 23 U/L (<34); BILIRUBIN,TOTAL 1.1 MG/DL (0.3-1.2); BLOOD UREA NITROGEN 20 MG/DL (9-23); CALCIUM LEVEL 9.8 MG/DL (8.3-10.6); CARBON DIOXIDE LEVEL 28 MMOL/L (20-31); CHLORIDE LEVEL 107 MMOL/L (98-107); GLOMERULAR FILTRATION RATE 51.8 (>39); GLUCOSE, FASTING 89 MG/DL (74-106); POTASSIUM SERUM 4.3 MMOL/L (3.5-5.1); RHEUMATOID FACTOR QUANT 5.4 IU/ML (<14); SODIUM LEVEL 141 MMOL/L (136-145); TOTAL PROTEIN 6.1 G/DL (5.7-8.2)
[2023-04-18 20:07] LABS: ANA (HEP2) Positive (.); CYCLIC CITRULLINATED PEPTIDE 3 units (0-19)
== END ==
LOC: M WUC 11:01
PROVIDERS: ATTEND Internal Medicine Critical Care Medicine
DX: R63.4 Abnormal weight loss (principal)

== ENCOUNTER → 2023-08-04 | Outpatient (CLI) | payer MEDICARE, OTHER ==
[~2023-08-04] MED LIST changes: -ROSU20TA5 PO; +ROSU20TA61 PO
== END ==
LOC: M WHC 09:17
PROVIDERS: ATTEND Nurse Practitioner Family
DX: Z12.31 Encounter for screening mammogram for malignant neoplasm of breast (principal)

== ENCOUNTER → 2023-08-04 | Outpatient (REF) | payer MEDICARE, OTHER | LOC: M SFHCWAGY 13:30 | PROVIDERS: ATTEND Nurse Practitioner Family | DX: Z12.4 Encounter for screening for malignant neoplasm of cervix (principal) ==

== ENCOUNTER → 2023-08-10 | Outpatient (CLI) | payer MEDICARE, OTHER | LOC: M RAD 07:19 | PROVIDERS: ATTEND Physician Assistant Medical | DX: R10.11 Right upper quadrant pain (principal) ==

== ENCOUNTER → 2023-08-10 | Outpatient (CLI) | payer MEDICARE, OTHER ==
[2023-08-10 10:52] LABS: BASO % 0.5 % (0.0-1.0); EOS # 0.1 10^3/uL (0.0-0.5); EOS % 2.5 % (0.0-3.0); HEMATOCRIT 44.9 % (36.0-47.0); HEMOGLOBIN 14.4 g/dl (12.0-15.5); LYMPH # 1.6 10^3/uL (1.5-5.0); LYMPH % 28.8 % (24.0-44.0); MEAN CORPUSCULAR HEMOGLOBIN 29.9 pg (27.0-33.0); MEAN CORPUSCULAR HGB CONC 32.1 g/dl (32.0-36.5); MEAN CORPUSCULAR VOLUME 93.3 fl (80.0-96.0); MONO # 0.5 10^3/uL (0.0-0.8); MONO % 8.7 % (2.0-8.0); NEUTROPHILS # 3.3 10^3/uL (1.5-8.5); PLATELET COUNT, AUTOMATED 189 10^3/uL (150-450); RED BLOOD COUNT 4.81 10^6/uL (4.00-5.40); WHITE BLOOD COUNT 5.5 10^3/uL (4.0-10.0)
[2023-08-10 10:54] LABS: APPEARANCE, URINE HAZY (CLEAR); BACTERIA, URINE AUTO 1+ (NEGATIVE); BILIRUBIN, URINE AUTO NEGATIVE (NEGATIVE); BLOOD, URINE BLOOD NEGATIVE (NEGATIVE); COLOR, URINE YELLOW (YELLOW); GLUCOSE, URINE (UA) AUTO NEGATIVE (NEGATIVE); KETONE, URINE AUTO NEGATIVE (NEGATIVE); LEUKOCYTE ESTERASE, URINE AUTO NEGATIVE (NEGATIVE); MUCUS, URINE SMALL (NEGATIVE); NITRITE, URINE AUTO NEGATIVE (NEGATIVE); PROTEIN, URINE AUTO NEGATIVE (NEGATIVE); RBC, URINE AUTO 0 /HPF (0-3); SPECIFIC GRAVITY URINE AUTO 1.018 (1.002-1.035); SQUAMOUS EPITHELIAL CELL UR AU 10 /HPF (0-6); UROBILINOGEN, URINE AUTO 0.2 mg/dL (0.0-2.0); WBC, URINE AUTO 1 /HPF (0-3)
[2023-08-10 11:04] LABS: ERYTHROCYTE SEDIMENTATION RATE 18 mm/hr (0-30)
[2023-08-10 11:19] LABS: TOTAL PROTEIN,RANDOM URINE 14.1 MG/DL (0.0-14.0)
[2023-08-10 11:22] LABS: LDH LACTATE DEHYDROGENASE 175 U/L (120-246)
[2023-08-10 11:23] LABS: C REACTIVE PROTEIN QUANTITATIV < 0.40 MG/DL (<1.0); CREATININE,RANDOM URINE 119.8 MG/DL
[2023-08-10 11:24] LABS: ALBUMIN 4.1 G/DL (3.2-5.2); ALKALINE PHOSPHATASE 62 U/L (46-116); ALT/SGPT 19 U/L (7.0-40); AST/SGOT 18 U/L (<34); BLOOD UREA NITROGEN 18 MG/DL (9-23); CALCIUM LEVEL 10.3 MG/DL (8.3-10.6); CARBON DIOXIDE LEVEL 32 MMOL/L (20-31); CHLORIDE LEVEL 105 MMOL/L (98-107); CPK CREATINE PHOSPHOKINASE 76 U/L (34-145); CREATININE FOR GFR 0.98 MG/DL (0.55-1.30); GLOMERULAR FILTRATION RATE 59.2 (>39); GLUCOSE, FASTING 86 MG/DL (74-106); SODIUM LEVEL 142 MMOL/L (136-145); TOTAL PROTEIN 6.7 G/DL (5.7-8.2)
[2023-08-10 15:26] LABS: COMPLEMENT C3 149.8 MG/DL (90.0-170.0); COMPLEMENT C4 47.1 MG/DL (12-36)
== END ==
LOC: M WUC 08:19
PROVIDERS: ATTEND Internal Medicine Rheumatology
DX: Z00.00 Encounter for general adult medical examination without abnormal findings (principal); R76.8 Other specified abnormal immunological findings in serum; M25.50 Pain in unspecified joint; I27.20 Pulmonary hypertension, unspecified; M35.00 Sjogren syndrome, unspecified; E78.00 Pure hypercholesterolemia, unspecified; E78.5 Hyperlipidemia, unspecified; E55.9 Vitamin D deficiency, unspecified; I10 Essential (primary) hypertension; R10.11 Right upper quadrant pain; Z79.899 Other long term (current) drug therapy

== ENCOUNTER → 2023-08-10 | Outpatient (CLI) | payer MEDICARE, OTHER ==
[2023-08-10 21:20] LABS: CHOLESTEROL RISK RATIO 2.79 (<5); HDL CHOLESTEROL 42.9 MG/DL (>40); LDL CHOLESTEROL 53.7 MG/DL (<100); NON-HDL-C 77.1 MG/DL
[2023-08-10 21:24] LABS: THYROID STIMULATING HORMONE 2.166 uIU/ML (0.55-4.78)
[2023-08-10 21:25] LABS: TOTAL 25(OH) VITAMIN D 54.6 NG/ML (20.0-100.0)
[2023-08-10 21:31] LABS: HEMOGLOBIN A1c 4.9 % (4.0-6.0)
== END ==
LOC: M WUC 08:16
PROVIDERS: ATTEND Nurse Practitioner Adult Health
DX: E78.5 Hyperlipidemia, unspecified (principal); E55.9 Vitamin D deficiency, unspecified; Z00.00 Encounter for general adult medical examination without abnormal findings; I10 Essential (primary) hypertension

== ENCOUNTER → 2023-09-14 | Outpatient (CLI) | payer MEDICARE, OTHER | LOC: M CARPUL 09:19 | PROVIDERS: ATTEND Internal Medicine Critical Care Medicine | DX: I27.20 Pulmonary hypertension, unspecified (principal) ==

== ENCOUNTER → 2024-02-01 | Outpatient (CLI) | payer MEDICARE, OTHER ==
[2024-02-01 17:01] LABS: HEMATOCRIT 45.6 % (36.0-47.0); HEMOGLOBIN 14.8 g/dl (12.0-15.5); MEAN CORPUSCULAR HEMOGLOBIN 30.6 pg (27.0-33.0); MEAN CORPUSCULAR HGB CONC 32.5 g/dl (32.0-36.5); MEAN CORPUSCULAR VOLUME 94.4 fl (80.0-96.0); PLATELET COUNT, AUTOMATED 208 10^3/uL (150-450); RED BLOOD COUNT 4.83 10^6/uL (4.00-5.40); WHITE BLOOD COUNT 6.8 10^3/uL (4.0-10.0)
[2024-02-01 17:29] LABS: ALBUMIN 4.2 G/DL (3.2-5.2); BILIRUBIN,TOTAL 1.6 MG/DL (0.3-1.2); CALCIUM LEVEL 10.6 MG/DL (8.3-10.6); CHOLESTEROL RISK RATIO 2.87 (<5); CREATININE FOR GFR 1.03 MG/DL (0.55-1.30); FERRITIN 57.3 NG/ML (7.3-270.7); GLOMERULAR FILTRATION RATE 55.8 (>39); HDL CHOLESTEROL 45.6 MG/DL (>40); LDL CHOLESTEROL 57.8 MG/DL (<100); MAGNESIUM LEVEL 2.1 MG/DL (1.8-2.4); NON-HDL-C 85.4 MG/DL; PERCENT SATURATION 32.1 % (13.2-45.0); POTASSIUM SERUM 4.2 MMOL/L (3.5-5.1); TOTAL 25(OH) VITAMIN D 58.2 NG/ML (20.0-100.0); TOTAL PROTEIN 6.8 G/DL (5.7-8.2)
[2024-02-01 17:36] LABS: HEMOGLOBIN A1c 5.4 % (4.0-6.0)
== END ==
LOC: M WUC 11:44
PROVIDERS: ATTEND Nurse Practitioner Adult Health
DX: E78.5 Hyperlipidemia, unspecified (principal); I10 Essential (primary) hypertension; E55.9 Vitamin D deficiency, unspecified; I48.20 Chronic atrial fibrillation, unspecified; Z13.1 Encounter for screening for diabetes mellitus; Z79.899 Other long term (current) drug therapy

== ENCOUNTER → 2024-02-13 | Outpatient (REF) | payer MEDICARE, OTHER ==
[2024-02-13 13:56] LABS: C REACTIVE PROTEIN QUANTITATIV < 0.40 MG/DL (<1.0)
[2024-02-13 13:58] LABS: COMPLEMENT C3 156.3 MG/DL (90.0-170.0); COMPLEMENT C4 42.2 MG/DL (12-36)
== END ==
LOC: M SFHCRHEU 10:38
PROVIDERS: ATTEND Internal Medicine Rheumatology
DX: R76.8 Other specified abnormal immunological findings in serum (principal); M25.50 Pain in unspecified joint; I27.20 Pulmonary hypertension, unspecified; K21.9 Gastro-esophageal reflux disease without esophagitis; M35.01 Sjogren syndrome with keratoconjunctivitis

== ENCOUNTER → 2024-02-14 | Outpatient (REF) | payer MEDICARE, OTHER ==
[2024-02-14 11:17] LABS: APPEARANCE, URINE HAZY (CLEAR); BACTERIA, URINE AUTO 1+ (NEGATIVE); BILIRUBIN, URINE AUTO NEGATIVE (NEGATIVE); BLOOD, URINE BLOOD NEGATIVE (NEGATIVE); COLOR, URINE YELLOW (YELLOW); GLUCOSE, URINE (UA) AUTO NEGATIVE (NEGATIVE); KETONE, URINE AUTO NEGATIVE (NEGATIVE); LEUKOCYTE ESTERASE, URINE AUTO NEGATIVE (NEGATIVE); MUCUS, URINE SMALL (NEGATIVE); NITRITE, URINE AUTO NEGATIVE (NEGATIVE); PROTEIN, URINE AUTO NEGATIVE (NEGATIVE); RBC, URINE AUTO 1 /HPF (0-3); SPECIFIC GRAVITY URINE AUTO 1.012 (1.002-1.035); SQUAMOUS EPITHELIAL CELL UR AU 6 /HPF (0-6); UROBILINOGEN, URINE AUTO 0.2 mg/dL (0.0-2.0); WBC, URINE AUTO 4 /HPF (0-3)
[2024-02-14 11:32] LABS: CREATININE,RANDOM URINE 68.6 MG/DL
[2024-02-14 11:34] LABS: TOTAL PROTEIN,RANDOM URINE < 6.0 MG/DL (0.0-14.0)
== END ==
LOC: M LABWUC 10:17
PROVIDERS: ATTEND Internal Medicine Rheumatology
DX: R76.8 Other specified abnormal immunological findings in serum (principal); M25.50 Pain in unspecified joint; I27.20 Pulmonary hypertension, unspecified; K21.9 Gastro-esophageal reflux disease without esophagitis; M35.00 Sjogren syndrome, unspecified

== ENCOUNTER 2024-03-19 12:03 | Emergency (ER) | payer MEDICARE, OTHER ==
[~2024-03-19] VITALS: Ht 160 cm; Wt 94.4 kg
[2024-03-19] MEDS ORDERED: FENO1TAB41 PO (12:21)
[2024-03-19 13:10] LABS: BASO % 0.2 % (0.0-1.0); EOS # 0.1 10^3/uL (0.0-0.5); EOS % 2.1 % (0.0-3.0); HEMATOCRIT 49.3 % (36.0-47.0); HEMOGLOBIN 16.2 g/dl (12.0-15.5); LYMPH # 0.8 10^3/uL (1.5-5.0); MEAN CORPUSCULAR HEMOGLOBIN 30.4 pg (27.0-33.0); MEAN CORPUSCULAR HGB CONC 32.9 g/dl (32.0-36.5); MEAN CORPUSCULAR VOLUME 92.5 fl (80.0-96.0); MONO # 0.6 10^3/uL (0.0-0.8); MONO % 11.2 % (2.0-8.0); NEUTROPHILS # 4.1 10^3/uL (1.5-8.5); NEUTROPHILS % 72.3 % (36.0-66.0); PLATELET COUNT, AUTOMATED 184 10^3/uL (150-450); RED BLOOD COUNT 5.33 10^6/uL (4.00-5.40); WHITE BLOOD COUNT 5.7 10^3/uL (4.0-10.0)
[2024-03-19 13:33] LABS: ALBUMIN 4.3 G/DL (3.2-5.2); BILIRUBIN,DIRECT 0.5 MG/DL (<0.4); BILIRUBIN,TOTAL 1.3 MG/DL (0.3-1.2)
[2024-03-19] MEDS: NS 1,000 ML IV ONE (15:46)
[2024-03-19] MEDS ORDERED: BENZ200C70 PO (15:52)
[2024-03-19 16:12] VITALS: BP 129/60; TEMP 98.7; O2SAT 98
== END 2024-03-19 16:38 | disposition home or self-care (01) ==
LOC: M ED 12:03
DX: J06.9 Acute upper respiratory infection, unspecified (principal); A08.0 Rotaviral enteritis; B34.8 Other viral infections of unspecified site; Z88.0 Allergy status to penicillin; Z88.1 Allergy status to other antibiotic agents; Z88.2 Allergy status to sulfonamides; Z88.5 Allergy status to narcotic agent; Z88.8 Allergy status to other drugs, medicaments and biological substances; Z79.01 Long term (current) use of anticoagulants; Z79.891 Long term (current) use of opiate analgesic; Z79.810 Long term (current) use of selective estrogen receptor modulators (SERMs); Z79.899 Other long term (current) drug therapy

== ENCOUNTER → 2024-03-28 | Outpatient (CLI) | payer MEDICARE, OTHER ==
[~2024-03-28] MED LIST changes: +BENZ200C70 PO; +FENO1TAB41 PO; -ROSU40TA4 PO; +ROSU40TA63 PO
== END ==
LOC: M PLAIMG 11:54
PROVIDERS: ATTEND Nurse Practitioner Adult Health
DX: M85.88 Other specified disorders of bone density and structure, other site (principal); M51.36 Other intervertebral disc degeneration, lumbar region

== ENCOUNTER → 2024-04-17 | Outpatient (CLI) | payer MEDICARE, OTHER | LOC: M PLAIMG 13:48 | PROVIDERS: ATTEND Nurse Practitioner Adult Health | DX: M47.816 Spondylosis without myelopathy or radiculopathy, lumbar region (principal); M89.38 Hypertrophy of bone, other site ==

== ENCOUNTER → 2024-05-20 | Outpatient (CLI) | payer MEDICARE, OTHER ==
[~2024-05-20] MED LIST changes: +ONDA-282 PO; -ONDA4TAB6 PO
[2024-05-20 19:22] LABS: BASO % 0.3 % (0.0-1.0); EOS # 0.1 10^3/uL (0.0-0.5); EOS % 1.8 % (0.0-3.0); HEMATOCRIT 43.7 % (36.0-47.0); LYMPH # 1.7 10^3/uL (1.5-5.0); LYMPH % 24.6 % (24.0-44.0); MEAN CORPUSCULAR HEMOGLOBIN 30.1 pg (27.0-33.0); MONO # 0.6 10^3/uL (0.0-0.8); NEUTROPHILS # 4.5 10^3/uL (1.5-8.5); NEUTROPHILS % 63.9 % (36.0-66.0); PLATELET COUNT, AUTOMATED 218 10^3/uL (150-450); RED BLOOD COUNT 4.65 10^6/uL (4.00-5.40); WHITE BLOOD COUNT 7.1 10^3/uL (4.0-10.0)
[2024-05-20 20:02] LABS: ALBUMIN 3.8 G/DL (3.2-5.2); CALCIUM LEVEL 10.4 MG/DL (8.3-10.6); CREATININE FOR GFR 1.06 MG/DL (0.55-1.30); GLOMERULAR FILTRATION RATE 53.9 (>39); PHOSPHORUS LEVEL 3.5 MG/DL (2.4-5.1); POTASSIUM SERUM 4.6 MMOL/L (3.5-5.1)
== END ==
LOC: M WUC 14:24
PROVIDERS: ATTEND Internal Medicine Cardiovascular Disease
DX: I48.0 Paroxysmal atrial fibrillation (principal); I34.0 Nonrheumatic mitral (valve) insufficiency; I11.0 Hypertensive heart disease with heart failure; I50.32 Chronic diastolic (congestive) heart failure

== ENCOUNTER → 2024-08-07 | Outpatient (CLI) | payer MEDICARE, OTHER ==
[~2024-08-07] MED LIST changes: -ROSU40TA63 PO; +ROSU40TA81 PO
== END ==
LOC: M WHC 10:00
PROVIDERS: ATTEND Nurse Practitioner Family
DX: Z12.31 Encounter for screening mammogram for malignant neoplasm of breast (principal); R92.313 Mammographic fatty tissue density, bilateral breasts

== ENCOUNTER → 2024-08-14 | Outpatient (REF) | payer MEDICARE, OTHER | LOC: M SFHCPLAZ 12:42 | PROVIDERS: ATTEND Nurse Practitioner Adult Health | DX: R09.81 Nasal congestion (principal) ==

== ENCOUNTER → 2024-08-27 | Outpatient (CLI) | payer MEDICARE, OTHER ==
[~2024-08-27] MED LIST changes: +GABA-1172 PO; -GABA-282 PO; -ROSU20TA61 PO; +ROSU20TA86 PO
[2024-08-27 09:58] LABS: BASO % 0.6 % (0.0-1.0); EOS # 0.2 10^3/uL (0.0-0.5); EOS % 3.1 % (0.0-3.0); HEMATOCRIT 43.4 % (36.0-47.0); LYMPH # 1.8 10^3/uL (1.5-5.0); LYMPH % 27.4 % (24.0-44.0); MEAN CORPUSCULAR HEMOGLOBIN 30.1 pg (27.0-33.0); MEAN CORPUSCULAR HGB CONC 32.3 g/dl (32.0-36.5); MEAN CORPUSCULAR VOLUME 93.3 fl (80.0-96.0); MONO # 0.5 10^3/uL (0.0-0.8); MONO % 8.1 % (2.0-8.0); NEUTROPHILS % 60.5 % (36.0-66.0); PLATELET COUNT, AUTOMATED 191 10^3/uL (150-450); RED BLOOD COUNT 4.65 10^6/uL (4.00-5.40); WHITE BLOOD COUNT 6.5 10^3/uL (4.0-10.0)
[2024-08-27 10:02] LABS: C REACTIVE PROTEIN QUANTITATIV < 0.40 MG/DL (<1.0)
[2024-08-27 10:03] LABS: IMMUNOGLOBULIN A 124.4 MG/DL (40-350)
[2024-08-27 10:04] LABS: ALBUMIN 4.1 G/DL (3.2-5.2); ALKALINE PHOSPHATASE 58 U/L (46-116); ALT/SGPT 15 U/L (7.0-40); AST/SGOT 13 U/L (<34); BLOOD UREA NITROGEN 22 MG/DL (9-23); CALCIUM LEVEL 10.9 MG/DL (8.3-10.6); CARBON DIOXIDE LEVEL 31 MMOL/L (20-31); CHLORIDE LEVEL 106 MMOL/L (98-107); CREATININE FOR GFR 0.94 MG/DL (0.55-1.30); GLOMERULAR FILTRATION RATE > 60.0 (>39); GLUCOSE, FASTING 88 MG/DL (74-106); IMMUNOGLOBULIN G 680 MG/DL (650-1600); POTASSIUM SERUM 4.1 MMOL/L (3.5-5.1); SODIUM LEVEL 139 MMOL/L (136-145); TOTAL PROTEIN 6.9 G/DL (5.7-8.2)
[2024-08-27 10:07] LABS: AMORPHOUS SEDIMENT MODERATE (NEGATIVE); APPEARANCE, URINE TURBID (CLEAR); BACTERIA, URINE AUTO 2+ (NEGATIVE); BILIRUBIN, URINE AUTO NEGATIVE (NEGATIVE); BLOOD, URINE BLOOD NEGATIVE (NEGATIVE); COLOR, URINE YELLOW (YELLOW); GLUCOSE, URINE (UA) AUTO NEGATIVE (NEGATIVE); KETONE, URINE AUTO NEGATIVE (NEGATIVE); LEUKOCYTE ESTERASE, URINE AUTO NEGATIVE (NEGATIVE); MUCUS, URINE MODERATE (NEGATIVE); NITRITE, URINE AUTO NEGATIVE (NEGATIVE); PROTEIN, URINE AUTO NEGATIVE (NEGATIVE); RBC, URINE AUTO 0 /HPF (0-3); SPECIFIC GRAVITY URINE AUTO 1.013 (1.002-1.035); SQUAMOUS EPITHELIAL CELL UR AU 6 /HPF (0-6); UROBILINOGEN, URINE AUTO 0.2 mg/dL (0.0-2.0); WBC, URINE AUTO 14 /HPF (0-3)
[2024-08-27 10:10] LABS: ERYTHROCYTE SEDIMENTATION RATE 19 mm/hr (0-30); TOTAL PROTEIN,RANDOM URINE 15.4 MG/DL (0.0-14.0)
[2024-08-27 10:15] LABS: CREATININE,RANDOM URINE 64.5 MG/DL
[2024-08-28 16:56] LABS: CRYOGLOBULINS NEGATIVE (NEGATIVE)
[2024-08-29 06:42] LABS: PROTEIN, TOTAL SO 6.7 g/dL (6.1-8.1)
== END ==
LOC: M WUC 08:20
PROVIDERS: ATTEND Internal Medicine Rheumatology
DX: M35.01 Sjogren syndrome with keratoconjunctivitis (principal); R76.8 Other specified abnormal immunological findings in serum; M25.50 Pain in unspecified joint; I27.20 Pulmonary hypertension, unspecified; K21.9 Gastro-esophageal reflux disease without esophagitis; I48.20 Chronic atrial fibrillation, unspecified; E78.5 Hyperlipidemia, unspecified; Z13.1 Encounter for screening for diabetes mellitus

== ENCOUNTER → 2024-08-27 | Outpatient (CLI) | payer MEDICARE, OTHER ==
[2024-08-27 10:28] LABS: CHOLESTEROL RISK RATIO 3.02 (<5); HDL CHOLESTEROL 48.2 MG/DL (>40); LDL CHOLESTEROL 67.8 MG/DL (<100); NON-HDL-C 97.8 MG/DL
[2024-08-27 10:59] LABS: HEMOGLOBIN A1c 5.3 % (4.0-6.0)
== END ==
LOC: M WUC 08:23
PROVIDERS: ATTEND Nurse Practitioner Adult Health
DX: E78.5 Hyperlipidemia, unspecified (principal); Z13.1 Encounter for screening for diabetes mellitus

== ENCOUNTER → 2024-11-04 | Outpatient (CLI) | payer MEDICARE, OTHER ==
[~2024-11-04] MED LIST changes: +HYOS0.3723 PO; -HYOS0.374 PO
[2024-11-04 09:29] LABS: CREATININE FOR GFR 0.97 MG/DL (0.55-1.30); GLOMERULAR FILTRATION RATE 59.6 (>39)
== END ==
LOC: M RAD 08:06
PROVIDERS: ATTEND Physician Assistant
DX: M54.50 Low back pain, unspecified (principal); M43.16 Spondylolisthesis, lumbar region; M47.896 Other spondylosis, lumbar region
CPT/HCPCS: 36415; 78306; 82565; 84520; A9503

== ENCOUNTER → 2024-12-02 | Outpatient (CLI) | payer MEDICARE, OTHER ==
[~2024-12-02] MED LIST changes: +CALCTAB89 PO; +ESTR0.1C5; +REST0.05 OP
== END ==
LOC: M RAD 15:12
PROVIDERS: ATTEND Specialist
DX: N28.1 Cyst of kidney, acquired (principal)

== ENCOUNTER → 2025-01-07 | Outpatient (CLI) | payer MEDICARE, OTHER ==
[~2025-01-07] MED LIST changes: +LIDOCAINE 1% MDV 20ML VIAL As Ordered ONE
[2025-01-07 12:11] VITALS: TEMP 97.7
[2025-01-07 12:51] LABS: BASO % 0.3 % (0.0-1.0); EOS # 0.1 10^3/uL (0.0-0.5); HEMATOCRIT 45.9 % (36.0-47.0); HEMOGLOBIN 14.7 g/dl (12.0-15.5); LYMPH # 1.5 10^3/uL (1.5-5.0); LYMPH % 21.1 % (24.0-44.0); MEAN CORPUSCULAR HEMOGLOBIN 30.2 pg (27.0-33.0); MEAN CORPUSCULAR VOLUME 94.3 fl (80.0-96.0); MONO # 0.5 10^3/uL (0.0-0.8); MONO % 7.6 % (2.0-8.0); NEUTROPHILS # 4.8 10^3/uL (1.5-8.5); NEUTROPHILS % 68.4 % (36.0-66.0); PLATELET COUNT, AUTOMATED 196 10^3/uL (150-450); RED BLOOD COUNT 4.87 10^6/uL (4.00-5.40)
[2025-01-07 13:39] VITALS: BP 163/74; O2SAT 97
== END ==
LOC: M IRPRO 12:04
PROVIDERS: ATTEND Specialist
DX: C90.00 Multiple myeloma not having achieved remission (principal)

== ENCOUNTER → 2025-01-10 | Outpatient (CLI) | payer MEDICARE, OTHER ==
[~2025-01-10] MED LIST changes: -LIDOCAINE 1% MDV 20ML VIAL As Ordered ONE
== END ==
LOC: M CARPUL 10:11
PROVIDERS: ATTEND Registered Nurse
DX: I27.20 Pulmonary hypertension, unspecified (principal); I31.39 Other pericardial effusion (noninflammatory); I08.0 Rheumatic disorders of both mitral and aortic valves; R00.1 Bradycardia, unspecified

== ENCOUNTER → 2025-02-10 | Outpatient (REF) | payer MEDICARE, OTHER | LOC: M SFHCRHEU 14:40 | PROVIDERS: ATTEND Internal Medicine Rheumatology | DX: M35.01 Sjogren syndrome with keratoconjunctivitis (principal); R76.8 Other specified abnormal immunological findings in serum; M25.50 Pain in unspecified joint; I27.20 Pulmonary hypertension, unspecified; K21.9 Gastro-esophageal reflux disease without esophagitis; Z53.9 Procedure and treatment not carried out, unspecified reason ==

== ENCOUNTER → 2025-02-11 | Outpatient (REF) | payer MEDICARE, OTHER ==
[2025-02-11 18:34] LABS: CHOLESTEROL RISK RATIO 2.72 (<5); HDL CHOLESTEROL 47.3 MG/DL (>40); LDL CHOLESTEROL 56.7 MG/DL (<100); NON-HDL-C 81.7 MG/DL
[2025-02-11 18:36] LABS: TOTAL 25(OH) VITAMIN D 75.6 NG/ML (20.0-100.0)
== END ==
LOC: M SFHCPLAZ 11:45
PROVIDERS: ATTEND Nurse Practitioner Adult Health
DX: Z13.1 Encounter for screening for diabetes mellitus (principal); E78.5 Hyperlipidemia, unspecified; E55.9 Vitamin D deficiency, unspecified

== ENCOUNTER 2025-05-20 15:59 | Emergency (ER) | payer MEDICARE, OTHER ==
[~2025-05-20] VITALS: Ht 160 cm; Wt 92.8 kg
[~2025-05-20 15:59] MED LIST changes: -FENO1TAB41 PO; +FENO40TA4 PO; -L-CA500T PO; +L-CA500T6 PO; +LIFI1DRO4 OU; -PRAV40TA2; -PRAV40TA2 PO; +PRAV40TA85; +PRAV40TA85 PO; -XIID5DRO OU
[2025-05-20] MEDS: PANTOPRAZOLE 40MG VIAL IV ONE (16:59)
[2025-05-20] MEDS: SUCRALFATE SUSP 1GM/10ML UD PO ONE (16:59)
[2025-05-20 17:01] LABS: BASO # 0.0 10^3/uL (0.0-0.2); BASO % 0.5 % (0.0-1.0); EOS # 0.1 10^3/uL (0.0-0.5); EOS % 1.4 % (0.0-3.0); LYMPH # 1.9 10^3/uL (1.5-5.0); LYMPH % 23.9 % (24.0-44.0); MONO # 0.9 10^3/uL (0.0-0.8); MONO % 10.8 % (2.0-8.0); NEUTROPHILS # 5.1 10^3/uL (1.5-8.5); NEUTROPHILS % 63.0 % (36.0-66.0); PLATELET COUNT, AUTOMATED 219 10^3/uL (150-450)
[2025-05-20 17:34] LABS: ALT/SGPT 23.0 U/L (7.0-40); AST/SGOT 27.0 U/L (<34); CALCIUM LEVEL 10.8 MG/DL (8.3-10.6); CARBON DIOXIDE LEVEL 27.0 MMOL/L (20-31); CHLORIDE LEVEL 104.0 MMOL/L (98-107); CREATININE FOR GFR 0.98 MG/DL (0.55-1.30); GLOMERULAR FILTRATION RATE 60.2 (>39); POTASSIUM SERUM 3.9 MMOL/L (3.5-5.1); SODIUM LEVEL 142.0 MMOL/L (136-145)
[2025-05-20] MEDS ORDERED: ISOVUE-370 76% 100 ML VIAL As Ordered ONE (17:56)
[2025-05-20 21:57] VITALS: BP 161/81; TEMP 98.5; O2SAT 99
== END 2025-05-20 21:59 | disposition home or self-care (01) ==
LOC: M ED 15:59
DX: K21.9 Gastro-esophageal reflux disease without esophagitis (principal); K52.9 Noninfective gastroenteritis and colitis, unspecified; I51.7 Cardiomegaly; K57.30 Diverticulosis of large intestine without perforation or abscess without bleeding; I10 Essential (primary) hypertension; E78.5 Hyperlipidemia, unspecified; Z86.79 Personal history of other diseases of the circulatory system; Z79.01 Long term (current) use of anticoagulants; Z88.0 Allergy status to penicillin; Z88.2 Allergy status to sulfonamides; Z88.1 Allergy status to other antibiotic agents; Z88.5 Allergy status to narcotic agent; Z88.8 Allergy status to other drugs, medicaments and biological substances; Z79.1 Long term (current) use of non-steroidal anti-inflammatories (NSAID); Z79.899 Other long term (current) drug therapy
CPT/HCPCS: 74177; 80048; 80076; 83690; 85025; 93005; 96374; 99284; J2470; J2765; Q9967

== ENCOUNTER → 2025-08-08 | Outpatient (CLI) | payer MEDICARE, OTHER | LOC: M WHC 09:30 | PROVIDERS: ATTEND Obstetrics & Gynecology | DX: Z12.31 Encounter for screening mammogram for malignant neoplasm of breast (principal) ==

== ENCOUNTER → 2025-08-22 | Outpatient (CLI) | payer MEDICARE, OTHER ==
[2025-08-22 14:45] LABS: CREATININE FOR GFR 1.03 MG/DL (0.55-1.30); GLOMERULAR FILTRATION RATE 56.7 (>39)
== END ==
LOC: M WUC 09:01
PROVIDERS: ATTEND Internal Medicine Gastroenterology
DX: K58.1 Irritable bowel syndrome with constipation (principal)

== ENCOUNTER → 2025-09-03 | Outpatient (CLI) | payer MEDICARE, OTHER ==
[~2025-09-03] MED LIST changes: +ISOVUE-370 76% 100 ML VIAL As Ordered ONE
== END ==
LOC: M RAD 09:49
PROVIDERS: ATTEND Internal Medicine Gastroenterology
DX: R93.3 Abnormal findings on diagnostic imaging of other parts of digestive tract (principal); K50.018 Crohn's disease of small intestine with other complication
CPT/HCPCS: 74177; Q9967

== ENCOUNTER → 2025-10-03 | Outpatient (CLI) | payer MEDICARE, OTHER ==
[~2025-10-03] MED LIST changes: -ISOVUE-370 76% 100 ML VIAL As Ordered ONE
[2025-10-03 15:30] LABS: CREATININE FOR GFR 1.14 MG/DL (0.55-1.30); GLOMERULAR FILTRATION RATE 49.9 (>39)
== END ==
LOC: M WUC 11:30
PROVIDERS: ATTEND Internal Medicine Gastroenterology
DX: R93.3 Abnormal findings on diagnostic imaging of other parts of digestive tract (principal)

== ENCOUNTER → 2025-10-10 | Outpatient (CLI) | payer MEDICARE, OTHER ==
[~2025-10-10] MED LIST changes: +ISOVUE-370 76% 100 ML VIAL As Ordered ONE
== END ==
LOC: M RAD 10:08
PROVIDERS: ATTEND Nurse Practitioner Family
DX: N89.9 Noninflammatory disorder of vagina, unspecified (principal)
CPT/HCPCS: 74178; Q9967